=== PATIENT | male | born 1945 | race Hispanic/Latino ===

== ENCOUNTER 2021-03-07 06:34 | Day surgery (SDC) | payer MEDICARE ==
[2021-03-07] MEDS ORDERED: SODIUM CHLORIDE 0.9% 500 ML 500 ML IV SCH (08:00)
[2021-03-07 08:01] LABS: Hematocrit 44.9 % (35.5-45.6); Hemoglobin 15.6 gm/dl (11.8-15.2); Mean Corpuscular HGB Conc 35 % (32-34); Mean Corpuscular Volume 91 fl (84-94); Platelet Count 281 K/mm3 (140-440); Red Blood Count 4.93 M/mm3 (3.65-5.03); Red Cell Distribution Width 14.2 % (13.2-15.2)
[2021-03-07 08:12] LABS: INR 1.02 (0.87-1.13); Partial Thromboplastin Time 24.7 Sec. (24.2-36.6)
[2021-03-07] MEDS ORDERED: HEPARIN 10,000 UNITS/10 ML VIAL ONE (08:14)
[2021-03-07] MEDS ORDERED: HEPARIN/NS 5000 UNIT/500ML 1,000 ML IR ONE (08:14)
[2021-03-07] MEDS ORDERED: LIDOCAINE (2%) 20 MG/1 ML VIAL 20 ML MDV INFILTRATI ONE (08:15)
[2021-03-07] MEDS ORDERED: LIDOCAINE 1%/EPINEPHRINE 1:100,000 VIAL (20 ML) INFILTRATI ONE (08:16)
[2021-03-07] MEDS ORDERED: ceFAZolin/Water 2 GM/20 ML 2 GM/20 ML SYRINGE IV ONE (08:16)
[2021-03-07 08:25] LABS: Calcium 9.7 mg/dL (8.4-10.2)
[2021-03-07] MEDS ORDERED: ONDANSETRON 4 MG/2 ML INJ ONE ×2 (09:31→11:16)
[2021-03-07] MEDS: fentaNYL 100 MCG/2 ML INJ ONE ×5 (09:37→10:49)
[2021-03-07] MEDS: MIDAZOLAM 2 MG/2 ML INJ ONE ×4 (09:37→10:49)
[2021-03-07] MEDS ORDERED: VERAPAMIL 5 MG/2 ML INJ ONE (09:59)
[2021-03-07] MEDS ORDERED: NITROGLYCERIN SYRINGE 0 ML ONE (10:00)
[2021-03-07] MEDS ORDERED: MIDAZOLAM 2 MG/2 ML INJ ONE (10:03)
[2021-03-07] MEDS ORDERED: diphenhydrAMINE 50 MG/ML VIAL ONE (10:38)
[2021-03-07] MEDS ORDERED: ASPIRIN 81 MG TAB CHEW ONE (11:06)
[2021-03-07] MEDS ORDERED: CLOPIDOGREL 75 MG TAB ONE (11:06)
[2021-03-07] MEDS ORDERED: ALUM-MAG HYDROXIDE-SIMETHICONE 200-200-20MG/5ML ORAL LIQD 30 ML ONE (11:16)
--- NOTE | 2021-03-07 11:44 | Short Stay Summary ---
Short Stay Documentation Date of service: 03/07/21 Narrative H&P: 75-year-old male who presents with intermittent claudication status post diagnostic angiogram demonstrating severe bilateral arterial disease of the lower extremities. Plan for endovascular revascularization of the right lower extremity. Risks, benefits, and alternatives discussed. - History Principal diagnosis: Intermittent claudication of the bilateral lower extremities H&P: obtained from office - Allergies and Medications Current Medications: Allergies bee pollen Allergy (Verified 03/07/21 08:11) Swelling Home Medications Medication Instructions Recorded Confirmed Last Taken Type Atorvastatin [Lipitor Tab] 80 mg PO DAILY 03/07/21 03/07/21 03/06/21 History 80 mg Clopidogrel [Plavix] 75 mg PO QDAY 03/07/21 03/07/21 03/06/21 History 75 mg Fenofibrate 160 mg PO DAILY 03/07/21 03/07/21 03/06/21 History 160 mg Insulin Degludec [Tresiba 50 unit SQ DAILY 03/07/21 03/07/21 03/06/21 History Flextouch U-200] 50 units Losartan [Cozaar] 100 mg PO QDAY 03/07/21 03/07/21 03/06/21 History 100 mg Metoprolol [Lopressor] 100 mg PO DAILY 03/07/21 03/07/21 03/06/21 History 100 mg Quetiapine Fumarate [SEROquel] 50 mg PO DAILY 03/07/21 03/07/21 03/06/21 History 50 mg Semaglutide [Ozempic] 1 mg SQ 1XW 03/07/21 03/07/21 03/03/21 History 1 mg Tamsulosin [Flomax] 0.4 mg PO QDAY 03/07/21 03/07/21 03/06/21 History 0.4 mg Active Medications Sodium Chloride (Nacl 0.9% 500 Ml) 500 mls @ 50 mls/hr IV DIRECT FARRAH - Physical exam General appearance: no acute distress Lungs: Normal air movement Gastrointestinal: obese Extremities: no ischemia, no pulses intact, normal temperature, normal color - Brief post op/procedure progress note Date of procedure: 03/07/21 Pre-op diagnosis: Intermittent claudication of the lower extremities Post-op diagnosis: same Procedure: 1. Ultrasound-guided access of the left common femoral artery. 2. Angiography of the left lower extremity. 3. Selection of the abdominal aorta with angiography. 4. Selection of the right external iliac artery, common femoral artery, and superficial femoral artery with angiography of the right lower extremity. 5. Shockwave angioplasty of the right distal external iliac artery and distal common femoral artery and proximal common femoral artery with a 6 mm x 60 mm angioplasty balloon 6. Angioplasty of the right distal external iliac artery with a 6 mm x 150 mm iNPACT balloon 7. Angioplasty of the right distal common femoral artery and proximal superficial femoral artery with a 6 mm x 150 mm iNPACT balloon 8. Closure of the left common femoral artery with a 6 Upper Sorbian Angio-Seal Anesthesia: local (With conscious sedation) Surgeon: GEORGES RIDDLE Estimated blood loss: minimal Condition: stable - Hospital course Hospital course: Patient tolerated the procedure well. No immediate postprocedural complications. - Disposition Condition at discharge: Stable Disposition: [id number]-01 TO HOME OR SELFCARE - Discharge Diagnoses (1) Intermittent claudication of both lower extremities due to atherosclerosis Status: Acute (2) CAD (coronary artery disease) Status: Acute Short Stay Discharge Plan Activity: advance as tolerated (do not lift more than 10 lbs for 1 week) Weight Bearing Status: Weight Bear as Tolerated Diet: other (cardiac) Wound: keep clean and dry Additional Instructions: follow up with Primary Medical Doctor in 1 week, return to Emergency Room for m edical emergencies. Follow up with: PRIMARY CAREMD [Primary Care Provider] - 7 Days Forms: Post Arteriogram Instruct Prescriptions: cilostazoL [Pletal] 100 mg PO BID #60 tablet
--- NOTE | 2021-03-07 11:44 | Operative Report ---
Operative Report Operative Report: EXAM: 1. Ultrasound-guided access of the left common femoral artery. 2. Angiography of the left lower extremity. 3. Selection of the abdominal aorta with angiography. 4. Selection of the right external iliac artery, common femoral artery, and superficial femoral artery with angiography of the right lower extremity. 5. Shockwave angioplasty of the right distal external iliac artery and distal common femoral artery and proximal common femoral artery with a 6 mm x 60 mm angioplasty balloon 6. Angioplasty of the right distal external iliac artery with a 6 mm x 150 mm iNPACT balloon 7. Angioplasty of the right distal common femoral artery and proximal superficial femoral artery with a 6 mm x 150 mm iNPACT balloon 8. Closure of the left common femoral artery with a 6 Slovenian Angio-Seal DATE: 03/07/2021 TECHNOLOGY LEAD: GEORGES RIDDLE MD INDICATION: Severe worsening short distance claudication of the lower extremities. MEDICATIONS: Please see nursing report for full details. DEVICES: 6 mm x 150 mm iNPACT balloon 6 mm x 60 mm shockwave angioplasty balloon CONTRAST: Please see petroleum laboratory technician report PROCEDURE: The risks, benefits, and alternatives were discussed with the patient; written informed consent was obtained. The patient was brought to the angiography suite and the groins were prepped and draped in sterile fashion. The left common femoral artery was assessed with ultrasound was patent. Under direct ultrasound guidance, the left common femoral artery was accessed with a 21-gauge micropuncture needle. 0.018 inch wire was passed into the left iliac artery. Needle was exchanged for transitional dilator. Wire was exchanged for a 0.035 inch wire. Transitional dilator was exchanged for 5 Slovenian sheath. Digital subtraction angiography was performed demonstrating patency of the left common femoral artery, left profunda femoral artery, and occlusion of the entirety of the left superficial femoral artery. Catheter and wire were used to negotiate through the left iliac system which was quite tortuous and aneurysmal to the aorta. 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 The left internal iliac artery was patent. 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 The right proximal external iliac artery was tortuous with the distal portion of the vessel having a focal 80% narrowing. The right internal iliac artery was patent. The infrarenal abdominal aortic was patent. The right common femoral artery had degeneration and possibly changes secondary to prior endarterectomy. The right proximal profunda femoral artery was patent for the first few centimeters and then had a 90% narrowing. The distal right common femoral artery had a 70% narrowing. The right proximal superficial femoral artery had a 50% narrowing. The right mid superficial femoral artery had multiple areas of eccentric narrowing with a 80% narrowing and subsequent occlusion of the distal superficial femoral artery. Before the occlusion there was a collateral arising from the superficial femoral artery which had a 90% narrowing associated with it. There is occlusion of the hnjqi-efu-bjmu popliteal artery. There is late reconstitution of the mid popliteal artery. The proximal posterior tibial and peroneal vessel were visualized and patent. Patient was heparinized sheath was placed in the right external iliac artery and the wire and catheter were used to select the right superficial femoral artery. 7 mm spider embolic protection device was deployed. 6 mm x 60 mm shockwave ang ioplasty device was then used to perform angioplasty of the distal common femoral artery and proximal superficial femoral artery, and distal external iliac artery. Afterwards, the embolic protection device was retrieved and exchanged for a 0.035 inch wire. A 6 mm x 150 mm iNPACT balloon was then used to perform angioplasty of the proximal superficial femoral artery, distal common femoral artery, and distal external iliac artery. Digital subtraction angiography was performed demonstrating less than 10% residual narrowing of the distal external iliac artery and proximal superficial femoral artery and 30% residual narrowing of the distal common femoral artery. At this time, digital subtraction angiography was performed demonstrating no change in runoff. All wires, catheters, and sheaths were removed and 6 Slovenian Angio-Seal was used to close the left femoral arteriotomy. Patient tolerated the procedure well. No immediate postprocedural complications. FINDINGS: Please see procedure note above IMPRESSION: Successful angioplasty of the right external iliac artery. Successful angioplasty of the right common femoral artery and proximal superficial femoral artery.
[2021-03-07] MEDS ORDERED: CILOSTAZOL 100 MG TAB PO SCH (15:00)
[2021-03-07 15:30] VITALS: BP 113/68
== END 2021-03-07 06:35 | disposition home or self-care (01) ==
LOC: CATHLABREC 06:34
PROVIDERS: ATTEND Radiology Diagnostic Radiology
DX: I70.213 Atherosclerosis of native arteries of extremities with intermittent claudication, bilateral legs (principal); E11.51 Type 2 diabetes mellitus with diabetic peripheral angiopathy without gangrene; I10 Essential (primary) hypertension; I25.10 Atherosclerotic heart disease of native coronary artery without angina pectoris; G47.30 Sleep apnea, unspecified; E78.5 Hyperlipidemia, unspecified; I25.2 Old myocardial infarction; Z79.899 Other long term (current) drug therapy; Z98.890 Other specified postprocedural states
CPT/HCPCS: 36415; 37220; 37224; 75625; 75716; 76937; 80048; 82962; 85027; 85610; 85730; 99156; 99157; C1725; C1751; C1760; C1769; C1884; C1887; C2623; J0690; J1200; J1644; J2250; J2405; J3010; J7040; 37222; Q9967

== ENCOUNTER 2021-04-24 06:10 | Day surgery (SDC) | payer MEDICARE ==
[2021-04-24 07:56] LABS: Basophils # (Auto) 0.1 K/mm3 (0.0-0.1); Basophils % (Auto) 0.6 % (0.0-1.8); Eosinophils # (Auto) 0.3 K/mm3 (0.0-0.4); Eosinophils % (Auto) 3.2 % (0.0-4.3); Hematocrit 46.8 % (35.5-45.6); Hemoglobin 15.9 gm/dl (11.8-15.2); Lymphocytes # (Auto) 2.2 K/mm3 (1.2-5.4); Lymphocytes % (Auto) 24.1 % (13.4-35.0); Mean Corpuscular HGB Conc 34 % (32-34); Mean Corpuscular Volume 91 fl (84-94); Monocytes # (Auto) 0.8 K/mm3 (0.0-0.8); Platelet Count 262 K/mm3 (140-440); Red Blood Count 5.12 M/mm3 (3.65-5.03); Red Cell Distribution Width 13.4 % (13.2-15.2)
[2021-04-24] MEDS ORDERED: SODIUM CHLORIDE 0.9% 500 ML 500 ML IV SCH (08:00)
[2021-04-24 08:07] LABS: INR 0.94 (0.87-1.13)
[2021-04-24 08:08] LABS: Partial Thromboplastin Time 27.8 Sec. (24.2-36.6)
[2021-04-24 08:09] LABS: Calcium 9.9 mg/dL (8.4-10.2)
[2021-04-24] MEDS ORDERED: HEPARIN/NS 5000 UNIT/500ML 1,000 ML IR ONE ×2 (08:55→11:50)
[2021-04-24] MEDS ORDERED: LIDOCAINE 1%/EPINEPHRINE 1:100,000 VIAL (20 ML) INFILTRATI ONE (08:56)
[2021-04-24] MEDS ORDERED: ONDANSETRON 4 MG/2 ML INJ ONE ×2 (09:07→14:59)
[2021-04-24] MEDS: MIDAZOLAM 2 MG/2 ML INJ ONE ×6 (10:40→12:05)
[2021-04-24] MEDS: fentaNYL 100 MCG/2 ML INJ ONE ×6 (10:41→12:05)
[2021-04-24] MEDS: HEPARIN 10,000 UNITS/10 ML VIAL ONE ×4 (11:04→12:48)
[2021-04-24] MEDS: SODIUM CHLORIDE 0.9% 500 ML 500 ML ONE ×2 (11:30→12:48)
[2021-04-24] MEDS ORDERED: MIDAZOLAM 2 MG/2 ML INJ ONE (12:16)
[2021-04-24] MEDS ORDERED: fentaNYL 100 MCG/2 ML INJ ONE (12:17)
[2021-04-24] MEDS ORDERED: NITROGLYCERIN SYRINGE 0 ML ONE (12:28)
[2021-04-24] MEDS ORDERED: NITROGLYCERIN SYRINGE 6 ML ONE (12:29)
[2021-04-24] MEDS ORDERED: SODIUM CHLORIDE 0.9% 500 ML 500 ML ONE (12:36)
[2021-04-24] MEDS ORDERED: CLOPIDOGREL 75 MG TAB ONE (13:08)
[2021-04-24] MEDS ORDERED: ASPIRIN 81 MG TAB CHEW ONE (13:09)
[2021-04-24] MEDS ORDERED: ONDANSETRON 4 MG/2 ML INJ IV ONE (15:01)
[2021-04-24] MEDS ORDERED: NITROGLYCERIN 2% OINT 1 GM TP NR (15:04)
[2021-04-24] MEDS ORDERED: METOCLOPRAMIDE 10 MG/2 ML INJ IV ONE (15:06)
--- NOTE | 2021-04-24 15:16 | Short Stay Summary ---
Short Stay Documentation Date of service: 04/24/21 Narrative H&P: 75-year-old male who presents with intermittent claudication status post diagnostic angiogram demonstrating severe bilateral arterial disease of the lower extremities. Plan for endovascular revascularization of the right lower extremity. Risks, benefits, and alternatives discussed. - History Principal diagnosis: Intermittent claudication H&P: obtained from office - Allergies and Medications Current Medications: Allergies bee pollen Allergy (Verified 03/07/21 08:11) Swelling Home Medications Medication Instructions Recorded Confirmed Last Taken Type Atorvastatin [Lipitor Tab] 80 mg PO DAILY 03/07/21 04/24/21 04/23/21 History 80 mg Clopidogrel [Plavix] 75 mg PO QDAY 03/07/21 04/24/21 04/23/21 History 75 mg Fenofibrate 160 mg PO DAILY 03/07/21 04/24/21 04/23/21 History 160 mg Insulin Degludec [Tresiba 50 unit SQ DAILY 03/07/21 04/24/21 04/23/21 History Flextouch U-200] 50 units Losartan [Cozaar] 100 mg PO QDAY 03/07/21 04/24/21 04/23/21 History 100 mg Metoprolol [Lopressor] 100 mg PO DAILY 03/07/21 04/24/21 04/23/21 History 100 mg Quetiapine Fumarate [SEROquel] 50 mg PO DAILY 03/07/21 04/24/21 04/23/21 History 50 mg Semaglutide [Ozempic] 1 mg SQ 1XW 03/07/21 04/24/21 04/16/21 History 1 mg Tamsulosin [Flomax] 0.4 mg PO QDAY 03/07/21 04/24/21 04/23/21 History 0.4mg cilostazoL [Pletal] 100 mg PO BID #60 tablet 03/07/21 04/24/21 04/23/21 Rx 100 mg Aspirin EC [Halfprin EC] 81 mg PO DAILY 04/24/21 04/24/21 04/22/21 History 81 mg Active Medications Sodium Chloride (Nacl 0.9% 500 Ml) 500 mls @ 50 mls/hr IV DIRECT FARRAH Last Admin: 04/24/21 08:28 Dose: 50 mls/hr Documented by: - Physical exam General appearance: no acute distress Lungs: Normal air movement Gastrointestinal: normal Extremities: no pulses intact, normal temperature, normal color - Brief post op/procedure progress note Date of procedure: 04/24/21 Pre-op diagnosis: Intermittent claudication of the right lower extremity Post-op diagnosis: same Procedure: 1. Ultrasound-guided access of the right common femoral artery, antegrade. 2. Selection of the right superficial femoral artery with angiography of the right lower extremity. 3. 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 4. Selection of the right tibioperoneal trunk and peroneal artery with angiography. 5. Fluoroscopic guided placement of a 7 mm spider embolic protection device. 6. Atherectomy of the right proximal, mid, and distal superficial femoral artery with a Mobile System 7kone M device 7. Primary thrombectomy of the right popliteal artery and tibioperoneal trunk with a CAT 6 penumbra device 8. Angioplasty of the right tibioperoneal trunk, popliteal artery, and entire superficial femoral artery with a 4 mm x 220 mm angioplasty balloon 9. Angioplasty of the right tibioperoneal trunk with a 5 mm x 80 mm iNPACT balloon 10. Angioplasty of the popliteal artery and entire superficial femoral artery with a 6 mm x 220 mm angioplasty balloon 11. Fluoroscopic guided removal of the embolic protection device 12. Angioplasty of the right popliteal artery and superficial femoral artery with a 6 mm x 150 mm iNPACT balloon and 6 mm x 200 mm iNPACT balloon. Anesthesia: local (With conscious sedation) Surgeon: GEORGES RIDDLE Estimated blood loss: minimal Condition: stable - Hospital course Hospital course: Patient tolerated the procedure well. No immediate postprocedural complication. Patient had some nausea after procedure treated by Lisa. Doing well. Discharged 4 hours post procedure. - Disposition Condition at discharge: Stable Disposition: DC-01 TO HOME OR SELFCARE - Discharge Diagnoses (1) CAD (coronary artery disease) Status: Acute (2) Intermittent claudication of both lower extremities due to atherosclerosis Status: Acute (3) CKD (chronic kidney disease) Status: Acute Short Stay Discharge Plan Activity: advance as tolerated (Do not lift more than 10 pounds for 1 week.) Weight Bearing Status: Weight Bear as Tolerated (Do not lift more than 10 pounds for 1 week.) Diet: regular Wound: keep clean and dry (Remove pressure dressing on 04/25/2021 in AM) Follow up with: CHADWICK SANDERS PA [Primary Care Provider] - 7 Days
--- NOTE | 2021-04-24 15:18 | Operative Report ---
Operative Report Operative Report: EXAM: 1. Ultrasound-guided access of the right common femoral artery, antegrade. 2. Selection of the right superficial femoral artery with angiography of the right lower extremity. 3. 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 4. Selection of the right tibioperoneal trunk and peroneal artery with angiography. 5. Fluoroscopic guided placement of a 7 mm spider embolic protection device. 6. Atherectomy of the right proximal, mid, and distal superficial femoral artery with a Hawkone M device 7. Primary thrombectomy of the right popliteal artery and tibioperoneal trunk with a CAT 6 thrombectomy device 8. Angioplasty of the right tibioperoneal trunk, popliteal artery, and entire superficial femoral artery with a 4 mm x 220 mm angioplasty balloon 9. Angioplasty of the right tibioperoneal trunk with a 5 mm x 80 mm iNPACT balloon 10. Angioplasty of the popliteal artery and entire superficial femoral artery with a 6 mm x 220 mm angioplasty balloon 11. Fluoroscopic guided removal of the embolic protection device 12. Angioplasty of the right popliteal artery and superficial femoral artery with a 6 mm x 150 mm iNPACT balloon and 6 mm x 200 mm iNPACT balloon. 13. Stenting of the right [id number]-pvhi popliteal artery with a 7 mm x 40 mm ever flex stent and postdilatation with a 6 mm x 40 mm angioplasty balloon DATE: 04/24/2021 RN FAMILY: GEORGES RIDDLE MD INDICATION: Intermittent claudication of the right lower extremity MEDICATIONS: Please see nursing report for full details. DEVICES: Hawkone M device 7 mm spider EPD 4 mm x 220 mm angioplasty balloon 5 mm x 80 mm iNPACT balloon 6 mm x 150 mm iNPACT balloon 6 mm x 200 mm iNPACT balloon 6 mm x 40 mm angioplasty balloon 6 mm x 220 mm angioplasty balloon CAT-6 thrombectomy device 7 mm x 40 mm Everflex stent CONTRAST: Please see Analyst Programmer report for full details PROCEDURE: The risks, benefits, and alternatives were discussed with the patient; written informed consent was obtained. The groins were prepped and draped in sterile fashion in the right leg and foot was prepped and draped in a sterile fashion. Ultrasound was used to identify the right common femoral artery which was aneurysmal. Under direct ultrasound guidance, the right common femoral artery was accessed with a 21-gauge micropuncture needle and antegrade direction. 0.018 inch wire was passed into the superficial femoral artery. Needle was exchanged for transitional dilator. Wire was exchanged for a 0.035 inch wire. Transitional dilator was exchanged for 5 Ugandan sheath. Digital subtraction angiography was performed demonstrating After the first centimeter of the profunda femoral artery, there is a high-grade profunda artery stenosis of 80 to 90%. The proximal superficial femoral artery has a 70 to 90% tandem stenosis. The mid superficial femoral artery has a multifocal 50% narrowing. The distal superficial femoral artery has 80 to 90% multifocal narrowings. The above-knee popliteal artery and mid knee and popliteal artery are occluded. The below the knee popliteal artery is patent. There is a large collateral arising from the distalmost superficial femoral artery which is 90% stenotic at the origin. The runoff consists of an occluded anterior tibial artery, and a ostial narrowing of the tibioperoneal trunk with 60% stenosis. The posterior tibial artery has retrograde flow based on positioning of the catheter but other than the 95% ostial stenosis, the rest of the vessel is patent. Pedal flow is from the posterior tibial artery and some collaterals from the peroneal vessel. Patient was heparinized. Sheath was exchanged for a 6 Ugandan standard sheath. Wire and catheter were used in the past to the distal superficial femoral artery. Additional wires and catheters were used and negotiated through the chronic total occlusion and the popliteal artery was crossed. Digital subtraction angiography was performed confirming position in the popliteal artery and demonstrating the above-mentioned runoff. 7 mm spider embolic protection device was then deployed in the right peroneal artery. Due to the way the wire passed through the above-knee popliteal artery, there was concern that there is an ectatic portion of the vessel and I believe that there was some thrombotic component of the popliteal artery. CAT 6 thrombectomy device was advanced over the wire and used to perform thrombectomy of the popliteal artery which partially improved some of the flow. Afterwards, HawTethisne M atherectomy device was used to perform atherectomy of the right proximal, mid, and distal superficial femoral artery until there was 30 percent residual narrowing of these areas. I then predilated the tibioperoneal trunk, popliteal artery, and entire superficial femoral artery with a 4 mm x 220 mm angioplasty balloon. 5 mm x 80 mm iNPACT balloon was then used to perform angioplasty of the right tibioperoneal trunk. I then predilated the popliteal artery and superficial femoral artery with a 6 mm x 220 mm angioplasty balloon, and subsequently a 6 mm x 150 mm iNPACT balloon was used to perform angioplasty of the popliteal artery and distal superficial femoral artery, and subsequently a 6 mm x 200 mm iNPACT balloon was used to perform angioplasty of the right proximal and mid superficial femoral artery. In order to advance the iNPACT balloons, I then had to retrieve the embolic protection device which had some debris within it. This was replaced with a 0.035 inch Glidewire advantage. Digital subtraction angiography was performed demonstrating less than 20 percent residual narrowing of the right superficial femoral artery and less than 10 percent residual narrowing of the popliteal artery except for a focal area of the above-knee popliteal artery which appears dissected with flow-limiting dissection. 7 mm x 40 mm ever flex stent was then deployed in the right [id number] popliteal artery which was then postdilated with a 6 mm x 40 mm angioplasty balloon. Digital subtraction angiography demonstrated no residual narrowing of the stented segment. The popliteal artery now had less than 10 percent residual narrowing. The tibioperoneal trunk was difficult to visualize and I was concerned there may have been a small amount of thrombus that embolized to this area versus overlyi ng calcification. Thrombectomy was then performed of the tibioperoneal trunk with a CAT 6 device. Digital subtraction angiography was then performed in multiple directions demonstrating less than 10 to 20 percent residual narrowing of the tibioperoneal trunk. There is no embolization to the peroneal artery. There is now prompt flow to the calf. No change with distal runoff. At this point, all wires, and catheters were removed. ACT was checked and was appropriate for removal. Sheath was removed and pressure was held until hemostasis was achieved. Sterile dressing and pressure dressing applied. FINDINGS: Please see procedure note above IMPRESSION: 1. Successful angioplasty of the right tibioperoneal trunk. 2. Successful angioplasty, atherectomy, and stenting of the right superficial femoral artery and popliteal artery. 3. Successful primary thrombectomy of the right popliteal artery and tibioperoneal trunk.
[2021-04-24 17:13] VITALS: BP 111/63
== END 2021-04-24 18:14 | disposition home or self-care (01) ==
LOC: CATHLABREC 06:10
PROVIDERS: ATTEND Radiology Diagnostic Radiology
DX: I70.211 Atherosclerosis of native arteries of extremities with intermittent claudication, right leg (principal); E11.51 Type 2 diabetes mellitus with diabetic peripheral angiopathy without gangrene; I12.9 Hypertensive chronic kidney disease with stage 1 through stage 4 chronic kidney disease, or unspecified chronic kidney disease; E11.22 Type 2 diabetes mellitus with diabetic chronic kidney disease; N18.9 Chronic kidney disease, unspecified; E78.00 Pure hypercholesterolemia, unspecified; I25.10 Atherosclerotic heart disease of native coronary artery without angina pectoris; G47.30 Sleep apnea, unspecified; M19.90 Unspecified osteoarthritis, unspecified site; Z91.030 Bee allergy status; Z79.899 Other long term (current) drug therapy; Z79.4 Long term (current) use of insulin; Z79.82 Long term (current) use of aspirin; Z95.1 Presence of aortocoronary bypass graft; Z98.890 Other specified postprocedural states
CPT/HCPCS: 36415; 37184; 37227; 37228; 76937; 80048; 85025; 85610; 85730; 99156; 99157; C1714; C1725; C1769; C1876; C1884; C1887; C1894; C2623; J1644; J2250; J2405; J2765; J3010; J7040; 96374; 96375; Q9967

== ENCOUNTER 2021-08-14 08:28 | Inpatient (IN) | payer MEDICARE ==
[2021-08-14] MEDS ORDERED: SODIUM CHLORIDE 0.9% 1000 ML 1,000 ML IV SCH ×2 (09:15→22:00)
[2021-08-14 10:02] LABS: Basophils % (Auto) 0.5 % (0.0-1.8); Eosinophils # (Auto) 0.3 K/mm3 (0.0-0.4); Eosinophils % (Auto) 3.8 % (0.0-4.3); Hematocrit 42.7 % (35.5-45.6); Hemoglobin 14.8 gm/dl (11.8-15.2); Lymphocytes # (Auto) 1.9 K/mm3 (1.2-5.4); Mean Corpuscular HGB Conc 35 % (32-34); Mean Corpuscular Volume 90 fl (84-94); Monocytes # (Auto) 0.7 K/mm3 (0.0-0.8); Monocytes % (Auto) 9.6 % (0.0-7.3); Platelet Count 277 K/mm3 (140-440); Red Blood Count 4.73 M/mm3 (3.65-5.03); Red Cell Distribution Width 14.2 % (13.2-15.2)
[2021-08-14 10:18] LABS: Calcium 9.3 mg/dL (8.4-10.2)
[2021-08-14 10:20] LABS: INR 1.12 (0.87-1.13); Partial Thromboplastin Time 26.4 Sec. (24.2-36.6)
[2021-08-14] MEDS ORDERED: ALTEPLASE 2 MG INJ ONE ×4 (10:24→13:53)
[2021-08-14] MEDS ORDERED: HEPARIN/NS 5000 UNIT/500ML 1,000 ML IR ONE ×2 (10:25→15:11)
[2021-08-14] MEDS ORDERED: SODIUM CHLORIDE 0.9% 1000 ML 0 ML ONE (10:28)
[2021-08-14] MEDS ORDERED: HEPARIN/ 0.45% NACL DRIP 0 UNIT/0 ML BAG ONE (10:33)
[2021-08-14] MEDS ORDERED: ceFAZolin/Water 2 GM/20 ML 2 GM/20 ML SYRINGE IV ONE (10:42)
[2021-08-14] MEDS ORDERED: WATER FOR INJ Sterile (PF) 10 ML ONE ×2 (10:46→12:52)
--- NOTE | 2021-08-14 11:14 | Short Stay Summary ---
Short Stay Documentation Date of service: 08/14/21 Narrative H&P: 76-year-old male who presents with acute limb ischemia Moiz 2A for 2 weeks for thrombolysis. - History Principal diagnosis: acute limb ischemia H&P: obtained from office - Allergies and Medications Current Medications: Allergies bee pollen Allergy (Verified 03/07/21 08:11) Swelling Home Medications Medication Instructions Recorded Confirmed Last Taken Type Atorvastatin [Lipitor Tab] 80 mg PO DAILY 03/07/21 08/14/21 08/13/21 History Clopidogrel [Plavix] 75 mg PO QDAY 03/07/21 08/14/21 08/14/21 History Fenofibrate 160 mg PO DAILY 03/07/21 08/14/21 08/14/21 History Insulin Degludec [Tresiba 50 unit SQ DAILY 03/07/21 08/14/21 08/13/21 History Flextouch U-200] Losartan [Cozaar] 100 mg PO QDAY 03/07/21 08/14/21 08/14/21 History Metoprolol [Lopressor] 100 mg PO DAILY 03/07/21 08/14/21 08/14/21 History Quetiapine Fumarate [SEROquel] 50 mg PO DAILY 03/07/21 08/14/21 08/13/21 History Semaglutide [Ozempic] 1 mg SQ 1XW 03/07/21 08/14/21 08/13/21 History Tamsulosin [Flomax] 0.4 mg PO QDAY 03/07/21 08/14/21 08/13/21 History Aspirin EC [Halfprin EC] 81 mg PO DAILY 04/24/21 08/14/21 08/13/21 History Cetirizine HCl [Zyrtec 10mg tab] 10 mg PO DAILY 08/14/21 08/14/21 08/13/21 History Active Medications Sodium Chloride (Nacl 0.9% 1000 Ml) 1,000 mls @ 42 mls/hr IV DIRECT FARRAH - Physical exam General appearance: severe distress (Right leg pain) Lungs: Normal air movement Gastrointestinal: normal Extremities: abnormal (Cool right foot, numbness of forefoot, can move toes) - Hospital course Hospital course: 1. Ultrasound-guided access of the right common femoral artery, antegrade, with attempted selection of the right superficial femoral artery. 2. Angiography of the right lower extremity. 3. Selection of the left common femoral artery with angiography of the left lower extremity. 4. Selection of the abdominal aorta with angiography. 5. Selection of the right external iliac artery, and common femoral artery with angiography. 6. Percutaneous mechanical thrombectomy of the right common femoral artery with 6 Azeri guide and CAT 7 penumbra indigo device 7. Angioplasty of the right profunda femoral artery with a 5 mm by 60 mm shockwave device and stenting with a 6 mm x 40 mm ever flex stent. 8. Angioplasty of the right common femoral artery with a 6 mm x 40 mm angioplas ty balloon. 9. Repeat CAT 7 penumbra indigo aspiration thrombectomy of the right common femoral artery and profunda femoral artery multiple times. 10. Removal of both sheaths with plan for operative treatment. 11. Ultrasound-guided access of the right internal jugular vein with placement of a 15 cm triple-lumen catheter After endovascular procedure, patient required emergency open surgery which is described in a separate area. - Disposition Disposition: 01 HOME / SELF CARE / HOMELESS - Discharge Diagnoses (1) Rest pain of right lower extremity concurrent with and due to atherosclerosis of bypass graft Status: Acute Short Stay Discharge Plan Follow up with: CHADWICK SANDERS PA [Primary Care Provider] - 7 Days
[2021-08-14] MEDS ORDERED: ONDANSETRON 4 MG/2 ML INJ ONE ×3 (11:18→21:31)
[2021-08-14] MEDS ORDERED: HYDROcodone/ACETAMINOPHEN 7.5-325MG TAB PO PRN (11:30)
[2021-08-14] MEDS ORDERED: ACETAMINOPHEN 325 MG TAB PO PRN ×2 (11:30→22:00)
[2021-08-14] MEDS: fentaNYL 100 MCG/2 ML INJ ONE ×2 (11:33→12:01)
[2021-08-14] MEDS: MIDAZOLAM 2 MG/2 ML INJ ONE ×2 (11:33→12:01)
[2021-08-14] MEDS: LIDOCAINE (2%) 20 MG/1 ML VIAL 20 ML MDV INFILTRATI ONE ×2 (11:36→12:24)
[2021-08-14] MEDS ORDERED: ONDANSETRON 4 MG/2 ML INJ IV PRN ×3 (12:00→22:00)
[2021-08-14] MEDS ORDERED: HYDROcodone/ACETAMINOPHEN 5-325 MG TAB PO PRN (12:00)
[2021-08-14] MEDS: HEPARIN 10,000 UNITS/10 ML VIAL ONE ×2 (12:05→12:35)
[2021-08-14] MEDS ORDERED: MIDAZOLAM 2 MG/2 ML INJ ONE ×2 (12:30→13:12)
[2021-08-14] MEDS ORDERED: fentaNYL 100 MCG/2 ML INJ ONE ×2 (12:30→13:13)
[2021-08-14] MEDS ORDERED: HEPARIN/NS 5000 UNIT/500ML 500 ML IR ONE ×2 (12:54→13:20)
[2021-08-14] MEDS ORDERED: ALTEPLASE 2 MG INJ IV ONE (13:09)
[2021-08-14] MEDS ORDERED: MIDAZOLAM 2 MG/2 ML INJ IV ONE (13:14)
[2021-08-14] MEDS ORDERED: fentaNYL 100 MCG/2 ML INJ IV ONE (13:15)
[2021-08-14] MEDS ORDERED: HEPARIN 10,000 UNITS/10 ML VIAL ONE ×3 (14:08→17:15)
[2021-08-14] MEDS ORDERED: SODIUM CHLORIDE 0.9% 1000 ML 1,000 ML ONE ×4 (14:27→20:50)
[2021-08-14] MEDS ORDERED: LIDOCAINE (2%) 20 MG/1 ML VIAL 20 ML MDV INFILTRATI ONE (15:11)
[2021-08-14] MEDS ORDERED: NITROGLYCERIN SYRINGE 3 ML ONE (15:11)
[2021-08-14] MEDS ORDERED: VERAPAMIL 5 MG/2 ML INJ ONE (15:11)
[2021-08-14] MEDS ORDERED: PHENYLEPHRINE/NS 1,000 MCG/10 ML SYRINGE (OR USE) IV ONE ×3 (15:19→16:33)
--- NOTE | 2021-08-14 16:39 | Post Operative Note ---
Date of procedure: 08/14/21 Pre-op diagnosis: critical limb ischemia Post-op diagnosis: same Findings: Occluded right superficial femoral artery, and popliteal artery with thrombus in the right common femoral artery. Percutaneous thrombectomy performed but was only partially successful and ultimately resulted in reocclusion. Procedure: 1. Ultrasound-guided access of the right common femoral artery, antegrade, with attempted selection of the right superficial femoral artery. 2. Angiography of the right lower extremity. 3. Selection of the left common femoral artery with angiography of the left lower extremity. 4. Selection of the abdominal aorta with angiography. 5. Selection of the right external iliac artery, and common femoral artery with angiography. 6. Percutaneous mechanical thrombectomy of the right common femoral artery with 6 Estonian guide and CAT 7 penumbra indigo device 7. Angioplasty of the right profunda femoral artery with a 5 mm by 60 mm shockwave device and stenting with a 6 mm x 40 mm ever flex stent. 8. Angioplasty of the right common femoral artery with a 6 mm x 40 mm angioplasty balloon. 9. Repeat CAT 7 penumbra indigo aspiration thrombectomy of the right common femoral artery and profunda femoral artery multiple times. 10. Removal of both sheaths with plan for operative treatment. 11. Ultrasound-guided access of the right internal jugular vein with placement of a 15 cm triple-lumen catheter Anesthesia: local (With conscious sedation) Surgeon: GEORGES RIDDLE Estimated blood loss: other (750 mL blood loss from penumbra device) Condition: stable Disposition: other (to OR)
[2021-08-14] MEDS ORDERED: HYDROmorphone 1 MG/1 ML INJ ONE (16:50)
[2021-08-14] MEDS ORDERED: ETOMIDATE 20 MG/10 ML INJ IV ONE (16:52)
[2021-08-14] MEDS ORDERED: LIDOCAINE MPF (2%) 20 MG/1 ML VIAL 5 ML ONE (16:53)
[2021-08-14 17:06] LABS: Hematocrit 37.9 % (35.5-45.6); Hemoglobin 12.8 gm/dl (11.8-15.2)
--- NOTE | 2021-08-14 17:06 | XRay Report ---
CHEST 1 VIEW 08/14/2021 4:40 PM INDICATION / CLINICAL INFORMATION: central line placement. COMPARISON: None available. FINDINGS: SUPPORT DEVICES: A right internal jugular CVL terminates over the distal SVC. HEART / MEDIASTINUM: Normal size of the cardiac silhouette with sternotomy changes. There is moderate aortic atherosclerosis. LUNGS / PLEURA: The left hemidiaphragm is elevated with probable left basilar atelectasis. No other s ignificant pulmonary abnormality. No significant pleural effusion. No pneumothorax. ADDITIONAL FINDINGS: No significant additional findings. IMPRESSION: 1. Expected positioning of a right internal jugular CVL. 2. Probable left basilar atelectasis. Signer Name: Andrea Man MD Signed: 08/14/2021 5:02 PM Workstation Name: [id number]
[2021-08-14] MEDS ORDERED: rifAMPin 600 MG VIAL ONE (17:16)
[2021-08-14] MEDS ORDERED: SODIUM CHLORIDE 0.9% 250ML 0 ML ONE (17:17)
[2021-08-14] MEDS ORDERED: BUPIVACAINE/PF (0.5%) 5 MG/1 ML 30 ML VIAL INFILTRATI ONE ×4 (17:17→21:04)
[2021-08-14] MEDS ORDERED: ROCURONIUM 50 MG/5 ML INJ IV ONE ×2 (18:01→19:36)
[2021-08-14] MEDS ORDERED: ceFAZolin 1 GM VIAL ONE ×2 (18:22)
--- NOTE | 2021-08-14 18:36 | Anesthesia Consultation ---
Anesthesia Consult and Med Hx Date of service: 08/14/21 - Airway Anesthetic Teeth Evaluation: Poor ROM Head & Neck: Adequate Mental/Hyoid Distance: Inadequate Mallampati Class: Class III Intubation Access Assessment: Possibly Difficult - Pre-Operative Health Status ASA Pre-Surgery Classification: ASA3, Emergency Proposed Anesthetic Plan: General - Pulmonary Hx Smoking: Yes Hx Respiratory Symptoms: No Hx Sleep Apnea: Yes - Cardiovascular System Hx Hypertension: Yes Hx Coronary Artery Disease: Yes (remote hx CABG) Hx Heart Attack/AMI: Yes (remote hx; EF 30% per manufacturing automation engineer) Hx Cardia Arrhythmia: No Hx Peripheral Vascular Disease: Yes (w/ acute limb ischemia) - Central Nervous System CVA: No - Endocrine Hx Renal Disease: Yes Hx Liver Disease: No Hx Insulin Dependent Diabetes: Yes Hx Thyroid Disease: No - Hematic Hx Anemia: No - Other Systems Hx Obesity: Yes (BMI 36) - Additional Comments Anesthesia Medical History Comments: Patient w/ acute limb inschemia s/p unsuccessful revascularization in optical laboratory manager now scheduled for emergent bypass in OR. Patient received IV sedation in optical laboratory manager so anesthetic plan discussed with and consent obtained from Hien Cornejo (daughter/NOK). Plan GETA, CVC previously placed by IR, post op ICU admission.
[2021-08-14] MEDS ORDERED: HYDROmorphone 1 MG/1 ML INJ IV PRN (18:40)
--- NOTE | 2021-08-14 18:40 | Anesthesia Day of Surgery ---
Anesthesia Day of Surgery - Day of Surgery Patient Examined: Yes Patient H&P Reviewed: Yes Patient is NPO: Yes
[2021-08-14] MEDS ORDERED: ePHEDrine SULFATE 50 MG/1 ML INJ ONE (18:46)
[2021-08-14] MEDS ORDERED: PHENYLEPHRINE 10 MG/1 ML INJ SDV ONE ×2 (18:50→20:50)
[2021-08-14] MEDS ORDERED: HEPARIN 10,000 UNITS/10 ML VIAL IR ONE (18:54)
[2021-08-14] MEDS ORDERED: SODIUM CHLORIDE 0.9% 1000 ML IV SOLN IR ONE (18:55)
[2021-08-14] MEDS ORDERED: SODIUM CHLORIDE 0.9% IRR 1,500 ML BOTTLE IR ONE (18:55)
--- NOTE | 2021-08-14 19:03 | History and Physical Report ---
History of Present Illness Date of examination: 08/14/21 Date of admission: 08/14/21 11:19 Chief complaint: Ischemic right lower extremity History of present illness: 76-year-old male with past medical history of diabetes, coronary artery disease, hyperlipidemia, hypertension, PVD, sleep apnea, chronic renal insufficiency and hypercholesterolemia who is status post myocardial infarction in the past and bypass in 1985 and cholecystectomy who has underwent endovascular revascularization by Dr. Dukes and was then set up for endovascular revascularization by myself which was successfully performed approximately 3 months ago. The patient now presents with 2 weeks of acute limb ischemia with [place] 2A which has been stable for the last 2 weeks. He has forefoot numbness, but has full motor function of his toes, and has rest pain. Earlier today the patient underwent attempted endovascular revascularization. Unfortunately, the patient's symptoms persist and he will require emergent bypass as his aneurysmal right common femoral artery occluded. Plan for right common femoral artery resection and replacement and femoral tibioperoneal trunk bypass. Risks, benefits, and alternatives discussed with patient and his daughter, consent was obtained. Past History Past Medical History: acute [place], CAD, diabetes, hypertension, hyperlipidemia, PVD Past Surgical History: cholecystectomy, CABG Social history: smoking Family history: no significant family history Medications and Allergies Allergies Allergy/AdvReac Type Severity Reaction Status Date / Time bee pollen Allergy Swelling Verified 03/07/21 08:11 Home Medications Medication Instructions Recorded Confirmed Last Taken Type Atorvastatin [Lipitor Tab] 80 mg PO DAILY 03/07/21 08/14/21 08/13/21 History Clopidogrel [Plavix] 75 mg PO QDAY 03/07/21 08/14/21 08/14/21 History Fenofibrate 160 mg PO DAILY 03/07/21 08/14/21 08/14/21 History Insulin Degludec [Tresiba 50 unit SQ DAILY 03/07/21 08/14/21 08/13/21 History Flextouch [id number]] Losartan [Cozaar] 100 mg PO QDAY 03/07/21 08/14/21 08/14/21 History Metoprolol [Lopressor] 100 mg PO DAILY 03/07/21 08/14/21 08/14/21 History Quetiapine Fumarate [SEROquel] 50 mg PO DAILY 03/07/21 08/14/21 08/13/21 History Semaglutide [Ozempic] 1 mg SQ 1XW 03/07/21 08/14/21 08/13/21 History Tamsulosin [Flomax] 0.4 mg PO QDAY 03/07/21 08/14/21 08/13/21 History Aspirin EC [Halfprin EC] 81 mg PO DAILY 04/24/21 08/14/21 08/13/21 History Cetirizine HCl [Zyrtec 10mg tab] 10 mg PO DAILY 08/14/21 08/14/21 08/13/21 History Active Meds: Active Medications Acetaminophen (Acetaminophen 325 Mg Tab) 650 mg PO Q4H PRN PRN Reason: Pain MILD(1-3)/Fever >100.5/ALICIA Hydrocodone Bitart/Acetaminophen (Hydrocodone/Acetaminophen 5-325 Mg Tab) 1 each PO Q6H PRN PRN Reason: Pain, Moderate (4-6) Hydrocodone Bitart/Acetaminophen (Hydrocodone/Acetaminophen 7.5-325mg Tab) 1 each PO Q4H PRN PRN Reason: Pain , Severe (7-10) Hydromorphone HCl (Hydromorphone 1 Mg/1 Ml Inj) 0.5 mg IV Q10MIN PRN PRN Reason: Pain , Severe (7-10) Sodium Chloride (Nacl 0.9% 1000 Ml) 1,000 mls @ 42 mls/hr IV DIRECT FARRAH Ondansetron HCl (Ondansetron 4 Mg/2 Ml Inj) 4 mg IV Q8H PRN PRN Reason: Nausea And Vomiting Ondansetron HCl (Ondansetron 4 Mg/2 Ml Inj) 4 mg IV ONCE PRN PRN Reason: Nausea And Vomiting Sodium Chloride (Sodium Chloride 0.9% 10 Ml Flush Syringe) 10 ml IV BID FARRAH Sodium Chloride (Sodium Chloride 0.9% 10 Ml Flush Syringe) 10 ml IV PRN PRN PRN Reason: LINE FLUSH Review of Systems All systems: negative (see HPI) Exam - Constitutional Vitals: Temp Pulse Resp BP Pulse Ox 98.3 F 67 14 106/61 96 08/14/21 09:35 08/14/21 17:30 08/14/21 17:30 08/14/21 17:30 08/14/21 17:30 General appearance: Present: severe distress (Right lower extremity pain) - EENT Eyes: Present: EOM intact ENT: hearing intact - Neck Neck: Present: supple - Respiratory Respiratory effort: normal - Extremities Extremities: abnormal (Right forefoot cool, toes becoming dusky, motor function intact, toes numb) - Abdominal General gastrointestinal: Present: soft, non-tender - Psychiatric Psychiatric: appropriate mood/affect, cooperative Results - Labs CBC & Chem 7: 08/14/21 16:45 08/14/21 09:37 Labs: Abnormal lab results 08/14/21 08/14/21 08/14/21 Range/Units 09:37 09:37 09:37 MCHC 35 H (32-34) % [place] % (Auto) 9.6 H (0.0-7.3) % BUN 23 H (9-20) mg/dL Crossmatch See Detail Assessment and Plan 76-year-old male with past medical history of coronary issues with acute limb ischemia of the right lower extremity which failed endovascular revascularization and now requires urgent/emergent open revascularization. Risks, benefits, and alternatives discussed, patient and family agree. Plan for surgery today with possible fasciotomies.
[2021-08-14] MEDS ORDERED: SODIUM CHLORIDE P/F VIAL 10 ML 10 ML ONE (19:48)
[2021-08-14] MEDS ORDERED: SODIUM CHLORIDE 0.9% P/F 10 ML VIAL IV ONE (20:08)
[2021-08-14] MEDS ORDERED: rifAMPin 600 MG VIAL IV ONE (20:09)
[2021-08-14] MEDS ORDERED: SODIUM CHLORIDE 0.9% 200 ML ONE (20:50)
[2021-08-14] MEDS ORDERED: DEXTROSE 50% IN WATER (25GM) 50 ML SYRINGE IV ONE (20:51)
[2021-08-14] MEDS ORDERED: LACTATED RINGERS 1,000 ML ONE (20:56)
[2021-08-14] MEDS ORDERED: NEOSTIGMINE 10MG/10 ML INJ MDV ONE (21:27)
[2021-08-14] MEDS ORDERED: GLYCOPYRROLATE 0.4 MG/2 ML INJ ONE (21:27)
--- NOTE | 2021-08-14 22:00 | Operative Report ---
Operative Report Operative Report: Date of Procedure: 08/14/2021 Pre-operative Diagnosis: Acute Right Lower Extremity Ischemia Post-operative Diagnosis: Same Procedure(s): 1. Right External Iliac to Right Common Femoral Bypass with 10 mm Propaten PTFE Graft 2. Open Thrombectomy of Right Profunda Graft with 3 Jose Surgeon: Cricket Romero M.D. 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 The SFA was occluded secondary to heavy plaque burden and the profunda was near totally occluded secondary to the mural thrombus and significant plaque burden extending into the branches of the profunda. 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 Indication: The patient is a 76-year-old male with a history of arteriomegaly and diffuse aneurysmal disease who presented to the office with critical limb ischemia. He was undergoing an endovascular procedure to restore flow to his right lower extremity became acutely ischemic. Given his history of a common femoral aneurysm with occlusion of his SFA it was felt that his best outcome would be achieved in the operating room. The decision was made to transport him to the operating room for limb salvage. He and his daughter were given the risk, benefits, and alternative procedures and consented to the procedure. Description of Procedure: The patient was brought to the operating room and laid in supine position. After a timeout was performed general endotracheal anesthesia was achieved and the patient's right leg and groin were prepped and draped in normal sterile fashion. A longitudinal incision was created in the right groin and carried down to the anterior abdominal wall using a combination of cautery and sharp dissection. Once the anterior abdominal wall was identified I followed this down to the common femoral artery and dissected slightly under the inguinal ligament to identify the distal external iliac artery. The distal external iliac artery was also aneurysmal however not as dilated as the common femoral artery. I dissected circumferentially around the external iliac artery and controlled this with a vessel loop. I dissected along the medial aspect of the common femoral artery until I identified the transition to the SFA and then I dissected the SFA circumferentially controlled with a vessel loop. I then identified the profunda artery and dissected down to the first branching points of the profunda artery. I dissected each branch circumferentially controlled them with Vesseloops. At this point I systemically heparinized the patient with 5000 units of heparin IV and this was redosed with 1000 units every 45 minutes into the completion of the case. I clamped all vessels using various vascular clamps and then created an arteriotomy, using an 11 blade and Alvarez scissors, extending from the proximal common femoral artery to just proximal to the bifurcation of the SFA and profunda artery. Upon creating the arteriotomy there was a significant amount of mural thrombus with obliteration of the lumen of the common femoral artery from the thrombus. Identified a previously placed stent within the profunda artery and remove this. The origin of the SFA was occluded with plaque which I was able to core out and remove the first 4 to 5 cm of plaque using a Shelby and hemostat. I then used a Shelby to begin to remove plaque from the wall of the common femoral artery, with a plan to leave the back wall and use a bypass graft to close the femoral arteriotomy as my plan was to perform a femoral to below-knee popliteal artery bypass. As I continued the removal of the plaque towards the profunda artery there was near total occlusion of the origin of the profunda artery and the heavily calcified plaque extended down into each branch of the profunda artery however the not appear to extend distal to the origin of the branches. I used Alvarez to extend the arteriotomy down to the branching point of the profunda artery and used a Shelby to continue the endarterectomy until I had debulk all plaque from both branches. I removed the clamps and there was minimal backbleeding from each branch. I passed a 3 Jose down each branch respectively and after retrieving thrombus both branches had a significant amount of backbleeding. I flushed each branch with heparinized saline and reclamped the branches. Given the amount of backbleeding and the size of the profunda artery which was approximately 10 mm with each branch measuring approximately 5 to 6 mm I decided that it was best to replace the common femoral artery with a tube graft instead of attempting the femoropopliteal bypass as I felt this would have better patency. I resected the common femoral artery and debulked all plaque and mural thrombus from the distal external iliac artery. I then used a 7 mm ringed Propaten PTFE Graft that had been soaked in rifampin. I remove the rings and cut an adequate length for plac ement of the common femoral artery. I beveled the proximal end of the graft and created an end-to-end anastomosis between the graft and the distal external iliac artery using two 5-0 Prolene's in running fashion. I clamped the end of the graft and remove the clamp from the external iliac artery to check hemostasis. I then cut the graft to length and beveled the distal end and created an end-to-end anastomosis between the graft and the bifurcation of the SFA and profunda artery using two 5-0 Prolene's in running fashion. Prior to completing the closure I flashed the profunda artery as well as the external iliac artery. There was also a medial sidebranch that I left intact that was flashed. I reclamped those vessels and then flushed the graft to remove any debris. I completed the closure and then released all clamps allowing flow into the profunda artery. Hemostasis within the wound was achieved with a combination of 6-0 Prolene's on the suture lines, quick clot, and VistaSeal. Once hemostasis was achieved the wound was anesthetized with 0.5% Marcaine. The wound was then closed in 3 layers using 3-0 Vicryl running fashion to reapproximate the fascia, 3-0 Vicryl running fashion the deep dermal layer, and 4-0 Monocryl in running fashion subcuticular layer. The wound was dressed with Dermabond. The patient tolerated the procedure well. All sponge, needle, and instrument counts were correct. The patient was taken to the recovery area in stable condition.
[2021-08-14] MEDS ORDERED: SODIUM CHLORIDE 0.9% 500 ML 500 ML IV ONE (22:02)
[2021-08-14] MEDS ORDERED: NALOXONE 0.4 MG/1 ML INJ IV PRN (22:07)
[2021-08-14] MEDS ORDERED: PHENYLEPHRINE 100 MG in SODIUM CHLORIDE 0.9% 90 ML IV SCH (22:15)
[2021-08-15] MEDS ORDERED: HEPARIN/ 0.45% NACL DRIP 0 UNIT/0 ML BAG ONE (00:03)
[2021-08-15] MEDS: ceFAZolin/NS 1 GM/50 ML 1 GM/50 ML BAG IV SCH ×2 (03:29→09:10)
[2021-08-15 05:22] LABS: Basophils % (Auto) 0.3 % (0.0-1.8); Eosinophils % (Auto) 0.5 % (0.0-4.3); Hematocrit 35.8 % (35.5-45.6); Hemoglobin 12.2 gm/dl (11.8-15.2); Lymphocytes # (Auto) 1.2 K/mm3 (1.2-5.4); Lymphocytes % (Auto) 12.6 % (13.4-35.0); Mean Corpuscular HGB Conc 34 % (32-34); Mean Corpuscular Volume 92 fl (84-94); Monocytes # (Auto) 0.8 K/mm3 (0.0-0.8); Monocytes % (Auto) 8.1 % (0.0-7.3); Platelet Count 225 K/mm3 (140-440); Red Blood Count 3.88 M/mm3 (3.65-5.03); Red Cell Distribution Width 14.8 % (13.2-15.2)
[2021-08-15 05:38] LABS: Calcium 7.9 mg/dL (8.4-10.2)
[2021-08-15] MEDS: CLOPIDOGREL 75 MG TAB PO SCH (09:11)
[2021-08-15] MEDS: FENOFIBRATE 145 MG TAB PO SCH (09:11)
[2021-08-15] MEDS: PANTOPRAZOLE 40 MG TAB PO SCH (09:11)
[2021-08-15] MEDS: TAMSULOSIN 0.4 MG CAP PO SCH (09:11)
[2021-08-15] MEDS: APIXABAN 2.5 MG TAB PO SCH ×2 (09:11→21:08)
[2021-08-15] MEDS: INSULIN LISPRO 100 UNIT/ML SUB-Q SCH ×4 (09:12→21:44)
--- NOTE | 2021-08-15 09:25 | Post Anesthesia Evaluation ---
- Post Anesthesia Evaluation Patient Participated: Yes Airway Patent: Yes Stable Respiratory Function: Yes Nausea/Vomiting: No Temp > 96.8F: Yes Pain Manageable: Yes Adequeate Hydration: No Anesthesia Complications: No Other Comments: Late entry; patient evaluated prior to transfer from PACU 08/14/21. A&O x3, pain well controlled. BP supported with phenylephrine gtt. Hypotension likely 2/2 acute blood loss, pRBCs transfusing and additional units ordered as needed. Patient appropriate for transfer at time of d/c from PACU.
[2021-08-15] MEDS ORDERED: FLU VACC QUAD 2021-22(6MOS UP)/PF 60 MCG/0.5 ML SYRINGE IM ONE ×2 (10:00→18:10)
[2021-08-15] MEDS ORDERED: LOSARTAN 50 MG TAB PO SCH (10:00)
[2021-08-15] MEDS ORDERED: NON-FORMULARY EACH (Atorvastatin [Lipitor] 80 MG Tablet) PO SCH (10:00)
[2021-08-15] MEDS ORDERED: NON-FORMULARY EACH (Fenofibrate [Fenofibrate] 160 MG Tablet) PO SCH (10:00)
[2021-08-15] MEDS ORDERED: INSULIN DEGLUDEC 200 UNIT/ML SQ SCH (10:00)
[2021-08-15] MEDS ORDERED: NON-FORMULARY EACH (Losartan [Cozaar] 100 MG Tablet) PO SCH (10:00)
[2021-08-15] MEDS ORDERED: INSULN SQ SCH (10:00)
[2021-08-15] MEDS ORDERED: ASPIRIN EC 81 MG TAB PO SCH (10:00)
[2021-08-15] MEDS ORDERED: METOPROLOL TARTRATE 100 MG TAB PO SCH (10:00)
[2021-08-15] MEDS: INSULIN GLARGINE 100 UNITS/ML SUB-Q SCH (10:06)
[2021-08-15] MEDS: CILOSTAZOL 100 MG TAB PO SCH ×2 (10:09→21:06)
[2021-08-15] MEDS ORDERED: ONDANSETRON 4 MG/2 ML INJ IV PRN (12:22)
--- NOTE | 2021-08-15 12:53 | Progress Note ---
Assessment and Plan 76-year-old male with past medical history of coronary issues with acute limb ischemia of the right lower extremity which failed endovascular revascularization and required urgent/emergent open revascularization. Patient doing well from arterial reconstruction of the right common femoral artery with profundoplasty. No further symptoms of acute limb ischemia. Patient appears stable from a vascular standpoint. On cilostazol, Plavix, and low-dose Eliquis. Protonix provided for GI prophylaxis. Patient appears to be wet with pulmonary edema. Cardiology consulted. Held blood pressure medicines due to borderline hypotension. Can be slowly restarted. Appreciate medicine, ICU, and cardiology assistance. Subjective Date of service: 08/15/21 Principal diagnosis: acute limb ischemia Interval history: Remove left groin pressure dressing. Puncture site without hematoma or pseudoaneurysm. Right groin incision evaluated with some mild bruising, but incision clean, dry, and intact. Feet are warm and well-perfused. No rest pain. Motor function intact. Sensory function improved. Patient sounds wet. Cardiology consulted. Objective - Constitutional Vitals: Vital Signs - 12hr 08/15/21 08/15/21 08/15/21 00:51 00:53 01:01 Temperature Pulse Rate 88 92 H Respiratory 20 20 Rate Blood Pressure 99/52 86/46 O2 Sat by Pulse 99 99 98 Oximetry 08/15/21 08/15/21 08/15/21 01:11 01:21 01:30 Temperature Pulse Rate 102 H 91 H 84 Respiratory 11 L 19 19 Rate Blood Pressure 86/46 109/64 105/62 O2 Sat by Pulse 99 100 98 Oximetry 08/15/21 08/15/21 08/15/21 01:41 01:51 02:00 Temperature Pulse Rate 89 90 90 Respiratory 20 19 21 Rate Blood Pressure 105/62 101/58 110/62 O2 Sat by Pulse 99 98 99 Oximetry 08/15/21 08/15/21 08/15/21 02:11 02:21 02:31 Temperature Pulse Rate 93 H 88 90 Respiratory 20 21 17 Rate Blood Pressure 110/62 105/63 119/60 O2 Sat by Pulse 99 100 99 Oximetry 08/15/21 08/15/21 08/15/21 02:41 02:51 03:00 Temperature Pulse Rate 88 94 H 86 Respiratory 21 20 20 Rate Blood Pressure 119/60 127/61 115/55 O2 Sat by Pulse 99 99 99 Oximetry 08/15/21 08/15/21 08/15/21 03:11 03:21 03:30 Temperature Pulse Rate 87 87 86 Respiratory 24 15 17 Rate Blood Pressure 115/55 112/65 112/61 O2 Sat by Pulse 99 100 98 Oximetry 08/15/21 08/15/21 08/15/21 03:36 03:41 03:51 Temperature 97.8 F Pulse Rate 91 H 90 Respiratory 18 23 Rate Blood Pressure 112/61 109/61 O2 Sat by Pulse 99 98 Oximetry 08/15/21 08/15/21 08/15/21 04:00 04:11 04:21 Temperature Pulse Rate 94 H 86 93 H Respiratory 18 15 18 Rate Blood Pressure 103/59 103/59 106/64 O2 Sat by Pulse 98 100 99 Oximetry 08/15/21 08/15/21 08/15/21 04:30 04:41 04:51 Temperature Pulse Rate 87 85 86 Respiratory 18 18 24 Rate Blood Pressure 107/58 107/58 99/59 O2 Sat by Pulse 99 98 99 Oximetry 08/15/21 08/15/21 08/15/21 05:00 05:11 05:21 Temperature Pulse Rate 82 85 96 H Respiratory 22 21 13 Rate Blood Pressure 106/57 106/57 101/56 O2 Sat by Pulse 98 99 98 Oximetry 08/15/21 08/15/21 08/15/21 05:30 05:41 05:51 Temperature Pulse Rate 86 89 84 Respiratory 22 13 20 Rate Blood Pressure 97/58 97/58 96/67 O2 Sat by Pulse 99 99 97 Oximetry 08/15/21 08/15/21 08/15/21 06:00 06:01 06:11 Temperature Pulse Rate 84 90 Respiratory 16 20 Rate Blood Pressure 105/54 105/54 O2 Sat by Pulse 99 97 98 Oximetry 08/15/21 08/15/21 08/15/21 06:21 06:30 06:40 Temperature Pulse Rate 86 85 83 Respiratory 22 20 23 Rate Blood Pressure 98/52 91/49 91/49 O2 Sat by Pulse 99 98 98 Oximetry 08/15/21 08/15/21 08/15/21 06:51 07:00 07:10 Temperature Pulse Rate 78 87 83 Respiratory 19 16 23 Rate Blood Pressure 101/54 97/55 101/54 O2 Sat by Pulse 99 98 98 Oximetry 08/15/21 08/15/21 08/15/21 07:21 07:30 07:41 Temperature 97.8 F Pulse Rate 87 87 87 Respiratory 20 21 16 Rate Blood Pressure 100/52 100/52 100/52 O2 Sat by Pulse 98 98 99 Oximetry 08/15/21 08/15/21 08/15/21 07:51 08:00 08:11 Temperature Pulse Rate 86 84 93 H Respiratory 18 17 15 Rate Blood Pressure 109/56 106/55 106/55 O2 Sat by Pulse 98 99 98 Oximetry 08/15/21 08/15/21 08/15/21 08:21 08:31 08:41 Temperature Pulse Rate 94 H 90 92 H Respiratory 15 19 19 Rate Blood Pressure 105/79 105/51 105/51 O2 Sat by Pulse 98 99 98 Oximetry 08/15/21 08/15/21 08/15/21 08:51 09:00 09:11 Temperature Pulse Rate 92 H 97 H 90 Respiratory 18 12 14 Rate Blood Pressure 94/55 95/63 95/63 O2 Sat by Pulse 99 98 99 Oximetry 08/15/21 08/15/21 08/15/21 09:21 09:30 09:41 Temperature Pulse Rate 90 90 97 H Respiratory 14 22 10 L Rate Blood Pressure 99/53 106/53 106/53 O2 Sat by Pulse 98 99 100 Oximetry 08/15/21 08/15/21 08/15/21 09:51 10:00 10:11 Temperature Pulse Rate 90 84 90 Respiratory 22 22 15 Rate Blood Pressure 100/63 85/49 85/49 O2 Sat by Pulse 99 98 100 Oximetry 08/15/21 08/15/21 08/15/21 10:21 10:31 10:41 Temperature Pulse Rate 90 91 H 87 Respiratory 14 13 14 Rate Blood Pressure 97/39 98/45 98/45 O2 Sat by Pulse 100 99 99 Oximetry 08/15/21 08/15/21 08/15/21 10:51 11:00 11:11 Temperature Pulse Rate 83 84 82 Respiratory 22 21 20 Rate Blood Pressure 109/49 97/49 98/45 O2 Sat by Pulse 99 99 99 Oximetry 08/15/21 08/15/21 08/15/21 11:21 11:30 11:41 Temperature Pulse Rate 91 H 77 90 Respiratory 11 L 22 14 Rate Blood Pressure 100/48 104/48 104/48 O2 Sat by Pulse 99 100 99 Oximetry 08/15/21 08/15/21 08/15/21 11:51 11:55 12:00 Temperature 98.2 F Pulse Rate 93 H 87 Respiratory 17 14 Rate Blood Pressure 99/47 107/49 O2 Sat by Pulse 99 98 Oximetry General appearance: Present: no acute distress - EENT Eyes: EOM intact ENT: hearing intact - Respiratory Respiratory effort: normal Extremities: normal temperature, normal color, abnormal (see subjective) Extremity abnormal: pulses diminished (Nonpalpable pedal pulse) - Gastrointestinal General gastrointestinal: Present: soft, non-tender - Psychiatric Psychiatric: appropriate mood/affect, cooperative - Labs CBC & Chem 7: 08/15/21 04:20 08/15/21 04:20 Labs: Abnormal lab results 08/14/21 08/14/21 08/15/21 Range/Units 09:37 22:17 04:20 Lymph % (Auto) 12.6 L (13.4-35.0) % [place] % (Auto) 8.1 H (0.0-7.3) % Seg Neutrophils % 78.5 H (40.0-70.0) % Chloride (98-107) mmol/L Carbon Dioxide (22-30) mmol/L BUN (9-20) mg/dL Glucose (75-100) mg/dL POC Glucose 122 H (70-105) mg/dL Calcium (8.4-10.2) mg/dL Crossmatch See Detail 08/15/21 08/15/21 Range/Units 04:20 11:19 Lymph % (Auto) (13.4-35.0) % [place] % (Auto) (0.0-7.3) % Seg Neutrophils % (40.0-70.0) % Chloride 109.5 H (98-107) mmol/L Carbon Dioxide 19 L D (22-30) mmol/L BUN 24 H (9-20) mg/dL Glucose 102 H (75-100) mg/dL POC Glucose 124 H (70-105) mg/dL Calcium 7.9 L D (8.4-10.2) mg/dL Crossmatch Medications & Allergies - Medications Allergies/Adverse Reactions: Allergies bee pollen Allergy (Verified 03/07/21 08:11) Swelling Home Medications: Home Medications Medication Instructions Recorded Confirmed Last Taken Type Atorvastatin [Lipitor Tab] 80 mg PO DAILY 03/07/21 08/14/21 08/13/21 History Clopidogrel [Plavix] 75 mg PO QDAY 03/07/21 08/14/21 08/14/21 History Fenofibrate 160 mg PO DAILY 03/07/21 08/14/21 08/14/21 History Insulin Degludec [Tresiba 50 unit SQ DAILY 03/07/21 08/14/21 08/13/21 History Flextouch U-200] Losartan [Cozaar] 100 mg PO QDAY 03/07/21 08/14/21 08/14/21 History Metoprolol [Lopressor] 100 mg PO DAILY 03/07/21 08/14/21 08/14/21 History Quetiapine Fumarate [SEROquel] 50 mg PO DAILY 03/07/21 08/14/21 08/13/21 History Semaglutide [Ozempic] 1 mg SQ 1XW 03/07/21 08/14/21 08/13/21 History Tamsulosin [Flomax] 0.4 mg PO QDAY 03/07/21 08/14/21 08/13/21 History Aspirin EC [Halfprin EC] 81 mg PO DAILY 04/24/21 08/14/21 08/13/21 History Cetirizine HCl [Zyrtec 10mg tab] 10 mg PO DAILY 08/14/21 08/14/21 08/13/21 History Active Medications: Generic Name Dose Route Start Last Admin Trade Name Freq PRN Reason Stop Dose Admin Acetaminophen 650 mg 08/14/21 22:00 Acetaminophen 325 Mg Tab PO Q4H PRN Pain MILD(1-3)/Fever >100.5/ALICIA Hydrocodone Bitart/Acetaminophen 2 each 08/14/21 22:07 Hydrocodone/Acetaminophen 5-325 Mg Tab PO Q6H PRN Pain, Moderate (4-6) Apixaban 2.5 mg 08/15/21 10:00 08/15/21 09:11 Apixaban 2.5 Mg Tab PO 2.5 mg Q12HR [facility]H Administration Protocol Atorvastatin Calcium 80 mg 08/15/21 10:00 08/15/21 09:11 Atorvastatin 40 Mg Tab PO 80 mg DAILY FARRAH Administration Cilostazol 100 mg 08/15/21 10:00 08/15/21 10:09 Cilostazol 100 Mg Tab PO 100 mg BID FARRAH Administration Clopidogrel Bisulfate 75 mg 08/15/21 10:00 08/15/21 09:11 Clopidogrel 75 Mg Tab PO 75 mg QDAY FARRAH Administration Fenofibrate 145 mg 08/15/21 10:00 08/15/21 09:11 Fenofibrate 145 Mg Tab PO 145 mg DAILY FARRAH Administration Phenylephrine HCl 100 mg/ 100 mls @ 3 mls/hr 08/14/21 22:15 08/15/21 06:01 Sodium Chloride IV 0 mcg/min TITR FARRAH 0 mls/hr Titration Protocol 50 MCG/MIN Insulin Glargine 50 units 08/15/21 10:00 Insulin Glargine 100 Units/Ml SUB-Q DAILY [facility] Insulin Human Lispro 0 unit 08/15/21 07:30 08/15/21 11:55 Insulin Lispro 100 Unit/Ml SUB-Q Not Given ACHS [facility] Protocol Naloxone HCl 0.1 mg 08/14/21 22:07 Naloxone 0.4 Mg/1 Ml Inj IV Q2MIN PRN Res Rate </= 8 or 02 SAT < 92% Ondansetron HCl 4 mg 08/15/21 12:22 Ondansetron 4 Mg/2 Ml Inj IV Q4H PRN Nausea And Vomiting Pantoprazole Sodium 40 mg 08/15/21 07:30 08/15/21 09:11 Pantoprazole 40 Mg Tab PO 40 mg QDAC [facility] Administration Quetiapine Fumarate 50 mg 08/15/21 22:00 Quetiapine 25 Mg Tab PO QHS [facility] Sodium Chloride 10 ml 08/14/21 22:00 08/15/21 09:12 Sodium Chloride 0.9% 10 Ml Flush Syringe IV 10 ml BID [facility] Administration Sodium Chloride 10 ml 08/14/21 11:30 Sodium Chloride 0.9% 10 Ml Flush Syringe IV PRN PRN LINE FLUSH Tamsulosin HCl 0.4 mg 08/15/21 10:00 08/15/21 09:11 Tamsulosin 0.4 Mg Cap PO 0.4 mg QDAY [facility] Administration
--- NOTE | 2021-08-15 13:59 | Consultation ---
History of Present Illness Consult date: 08/15/21 Requesting physician: GEORGES RIDDLE Reason for consult: other (HYPOTENSION) History of present illness: PULMONARY/CCM CONSULT NOTE (Full dictation # [id number]) Please see dictated notes for full details Past History Past Medical History: acute [place], CAD, diabetes, hypertension, hyperlipidemia, PVD Past Surgical History: cholecystectomy, CABG Social history: smoking Family history: no significant family history Medications and Allergies Allergies Allergy/AdvReac Type Severity Reaction Status Date / Time bee pollen Allergy Swelling Verified 03/07/21 08:11 Home Medications Medication Instructions Recorded Confirmed Last Taken Type Atorvastatin [Lipitor Tab] 80 mg PO DAILY 03/07/21 08/14/21 08/13/21 History Clopidogrel [Plavix] 75 mg PO QDAY 03/07/21 08/14/21 08/14/21 History Fenofibrate 160 mg PO DAILY 03/07/21 08/14/21 08/14/21 History Insulin Degludec [Tresiba 50 unit SQ DAILY 03/07/21 08/14/21 08/13/21 History Flextouch U-200] Losartan [Cozaar] 100 mg PO QDAY 03/07/21 08/14/21 08/14/21 History Metoprolol [Lopressor] 100 mg PO DAILY 03/07/21 08/14/21 08/14/21 History Quetiapine Fumarate [SEROquel] 50 mg PO DAILY 03/07/21 08/14/21 08/13/21 History Semaglutide [Ozempic] 1 mg SQ 1XW 03/07/21 08/14/21 08/13/21 History Tamsulosin [Flomax] 0.4 mg PO QDAY 03/07/21 08/14/21 08/13/21 History Aspirin EC [Halfprin EC] 81 mg PO DAILY 04/24/21 08/14/21 08/13/21 History Cetirizine HCl [Zyrtec 10mg tab] 10 mg PO DAILY 08/14/21 08/14/21 08/13/21 History Active Meds: Active Medications Acetaminophen (Acetaminophen 325 Mg Tab) 650 mg PO Q4H PRN PRN Reason: Pain MILD(1-3)/Fever >100.5/ALICIA Hydrocodone Bitart/Acetaminophen (Hydrocodone/Acetaminophen 5-325 Mg Tab) 2 each PO Q6H PRN PRN Reason: Pain, Moderate (4-6) Apixaban (Apixaban 2.5 Mg Tab) 2.5 mg PO Q12HR [facility]; Protocol Last Admin: 08/15/21 09:11 Dose: 2.5 mg Documented by: Atorvastatin Calcium (Atorvastatin 40 Mg Tab) 80 mg PO DAILY [facility] Last Admin: 08/15/21 09:11 Dose: 80 mg Documented by: Cilostazol (Cilostazol 100 Mg Tab) 100 mg PO BID [facility] Last Admin: 08/15/21 10:09 Dose: 100 mg Documented by: Clopidogrel Bisulfate (Clopidogrel 75 Mg Tab) 75 mg PO QDAY [facility] Last Admin: 08/15/21 09:11 Dose: 75 mg Documented by: Fenofibrate (Fenofibrate 145 Mg Tab) 145 mg PO DAILY [facility] Last Admin: 08/15/21 09:11 Dose: 145 mg Documented by: Phenylephrine HCl 100 mg/ (Sodium Chloride) 100 mls @ 3 mls/hr IV TITR [facility]; Protocol Last Titration: 08/15/21 06:01 Dose: 0 mcg/min, 0 mls/hr Documented by: Insulin Glargine (Insulin Glargine 100 Units/Ml) 50 units SUB-Q DAILY [facility] Insulin Human Lispro (Insulin Lispro 100 Unit/Ml) 0 unit SUB-Q ACHS [facility]; Prot ocol Last Admin: 08/15/21 11:55 Dose: Not Given Documented by: Naloxone HCl (Naloxone 0.4 Mg/1 Ml Inj) 0.1 mg IV Q2MIN PRN PRN Reason: Res Rate </= 8 or 02 SAT < 92% Ondansetron HCl (Ondansetron 4 Mg/2 Ml Inj) 4 mg IV Q4H PRN PRN Reason: Nausea And Vomiting Pantoprazole Sodium (Pantoprazole 40 Mg Tab) 40 mg PO QDAC [facility] Last Admin: 08/15/21 09:11 Dose: 40 mg Documented by: Quetiapine Fumarate (Quetiapine 25 Mg Tab) 50 mg PO QHS [facility] Sodium Chloride (Sodium Chloride 0.9% 10 Ml Flush Syringe) 10 ml IV BID [facility] Last Admin: 08/15/21 09:12 Dose: 10 ml Documented by: Sodium Chloride (Sodium Chloride 0.9% 10 Ml Flush Syringe) 10 ml IV PRN PRN PRN Reason: LINE FLUSH Tamsulosin HCl (Tamsulosin 0.4 Mg Cap) 0.4 mg PO QDAY [facility] Last Admin: 08/15/21 09:11 Dose: 0.4 mg Documented by: Physical Examination Vital signs: Vital Signs Temp Pulse Resp BP Pulse Ox 98.3 F 72 18 189/74 98 08/14/21 09:35 08/14/21 09:35 08/14/21 09:35 08/14/21 09:35 08/14/21 09:35 Results - Laboratory Findings CBC and BMP: 08/15/21 04:20 08/15/21 04:20 PT/INR, D-dimer PT 14.9 Sec. (12.2-14.9) 08/14/21 09:37 INR 1.12 (0.87-1.13) 08/14/21 09:37 Abnormal lab findings: Abnormal Labs 08/14/21 08/14/21 08/14/21 09:37 09:37 09:37 MCHC 35 H Lymph % (Auto) [place] % (Auto) 9.6 H Seg Neutrophils % Chloride Carbon Dioxide BUN 23 H Glucose POC Glucose Calcium Crossmatch See Detail 08/14/21 08/15/21 08/15/21 22:17 04:20 04:20 MCHC Lymph % (Auto) 12.6 L [place] % (Auto) 8.1 H Seg Neutrophils % 78.5 H Chloride 109.5 H Carbon Dioxide 19 L D BUN 24 H Glucose 102 H POC Glucose 122 H Calcium 7.9 L D Crossmatch 08/15/21 11:19 MCHC Lymph % (Auto) [place] % (Auto) Seg Neutrophils % Chloride Carbon Dioxide BUN Glucose POC Glucose 124 H Calcium Crossmatch
[2021-08-15] MEDS: HYDROcodone/ACETAMINOPHEN 5-325 MG TAB PO PRN ×2 (14:22→21:07)
--- NOTE | 2021-08-15 15:11 | Consultation ---
History of Present Illness Consult date: 08/15/21 Requesting physician: GEORGES RIDDLE Consult reason: known to you History of present illness: Patient is a 76 y/o male who follows with Dr. Dukes of our practice. The patient has a PMHx of CAD,PVD, ischemic cardiomyopathy, h/o [place], HTN, chronic renal insufficiency who underwent endovascular revascularization about 3 months and reports with a complaint of acute limb ischemiax 2 weeks. The patient report s forefoot numbness and pain at rest however he has full motor functions of his toes. Patient underwent right common femoral artery resection and replacement and femoral tibioperoneal trunk bypass. Cardiology is consulted for cardiac management. Past History Past Medical History: acute [place], CAD, diabetes, hypertension, hyperlipidemia, PVD Past Surgical History: cholecystectomy, CABG Social history: smoking Family history: no significant family history Medications and Allergies Allergies Allergy/AdvReac Type Severity Reaction Status Date / Time bee pollen Allergy Swelling Verified 03/07/21 08:11 Home Medications Medication Instructions Recorded Confirmed Last Taken Type Atorvastatin [Lipitor Tab] 80 mg PO DAILY 03/07/21 08/14/21 08/13/21 History Clopidogrel [Plavix] 75 mg PO QDAY 03/07/21 08/14/21 08/14/21 History Fenofibrate 160 mg PO DAILY 03/07/21 08/14/21 08/14/21 History Insulin Degludec [Tresiba 50 unit SQ DAILY 03/07/21 08/14/21 08/13/21 History Flextouch U-200] Losartan [Cozaar] 100 mg PO QDAY 03/07/21 08/14/21 08/14/21 History Metoprolol [Lopressor] 100 mg PO DAILY 03/07/21 08/14/21 08/14/21 History Quetiapine Fumarate [SEROquel] 50 mg PO DAILY 03/07/21 08/14/21 08/13/21 History Semaglutide [Ozempic] 1 mg SQ 1XW 03/07/21 08/14/21 08/13/21 History Tamsulosin [Flomax] 0.4 mg PO QDAY 03/07/21 08/14/21 08/13/21 History Aspirin EC [Halfprin EC] 81 mg PO DAILY 04/24/21 08/14/21 08/13/21 History Cetirizine HCl [Zyrtec 10mg tab] 10 mg PO DAILY 08/14/21 08/14/21 08/13/21 History Active Meds: Active Medications Acetaminophen (Acetaminophen 325 Mg Tab) 650 mg PO Q4H PRN PRN Reason: Pain MILD(1-3)/Fever >100.5/ALICIA Hydrocodone Bitart/Acetaminophen (Hydrocodone/Acetaminophen 5-325 Mg Tab) 2 each PO Q6H PRN PRN Reason: Pain, Moderate (4-6) Last Admin: 08/15/21 14:22 Dose: 2 each Documented by: Apixaban (Apixaban 2.5 Mg Tab) 2.5 mg PO Q12HR [facility]; Protocol Last Admin: 08/15/21 09:11 Dose: 2.5 mg Documented by: Atorvastatin Calcium (Atorvastatin 40 Mg Tab) 80 mg PO DAILY [facility] Last Admin: 08/15/21 09:11 Dose: 80 mg Documented by: Cilostazol (Cilostazol 100 Mg Tab) 100 mg PO BID [facility] Last Admin: 08/15/21 10:09 Dose: 100 mg Documented by: Clopidogrel Bisulfate (Clopidogrel 75 Mg Tab) 75 mg PO QDAY [facility] Last Admin: 08/15/21 09:11 Dose: 75 mg Documented by: Fenofibrate (Fenofibrate 145 Mg Tab) 145 mg PO DAILY [facility] Last Admin: 08/15/21 09:11 Dose: 145 mg Documented by: Phenylephrine HCl 100 mg/ (Sodium Chloride) 100 mls @ 3 mls/hr IV TITR [facility]; Protocol Last Titration: 08/15/21 06:01 Dose: 0 mcg/min, 0 mls/hr Documented by: Insulin Glargine (Insulin Glargine 100 Units/Ml) 50 units SUB-Q DAILY [facility] Insulin Human Lispro (Insulin Lispro 100 Unit/Ml) 0 unit SUB-Q ACHS [facility]; Protocol Last Admin: 08/15/21 11:55 Dose: Not Given Documented by: Naloxone HCl (Naloxone 0.4 Mg/1 Ml Inj) 0.1 mg IV Q2MIN PRN PRN Reason: Res Rate </= 8 or 02 SAT < 92% Ondansetron HCl (Ondansetron 4 Mg/2 Ml Inj) 4 mg IV Q4H PRN PRN Reason: Nausea And Vomiting Pantoprazole Sodium (Pantoprazole 40 Mg Tab) 40 mg PO QDAC [facility] Last Admin: 08/15/21 09:11 Dose: 40 mg Documented by: Quetiapine Fumarate (Quetiapine 25 Mg Tab) 50 mg PO QHS [facility] Sodium Chloride (Sodium Chloride 0.9% 10 Ml Flush Syringe) 10 ml IV BID [facility] Last Admin: 08/15/21 09:12 Dose: 10 ml Documented by: Sodium Chloride (Sodium Chloride 0.9% 10 Ml Flush Syringe) 10 ml IV PRN PRN PRN Reason: LINE FLUSH Tamsulosin HCl (Tamsulosin 0.4 Mg Cap) 0.4 mg PO QDAY [facility] Last Admin: 08/15/21 09:11 Dose: 0.4 mg Documented by: Review of Systems All systems: negative Constitutional: no weight loss, no weight gain, no fever, no chills Ears, nose, mouth and throat: no decreased hearing, no nose pain, no nasal congestion Cardiovascular: no chest pain, no orthopnea, no palpitations Respiratory: no shortness of breath, no dyspnea on exertion Gastrointestinal: no abdominal pain, no nausea, no vomiting Musculoskeletal: shooting leg pain Integumentary: no rash, no pruritis, no redness Neurological: no paralysis, no weakness, no parathesias Psychiatric: no anxiety, no memory loss Endocrine: no cold intolerance, no heat intolerance Physical Examination Vital Signs Temp Pulse Resp BP Pulse Ox 98.3 F 72 18 189/74 98 08/14/21 09:35 08/14/21 09:35 08/14/21 09:35 08/14/21 09:35 08/14/21 09:35 General appearance: no acute distress HEENT: Positive: PERRL Neck: Positive: trachea midline Cardiac: Positive: Reg Rate and Rhythm Lungs: Positive: Decreased Breath Sounds Neuro: Positive: Grossly Intact Abdomen: Positive: Soft, Active Bowel Sounds Skin: Negative: Rash, Suspicious Lesions, Ulceration Extremities: Present: upper extr. pulses, lower extr. pulses Results 08/15/21 04:20 08/15/21 04:20 CBC 08/14/21 08/15/21 Range/Units 16:45 04:20 WBC 9.5 (4.5-11.0) K/mm3 RBC 3.88 (3.65-5.03) M/mm3 Hgb 12.8 12.2 (11.8-15.2) gm/dl Hct 37.9 35.8 (35.5-45.6) % Plt Count 225 (140-440) K/mm3 Lymph # (Auto) 1.2 (1.2-5.4) K/mm3 [place] # (Auto) 0.8 (0.0-0.8) K/mm3 Eos # (Auto) 0.0 (0.0-0.4) K/mm3 Baso # (Auto) 0.0 (0.0-0.1) K/mm3 Comprehensive Metabolic Panel 08/15/21 Range/Units 04:20 Sodium 137 (137-145) mmol/L Potassium 4.0 (3.6-5.0) mmol/L Chloride 109.5 H (98-107) mmol/L Carbon Dioxide 19 L D (22-30) mmol/L BUN 24 H (9-20) mg/dL Creatinine 1.3 (0.8-1.3) mg/dL Glucose 102 H (75-100) mg/dL Calcium 7.9 L D (8.4-10.2) mg/dL - Imaging and Cardiology Echo: report reviewed EKG: report reviewed, image reviewed EKG interpretations - Telemetry EKG Rhythm: Sinus Rhythm - EKG Sinus rhythms and dysrhythmias: sinus rhythm Assessment and Plan Patient is a 76 y/o male with a PMHx of CAD,PVD, ischemic cardiomyopathy, h/o [place], HTN, chronic renal insufficiency who underwent endovascular revascularization about 3 months and reports with a complaint of acute limb ischemiax 2 weeks HTN CAD PVD Ischemic Cardiomyopathy * Echocardiogram 07/07/2020 LV wall thickness is mildly increased.Estimated left ventricle ejection fraction is 35-40%. Normal left atrial pressure with Grade I diastolic dysfunction. There is normal right ventricular size, wall dimension, and systolic function. There is no aortic valve stenosis or regurgitation. There is no mitral valve stenosis or regurgitation. There is no tricuspid valve stenosis or regurgitation. There is trivial pulmonic regurgitation. No left ventricular thrombus noted with LV contrast images * Lexiscan MPI stress 01/16/2021- Negative Lexiscan EKG. No significant myoca rdial PET ischemia. Moderate area of large infarct shown in the inferior region noted with no significant ischemia with normal perfusion anteroseptal, lateral, and apical regions. Gated SPECT at rest and stress 35% requiring flow reserve globally at 1.48. * Outpatient medications: [id number] PO QD, Plavix 75g PO QD, atorvastatin 80mg QHS, asa, Metoprolol ER 100mg PO QD Plan: In setting of hypotension recommend holding patients BP medications. Once BP more stable will resume outpatient regimen Patient seen in conjunction with Dr. Dukes who agrees with this plan of care. Will continue to follow - Patient Problems (1) Rest pain of right lower extremity concurrent with and due to atherosclerosis of bypass graft Current Visit: Yes Status: Acute (2) CAD (coronary artery disease) Current Visit: No Status: Acute (3) CKD (chronic kidney disease) Current Visit: No Status: Acute (4) Intermittent claudication of both lower extremities due to atherosclerosis Current Visit: No Status: Acute
[2021-08-15] MEDS ORDERED: SODIUM CHLORIDE 0.9% 1000 ML 1,000 ML IV SCH (18:45)
[2021-08-15] MEDS ORDERED: SODIUM CHLORIDE 0.9% 500 ML 500 ML IV ONE (19:00)
[2021-08-15] MEDS: QUEtiapine 25 MG TAB PO SCH (21:10)
--- NOTE | 2021-08-15 23:11 | Consultation ---
DATE OF CONSULTATION: 08/15/2021 PULMONARY CRITICAL CARE CONSULT NOTE CONSULTING PHYSICIAN: Dr. Matson. REASON FOR CONSULTATION: Hypotension, critical care management. CHIEF COMPLAINT AND HISTORY OF PRESENT ILLNESS: The patient is a 76-year-old morbidly obese male with past medical history significant amongst other things for a diagnosis of peripheral vascular disease, but also obstructive sleep apnea, who has a history of coronary artery bypass grafting in 1985. 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 He presented to the Vascular service with 2 weeks of acute limb ischemia and Moiz 2A , which has been stable for about 2 weeks. He had forefoot numbness. He had full motor function. He had rest pain. Under Vascular, revascularization was attempted again. Unfortunately, the patient's symptoms persisted post procedure. A decision was made to transfer the patient for right common femoral artery resection and replacement with a femoral to tibioperoneal trunk bypass. The patient also became hypotensive periprocedurally and required insertion of a central line and beginning the patient on vasopressor support. Postop he was brought into the Critical Care Unit and we are asked to assist with management. When I stopped by to see him, he was rested in bed. He was on supplemental oxygen at 28% FiO2. He admitted to snoring. He admitted to history of obstructive sleep apnea. He has a CPAP machine that he uses religiously at home. He did have a 20+ pack year tobacco smoking history, but quit smoking many years ago, he tells me. His symptoms were feeling better. This really is as much of the history of presentation as I have. PAST MEDICAL HISTORY: Coronary artery disease, diabetes type 2, hypertension, hyperlipidemia, peripheral vascular disease, obstructive sleep apnea, obesity, chronic kidney injury. PAST SURGICAL HISTORY: Status post coronary artery bypass grafting, status post cholecystectomy. MEDICATIONS: He was on at the time I stopped by to see him, according to the medication administration record included the following: Tylenol 650 mg p.o. q. 4 hours p.r.n. mild pain or fevers, [place] 5/325 mg 2 tablets p.o. q. 6 hours p.r.n. moderate pain, Eliquis 2.5 mg p.o. q. 12 hours, Lipitor 80 mg p.o. daily, Pletal 100 mg p.o. b.i.d., Plavix 75 mg p.o. daily, TriCor 145 mg p.o. daily, Lantus 50 units subcutaneous daily, insulin via sliding scale, Zofran 4 mg IV q. 4 hours p.r.n. nausea and vomiting, Protonix 40 mg p.o. daily, Levophed drip had been going at 100 mcg per minute, Seroquel 50 mg p.o. at bedtime and Flomax 0.4 mg p.o. daily. ALLERGIES: BEE POLLEN; nature of this allergy is unknown. DIET: Obese gentleman. Denies acute weight loss or gain in the preceding few weeks to months. FAMILY AND SOCIAL HISTORY: Lives in the community. No current alcohol, tobacco or illicit drug use or abuse. He does have a remote 20+ pack year tobacco smoking history. FAMILY HISTORY: Otherwise, noncontributory. REVIEW OF SYSTEMS: No loss of consciousness. No new onset seizures. No new onset focal weakness. Denies gross hematochezia or melena. Denies gross hematuria or dysuria. He did admit to the lower extremity pain and numbness at presentation. He denies polydipsia, polyuria. Denies heat or cold intolerance. Complete 13-system review of system was obtained. Pertinent positives and/or negatives as in body of history above, otherwise noncontributory. PHYSICAL EXAMINATION: VITAL SIGNS: At presentation and since he has been afebrile, temperature at presentation was 98.3 degrees Fahrenheit, pulse of 72, respiratory rate of 18, blood pressure 189/74, O2 sats were 98%, inspired oxygen concentration at that time was not recorded. Currently, sats are 99% on 2 liters nasal cannula. GENERAL: He is an elderly looking obese gentleman, normocephalic, atraumatic. Resting in bed, but with mildly increased respiratory effort at rest. HEAD, EYES, EARS, NOSE AND THROAT: Anicteric. No conjunctival erythema. Oropharynx was moist. Mallampati 3 oropharynx. No gross jugular venous distention, no thyromegaly. Grossly, there were no palpable lymph nodes in the supraclavicular or submandibular lymph node chains. LUNGS: Auscultation of both lung cr revealed diminished bilateral breath sounds. Faint inspiratory crackles in the bases posteriorly. No wheezing. HEART: Sounds 1 and 2 are heard at the time of my evaluation. Regular rate and rhythm without overt rubs or murmurs. ABDOMEN: Soft, full, protuberant. Bowel sounds are positive, nontender, no palpable hepatosplenomegaly. EXTREMITIES: Without overt digital clubbing or cyanosis. Trace pedal edema. Pedal pulses are 2+ bilaterally. He does have a wound to the right groin area. Postop clean, but erythematous without active bleeding. NEUROLOGIC: Pupils are equal, round, about 4 mm, reactive to light. Extraocular muscle movements are intact. He moves all 4 extremities spontaneously. SKIN: Normal turgor in the areas examined without overt cellulitis or rash. He does have the postop changes. Please see the wound care nurses' notes for full description of her skin. PSYCHIATRIC: Mood was normal. Affect was appropriate. He had intact judgment and insight. LABORATORY DATA: From my review are as follows: Admission white cell count 7200, hemoglobin 14.8, hematocrit 42.7, platelet count 277. INR within normal limits. Serum sodium 140, potassium 4.7, chloride 105, bicarbonate 26, BUN 23, creatinine 1.3, glucose was 97. Serum bicarbonate is 19 today. Serum hemoglobin is 12.2. No microbiology studies. Chest x-ray was done, it shows some elevation really in the left hemidiaphragm. It is a rotated film. Median sternotomy wires are in place. They appear intact, perhaps an element of hypoventilation. A right IJ catheter is in good position. He may have some left lower lobe small volume atelectasis. ASSESSMENT: 1. Acute hypoxemic respiratory failure. 2. Peripheral vascular disease, status post revascularization intervention. 3. Obstructive sleep apnea. 4. Left lower lobe, small volume atelectasis. 5. History of diabetes. 6. Coronary artery disease. 7. Hyperlipidemia. 8. Hypertension. 9. Chronic kidney disease. 10. Mild metabolic acidosis. PLAN: I will leave him on supplemental oxygen to be weaned to keep sats greater than or equal to about 90%. Aspiration precautions will be maintained. I will deploy his continuous positive airway pressure ventilation therapy that certainly should help recruit alveoli of the left lower lobe region and hopefully resolve his hypoxemia. Bronchodilators will be on a p.r.n. basis. Vasopressors will be weaned to keep mean arterial pressures greater than or equal to about 65 mmHg. Perhaps there was element of vasovagal response or perhaps intravascular volume depletion that seems to be resolving. Otherwise, he is on full anticoagulation. He is appropriately on GI prophylaxis also. Flu and pneumonia vaccination will be addressed per protocol. I will keep a close eye on his worsening serum bicarbonate, but I doubt that we are going to be dealing with major metabolic acidosis. I will order a serum lactic acid level for the morning and ABG will be ordered as needed. Continued tobacco abstinence has been encouraged. Thank you very much for the consult. Dr. Matson will follow along and make further recommendations as picture progresses/becomes clearer. He is critically ill on life-sustaining interventions including vasopressor support at very high risk of from cardiopulmonary and vascular system decompensation. At this time, I spent about 35-40 minutes of critical care time without overlap and excluding any procedural time that may be necessary. TID: [id number] RECEIPT: [id number] DANTE/NOAM
[2021-08-16] MEDS ORDERED: SODIUM CHLORIDE 0.9% 1000 ML 1,000 ML IV SCH (01:00)
[2021-08-16] MEDS: HYDROcodone/ACETAMINOPHEN 5-325 MG TAB PO PRN (03:05)
[2021-08-16] MEDS ORDERED: HYDROmorphone 1 MG/1 ML INJ IV ONE (05:57)
[2021-08-16] MEDS: INSULIN LISPRO 100 UNIT/ML SUB-Q SCH ×4 (08:24→23:56)
[2021-08-16] MEDS: PANTOPRAZOLE 40 MG TAB PO SCH (08:24)
[2021-08-16] MEDS: INSULIN GLARGINE 100 UNITS/ML SUB-Q SCH (10:00)
[2021-08-16] MEDS: CLOPIDOGREL 75 MG TAB PO SCH (10:10)
[2021-08-16] MEDS: FENOFIBRATE 145 MG TAB PO SCH (10:10)
[2021-08-16] MEDS: TAMSULOSIN 0.4 MG CAP PO SCH (10:10)
[2021-08-16] MEDS: APIXABAN 2.5 MG TAB PO SCH ×2 (10:10→21:47)
[2021-08-16] MEDS: CILOSTAZOL 100 MG TAB PO SCH (10:11)
[2021-08-16] MEDS ORDERED: HYDROmorphone 1 MG/1 ML INJ IV PRN (10:36)
[2021-08-16] MEDS: ASPIRIN 81 MG TAB CHEW PO SCH (12:06)
--- NOTE | 2021-08-16 12:12 | Progress Note ---
Assessment and Plan Patient is a 76 y/o male with a PMHx of CAD,PVD, ischemic cardiomyopathy, h/o [place], HTN, chronic renal insufficiency who underwent endovascular revascularization about 3 months and reports with a complaint of acute limb ischemiax 2 weeks HTN CAD PVD Ischemic Cardiomyopathy * Echocardiogram 07/07/2020 LV wall thickness is mildly increased.Estimated left ventricle ejection fraction is 35-40%. Normal left atrial pressure with Grade I diastolic dysfunction. There is normal right ventricular size, wall dimension, and systolic function. There is no aortic valve stenosis or regurgitation. There is no mitral valve stenosis or regurgitation. There is no tricuspid valve stenosis or regurgitation. There is trivial pulmonic regurgi tation. No left ventricular thrombus noted with LV contrast images * Lexiscan MPI stress 01/16/2021- Negative Lexiscan EKG. No significant myocardial PET ischemia. Moderate area of large infarct shown in the inferior region noted with no significant ischemia with normal perfusion anteroseptal, lateral, and apical regions. Gated SPECT at rest and stress 35% requiring flow reserve globally at 1.48. * Outpatient medications: [id number] PO QD, Plavix 75g PO QD, atorvastatin 80mg QHS, asa, Metoprolol ER 100mg PO QD Plan: Will continue to hold patients BP medications due to hypotension. Once BP more stable will resume outpatient regimen Continue Eliquis and Plavix. Started asa. Stopped Pletal due to LV dysfunction. Recommend holding phenylephrine if MAP>60 Patient seen in conjunction with Dr. Dukes who agrees with this plan of care. Will continue to follow - Patient Problems (1) Rest pain of right lower extremity concurrent with and due to atherosclerosis of bypass graft Current Visit: Yes Status: Acute (2) CAD (coronary artery disease) Current Visit: No Status: Acute (3) CKD (chronic kidney disease) Current Visit: No Status: Acute (4) Intermittent claudication of both lower extremities due to atherosclerosis Current Visit: No Status: Acute Subjective Date of service: 08/16/21 Principal diagnosis: acute limb ischemia Interval history: Patient lying in bed with no cardiac complaints Sinus 87 with PVCs on monitor Objective Vital Signs Temp Pulse Resp BP Pulse Ox 08/16/21 11:58 98.1 F 08/16/21 08:30 94 H 14 108/50 97 08/16/21 08:15 97 H 18 97/49 97 08/16/21 08:02 98.9 F 08/16/21 08:00 100 H 20 102/48 96 08/16/21 07:45 86 17 89/50 97 08/16/21 07:30 86 18 97/46 98 08/16/21 07:15 88 16 99/45 98 08/16/21 07:00 87 20 92/44 96 08/16/21 06:45 87 15 89/39 98 08/16/21 06:30 100 H 22 81/34 97 08/16/21 06:20 22 08/16/21 06:15 86 19 99/42 99 08/16/21 06:00 86 22 92/42 99 08/16/21 05:45 86 22 93/43 97 08/16/21 05:30 89 13 103/47 99 08/16/21 05:15 91 H 20 100/46 100 08/16/21 05:00 84 13 104/47 99 08/16/21 04:45 85 24 100/40 98 08/16/21 04:30 86 22 104/43 99 08/16/21 04:15 92 H 22 111/45 98 08/16/21 04:00 98.3 F 82 24 106/42 98 08/16/21 03:45 88 21 99/46 98 08/16/21 03:30 86 25 H 99/43 98 08/16/21 03:15 80 20 95/46 98 08/16/21 03:05 23 08/16/21 03:00 87 22 98/47 99 08/16/21 02:45 90 18 97/43 98 08/16/21 02:30 82 25 H 102/47 99 08/16/21 02:15 83 24 98/41 99 08/16/21 02:00 86 23 99/44 98 08/16/21 01:45 85 24 96/43 98 08/16/21 01:30 84 24 94/48 98 08/16/21 01:18 83 08/16/21 01:15 84 17 98/47 98 08/16/21 01:00 83 23 91/42 98 08/16/21 00:45 84 20 99/43 97 08/16/21 00:30 87 23 89/41 97 08/16/21 00:15 90 15 101/44 99 08/16/21 00:00 98.8 F 86 23 99/42 98 08/15/21 23:45 91 H 17 95/48 99 08/15/21 23:30 92 H 16 96/49 100 08/15/21 23:15 93 H 17 102/44 99 08/15/21 23:00 89 18 102/42 98 08/15/21 22:45 92 H 19 103/47 98 08/15/21 22:30 81 19 98/44 98 08/15/21 22:15 86 17 90/43 98 08/15/21 22:00 83 17 109/46 99 08/15/21 21:45 83 20 105/43 99 08/15/21 21:30 80 15 105/48 99 08/15/21 21:15 86 14 103/52 97 08/15/21 21:00 83 19 102/46 99 08/15/21 20:45 85 20 97/44 98 08/15/21 20:30 80 16 94/43 99 08/15/21 20:15 87 14 87/41 98 08/15/21 20:00 98.9 F 82 12 93/44 98 08/15/21 19:45 83 15 103/50 99 08/15/21 19:30 96 H 13 93/53 99 08/15/21 19:15 85 16 90/46 97 08/15/21 19:00 91 H 17 91/47 98 08/15/21 18:00 90 23 92/44 97 08/15/21 17:51 96 H 24 83/44 97 08/15/21 17:41 94 H 19 97/45 96 08/15/21 17:30 97 H 13 97/45 98 08/15/21 17:21 101 H 18 88/49 97 08/15/21 17:11 100 H 12 97/51 96 08/15/21 17:00 93 H 18 97/51 96 08/15/21 16:51 96 H 19 98/49 99 08/15/21 16:41 91 H 14 93/45 99 08/15/21 16:30 81 19 93/45 96 08/15/21 16:21 84 23 105/54 98 08/15/21 16:11 86 20 107/47 97 08/15/21 16:01 98.2 F 08/15/21 16:00 85 19 112/53 99 08/15/21 15:51 85 21 112/54 98 08/15/21 15:41 88 19 107/47 98 08/15/21 15:30 84 22 107/47 98 08/15/21 15:21 85 25 H 114/52 97 08/15/21 15:11 87 24 99/49 99 08/15/21 15:00 81 17 99/49 99 08/15/21 14:51 83 22 102/52 99 08/15/21 14:41 89 20 108/49 99 08/15/21 14:30 89 20 108/49 98 08/15/21 14:21 91 H 21 107/56 99 08/15/21 14:11 82 17 111/45 98 08/15/21 14:00 89 16 97/50 99 08/15/21 13:51 90 15 94/51 99 08/15/21 13:41 90 13 111/45 99 08/15/21 13:30 89 16 111/45 99 08/15/21 13:21 86 16 101/50 99 08/15/21 13:11 92 H 15 86/49 99 08/15/21 13:00 89 18 100/52 98 08/15/21 12:51 86 13 94/56 98 08/15/21 12:41 92 H 19 107/49 99 08/15/21 12:30 84 17 82/52 98 08/15/21 12:21 89 19 86/49 97 08/15/21 12:11 87 21 107/49 98 - Physical Examination General: No Apparent Distress HEENT: Positive: PERRL Neck: Positive: trachea midline Cardiac: Positive: Reg Rate and Rhythm Lungs: Positive: Decreased Breath Sounds Neuro: Positive: Grossly Intact Abdomen: Positive: Soft, Active Bowel Sounds Skin: Negative: Rash, Suspicious Lesions, Ulceration Extremities: Present: upper extr. pulses, lower extr. pulses - Imaging and Cardiology EKG: report reviewed, image reviewed Echo: report reviewed - EKG Sinus rhythms and dysrhythmias: sinus rhythm
--- NOTE | 2021-08-16 12:48 | Progress Note ---
Assessment and Plan Acute hypoxemic respiratory failure Peripheral vascular disease status post revascularization intervention. Obstructive sleep apnea Left lower lobe, small volume atelectasis DM II Coronary artery disease Hyperlipidemia Hypertension Chronic kidney disease Mild metabolic acidosis - wean vasopressors for target MAP > 65 mmHg - continue CPAP qhs with prn daytime use - continue to wean supplemental oxygen for target O2 sat's > 90% acutely - aspiration precautions - prn bronchodilators with pulmonary hygiene per RT - continue accuchecks with glycemic control per SSI (While critically ill target blood glucose of 140-180 mg/dL; avoid hypoglycemia) - avoid nephrotoxins, renally dose all medications - continue to avoid benzodiazepine's, reduce the possibility of delirium - prn analgesia per CPOT score - Maintenance of sleep-wake cycle, avoid delirium - G.I. & VTE prophylaxis - PT/OT/ROM exercises - mobility protocols for pressure ulcer prophylaxis - Monitor hemodynamics closely - continue other care per attending / other consultants - discharge planning ongoing concurrently .... Re-evaluate in am & prn CONDITION: CRITICAL PROGNOSIS: GUARDED CODE STATUS: FULL CODE The high probability of a clinically significant, sudden or life-threatening deterioration of the [respiratory & cardiovascular] system(s) required my full and direct attention, intervention and personal management. The aggregate critical care time was [36] minutes without overlap. Time includes spent on; [x] Data Review and interpretation [x] Patient assessment and monitoring of vital signs [x] Documentation [x] Medication orders and management Subjective Date of service: 08/16/21 Principal diagnosis: Ac hypoxemic resp failure; Acute Limb Ischemia; NIRMAL / OHS; DM II; CAD Interval history: Patient is seen today for: Acute hypoxemic respiratory failure; PVD s/p revascularization; NIRMAL; OHS; DM II; CAD; CKD; Mild metabolic acidosis Seen and examined at bedside; 24hour events reviewed; nursing and respiratory care staff consulted; no adverse overnight events reported to me; resting peacefully in bed; Objective Vital Signs - 12hr 08/16/21 08/16/21 08/16/21 00:45 01:00 01:15 Temperature Pulse Rate 84 83 84 Respiratory 20 23 17 Rate Blood Pressure 99/43 91/42 98/47 O2 Sat by Pulse 97 98 98 Oximetry 08/16/21 08/16/21 08/16/21 01:18 01:30 01:45 Temperature Pulse Rate 83 84 85 Respiratory 24 24 Rate Blood Pressure 94/48 96/43 O2 Sat by Pulse 98 98 Oximetry 08/16/21 08/16/21 08/16/21 02:00 02:15 02:30 Temperature Pulse Rate 86 83 82 Respiratory 23 24 25 H Rate Blood Pressure 99/44 98/41 102/47 O2 Sat by Pulse 98 99 99 Oximetry 08/16/21 08/16/21 08/16/21 02:45 03:00 03:05 Temperature Pulse Rate 90 87 Respiratory 18 22 23 Rate Blood Pressure 97/43 98/47 O2 Sat by Pulse 98 99 Oximetry 08/16/21 08/16/21 08/16/21 03:15 03:30 03:45 Temperature Pulse Rate 80 86 88 Respiratory 20 25 H 21 Rate Blood Pressure 95/46 99/43 99/46 O2 Sat by Pulse 98 98 98 Oximetry 08/16/21 08/16/21 08/16/21 04:00 04:15 04:30 Temperature 98.3 F Pulse Rate 82 92 H 86 Respiratory 24 22 22 Rate Blood Pressure 106/42 111/45 104/43 O2 Sat by Pulse 98 98 99 Oximetry 08/16/21 08/16/21 08/16/21 04:45 05:00 05:15 Temperature Pulse Rate 85 84 91 H Respiratory 24 13 20 Rate Blood Pressure 100/40 104/47 100/46 O2 Sat by Pulse 98 99 100 Oximetry 08/16/21 08/16/21 08/16/21 05:30 05:45 06:00 Temperature Pulse Rate 89 86 86 Respiratory 13 22 22 Rate Blood Pressure 103/47 93/43 92/42 O2 Sat by Pulse 99 97 99 Oximetry 08/16/21 08/16/21 08/16/21 06:15 06:20 06:30 Temperature Pulse Rate 86 100 H Respiratory 19 22 22 Rate Blood Pressure 99/42 81/34 O2 Sat by Pulse 99 97 Oximetry 08/16/21 08/16/21 08/16/21 06:45 07:00 07:15 Temperature Pulse Rate 87 87 88 Respiratory 15 20 16 Rate Blood Pressure 89/39 92/44 99/45 O2 Sat by Pulse 98 96 98 Oximetry 08/16/21 08/16/21 08/16/21 07:30 07:45 08:00 Temperature Pulse Rate 86 86 100 H Respiratory 18 17 20 Rate Blood Pressure 97/46 89/50 102/48 O2 Sat by Pulse 98 97 96 Oximetry 08/16/21 08/16/21 08/16/21 08:02 08:15 08:30 Temperature 98.9 F Pulse Rate 97 H 94 H Respiratory 18 14 Rate Blood Pressure 97/49 108/50 O2 Sat by Pulse 97 97 Oximetry 08/16/21 11:58 Temperature 98.1 F Pulse Rate Respiratory Rate Blood Pressure O2 Sat by Pulse Oximetry Constitutional: no acute distress, other (elderly obese female with mildly increased respiratory effort at rest) Eyes: non-icteric ENT: oropharynx moist, other (mallampati 3-4) Neck: supple, no lymphadenopathy, no JVD, other (large neck circumference) Effort: mildly labored Ascultation: Bilateral: clear, diminished breath sounds Percussion: Bilateral: not dull Cardiovascular: regular rate and rhythm Gastrointestinal: normoactive bowel sounds, soft, non-tender, non-distended (protuberant') Integumentary: erythema, other (right groin wound) Extremities: no cyanosis, pink and warm, pulses normal, no ischemia or petechiae Neurologic: non-focal exam (grossly), pupils equal and round, CN II-XII normal, motor strength normal and Psychiatric: mood appropriate, affect normal CBC and BMP: 08/23/21 05:41 08/23/21 05:41 ABG, PT/INR, D-dimer: PT/INR, D-dimer PT 14.9 Sec. (12.2-14.9) 08/14/21 09:37 INR 1.12 (0.87-1.13) 08/14/21 09:37 Abnormal lab findings: Abnormal Labs 08/14/21 08/14/21 08/14/21 09:37 09:37 09:37 MCHC 35 H Lymph % (Auto) Braxton % (Auto) 9.6 H Seg Neutrophils % Chloride Carbon Dioxide BUN 23 H Glucose POC Glucose Calcium Crossmatch See Detail 08/14/21 08/15/21 08/15/21 22:17 04:20 04:20 MCHC Lymph % (Auto) 12.6 L Braxton % (Auto) 8.1 H Seg Neutrophils % 78.5 H Chloride 109.5 H Carbon Dioxide 19 L D BUN 24 H Glucose 102 H POC Glucose 122 H Calcium 7.9 L D Crossmatch 08/15/21 08/15/21 08/15/21 11:19 15:41 21:21 MCHC Lymph % (Auto) Braxton % (Auto) Seg Neutrophils % Chloride Carbon Dioxide BUN Glucose POC Glucose 124 H 126 H 226 H Calcium Crossmatch 08/16/21 08/16/21 08:16 11:40 MCHC Lymph % (Auto) [place]xton % (Auto) Seg Neutrophils % Chloride Carbon Dioxide BUN Glucose POC Glucose 112 H 137 H Calcium Crossmatch Allied health notes reviewed: nursing
--- NOTE | 2021-08-16 14:42 | Operative Report ---
Operative Report Operative Report: EXAM: 1. Ultrasound-guided access of the right common femoral artery, antegrade, with attempted selection of the right superficial femoral artery. 2. Angiography of the right lower extremity. 3. Selection of the left common femoral artery with angiography of the left lower extremity. 4. Selection of the abdominal aorta with angiography. 5. Selection of the right external iliac artery, and common femoral artery with angiography. 6. Percutaneous mechanical thrombectomy of the right common femoral artery with 6 [place] guide and CAT 7 penumbra indigo device 7. Angioplasty of the right profunda femoral artery with a 5 mm by 60 mm shockwave device and stenting with a 6 mm x 40 mm ever flex stent. 8. Angioplasty of the right common femoral artery with a 6 mm x 40 mm angioplasty balloon. 9. Repeat CAT 7 penumbra indigo aspiration thrombectomy of the right common femoral artery and profunda femoral artery multiple times. 10. Removal of both sheaths with plan for operative treatment. 11. Ultrasound-guided access of the right internal jugular vein with placement of a 15 cm triple-lumen catheter DATE: 08/14/2021 [facility] MACHINE OPERATOR: GEORGES RIDDLE MD INDICATION: Acute limb ischemia of the right lower extremity, [place] 2A, occurring for the last 2 weeks. MEDICATIONS: Please see nursing report for full details. DEVICES: 5 mm x 60 mm shockwave lithotripsy device 6 mm x 40 mm angioplasty balloon 6 mm x 40 mm self-expanding ever flex stent CAT 7 Indigo thrombectomy device 6 Guatemalan guide 15 cm triple-lumen catheter EBL: 800 mL from penumbra CAT 7 device PROCEDURE: The risks, benefits, and alternatives of the procedure were discussed and written informed consent was obtained. The patient was transported in stable condition to the angiography suite. Ultrasound was used to evaluate the right common femoral artery which was aneurysmal with peripheral thrombus with a patent central lumen. Under direct ultrasound guidance, the central patent lumen was accessed with a 21-gauge micropuncture needle. 0.018 inch wire was passed through the needle. Transitional dilator was exchanged for the needle and subsequently the wire was exchanged for 0.035 inch wire and exchanged for a 5 [place] sheath. Digital subtraction angiography was performed demonstrating peripheral thrombus with a some thrombus in the lumen in the right common femoral artery with occlusion of the right superficial femoral artery and popliteal artery and reconstitution of the peroneal artery and posterior tibial artery with flow to the foot. The profunda femoral artery has a severe stenosis within it. Patient was heparinized. Sheath was upsized to a 6 [place] sheath with radiopaque marker at the tip for treatment purposes. Wire and catheter were advanced in an attempt to cross the superficial femoral occlusion and this was performed numerous times but the occlusion could not be crossed. Original plan was to cross the superficial femoral artery occlusion and place a thrombolytic catheter. This was decided to be performed in a antegrade fashion due to difficulty approaching the patient in a up and over fashion due to his aneurysmal disease. This suggest that the occlusion was either due to a chronic embolism or occurred more remote then the patient's symptoms. Digital subtraction angiography was performed demonstrating further embolization into the right common femoral artery despite heparinization. I decided at this point the patient needed his right profunda femoral artery open if his superficial femoral artery would not be able to be crossed in an intraluminal fashion. Ultrasound was used to evaluate the left common femoral artery which was aneurysmal with some peripheral thrombus with a central patent lumen. Under direct ultrasound guidance, the left common femoral artery was accessed with a 21-gauge micropuncture needle and a 0.018 inch wire was used to cannulate the aorta. Needle was exchanged for transitional dilator wire was exchanged for 0.035 inch wire. Transitional dilator was exchanged for 5 [place] sheath. Digital subtraction angiography was performed demonstrating patency of the left common femoral artery with occlusion of the left superficial femoral artery and patency of the left profunda femoral artery. There are aneurysms in the iliac arteries bilaterally and the abdominal aorta was aneurysmal with some peripheral thrombus. 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 There were large central patent lumens in the iliac vessels. The right common iliac artery, left common iliac artery, and right external iliac artery were the most aneurysmal. The right common femoral artery had thrombus within the central portion of the lumen and the right profunda femoral artery was highly stenotic. Sheath was exchanged for 6 [place]alan 45 cm [place] destination positioned in the right external iliac artery. 6 [place] guide catheter was used multiple times to attempt to aspirate out large amounts of thrombus but this was unsuccessful and then the sheath was exchanged for 7 [place] 45 cm [place] destination and a CAT 7 penumbra device was used to attempt to remove large amounts of thrombus. This was partially successful with partial removal of large amounts of thrombus in the right common femoral artery and profunda femoral artery. Once most of the thrombus has been removed, angioplasty was performed of the right profunda femoral artery with a 5 mm x 60 mm shockwave device and subsequent stenting was performed with a 6 mm x 40 mm ever flex stent given the suboptimal result. This was postdilated with a 6 mm x 40 mm angioplasty balloon. Although there is originally a good result, further thrombus developed occluding the right common femoral artery again. Repeated thrombectomy was performed removing thrombus, but the amount of thrombus was more than could be addressed percutaneously.. At this point, I determined that for a successful outcome, the patient would require open common femoral artery repair with profunda endarterectomy and possible bypass. Procedure was terminated and all wires, catheters, and sheaths were removed and pressure was held until hemostasis was achieved. Pressure dressing applied to the left groin and right groin. Given the plan for open surgery, central line placement was then planned. The right neck was prepped and draped in a sterile fashion. Ultrasound was used to evaluate the right internal jugular vein which was patent. Under direct ultrasound guidance, the right internal jugular vein was accessed with a 18-gauge needle. 0.035 inch wire was passed through the needle and exchanged for serial dilators and ultimately a 15 cm 7 [place]alan triple-lumen catheter. Venous blood was aspirated and the ports were flushed with low strength heparinized saline. The triple-lumen catheter was secured with silk suture and Biopatch was applied. X-ray was subsequently obtained demonstrating line in the superior vena cava. No pneumothorax Patient tolerated the procedure well. No immediate postprocedural complication. Plan was to go to the operating room for right lower extremity salvage. IMPRESSION: Successful thrombectomy of the right common femoral artery. Successful angioplasty and stenting of the right profunda femoral artery. Successful ultrasound-guided access of the bilateral common femoral arteries. Successful ultrasound-guided placement of a right internal jugular triple-lumen catheter.
[2021-08-16 15:12] LABS: Basophils % (Auto) 0.2 % (0.0-1.8); Eosinophils # (Auto) 0.2 K/mm3 (0.0-0.4); Eosinophils % (Auto) 1.7 % (0.0-4.3); Hematocrit 29.1 % (35.5-45.6); Lymphocytes # (Auto) 0.9 K/mm3 (1.2-5.4); Lymphocytes % (Auto) 9.5 % (13.4-35.0); Mean Corpuscular HGB Conc 34 % (32-34); Mean Corpuscular Volume 92 fl (84-94); Monocytes # (Auto) 0.7 K/mm3 (0.0-0.8); Monocytes % (Auto) 7.9 % (0.0-7.3); Platelet Count 169 K/mm3 (140-440); Red Blood Count 3.16 M/mm3 (3.65-5.03); Red Cell Distribution Width 14.5 % (13.2-15.2)
[2021-08-16] MEDS ORDERED: SODIUM CHLORIDE 0.9% 1000 ML 500 ML IV ONE (15:21)
[2021-08-16 15:24] LABS: Calcium 7.9 mg/dL (8.4-10.2)
[2021-08-16] MEDS ORDERED: MIDODRINE 5 MG TAB ONE (15:31)
[2021-08-16] MEDS ORDERED: SODIUM CHLORIDE 0.9% 500 ML 500 ML ONE (15:32)
--- NOTE | 2021-08-16 16:52 | Progress Note ---
Assessment and Plan The patient is postop day #2 status post excision of his right common femoral artery and repair with a 10 mm PTFE graft. His foot is well-perfused. He does complain of some reperfusion pain however this is controlled with narcotics. His incision is healing well without signs of infection. He has had some episodes of hypotension that have been treated with fluid boluses. This will need to be resolved and he will need to ambulate and have all pain control with p.o. narcotics prior to discharge. Subjective Date of service: 08/16/21 Principal diagnosis: Ac hypoxemic resp failure; Acute Limb Ischemia; NIRMAL / OHS; DM II; CAD Interval history: The patient has no complaints at this time however he was treated for pain in his right foot overnight. He describes the pain as shooting pain in the right foot involving the plantar surface of the foot. He has no additional complaints at this time. Objective - Constitutional Vitals: Vital Signs - 12hr 08/16/21 08/16/21 08/16/21 04:45 05:00 05:15 Temperature Pulse Rate 85 84 91 H Respiratory 24 13 20 Rate Blood Pressure 100/40 104/47 100/46 O2 Sat by Pulse 98 99 100 Oximetry 08/16/21 08/16/21 08/16/21 05:30 05:45 06:00 Temperature Pulse Rate 89 86 86 Respiratory 13 22 22 Rate Blood Pressure 103/47 93/43 92/42 O2 Sat by Pulse 99 97 99 Oximetry 08/16/21 08/16/21 08/16/21 06:15 06:20 06:30 Temperature Pulse Rate 86 100 H Respiratory 19 22 22 Rate Blood Pressure 99/42 81/34 O2 Sat by Pulse 99 97 Oximetry 08/16/21 08/16/21 08/16/21 06:45 07:00 07:15 Temperature Pulse Rate 87 87 88 Respiratory 15 20 16 Rate Blood Pressure 89/39 92/44 99/45 O2 Sat by Pulse 98 96 98 Oximetry 08/16/21 08/16/21 08/16/21 07:30 07:45 08:00 Temperature Pulse Rate 86 86 100 H Respiratory 18 17 20 Rate Blood Pressure 97/46 89/50 102/48 O2 Sat by Pulse 98 97 96 Oximetry 08/16/21 08/16/21 08/16/21 08:02 08:15 08:30 Temperature 98.9 F Pulse Rate 97 H 94 H Respiratory 18 14 Rate Blood Pressure 97/49 108/50 O2 Sat by Pulse 97 97 Oximetry 08/16/21 08/16/21 08/16/21 08:45 09:00 09:15 Temperature Pulse Rate 92 H 99 H 93 H Respiratory 23 15 20 Rate Blood Pressure 106/39 97/48 110/42 O2 Sat by Pulse 98 98 99 Oximetry 08/16/21 08/16/21 08/16/21 09:30 09:45 10:00 Temperature Pulse Rate 92 H 92 H 101 H Respiratory 16 17 14 Rate Blood Pressure 90/40 88/47 89/46 O2 Sat by Pulse 99 99 98 Oximetry 08/16/21 08/16/21 08/16/21 10:15 10:30 10:45 Temperature Pulse Rate 90 94 H 93 H Respiratory 15 25 H 19 Rate Blood Pressure 88/43 79/40 79/40 O2 Sat by Pulse 97 99 98 Oximetry 08/16/21 08/16/21 08/16/21 11:00 11:15 11:31 Temperature Pulse Rate 91 H 96 H 95 H Respiratory 21 17 15 Rate Blood Pressure 86/47 93/53 91/47 O2 Sat by Pulse 99 99 99 Oximetry 08/16/21 08/16/21 08/16/21 11:45 11:58 12:00 Temperature 98.1 F Pulse Rate 101 H 91 H Respiratory 25 H 13 Rate Blood Pressure 97/42 97/46 O2 Sat by Pulse 97 98 Oximetry 08/16/21 08/16/21 08/16/21 12:15 12:30 12:45 Temperature Pulse Rate 96 H 99 H 100 H Respiratory 19 24 24 Rate Blood Pressure 104/44 108/45 100/43 O2 Sat by Pulse 99 99 99 Oximetry 08/16/21 08/16/21 08/16/21 13:00 13:15 13:30 Temperature Pulse Rate 103 H 107 H 105 H Respiratory 16 19 14 Rate Blood Pressure 103/44 89/51 87/45 O2 Sat by Pulse 99 99 99 Oximetry 08/16/21 08/16/21 08/16/21 13:45 14:00 14:15 Temperature Pulse Rate 108 H 106 H 113 H Respiratory 15 15 18 Rate Blood Pressure 87/45 98/48 101/46 O2 Sat by Pulse 99 99 98 Oximetry 08/16/21 16:37 Temperature 98.4 F Pulse Rate Respiratory Rate Blood Pressure O2 Sat by Pulse Oximetry General appearance: Present: no acute distress - Respiratory Respiratory effort: normal - Cardiovascular Rhythm: regular Extremities: normal temperature (Right foot is warm and well perfused with Doppl er signals. Mild cyanotic changes to distal portion of right first toe) Extremity abnormal: other (Right groin incision is intact without evidence of dehiscence or infection. There is diffuse ecchymosis without an underlying hematoma) - Labs CBC & Chem 7: 08/16/21 14:33 08/16/21 14:33 Labs: Abnormal lab results 08/14/21 08/15/21 08/16/21 Range/Units 09:37 21:21 08:16 RBC (3.65-5.03) M/mm3 Hgb (11.8-15.2) gm/dl Hct (35.5-45.6) % Lymph % (Auto) (13.4-35.0) % [place] % (Auto) (0.0-7.3) % Lymph # (Auto) (1.2-5.4) K/mm3 Seg Neutrophils % (40.0-70.0) % Sodium (137-145) mmol/L Carbon Dioxide (22-30) mmol/L BUN (9-20) mg/dL Glucose (75-100) mg/dL POC Glucose 226 H 112 H (70-105) mg/dL Calcium (8.4-10.2) mg/dL Crossmatch See Detail 08/16/21 08/16/21 08/16/21 Range/Units 11:40 14:33 14:33 RBC 3.16 L (3.65-5.03) M/mm3 Hgb 10.0 L (11.8-15.2) gm/dl Hct 29.1 L D (35.5-45.6) % Lymph % (Auto) 9.5 L (13.4-35.0) % [place] % (Auto) 7.9 H (0.0-7.3) % Lymph # (Auto) 0.9 L (1.2-5.4) K/mm3 Seg Neutrophils % 80.7 H (40.0-70.0) % Sodium 133 L (137-145) mmol/L Carbon Dioxide 19 L (22-30) mmol/L BUN 30 H (9-20) mg/dL Glucose 153 H (75-100) mg/dL POC Glucose 137 H (70-105) mg/dL Calcium 7.9 L (8.4-10.2) mg/dL Crossmatch 08/16/21 Range/Units 15:41 RBC (3.65-5.03) M/mm3 Hgb (11.8-15.2) gm/dl Hct (35.5-45.6) % Lymph % (Auto) (13.4-35.0) % [place] % (Auto) (0.0-7.3) % Lymph # (Auto) (1.2-5.4) K/mm3 Seg Neutrophils % (40.0-70.0) % Sodium (137-145) mmol/L Carbon Dioxide (22-30) mmol/L BUN (9-20) mg/dL Glucose (75-100) mg/dL POC Glucose 140 H (70-105) mg/dL Calcium (8.4-10.2) mg/dL Crossmatch Medications & Allergies - Medications Allergies/Adverse Reactions: Allergies bee pollen Allergy (Verified 03/07/21 08:11) Swelling Home Medications: Home Medications Medication Instructions Recorded Confirmed Last Taken Type Atorvastatin [Lipitor Tab] 80 mg PO DAILY 03/07/21 08/14/21 08/13/21 History Clopidogrel [Plavix] 75 mg PO QDAY 03/07/21 08/14/21 08/14/21 History Fenofibrate 160 mg PO DAILY 03/07/21 08/14/21 08/14/21 History Insulin Degludec [Tresiba 50 unit SQ DAILY 03/07/21 08/14/21 08/13/21 History Flextouch [id number]] Losartan [Cozaar] 100 mg PO QDAY 03/07/21 08/14/21 08/14/21 History Metoprolol [Lopressor] 100 mg PO DAILY 03/07/21 08/14/21 08/14/21 History Quetiapine Fumarate [SEROquel] 50 mg PO DAILY 03/07/21 08/14/21 08/13/21 History Semaglutide [Ozempic] 1 mg SQ 1XW 03/07/21 08/14/21 08/13/21 History Tamsulosin [Flomax] 0.4 mg PO QDAY 03/07/21 08/14/21 08/13/21 History Aspirin EC [Halfprin EC] 81 mg PO DAILY 04/24/21 08/14/21 08/13/21 History Cetirizine HCl [Zyrtec 10mg tab] 10 mg PO DAILY 08/14/21 08/14/21 08/13/21 History Active Medications: Generic Name Dose Route Start Last Admin Trade Name Freq PRN Reason Stop Dose Admin Acetaminophen 650 mg 08/14/21 22:00 Acetaminophen 325 Mg Tab PO Q4H PRN Pain MILD(1-3)/Fever >100.5/ALICIA Hydrocodone Bitart/Acetaminophen 1 each 08/16/21 16:35 Hydrocodone/Acetaminophen 5-325 Mg Tab PO Q4H PRN Pain, Moderate (4-6) Apixaban 2.5 mg 08/15/21 10:00 08/16/21 10:10 Apixaban 2.5 Mg Tab PO 2.5 mg Q12HR FARRAH Administration Protocol Aspirin 81 mg 08/16/21 12:00 08/16/21 12:06 Aspirin 81 Mg Tab Chew PO 81 mg QDAY FARRAH Administration Atorvastatin Calcium 80 mg 08/15/21 10:00 08/16/21 10:10 Atorvastatin 40 Mg Tab PO 80 mg DAILY FARRAH Administration Clopidogrel Bisulfate 75 mg 08/15/21 10:00 08/16/21 10:10 Clopidogrel 75 Mg Tab PO 75 mg QDAY FARRAH Administration Fenofibrate 145 mg 08/15/21 10:00 08/16/21 10:10 Fenofibrate 145 Mg Tab PO 145 mg DAILY FARRAH Administration Hydromorphone HCl 1 mg 08/16/21 10:36 Hydromorphone 1 Mg/1 Ml Inj IV Q4H PRN Pain , Severe (7-10) Phenylephrine HCl 100 mg/ 100 mls @ 3 mls/hr 08/14/21 22:15 08/15/21 06:01 Sodium Chloride IV 0 mcg/min TITR FARRAH 0 mls/hr Titration Protocol 50 MCG/MIN Sodium Chloride 1,000 mls @ 100 mls/hr 08/16/21 16:00 Nacl 0.9% 1000 Ml IV 08/18/21 01:59 DIRECT FARRAH Insulin Glargine 50 units 08/15/21 10:00 08/15/21 10:06 Insulin Glargine 100 Units/Ml SUB-Q Not Given DAILY FARRAH Insulin Human Lispro 0 unit 08/15/21 07:30 08/16/21 08:24 Insulin Lispro 100 Unit/Ml SUB-Q Not Given ACHS ON LICENSE OF [facility] Protocol Midodrine 10 mg 08/16/21 18:00 Midodrine 5 Mg Tab PO 0600,1200,1800 FARRAH Naloxone HCl 0.1 mg 08/14/21 22:07 Naloxone 0.4 Mg/1 Ml Inj IV Q2MIN PRN Res Rate </= 8 or 02 SAT < 92% Ondansetron HCl 4 mg 08/15/21 12:22 Ondansetron 4 Mg/2 Ml Inj IV Q4H PRN Nausea And Vomiting Pantoprazole Sodium 40 mg 08/15/21 07:30 08/16/21 08:24 Pantoprazole 40 Mg Tab PO 40 mg QDAC FARRAH Administration Quetiapine Fumarate 50 mg 08/15/21 22:00 08/15/21 21:10 Quetiapine 25 Mg Tab PO 50 mg QHS FARRAH Administration Sodium Chloride 10 ml 08/14/21 22:00 08/15/21 21:16 Sodium Chloride 0.9% 10 Ml Flush Syringe IV 10 ml BID FARRAH Administration Sodium Chloride 10 ml 08/14/21 11:30 Sodium Chloride 0.9% 10 Ml Flush Syringe IV PRN PRN LINE FLUSH Tamsulosin HCl 0.4 mg 08/15/21 10:00 08/16/21 10:10 Tamsulosin 0.4 Mg Cap PO 0.4 mg QDAY FARRAH Administration
[2021-08-16] MEDS: SODIUM CHLORIDE 0.9% 1000 ML 1,000 ML IV SCH (16:55)
[2021-08-16] MEDS: MIDODRINE 5 MG TAB PO SCH (17:36)
--- NOTE | 2021-08-16 18:15 | Consultation ---
History of Present Illness - Reason for Consult Consult date: 08/16/21 Medical Management Requesting physician: GEORGES RIDDLE - History of Present Illness 76 YO Male with DM, CAD, HLD, HTN, PVD, Obesity Hypoventilation Syndrome, CKD admitted for elective surgical revascularization. Consult placed for medical management. Patient seen and evaluated in his room. Patient resting comfortably. Patient denies pain. No reported nursing events. Past History Past Medical History: acute [place], CAD, diabetes, hypertension, hyperlipidemia, PVD Past Surgical History: cholecystectomy, CABG Social history: smoking Family history: no significant family history Past History Past Medical History: acute [place], CAD, diabetes, hypertension, hyperlipidemia, PVD Past Surgical History: cholecystectomy, CABG Social history: smoking Family history: no significant family history Medications and Allergies Allergies Allergy/AdvReac Type Severity Reaction Status Date / Time bee pollen Allergy Swelling Verified 03/07/21 08:11 Home Medications Medication Instructions Recorded Confirmed Last Taken Type Atorvastatin [Lipitor Tab] 80 mg PO DAILY 03/07/21 08/14/21 08/13/21 History Clopidogrel [Plavix] 75 mg PO QDAY 03/07/21 08/14/21 08/14/21 History Fenofibrate 160 mg PO DAILY 03/07/21 08/14/21 08/14/21 History Insulin Degludec [Tresiba 50 unit SQ DAILY 03/07/21 08/14/21 08/13/21 History Flextouch [id number]] Losartan [Cozaar] 100 mg PO QDAY 03/07/21 08/14/21 08/14/21 History Metoprolol [Lopressor] 100 mg PO DAILY 03/07/21 08/14/21 08/14/21 History Quetiapine Fumarate [SEROquel] 50 mg PO DAILY 03/07/21 08/14/21 08/13/21 History Semaglutide [Ozempic] 1 mg SQ 1XW 03/07/21 08/14/21 08/13/21 History Tamsulosin [Flomax] 0.4 mg PO QDAY 03/07/21 08/14/21 08/13/21 History Aspirin EC [Halfprin EC] 81 mg PO DAILY 04/24/21 08/14/21 08/13/21 History Cetirizine HCl [Zyrtec 10mg tab] 10 mg PO DAILY 08/14/21 08/14/21 08/13/21 History Active Meds: Active Medications Acetaminophen (Acetaminophen 325 Mg Tab) 650 mg PO Q4H PRN PRN Reason: Pain MILD(1-3)/Fever >100.5/ALICIA Hydrocodone Bitart/Acetaminophen (Hydrocodone/Acetaminophen 5-325 Mg Tab) 1 each PO Q4H PRN PRN Reason: Pain, Moderate (4-6) Apixaban (Apixaban 2.5 Mg Tab) 2.5 mg PO Q12HR [facility]; Protocol Last Admin: 08/16/21 10:10 Dose: 2.5 mg Documented by: Aspirin (Aspirin 81 Mg Tab Chew) 81 mg PO QDAY [facility] Last Admin: 08/16/21 12:06 Dose: 81 mg Documented by: Atorvastatin Calcium (Atorvastatin 40 Mg Tab) 80 mg PO DAILY [facility] Last Admin: 08/16/21 10:10 Dose: 80 mg Documented by: Clopidogrel Bisulfate (Clopidogrel 75 Mg Tab) 75 mg PO QDAY FARRAH Last Admin: 08/16/21 10:10 Dose: 75 mg Documented by: Fenofibrate (Fenofibrate 145 Mg Tab) 145 mg PO DAILY [facility] Last Admin: 08/16/21 10:10 Dose: 145 mg Documented by: Hydromorphone HCl (Hydromorphone 1 Mg/1 Ml Inj) 1 mg IV Q4H PRN PRN Reason: Pain , Severe (7-10) Phenylephrine HCl 100 mg/ (Sodium Chloride) 100 mls @ 3 mls/hr IV TITR [facility]; Protocol Last Titration: 08/15/21 06:01 Dose: 0 mcg/min, 0 mls/hr Documented by: Sodium Chloride (Nacl 0.9% 1000 Ml) 1,000 mls @ 100 mls/hr IV DIRECT FARRAH Stop: 08/18/21 01:59 Last Admin: 08/16/21 16:55 Dose: 100 mls/hr Documented by: Insulin Glargine (Insulin Glargine 100 Units/Ml) 50 units SUB-Q DAILY [facility] Last Admin: 08/16/21 10:00 Dose: Not Given Documented by: Insulin Human Lispro (Insulin Lispro 100 Unit/Ml) 0 unit SUB-Q ACHS FARRA[facility]; Protocol Last Admin: 08/16/21 17:26 Dose: Not Given Documented by: Midodrine (Midodrine 5 Mg Tab) 10 mg PO 0600,1200,1800 [facility] Last Admin: 08/16/21 17:36 Dose: 10 mg Documented by: Naloxone HCl (Naloxone 0.4 Mg/1 Ml Inj) 0.1 mg IV Q2MIN PRN PRN Reason: Res Rate </= 8 or 02 SAT < 92% Ondansetron HCl (Ondansetron 4 Mg/2 Ml Inj) 4 mg IV Q4H PRN PRN Reason: Nausea And Vomiting Pantoprazole Sodium (Pantoprazole 40 Mg Tab) 40 mg PO QDAC [facility] Last Admin: 08/16/21 08:24 Dose: 40 mg Documented by: Quetiapine Fumarate (Quetiapine 25 Mg Tab) 50 mg PO QHS [facility] Last Admin: 08/15/21 21:10 Dose: 50 mg Documented by: Sodium Chloride (Sodium Chloride 0.9% 10 Ml Flush Syringe) 10 ml IV BID [facility] Last Admin: 08/16/21 10:10 Dose: 10 ml Documented by: Sodium Chloride (Sodium Chloride 0.9% 10 Ml Flush Syringe) 10 ml IV PRN PRN PRN Reason: LINE FLUSH Tamsulosin HCl (Tamsulosin 0.4 Mg Cap) 0.4 mg PO QDAY [facility] Last Admin: 08/16/21 10:10 Dose: 0.4 mg Documented by: Review of Systems Constitutional: no weight loss, no fever, no sweats Ears, nose, mouth and throat: no ear pain, no tinnitis, no nose pain, no nasal congestion Cardiovascular: no chest pain, no palpitations, no edema, no syncope Respiratory: no cough, no shortness of breath, no dyspnea on exertion Gastrointestinal: no abdominal pain, no nausea, no diarrhea, no change in bowel habits Genitourinary Male: no hematuria, no flank pain, no discharge, no urinary frequency Rectal: no pain, no bleeding Musculoskeletal: no neck pain, no shooting arm pain, no arm numbness/tingling, no low back pain Integumentary: no rash, no redness, no sores, no wounds Neurological: no head injury, no paralysis, no weakness Psychiatric: no anxiety, no change in sleep habits, no hypersomnia, no change in libido, no suicidal ideation Endocrine: no cold intolerance, no heat intolerance, no excessive thirst, no polyuria, no nocturia, no excessive sweating Hematologic/Lymphatic: no easy bruising Allergic/Immunologic: no urticaria, no allergic rhinitis Exam - Constitutional Vitals: Temp Pulse Resp BP Pulse Ox 98.4 F 113 H 17 106/48 98 08/16/21 16:37 08/16/21 18:00 08/16/21 18:00 08/16/21 18:00 08/16/21 18:00 General appearance: Present: mild distress, obese - EENT Eyes: Present: PERRL ENT: hearing intact, clear oral mucosa - Neck Neck: Present: supple, normal ROM - Respiratory Respiratory effort: normal Respiratory: bilateral: CTA - Cardiovascular Heart Sounds: Present: S1 & S2. Absent: rub, click - Extremities Extremities: pulses symmetrical, No edema Peripheral Pulses: within normal limits - Abdominal General gastrointestinal: Present: soft, non-tender, non-distended, normal bowel sounds Male genitourinary: Present: normal - Integumentary Integumentary: Present: clear, warm, dry - Musculoskeletal Musculoskeletal: generalized weakness - Psychiatric Psychiatric: appropriate mood/affect, intact judgment & insight - Neurologic Neurologic: CNII-XII intact, moves all extremities Results - Labs CBC & Chem 7: 08/16/21 14:33 08/16/21 14:33 Labs: Abnormal lab results 08/14/21 08/15/21 08/16/21 Range/Units 09:37 21:21 08:16 RBC (3.65-5.03) M/mm3 Hgb (11.8-15.2) gm/dl Hct (35.5-45.6) % Lymph % (Auto) (13.4-35.0) % [place] % (Auto) (0.0-7.3) % Lymph # (Auto) (1.2-5.4) K/mm3 Seg Neutrophils % (40.0-70.0) % Sodium (137-145) mmol/L Carbon Dioxide (22-30) mmol/L BUN (9-20) mg/dL Glucose (75-100) mg/dL POC Glucose 226 H 112 H (70-105) mg/dL Calcium (8.4-10.2) mg/dL Crossmatch See Detail 08/16/21 08/16/21 08/16/21 Range/Units 11:40 14:33 14:33 RBC 3.16 L (3.65-5.03) M/mm3 Hgb 10.0 L (11.8-15.2) gm/dl Hct 29.1 L D (35.5-45.6) % Lymph % (Auto) 9.5 L (13.4-35.0) % [place] % (Auto) 7.9 H (0.0-7.3) % Lymph # (Auto) 0.9 L (1.2-5.4) K/mm3 Seg Neutrophils % 80.7 H (40.0-70.0) % Sodium 133 L (137-145) mmol/L Carbon Dioxide 19 L (22-30) mmol/L BUN 30 H (9-20) mg/dL Glucose 153 H (75-100) mg/dL POC Glucose 137 H (70-105) mg/dL Calcium 7.9 L (8.4-10.2) mg/dL Crossmatch 08/16/21 Range/Units 15:41 RBC (3.65-5.03) M/mm3 Hgb (11.8-15.2) gm/dl Hct (35.5-45.6) % Lymph % (Auto) (13.4-35.0) % [place] % (Auto) (0.0-7.3) % Lymph # (Auto) (1.2-5.4) K/mm3 Seg Neutrophils % (40.0-70.0) % Sodium (137-145) mmol/L Carbon Dioxide (22-30) mmol/L BUN (9-20) mg/dL Glucose (75-100) mg/dL POC Glucose 140 H (70-105) mg/dL Calcium (8.4-10.2) mg/dL Crossmatch Assessment and Plan - Patient Problems (1) Peripheral vascular disease Current Visit: Yes Status: Acute Plan to address problem: Patient is status post revascularization surgery. Continue current care as per primary team. (2) Hypertension Current Visit: Yes Status: Acute Qualifiers: Hypertension type: primary hypertension Qualified Code(s): I10 - Essential (primary) hypertension Plan to address problem: Monitor blood pressure every shift, continue medical management. (3) Diabetes Current Visit: Yes Status: Acute Plan to address problem: Consistent carbohydrate diet, Accu-Chek, insulin protocol, hypoglycemia protocol. (4) Hyperlipidemia Current Visit: Yes Status: Acute Qualifiers: Hyperlipidemia type: mixed hyperlipidemia Qualified Code(s): E78.2 - Mixed hyperlipidemia Plan to address problem: Risk factor reduction, low-cholesterol diet, statin therapy as clinically indicated. (5) Obesity hypoventilation syndrome Current Visit: Yes Status: Acute Plan to address problem: Pulmonary team consulted, outpatient pulmonary follow-up for sleep study, noninvasive positive pressure ventilation as clinically educated, supplemental oxygen, pulse oximetry, nebulizer therapy, pulmonary toilet.
[2021-08-16] MEDS ORDERED: DEXTROSE 50% IN WATER (25GM) 50 ML SYRINGE IV PRN (20:58)
[2021-08-16] MEDS: HYDROmorphone 1 MG/1 ML INJ IV PRN (21:40)
[2021-08-16] MEDS: QUEtiapine 25 MG TAB PO SCH (21:47)
[2021-08-17] MEDS: HYDROmorphone 1 MG/1 ML INJ IV PRN ×3 (02:00→12:56)
[2021-08-17] MEDS: SODIUM CHLORIDE 0.9% 1000 ML 1,000 ML IV SCH ×2 (05:17→12:02)
[2021-08-17] MEDS: MIDODRINE 5 MG TAB PO SCH ×3 (05:18→18:41)
[2021-08-17 07:31] LABS: Basophils % (Auto) 0.2 % (0.0-1.8); Eosinophils # (Auto) 0.2 K/mm3 (0.0-0.4); Eosinophils % (Auto) 2.3 % (0.0-4.3); Hematocrit 26.1 % (35.5-45.6); Hemoglobin 8.9 gm/dl (11.8-15.2); Lymphocytes % (Auto) 12.3 % (13.4-35.0); Mean Corpuscular HGB Conc 34 % (32-34); Mean Corpuscular Volume 92 fl (84-94); Monocytes # (Auto) 0.8 K/mm3 (0.0-0.8); Monocytes % (Auto) 9.6 % (0.0-7.3); Platelet Count 159 K/mm3 (140-440); Red Blood Count 2.84 M/mm3 (3.65-5.03); Red Cell Distribution Width 14.3 % (13.2-15.2)
[2021-08-17 07:50] LABS: Calcium 7.8 mg/dL (8.4-10.2)
[2021-08-17] MEDS: INSULIN LISPRO 100 UNIT/ML SUB-Q SCH ×4 (07:57→22:00)
[2021-08-17] MEDS: PANTOPRAZOLE 40 MG TAB PO SCH (08:09)
--- NOTE | 2021-08-17 09:20 | Progress Note ---
Assessment and Plan Assessment and plan: #Peripheral vascular disease -S/p elective surgical revascularization -Management per primary -As needed pain control #Type 2 diabetes -controlled, continue sliding scale insulin with Accu-Cheks -Hypoglycemia protocol #Hypotension -Continue midodrine 10 mg 3 times daily #Hyperlipidemia -Continue statin + fenofibrate #Obesity hypoventilation syndrome -Continue CPAP at night #BPH -Continue Flomax Disposition Plan: Plan per primary Total Time Spent with Patient (Minutes): 20 minutes History Interval history: No acute events overnight. Patient reports improved pain in the right lower extremity. Denies lightheadedness, dizziness, chest pain or shortness of breath. Hospitalist Physical - Physical exam Narrative exam: GENERAL: Well-developed well-nourished. Lying in bed in no acute distress. CHEST/LUNGS: CTAB on room air HEART/CARDIOVASCULAR: RRR. No murmur, rubs or gallops appreciated. ABDOMEN: +BS. NT/ND. MUSCULOSKELETAL: No joint effusion EXTREMITIES: No cyanosis, clubbing or edema. PSYCH: Cooperative. - Constitutional Vitals: Temp Pulse Resp BP Pulse Ox 99.3 F 117 H 13 108/43 97 08/17/21 08:00 08/17/21 09:00 08/17/21 09:00 08/17/21 09:00 08/17/21 09:19 General appearance: Present: mild distress, obese Results - Labs CBC & Chem 7: 08/17/21 06:20 08/17/21 06:20 Labs: Laboratory Last Values WBC 8.4 K/mm3 (4.5-11.0) 08/17/21 06:20 RBC 2.84 M/mm3 (3.65-5.03) L 08/17/21 06:20 Hgb 8.9 gm/dl (11.8-15.2) L 08/17/21 06:20 Hct 26.1 % (35.5-45.6) L 08/17/21 06:20 MCV 92 fl (84-94) 08/17/21 06:20 MCH 31 pg (28-32) 08/17/21 06:20 MCHC 34 % (32-34) 08/17/21 06:20 RDW 14.3 % (13.2-15.2) 08/17/21 06:20 Plt Count 159 K/mm3 (140-440) 08/17/21 06:20 Lymph % (Auto) 12.3 % (13.4-35.0) L 08/17/21 06:20 [place] % (Auto) 9.6 % (0.0-7.3) H 08/17/21 06:20 Eos % (Auto) 2.3 % (0.0-4.3) 08/17/21 06:20 Baso % (Auto) 0.2 % (0.0-1.8) 08/17/21 06:20 Lymph # (Auto) 1.0 K/mm3 (1.2-5.4) L 08/17/21 06:20 [place] # (Auto) 0.8 K/mm3 (0.0-0.8) 08/17/21 06:20 Eos # (Auto) 0.2 K/mm3 (0.0-0.4) 08/17/21 06:20 Baso # (Auto) 0.0 K/mm3 (0.0-0.1) 08/17/21 06:20 Seg Neutrophils % 75.6 % (40.0-70.0) H 08/17/21 06:20 Seg Neutrophils # 6.3 K/mm3 (1.8-7.7) 08/17/21 06:20 PT 14.9 Sec. (12.2-14.9) 08/14/21 09:37 INR 1.12 (0.87-1.13) 08/14/21 09:37 APTT 26.4 Sec. (24.2-36.6) 08/14/21 09:37 Fibrinogen 359 mg/dl (211-480) 08/14/21 09:37 Sodium 135 mmol/L (137-145) L 08/17/21 06:20 Potassium 3.7 mmol/L (3.6-5.0) 08/17/21 06:20 Chloride 106.7 mmol/L (98-107) 08/17/21 06:20 Carbon Dioxide 19 mmol/L (22-30) L 08/17/21 06:20 Anion Gap 13 mmol/L 08/17/21 06:20 BUN 27 mg/dL (9-20) H 08/17/21 06:20 Creatinine 1.2 mg/dL (0.8-1.3) 08/17/21 06:20 Estimated GFR 59 ml/min 08/17/21 06:20 BUN/Creatinine Ratio 23 % 08/17/21 06:20 Glucose 119 mg/dL (75-100) H 08/17/21 06:20 POC Glucose 103 mg/dL (70-105) 08/17/21 07:10 Lactic Acid 1.10 mmol/L (0.7-2.0) 08/16/21 07:51 Calcium 7.8 mg/dL (8.4-10.2) L 08/17/21 06:20 Coronavirus (PCR) Negative (Negative) 08/16/21 08:13 Blood Type O POSITIVE 08/14/21 09:37 Antibody Screen Negative 08/14/21 09:37 Crossmatch See Detail 08/14/21 09:37 Garcia/IV: Voiding Method Urinal Active Medications - Current Medications Current Medications: Generic Name Dose Route Start Last Admin Trade Name Freq PRN Reason Stop Dose Admin Acetaminophen 650 mg 08/14/21 22:00 Acetaminophen 325 Mg Tab PO Q4H PRN Pain MILD(1-3)/Fever >100.5/ALICIA Hydrocodone Bitart/Acetaminophen 1 each 08/16/21 16:35 Hydrocodone/Acetaminophen 5-325 Mg Tab PO Q4H PRN Pain, Moderate (4-6) Apixaban 2.5 mg 08/15/21 10:00 08/16/21 21:47 Apixaban 2.5 Mg Tab PO 2.5 mg Q12HR FARRAH Administration Protocol Aspirin 81 mg 08/16/21 12:00 08/16/21 12:06 Aspirin 81 Mg Tab Chew PO 81 mg QDAY FARRAH Administration Atorvastatin Calcium 80 mg 08/15/21 10:00 08/16/21 10:10 Atorvastatin 40 Mg Tab PO 80 mg DAILY F[facility]H Administration Clopidogrel Bisulfate 75 mg 08/15/21 10:00 08/16/21 10:10 Clopidogrel 75 Mg Tab PO 75 mg QDAY FARRAH Administration Dextrose 50 ml 08/16/21 20:58 Dextrose 50% In Water (25gm) 50 Ml Syringe IV Q30MIN PRN Hypoglycemia Protocol Fenofibrate 145 mg 08/15/21 10:00 08/16/21 10:10 Fenofibrate 145 Mg Tab PO 145 mg DAILY FARRAH Administration Hydromorphone HCl 0.5 mg 08/16/21 19:23 08/17/21 05:13 Hydromorphone 1 Mg/1 Ml Inj IV 0.5 mg Q3H PRN Administration Pain , Severe (7-10) Sodium Chloride 1,000 mls @ 100 mls/hr 08/16/21 16:00 08/17/21 05:17 Nacl 0.9% 1000 Ml IV 08/18/21 01:59 100 mls/hr DIRECT FARRAH Administration Insulin Glargine 50 units 08/15/21 10:00 08/16/21 10:00 Insulin Glargine 100 Units/Ml SUB-Q Not Given DAILY [facility] Insulin Human Lispro 0 unit 08/15/21 07:30 08/17/21 07:57 Insulin Lispro 100 Unit/Ml SUB-Q Not Given ACHS [facility] Protocol Metoprolol Tartrate 25 mg 08/17/21 10:00 Metoprolol Tartrate 25 Mg Tab PO BID FARRAH Midodrine 10 mg 08/16/21 18:00 08/17/21 05:18 Midodrine 5 Mg Tab PO 10 mg 0600,1200,1800 [facility] Administration Naloxone HCl 0.1 mg 08/14/21 22:07 Naloxone 0.4 Mg/1 Ml Inj IV Q2MIN PRN Res Rate </= 8 or 02 SAT < 92% Ondansetron HCl 4 mg 08/15/21 12:22 Ondansetron 4 Mg/2 Ml Inj IV Q4H PRN Nausea And Vomiting Pantoprazole Sodium 40 mg 08/15/21 07:30 08/17/21 08:09 Pantoprazole 40 Mg Tab PO 40 mg QDAC [facility] Administration Quetiapine Fumarate 50 mg 08/15/21 22:00 08/16/21 21:47 Quetiapine 25 Mg Tab PO 50 mg QHS [facility] Administration Sodium Chloride 10 ml 08/14/21 22:00 08/16/21 21:47 Sodium Chloride 0.9% 10 Ml Flush Syringe IV 10 ml BID [facility] Administration Sodium Chloride 10 ml 08/14/21 11:30 Sodium Chloride 0.9% 10 Ml Flush Syringe IV PRN PRN LINE FLUSH Tamsulosin HCl 0.4 mg 08/15/21 10:00 08/16/21 10:10 Tamsulosin 0.4 Mg Cap PO 0.4 mg QDAY [facility] Administration
[2021-08-17] MEDS ORDERED: METOPROLOL TARTRATE 25 MG TAB PO SCH (10:00)
[2021-08-17] MEDS: APIXABAN 2.5 MG TAB PO SCH ×2 (10:12→22:26)
[2021-08-17] MEDS: ASPIRIN 81 MG TAB CHEW PO SCH (10:12)
[2021-08-17] MEDS: FENOFIBRATE 145 MG TAB PO SCH (10:13)
[2021-08-17] MEDS: CLOPIDOGREL 75 MG TAB PO SCH (10:13)
[2021-08-17] MEDS: TAMSULOSIN 0.4 MG CAP PO SCH (10:13)
--- NOTE | 2021-08-17 11:29 | Progress Note ---
Assessment and Plan Patient will have physical therapy initiated as he has not yet been out of bed in anticipation of discharge hopefully tomorrow. Case management consulted as well for any home medical needs. I the patient is doing well. He is currently receiving his pain medicine through IV. Patient will need to be transitioned today to an oral pain medication and he was counseled on this as he will only get oral pain medication at home. Patient will be discharged home to stay with his daughter temporarily prior to independent living when he is able to. Subjective Date of service: 08/17/21 Principal diagnosis: Ac hypoxemic resp failure; Acute Limb Ischemia; NIRMAL / OHS; DM II; CAD Interval history: Patient doing well status post right groin arterial surgery. Some moisture on the skin surface. Only minimal subcutaneous bruising. Patient not complaining of any pain at this time. Objective - Constitutional Vitals: Vital Signs - 12hr 08/16/21 08/16/21 08/16/21 23:30 23:45 23:49 Temperature 98.7 F Pulse Rate 109 H 115 H Pulse Rate [ Left Radial] Respiratory 19 25 H Rate Blood Pressure 107/50 116/48 O2 Sat by Pulse 99 99 Oximetry 08/17/21 08/17/21 08/17/21 00:00 00:15 00:16 Temperature Pulse Rate 109 H 117 H 113 H Pulse Rate [ 114 H Left Radial] Respiratory 21 14 24 Rate Blood Pressure 104/55 108/53 104/55 O2 Sat by Pulse 98 99 99 Oximetry 08/17/21 08/17/21 08/17/21 00:30 00:45 01:00 Temperature Pulse Rate 113 H 116 H 116 H Pulse Rate [ Left Radial] Respiratory 22 18 20 Rate Blood Pressure 102/50 101/49 110/51 O2 Sat by Pulse 99 99 100 Oximetry 08/17/21 08/17/21 08/17/21 01:15 01:30 01:45 Temperature Pulse Rate 116 H 111 H 112 H Pulse Rate [ Left Radial] Respiratory 16 15 12 Rate Blood Pressure 107/50 93/50 89/47 O2 Sat by Pulse 100 97 97 Oximetry 08/17/21 08/17/21 08/17/21 02:00 02:15 02:30 Temperature Pulse Rate 111 H 116 H 116 H Pulse Rate [ Left Radial] Respiratory 24 26 H 21 Rate Blood Pressure 98/50 109/45 99/48 O2 Sat by Pulse 95 97 100 Oximetry 08/17/21 08/17/21 08/17/21 02:45 03:00 03:15 Temperature Pulse Rate 117 H 114 H 115 H Pulse Rate [ Left Radial] Respiratory 17 22 19 Rate Blood Pressure 113/47 109/49 101/50 O2 Sat by Pulse 99 99 100 Oximetry 08/17/21 08/17/21 08/17/21 03:30 03:45 04:00 Temperature 98.8 F Pulse Rate 98 H 112 H 110 H Pulse Rate [ 114 H Left Radial] Respiratory 16 29 H 28 H Rate Blood Pressure 121/51 108/45 114/49 O2 Sat by Pulse 98 97 99 Oximetry 08/17/21 08/17/21 08/17/21 04:15 04:30 04:40 Temperature Pulse Rate 110 H 112 H 114 H Pulse Rate [ Left Radial] Respiratory 18 21 20 Rate Blood Pressure 112/48 114/51 114/57 O2 Sat by Pulse 98 97 97 Oximetry 08/17/21 08/17/21 08/17/21 04:45 05:00 05:15 Temperature Pulse Rate 111 H 112 H 112 H Pulse Rate [ Left Radial] Respiratory 25 H 14 18 Rate Blood Pressure 97/49 101/53 122/53 O2 Sat by Pulse 98 98 98 Oximetry 08/17/21 08/17/21 08/17/21 05:30 05:45 06:00 Temperature Pulse Rate 108 H 110 H 111 H Pulse Rate [ Left Radial] Respiratory 19 17 15 Rate Blood Pressure 107/50 114/52 119/51 O2 Sat by Pulse 98 97 99 Oximetry 08/17/21 08/17/21 08/17/21 06:15 06:30 06:45 Temperature Pulse Rate 112 H 111 H 112 H Pulse Rate [ Left Radial] Respiratory 18 20 22 Rate Blood Pressure 125/53 121/51 117/55 O2 Sat by Pulse 98 97 96 Oximetry 08/17/21 08/17/21 08/17/21 07:00 07:15 07:30 Temperature Pulse Rate 111 H 110 H 112 H Pulse Rate [ Left Radial] Respiratory 17 18 22 Rate Blood Pressure 121/50 125/54 117/52 O2 Sat by Pulse 99 98 99 Oximetry 08/17/21 08/17/21 08/17/21 07:45 08:00 08:01 Temperature 99.3 F Pulse Rate 110 H 116 H Pulse Rate [ 116 H Left Radial] Respiratory 20 16 16 Rate Blood Pressure 118/52 97/58 O2 Sat by Pulse 98 98 98 Oximetry 08/17/21 08/17/21 08/17/21 08:15 08:30 08:45 Temperature Pulse Rate 111 H 119 H 119 H Pulse Rate [ Left Radial] Respiratory 28 H 25 H 21 Rate Blood Pressure 101/56 106/44 110/47 O2 Sat by Pulse 96 96 94 Oximetry 08/17/21 08/17/21 09:00 09:19 Temperature Pulse Rate 117 H Pulse Rate [ Left Radial] Respiratory 13 Rate Blood Pressure 108/43 O2 Sat by Pulse 97 97 Oximetry General appearance: Present: no acute distress, obese - EENT Eyes: EOM intact ENT: hearing intact - Neck Neck: supple, normal ROM - Respiratory Respiratory effort: normal Extremities: abnormal (Postsurgical changes right groin) - Gastrointestinal General gastrointestinal: Present: deferred Rectal Exam: deferred - Genitourinary Male genitourinary: deferred - Psychiatric Psychiatric: appropriate mood/affect, cooperative - Labs CBC & Chem 7: 08/17/21 06:20 08/17/21 06:20 Labs: Abnormal lab results 08/16/21 08/16/21 08/16/21 Range/Units 11:40 14:33 14:33 RBC 3.16 L (3.65-5.03) M/mm3 Hgb 10.0 L (11.8-15.2) gm/dl Hct 29.1 L D (35.5-45.6) % Lymph % (Auto) 9.5 L (13.4-35.0) % [place] % (Auto) 7.9 H (0.0-7.3) % Lymph # (Auto) 0.9 L (1.2-5.4) K/mm3 Seg Neutrophils % 80.7 H (40.0-70.0) % Sodium 133 L (137-145) mmol/L Carbon Dioxide 19 L (22-30) mmol/L BUN 30 H (9-20) mg/dL Glucose 153 H (75-100) mg/dL POC Glucose 137 H (70-105) mg/dL Calcium 7.9 L (8.4-10.2) mg/dL 08/16/21 08/16/21 08/17/21 Range/Units 15:41 23:54 02:05 RBC (3.65-5.03) M/mm3 Hgb (11.8-15.2) gm/dl Hct (35.5-45.6) % Lymph % (Auto) (13.4-35.0) % [place] % (Auto) (0.0-7.3) % Lymph # (Auto) (1.2-5.4) K/mm3 Seg Neutrophils % (40.0-70.0) % Sodium (137-145) mmol/L Carbon Dioxide (22-30) mmol/L BUN (9-20) mg/dL Glucose (75-100) mg/dL POC Glucose 140 H 125 H 114 H (70-105) mg/dL Calcium (8.4-10.2) mg/dL 08/17/21 08/17/21 08/17/21 Range/Units 06:20 06:20 11:09 RBC 2.84 L (3.65-5.03) M/mm3 Hgb 8.9 L (11.8-15.2) gm/dl Hct 26.1 L (35.5-45.6) % Lymph % (Auto) 12.3 L (13.4-35.0) % [place] % (Auto) 9.6 H (0.0-7.3) % Lymph # (Auto) 1.0 L (1.2-5.4) K/mm3 Seg Neutrophils % 75.6 H (40.0-70.0) % Sodium 135 L (137-145) mmol/L Carbon Dioxide 19 L (22-30) mmol/L BUN 27 H (9-20) mg/dL Glucose 119 H (75-100) mg/dL POC Glucose 128 H (70-105) mg/dL Calcium 7.8 L (8.4-10.2) mg/dL Medications & Allergies - Medications Allergies/Adverse Reactions: Allergies bee pollen Allergy (Verified 03/07/21 08:11) Swelling Home Medications: Home Medications Medication Instructions Recorded Confirmed Last Taken Type Atorvastatin [Lipitor Tab] 80 mg PO DAILY 03/07/21 08/14/21 08/13/21 History Clopidogrel [Plavix] 75 mg PO QDAY 03/07/21 08/14/21 08/14/21 History Fenofibrate 160 mg PO DAILY 03/07/21 08/14/2108/14/21 History Insulin Degludec [Tresiba 50 unit SQ DAILY 03/07/21 08/14/21 08/13/21 History Flextouch [id number]] Losartan [Cozaar] 100 mg PO QDAY 03/07/21 08/14/21 08/14/21 History Metoprolol [Lopressor] 100 mg PO DAILY 03/07/21 08/14/21 08/14/21 History Quetiapine Fumarate [SEROquel] 50 mg PO DAILY 03/07/21 08/14/21 08/13/21 History Semaglutide [Ozempic] 1 mg SQ 1XW 03/07/21 08/14/21 08/13/21 History Tamsulosin [Flomax] 0.4 mg PO QDAY 03/07/21 08/14/21 08/13/21 History Aspirin EC [Halfprin EC] 81 mg PO DAILY 04/24/21 08/14/21 08/13/21 History Cetirizine HCl [Zyrtec 10mg tab] 10 mg PO DAILY 08/14/21 08/14/21 08/13/21 History Active Medications: Generic Name Dose Route Start Last Admin Trade Name Freq PRN Reason Stop Dose Admin Acetaminophen 650 mg 08/14/21 22:00 Acetaminophen 325 Mg Tab PO Q4H PRN Pain MILD(1-3)/Fever >100.5/ALICIA Hydrocodone Bitart/Acetaminophen 1 each 08/16/21 16:35 Hydrocodone/Acetaminophen 5-325 Mg Tab PO Q4H PRN Pain, Moderate (4-6) Apixaban 2.5 mg 08/15/21 10:00 08/17/21 10:12 Apixaban 2.5 Mg Tab PO 2.5 mg Q12HR FARRAH Administration Protocol Aspirin 81 mg 08/16/21 12:00 08/17/21 10:12 Aspirin 81 Mg Tab Chew PO 81 mg QDAY FARRAH Administration Atorvastatin Calcium 80 mg 08/15/21 10:00 08/17/21 10:13 Atorvastatin 40 Mg Tab PO 80 mg DAILY FARRAH Administration Clopidogrel Bisulfate 75 mg 08/15/21 10:00 08/17/21 10:13 Clopidogrel 75 Mg Tab PO 75 mg QDAY FARRAH Administration Dextrose 50 ml 08/16/21 20:58 Dextrose 50% In Water (25gm) 50 Ml Syringe IV Q30MIN PRN Hypoglycemia Protocol Fenofibrate 145 mg 08/15/21 10:00 08/17/21 10:13 Fenofibrate 145 Mg Tab PO 145 mg DAILY FARRAH Administration Hydromorphone HCl 0.5 mg 08/16/21 19:23 08/17/21 05:13 Hydromorphone 1 Mg/1 Ml Inj IV 0.5 mg Q3H PRN Administration Pain , Severe (7-10) Sodium Chloride 1,000 mls @ 100 mls/hr 08/16/21 16:00 08/17/21 05:17 Nacl 0.9% 1000 Ml IV 08/18/21 01:59 100 mls/hr DIRECT FARRAH Administration Insulin Glargine 50 units 08/15/21 10:00 08/16/21 10:00 Insulin Glargine 100 Units/Ml SUB-Q Not Given DAILY FARRAH Insulin Human Lispro 0 unit 08/15/21 07:30 08/17/21 07:57 Insulin Lispro 100 Unit/Ml SUB-Q Not Given ACHS [facility] Protocol Metoprolol Tartrate 25 mg 08/17/21 10:00 Metoprolol Tartrate 25 Mg Tab PO BID FARRAH Midodrine 10 mg 08/16/21 18:00 08/17/21 05:18 Midodrine 5 Mg Tab PO 10 mg 0600,1200,1800 FARRAH Administration Naloxone HCl 0.1 mg 08/14/21 22:07 Naloxone 0.4 Mg/1 Ml Inj IV Q2MIN PRN Res Rate </= 8 or 02 SAT < 92% Ondansetron HCl 4 mg 08/15/21 12:22 Ondansetron 4 Mg/2 Ml Inj IV Q4H PRN Nausea And Vomiting Pantoprazole Sodium 40 mg 08/15/21 07:30 08/17/21 08:09 Pantoprazole 40 Mg Tab PO 40 mg QDAC FARRAH Administration Quetiapine Fumarate 50 mg 08/15/21 22:00 08/16/21 21:47 Quetiapine 25 Mg Tab PO 50 mg QHS FARRAH Administration Sodium Chloride 10 ml 08/14/21 22:00 08/17/21 10:13 Sodium Chloride 0.9% 10 Ml Flush Syringe IV 10 ml BID FARRAH Administration Sodium Chloride 10 ml 08/14/21 11:30 Sodium Chloride 0.9% 10 Ml Flush Syringe IV PRN PRN LINE FLUSH Tamsulosin HCl 0.4 mg 08/15/21 10:00 08/17/21 10:13 Tamsulosin 0.4 Mg Cap PO 0.4 mg QDAY FARRAH Administration
--- NOTE | 2021-08-17 12:28 | Progress Note ---
Assessment and Plan Wean Midodrine as tolerated. Will resume PO Lopressor 25mg BID and titrate up when BP permits. Losartan remains on hold in the setting of hypotension as well. Pt seen in conjunction with Dr. Dukes, who agrees with the assessment and plan of care. - Patient Problems (1) Limb ischemia Current Visit: Yes Status: Acute (2) Peripheral vascular disease Current Visit: Yes Status: Chronic (3) Hypotension Current Visit: Yes Status: Acute (4) CKD (chronic kidney disease) Current Visit: Yes Status: Chronic (5) Anemia Current Visit: Yes Status: Chronic (6) Ischemic cardiomyopathy Current Visit: Yes Status: Chronic (7) NSVT (nonsustained ventricular tachycardia) Current Visit: Yes Status: Chronic (8) CAD (coronary artery disease) Current Visit: Yes Status: Chronic (9) Hx of CABG Current Visit: Yes Status: Chronic (10) S/P PTCA (percutaneous transluminal coronary angioplasty) Current Visit: Yes Status: Chronic (11) Hypertension Current Visit: No Status: Chronic Qualifiers: Hypertension type: primary hypertension Qualified Code(s): I10 - Essential (primary) hypertension (12) Hyperlipidemia Current Visit: Yes Status: Chronic Qualifiers: Hyperlipidemia type: mixed hyperlipidemia Qualified Code(s): E78.2 - Mixed hyperlipidemia (13) DM2 (diabetes mellitus, type 2) Current Visit: Yes Status: Chronic (14) Carotid artery disease Current Visit: Yes Status: Chronic (15) NIRMAL (obstructive sleep apnea) Current Visit: Yes Status: Chronic Subjective Date of service: 08/17/21 Principal diagnosis: Acute Limb Ischemia Interval history: C/o post-op pain. No cardiac complaints. Tele reviewed - SR 110s, intermittent short runs of NSVT noted. Objective Last Vital Signs Temp 99.3 F 08/17/21 08:00 Pulse 113 H 08/17/21 12:02 Resp 13 08/17/21 09:00 BP 114/52 08/17/21 12:02 Pulse Ox 97 08/17/21 09:19 - Physical Examination General: No Apparent Distress HEENT: Positive: EOMI, Normocephaly Neck: Positive: neck supple, trachea midline. Negative: JVD/HJR Cardiac: Positive: Reg Rate and Rhythm, S1/S2 Lungs: Positive: clear to auscultation Neuro: Positive: Grossly Intact Abdomen: Positive: Soft. Negative: Tender Skin: Negative: Rash Musculoskeletal: No Fluid Collection Extremities: Present: warm. Absent: edema - Labs and Meds CBC 08/16/21 08/17/21 Range/Units 14:33 06:20 WBC 9.3 8.4 (4.5-11.0) K/mm3 RBC 3.16 L 2.84 L (3.65-5.03) M/mm3 Hgb 10.0 L 8.9 L (11.8-15.2) gm/dl Hct 29.1 L D 26.1 L (35.5-45.6) % Plt Count 169 159 (140-440) K/mm3 Lymph # (Auto) 0.9 L 1.0 L (1.2-5.4) K/mm3 [place] # (Auto) 0.7 0.8 (0.0-0.8) K/mm3 Eos # (Auto) 0.2 0.2 (0.0-0.4) K/mm3 Baso # (Auto) 0.0 0.0 (0.0-0.1) K/mm3 Comprehensive Metabolic Panel 08/16/21 08/17/21 Range/Units 14:33 06:20 Sodium 133 L 135 L (137-145) mmol/L Potassium 3.9 3.7 (3.6-5.0) mmol/L Chloride 104.7 106.7 (98-107) mmol/L Carbon Dioxide 19 L 19 L (22-30) mmol/L BUN 30 H 27 H (9-20) mg/dL Creatinine 1.3 1.2 (0.8-1.3) mg/dL Glucose 153 H 119 H (75-100) mg/dL Calcium 7.9 L 7.8 L (8.4-10.2) mg/dL - Imaging and Cardiology EKG: report reviewed, image reviewed Pharmacologic stress test: report reviewed (01/2021 - no significant ischemia, EF 35%) Echo: report reviewed (07/2020 - EF 35-40%, grade I diastolic dysfxn) - Telemetry EKG Rhythm: Sinus Tachycardia - EKG Sinus rhythms and dysrhythmias: sinus rhythm - Allied health notes Allied health notes reviewed: nursing
--- NOTE | 2021-08-17 14:59 | Progress Note ---
Assessment and Plan Acute hypoxemic respiratory failure Peripheral vascular disease status post revascularization intervention. Obstructive sleep apnea Left lower lobe, small volume atelectasis DM II Coronary artery disease Hyperlipidemia Hypertension Chronic kidney disease Metabolic acidosis - continue care as below; - vasopressors for target MAP > 65 mmHg - continue CPAP qhs with prn daytime use - continue to wean supplemental oxygen for target O2 sat's > 90% acutely - aspiration precautions - prn bronchodilators with pulmonary hygiene per RT - accuchecks with glycemic control per SSI (While critically ill target blood gl ucose of 140-180 mg/dL; avoid hypoglycemia) - avoid nephrotoxins, renally dose all medications - continue to avoid benzodiazepine's, reduce the possibility of delirium - prn analgesia per CPOT score - Maintenance of sleep-wake cycle, avoid delirium - G.I. & VTE prophylaxis - PT/OT/ROM exercises - mobility protocols for pressure ulcer prophylaxis - Monitor hemodynamics closely - continue other care per attending / other consultants - discharge planning ongoing concurrently .... Re-evaluate in am & prn CONDITION: CRITICAL PROGNOSIS: GUARDED CODE STATUS: FULL CODE The high probability of a clinically significant, sudden or life-threatening deterioration of the [respiratory & cardiovascular] system(s) required my full and direct attention, intervention and personal management. The aggregate critical care time was [34] minutes without overlap. Time includes spent on; [x] Data Review and interpretation [x] Patient assessment and monitoring of vital signs [x] Documentation [x] Medication orders and management Subjective Date of service: 08/17/21 Principal diagnosis: Acute Limb Ischemia Interval history: Patient is seen today for: Acute hypoxemic respiratory failure; PVD s/p revascularization; NIRMAL; OHS; DM II; CAD; CKD; Mild metabolic acidosis Seen and examined at bedside; 24hour events reviewed; nursing and respiratory care staff consulted; no adverse overnight events reported to me; resting peacefully in bed; Objective Vital Signs - 12hr 08/17/21 08/17/21 08/17/21 03:00 03:15 03:30 Temperature Pulse Rate 114 H 115 H 98 H Pulse Rate [ Left Radial] Respiratory 22 19 16 Rate Blood Pressure 109/49 101/50 121/51 O2 Sat by Pulse 99 100 98 Oximetry 08/17/21 08/17/21 08/17/21 03:45 04:00 04:15 Temperature 98.8 F Pulse Rate 112 H 110 H 110 H Pulse Rate [ 114 H Left Radial] Respiratory 29 H 28 H 18 Rate Blood Pressure 108/45 114/49 112/48 O2 Sat by Pulse 97 99 98 Oximetry 08/17/21 08/17/21 08/17/21 04:30 04:40 04:45 Temperature Pulse Rate 112 H 114 H 111 H Pulse Rate [ Left Radial] Respiratory 21 20 25 H Rate Blood Pressure 114/51 114/57 97/49 O2 Sat by Pulse 97 97 98 Oximetry 08/17/21 08/17/21 08/17/21 05:00 05:15 05:30 Temperature Pulse Rate 112 H 112 H 108 H Pulse Rate [ Left Radial] Respiratory 14 18 19 Rate Blood Pressure 101/53 122/53 107/50 O2 Sat by Pulse 98 98 98 Oximetry 08/17/21 08/17/21 08/17/21 05:45 06:00 06:15 Temperature Pulse Rate 110 H 111 H 112 H Pulse Rate [ Left Radial] Respiratory 17 15 18 Rate Blood Pressure 114/52 119/51 125/53 O2 Sat by Pulse 97 99 98 Oximetry 08/17/21 08/17/21 08/17/21 06:30 06:45 07:00 Temperature Pulse Rate 111 H 112 H 111 H Pulse Rate [ Left Radial] Respiratory 20 22 17 Rate Blood Pressure 121/51 117/55 121/50 O2 Sat by Pulse 97 96 99 Oximetry 08/17/21 08/17/21 08/17/21 07:15 07:30 07:45 Temperature Pulse Rate 110 H 112 H 110 H Pulse Rate [ Left Radial] Respiratory 18 22 20 Rate Blood Pressure 125/54 117/52 118/52 O2 Sat by Pulse 98 99 98 Oximetry 08/17/21 08/17/21 08/17/21 08:00 08:01 08:15 Temperature 99.3 F Pulse Rate 116 H 111 H Pulse Rate [ 116 H Left Radial] Respiratory 16 16 28 H Rate Blood Pressure 97/58 101/56 O2 Sat by Pulse 98 98 96 Oximetry 08/17/21 08/17/21 08/17/21 08:30 08:45 09:00 Temperature Pulse Rate 119 H 119 H 117 H Pulse Rate [ Left Radial] Respiratory 25 H 21 13 Rate Blood Pressure 106/44 110/47 108/43 O2 Sat by Pulse 96 94 97 Oximetry 08/17/21 08/17/21 08/17/21 09:15 09:19 09:30 Temperature Pulse Rate 115 H 119 H Pulse Rate [ Left Radial] Respiratory 22 25 H Rate Blood Pressure 106/47 105/52 O2 Sat by Pulse 98 97 96 Oximetry 08/17/21 08/17/21 08/17/21 09:45 10:00 10:15 Temperature Pulse Rate 116 H 113 H 120 H Pulse Rate [ Left Radial] Respiratory 17 17 13 Rate Blood Pressure 98/50 107/54 101/51 O2 Sat by Pulse 98 97 97 Oximetry 08/17/21 08/17/21 08/17/21 10:30 10:45 11:00 Temperature Pulse Rate 108 H 112 H 110 H Pulse Rate [ Left Radial] Respiratory 18 22 13 Rate Blood Pressure 103/49 108/47 108/52 O2 Sat by Pulse 97 97 98 Oximetry 08/17/21 08/17/21 08/17/21 11:15 11:30 11:45 Temperature Pulse Rate 107 H 108 H 107 H Pulse Rate [ Left Radial] Respiratory 18 22 24 Rate Blood Pressure 100/46 99/49 111/45 O2 Sat by Pulse 97 98 96 Oximetry 08/17/21 08/17/21 08/17/21 12:00 12:02 12:15 Temperature Pulse Rate 113 H 113 H 112 H Pulse Rate [ Left Radial] Respiratory 14 31 H Rate Blood Pressure 104/52 114/52 117/54 O2 Sat by Pulse 98 97 Oximetry 08/17/21 08/17/21 08/17/21 12:30 12:45 13:01 Temperature Pulse Rate 117 H 112 H 107 H Pulse Rate [ Left Radial] Respiratory 12 20 16 Rate Blood Pressure 123/55 100/70 105/52 O2 Sat by Pulse 96 97 97 Oximetry 08/17/21 08/17/21 08/17/21 13:15 13:30 13:45 Temperature Pulse Rate 100 H 98 H 97 H Pulse Rate [ Left Radial] Respiratory 20 18 24 Rate Blood Pressure 106/54 98/49 104/56 O2 Sat by Pulse 97 95 93 Oximetry 08/17/21 08/17/21 14:00 14:15 Temperature Pulse Rate 94 H 93 H Pulse Rate [ Left Radial] Respiratory 14 21 Rate Blood Pressure 92/62 101/56 O2 Sat by Pulse 98 96 Oximetry Constitutional: no acute distress, other (elderly obese female with mildly increased respiratory effort at rest) Eyes: non-icteric ENT: oropharynx moist, other (mallampati 3-4) Neck: supple, no lymphadenopathy, no JVD, other (large neck circumference) Effort: mildly labored Ascultation: Bilateral: clear, diminished breath sounds Percussion: Bilateral: not dull Cardiovascular: regular rate and rhythm Gastrointestinal: normoactive bowel sounds, soft, non-tender, non-distended (protuberant') Integumentary: erythema, other (right groin wound) Extremities: no cyanosis, pink and warm, pulses normal, no ischemia or petechiae Neurologic: non-focal exam (grossly), pupils equal and round, CN II-XII normal, motor strength normal and Psychiatric: mood appropriate, affect normal CBC and BMP: 08/23/21 05:41 08/23/21 05:41 ABG, PT/INR, D-dimer: PT/INR, D-dimer PT 14.9 Sec. (12.2-14.9) 08/14/21 09:37 INR 1.12 (0.87-1.13) 08/14/21 09:37 Abnormal lab findings: Abnormal Labs 08/14/21 08/14/21 08/14/21 09:37 09:37 09:37 RBC Hgb Hct MCHC 35 H Lymph % (Auto) [place] % (Auto) 9.6 H Lymph # (Auto) Seg Neutrophils % Sodium Chloride Carbon Dioxide BUN 23 H Glucose POC Glucose Calcium Crossmatch See Detail 08/14/21 08/15/21 08/15/21 22:17 04:20 04:20 RBC Hgb Hct MCHC Lymph % (Auto) 12.6 L [place] % (Auto) 8.1 H Lymph # (Auto) Seg Neutrophils % 78.5 H Sodium Chloride 109.5 H Carbon Dioxide 19 L D BUN 24 H Glucose 102 H POC Glucose 122 H Calcium 7.9 L D Crossmatch 08/15/21 08/15/21 08/15/21 11:19 15:41 21:21 RBC Hgb Hct MCHC Lymph % (Auto) [place] % (Auto) Lymph # (Auto) Seg Neutrophils % Sodium Chloride Carbon Dioxide BUN Glucose POC Glucose 124 H 126 H 226 H Calcium Crossmatch 08/16/21 08/16/21 08/16/21 08:16 11:40 14:33 RBC 3.16 L Hgb 10.0 L Hct 29.1 L D MCHC Lymph % (Auto) 9.5 L [place] % (Auto) 7.9 H Lymph # (Auto) 0.9 L Seg Neutrophils % 80.7 H Sodium Chloride Carbon Dioxide BUN Glucose POC Glucose 112 H 137 H Calcium Crossmatch 08/16/21 08/16/21 08/16/21 14:33 15:41 23:54 RBC Hgb Hct MCHC Lymph % (Auto) [place] % (Auto) Lymph # (Auto) Seg Neutrophils % Sodium 133 L Chloride Carbon Dioxide 19 L BUN 30 H Glucose 153 H POC Glucose 140 H 125 H Calcium 7.9 L Crossmatch 08/17/21 08/17/21 08/17/21 02:05 06:20 06:20 RBC 2.84 L Hgb 8.9 L Hct 26.1 L MCHC Lymph % (Auto) 12.3 L [place] % (Auto) 9.6 H Lymph # (Auto) 1.0 L Seg Neutrophils % 75.6 H Sodium 135 L Chloride Carbon Dioxide 19 L BUN 27 H Glucose 119 H POC Glucose 114 H Calcium 7.8 L Crossmatch 08/17/21 11:09 RBC Hgb Hct MCHC Lymph % (Auto) [place] % (Auto) Lymph # (Auto) Seg Neutrophils % Sodium Chloride Carbon Dioxide BUN Glucose POC Glucose 128 H Calcium Crossmatch Allied health notes reviewed: nursing
[2021-08-17] MEDS: QUEtiapine 25 MG TAB PO SCH (22:26)
[2021-08-18] MEDS: MIDODRINE 5 MG TAB PO SCH ×3 (05:11→17:20)
[2021-08-18 08:07] LABS: Basophils % (Auto) 0.4 % (0.0-1.8); Eosinophils # (Auto) 0.4 K/mm3 (0.0-0.4); Eosinophils % (Auto) 4.8 % (0.0-4.3); Hematocrit 28.4 % (35.5-45.6); Hemoglobin 9.9 gm/dl (11.8-15.2); Lymphocytes # (Auto) 0.9 K/mm3 (1.2-5.4); Lymphocytes % (Auto) 11.1 % (13.4-35.0); Mean Corpuscular HGB Conc 35 % (32-34); Mean Corpuscular Volume 90 fl (84-94); Monocytes # (Auto) 0.6 K/mm3 (0.0-0.8); Monocytes % (Auto) 7.2 % (0.0-7.3); Platelet Count 202 K/mm3 (140-440); Red Blood Count 3.15 M/mm3 (3.65-5.03); Red Cell Distribution Width 14.2 % (13.2-15.2)
[2021-08-18 08:37] LABS: BUN/Creatinine Ratio 18; Blood Urea Nitrogen 16 mg/dL (9-20); Calcium 8.5 mg/dL (8.4-10.2); Hemolysis Index 4
[2021-08-18] MEDS: ASPIRIN 81 MG TAB CHEW PO SCH (09:37)
[2021-08-18] MEDS: PANTOPRAZOLE 40 MG TAB PO SCH (09:38)
[2021-08-18] MEDS: APIXABAN 2.5 MG TAB PO SCH ×2 (09:38→21:30)
[2021-08-18] MEDS: CLOPIDOGREL 75 MG TAB PO SCH (09:38)
[2021-08-18] MEDS: TAMSULOSIN 0.4 MG CAP PO SCH (09:38)
[2021-08-18] MEDS: INSULIN LISPRO 100 UNIT/ML SUB-Q SCH ×4 (09:38→21:38)
[2021-08-18] MEDS: FENOFIBRATE 145 MG TAB PO SCH (09:38)
[2021-08-18] MEDS ORDERED: MAGNESIUM SULFATE 3 GM in SODIUM CHLORIDE 0.9% 100 ML IV SCH (10:45)
--- NOTE | 2021-08-18 12:27 | Progress Note ---
Subjective Date of service: 08/18/21 Principal diagnosis: Acute Limb Ischemia Objective Vital Signs - 12hr 08/18/21 08/18/21 08/18/21 00:30 00:45 01:00 Temperature Pulse Rate 102 H 105 H 101 H Pulse Rate [ Left Radial] Respiratory 25 H 17 28 H Rate Blood Pressure 113/57 119/58 115/64 O2 Sat by Pulse 99 99 99 Oximetry 08/18/21 08/18/21 08/18/21 01:15 01:31 01:45 Temperature Pulse Rate 106 H 104 H 101 H Pulse Rate [ Left Radial] Respiratory 28 H 18 26 H Rate Blood Pressure 119/58 144/73 115/64 O2 Sat by Pulse 98 99 99 Oximetry 08/18/21 08/18/21 08/18/21 02:01 02:15 02:30 Temperature Pulse Rate 109 H 106 H 100 H Pulse Rate [ Left Radial] Respiratory 22 19 21 Rate Blood Pressure 132/75 132/75 140/77 O2 Sat by Pulse 96 99 99 Oximetry 08/18/21 08/18/21 08/18/21 02:45 03:00 03:15 Temperature Pulse Rate 98 H 99 H 96 H Pulse Rate [ Left Radial] Respiratory 22 24 22 Rate Blood Pressure 141/71 132/67 142/66 O2 Sat by Pulse 98 98 98 Oximetry 08/18/21 08/18/21 08/18/21 03:31 03:45 04:00 Temperature Pulse Rate 100 H 91 H 92 H Pulse Rate [ 113 H Left Radial] Respiratory 16 21 24 Rate Blood Pressure 142/67 142/67 120/67 O2 Sat by Pulse 99 98 98 Oximetry 08/18/21 08/18/21 08/18/21 04:15 04:30 04:45 Temperature Pulse Rate 83 89 89 Pulse Rate [ Left Radial] Respiratory 26 H 17 10 L Rate Blood Pressure 120/67 130/70 123/64 O2 Sat by Pulse 97 99 99 Oximetry 08/18/21 08/18/21 08/18/21 05:01 05:15 07:30 Temperature 98.4 F Pulse Rate 94 H 95 H Pulse Rate [ Left Radial] Respiratory 20 25 H Rate Blood Pressure 134/76 134/76 O2 Sat by Pulse 99 98 Oximetry 08/18/21 08:35 Temperature Pulse Rate Pulse Rate [ Left Radial] Respiratory Rate Blood Pressure O2 Sat by Pulse 95 Oximetry Constitutional: no acute distress, other (elderly obese female with mildly increased respiratory effort at rest) Eyes: non-icteric ENT: oropharynx moist, other (mallampati 3-4) Neck: supple, no lymphadenopathy, no JVD, other (large neck circumference) Effort: mildly labored Ascultation: Bilateral: clear, diminished breath sounds Percussion: Bilateral: not dull Cardiovascular: regular rate and rhythm Gastrointestinal: normoactive bowel sounds, soft, non-tender, non-distended (protuberant') Integumentary: erythema, other (right groin wound) Extremities: no cyanosis, pink and warm, pulses normal, no ischemia or petechiae Neurologic: non-focal exam (grossly), pupils equal and round, CN II-XII normal, motor strength normal and Psychiatric: mood appropriate, affect normal CBC and BMP: 08/18/21 07:59 08/18/21 07:59 ABG, PT/INR, D-dimer: PT/INR, D-dimer PT 14.9 Sec. (12.2-14.9) 08/14/21 09:37 INR 1.12 (0.87-1.13) 08/14/21 09:37 Abnormal lab findings: Abnormal Labs 08/14/21 08/14/21 08/14/21 09:37 09:37 09:37 RBC Hgb Hct MCHC 35 H Lymph % (Auto) [place] % (Auto) 9.6 H Eos % (Auto) Lymph # (Auto) Seg Neutrophils % Sodium Chloride Carbon Dioxide BUN 23 H Glucose POC Glucose Calcium Magnesium Crossmatch See Detail 08/14/21 08/15/21 08/15/21 22:17 04:20 04:20 RBC Hgb Hct MCHC Lymph % (Auto) 12.6 L [place] % (Auto) 8.1 H Eos % (Auto) Lymph # (Auto) Seg Neutrophils % 78.5 H Sodium Chloride 109.5 H Carbon Dioxide 19 L D BUN 24 H Glucose 102 H POC Glucose 122 H Calcium 7.9 L D Magnesium Crossmatch 08/15/21 08/15/21 08/15/21 11:19 15:41 21:21 RBC Hgb Hct MCHC Lymph % (Auto) [place] % (Auto) Eos % (Auto) Lymph # (Auto) Seg Neutrophils % Sodium Chloride Carbon Dioxide BUN Glucose POC Glucose 124 H 126 H 226 H Calcium Magnesium Crossmatch 08/16/21 08/16/21 08/16/21 08:16 11:40 14:33 RBC 3.16 L Hgb 10.0 L Hct 29.1 L D MCHC Lymph % (Auto) 9.5 L [place] % (Auto) 7.9 H Eos % (Auto) Lymph # (Auto) 0.9 L Seg Neutrophils % 80.7 H Sodium Chloride Carbon Dioxide BUN Glucose POC Glucose 112 H 137 H Calcium Magnesium Crossmatch 08/16/21 08/16/21 08/16/21 14:33 15:41 23:54 RBC Hgb Hct MCHC Lymph % (Auto) [place] % (Auto) Eos % (Auto) Lymph # (Auto) Seg Neutrophils % Sodium 133 L Chloride Carbon Dioxide 19 L BUN 30 H Glucose 153 H POC Glucose 140 H 125 H Calcium 7.9 L Magnesium Crossmatch 08/17/21 08/17/21 08/17/21 02:05 06:20 06:20 RBC 2.84 L Hgb 8.9 L Hct 26.1 L MCHC Lymph % (Auto) 12.3 L [place] % (Auto) 9.6 H Eos % (Auto) Lymph # (Auto) 1.0 L Seg Neutrophils % 75.6 H Sodium 135 L Chloride Carbon Dioxide 19 L BUN 27 H Glucose 119 H POC Glucose 114 H Calcium 7.8 L Magnesium Crossmatch 08/17/21 08/17/21 08/17/21 11:09 16:13 17:05 RBC Hgb Hct MCHC Lymph % (Auto) [place] % (Auto) Eos % (Auto) Lymph # (Auto) Seg Neutrophils % Sodium Chloride Carbon Dioxide BUN Glucose POC Glucose 128 H 143 H 145 H Calcium Magnesium Crossmatch 08/17/21 08/18/21 08/18/21 22:23 07:17 07:59 RBC 3.15 L Hgb 9.9 L Hct 28.4 L MCHC 35 H Lymph % (Auto) 11.1 L [place] % (Auto) Eos % (Auto) 4.8 H Lymph # (Auto) 0.9 L Seg Neutrophils % 76.5 H Sodium Chloride Carbon Dioxide BUN Glucose POC Glucose 148 H 111 H Calcium Magnesium Crossmatch 08/18/21 08/18/21 07:59 11:33 RBC Hgb Hct MCHC Lymph % (Auto) [place] % (Auto) Eos % (Auto) Lymph # (Auto) Seg Neutrophils % Sodium Chloride 110.2 H Carbon Dioxide 18 L BUN Glucose 122 H POC Glucose 149 H Calcium Magnesium 1.40 L Crossmatch Allied health notes reviewed: nursing
--- NOTE | 2021-08-18 14:22 | Progress Note ---
Assessment and Plan Patient is a 76 y/o male with a PMHx of CAD,PVD, ischemic cardiomyopathy, h/o OH, HTN, chronic renal insufficiency who underwent endovascular revascularization about 3 months and reports with a complaint of acute limb ischemiax 2 weeks HTN CAD PVD Ischemic Cardiomyopathy * Echocardiogram 07/07/2020 LV wall thickness is mildly increased.Estimated left ventricle ejection fraction is 35-40%. Normal left atrial pressure with Grade I diastolic dysfunction. There is normal right ventricular size, wall dimension, and systolic function. There is no aortic valve stenosis or regurgitation. There is no mitral valve stenosis or regurgitation. There is no tricuspid valve stenosis or regurgitation. There is trivial pulmonic regurgi tation. No left ventricular thrombus noted with LV contrast images * Lexiscan MPI stress 01/16/2021- Negative Lexiscan EKG. No significant myocardial PET ischemia. Moderate area of large infarct shown in the inferior region noted with no significant ischemia with normal perfusion anteroseptal, lateral, and apical regions. Gated SPECT at rest and stress 35% requiring flow reserve globally at 1.48. * Outpatient medications: [id number] PO QD, Plavix 75g PO QD, atorvastatin 80mg QHS, asa, Metoprolol ER 100mg PO QD Plan: Decreased midodrine 5mg PO TID. Will continue to hold patients BP medications due to hypotension. Once BP more stable will resume outpatient regimen Continue Eliquis and Plavix, asa. Transfer to tele floor Patient has a video follow up with Dr. Dukes, [facility], 08/31/2021 at 11:45am Patient seen in conjunction with Dr. Dukes who agrees with this plan of care. Will see as needed over weekend - Patient Problems (1) Rest pain of right lower extremity concurrent with and due to atherosclerosis of bypass graft Current Visit: Yes Status: Acute (2) CAD (coronary artery disease) Current Visit: Yes Status: Chronic (3) CKD (chronic kidney disease) Current Visit: Yes Status: Chronic (4) Intermittent claudication of both lower extremities due to atherosclerosis Current Visit: No Status: Acute Subjective Date of service: 08/18/21 Principal diagnosis: Acute Limb Ischemia Interval history: Patient lying in bed with no cardiac complaints Sinus 90 with PVCs on monitor Objective Vital Signs Temp Pulse Pulse Resp BP Pulse Ox 08/18/21 08:35 95 08/18/21 07:30 98.4 F 08/18/21 05:15 95 H 25 H 134/76 98 08/18/21 05:01 94 H 20 134/76 99 08/18/21 04:45 89 10 L 123/64 99 08/18/21 04:30 89 17 130/70 99 08/18/21 04:15 83 26 H 120/67 97 08/18/21 04:00 92 H 113 H 24 120/67 98 08/18/21 03:45 91 H 21 142/67 98 08/18/21 03:31 100 H 16 142/67 99 08/18/21 03:15 96 H 22 142/66 98 08/18/21 03:00 99 H 24 132/67 98 08/18/21 02:45 98 H 22 141/71 98 08/18/21 02:30 100 H 21 140/77 99 08/18/21 02:15 106 H 19 132/75 99 08/18/21 02:01 109 H 22 132/75 96 08/18/21 01:45 101 H 26 H 115/64 99 08/18/21 01:31 104 H 18 144/73 99 08/18/21 01:15 106 H 28 H 119/58 98 08/18/21 01:00 101 H 28 H 115/64 99 08/18/21 00:45 105 H 17 119/58 99 08/18/21 00:30 102 H 25 H 113/57 99 08/18/21 00:15 104 H 24 145/70 98 08/18/21 00:01 113 H 15 145/70 79 L 08/18/21 00:00 113 H 14 98 08/17/21 23:45 109 H 21 145/70 97 08/17/21 23:30 111 H 21 145/70 98 08/17/21 23:15 99 H 28 H 131/71 98 08/17/21 23:05 101.1 F H 08/17/21 23:00 105 H 20 133/69 99 08/17/21 22:55 102 H 25 H 130/65 99 08/17/21 22:45 98 H 16 140/74 99 08/17/21 22:30 106 H 17 140/74 98 08/17/21 22:25 112 H 16 127/67 98 08/17/21 22:15 108 H 26 H 127/67 98 08/17/21 22:00 104 H 19 132/67 98 08/17/21 21:45 99 H 14 142/70 98 08/17/21 21:30 106 H 20 142/70 97 08/17/21 21:15 105 H 19 143/72 97 08/17/21 21:00 105 H 21 136/67 98 08/17/21 20:45 105 H 21 140/73 99 08/17/21 20:30 108 H 26 H 134/71 98 08/17/21 20:15 107 H 28 H 140/62 97 08/17/21 20:00 101 H 113 H 16 140/62 98 08/17/21 19:45 104 H 19 133/70 97 08/17/21 19:41 99.8 F H 08/17/21 19:31 113 H 18 125/64 94 08/17/21 19:15 102 H 19 124/68 98 08/17/21 19:00 108 H 17 133/72 98 08/17/21 18:45 105 H 19 125/64 98 08/17/21 18:30 105 H 13 125/65 99 08/17/21 18:15 104 H 12 112/67 97 08/17/21 18:00 101 H 19 128/66 99 08/17/21 17:45 102 H 15 118/65 98 08/17/21 17:30 105 H 26 H 118/65 98 08/17/21 17:15 104 H 19 113/60 98 08/17/21 17:00 100 H 18 131/62 98 08/17/21 16:45 108 H 13 131/62 98 08/17/21 16:30 102 H 17 120/60 98 08/17/21 16:15 101 H 19 119/62 99 08/17/21 16:00 103 H 113 H 14 119/62 98 08/17/21 15:45 100 H 20 120/55 98 08/17/21 15:30 102 H 22 117/55 96 08/17/21 15:15 105 H 19 116/63 98 08/17/21 15:01 98 H 21 116/63 98 08/17/21 14:45 100 H 20 113/56 98 08/17/21 14:31 96 H 25 H 108/60 99 - Physical Examination General: No Apparent Distress HEENT: Positive: EOMI, Normocephaly Neck: Positive: neck supple, trachea midline. Negative: JVD/HJR Lungs: Positive: Normal Breath Sounds Neuro: Positive: Grossly Intact Abdomen: Positive: Soft. Negative: Tender Skin: Negative: Rash Musculoskeletal: No Fluid Collection Extremities: Present: warm. Absent: edema - Labs and Meds CBC 08/18/21 Range/Units 07:59 WBC 7.7 (4.5-11.0) K/mm3 RBC 3.15 L (3.65-5.03) M/mm3 Hgb 9.9 L (11.8-15.2) gm/dl Hct 28.4 L (35.5-45.6) % Plt Count 202 (140-440) K/mm3 Lymph # (Auto) 0.9 L (1.2-5.4) K/mm3 [place] # (Auto) 0.6 (0.0-0.8) K/mm3 Eos # (Auto) 0.4 (0.0-0.4) K/mm3 Baso # (Auto) 0.0 (0.0-0.1) K/mm3 Comprehensive Metabolic Panel 08/18/21 Range/Units 07:59 Sodium 142 D (137-145) mmol/L Potassium 3.6 (3.6-5.0) mmol/L Chloride 110.2 H (98-107) mmol/L Carbon Dioxide 18 L (22-30) mmol/L BUN 16 (9-20) mg/dL Creatinine 0.9 (0.8-1.3) mg/dL Glucose 122 H (75-100) mg/dL Calcium 8.5 (8.4-10.2) mg/dL - Imaging and Cardiology EKG: report reviewed, image reviewed Echo: report reviewed (07/2020 - EF 35-40%, grade I diastolic dysfxn) - EKG Sinus rhythms and dysrhythmias: sinus rhythm - Allied health notes Allied health notes reviewed: nursing
--- NOTE | 2021-08-18 14:29 | Progress Note ---
Assessment and Plan The patient continues to do well after replacement of his common femoral artery with a 10 mm PTFE graft. His foot is warm and well-perfused and he was able to ambulate with a walker with therapy. His blood pressure has improved with mido drine and this will be decreased from 10 mg 3 times daily to 5 mg 3 times daily. He is otherwise stable and can be transferred to telemetry. Given his progress I anticipate discharge on Saturday. Subjective Date of service: 08/18/21 Principal diagnosis: Acute Limb Ischemia Interval history: The patient has minimal complaints. He was able to get up with physical therapy and ambulate with a rolling walker. He states that he had some numbness of his right foot that seems different then prior to the operation however this was tolerable. He did have some pain however the pain was only in his incision and not in his leg or foot. He has no additional complaints at this time. Objective - Constitutional Vitals: Vital Signs - 12hr 08/18/21 08/18/21 08/18/21 02:30 02:45 03:00 Temperature Pulse Rate 100 H 98 H 99 H Pulse Rate [ Left Radial] Respiratory 21 22 24 Rate Blood Pressure 140/77 141/71 132/67 O2 Sat by Pulse 99 98 98 Oximetry 08/18/21 08/18/21 08/18/21 03:15 03:31 03:45 Temperature Pulse Rate 96 H 100 H 91 H Pulse Rate [ Left Radial] Respiratory 22 16 21 Rate Blood Pressure 142/66 142/67 142/67 O2 Sat by Pulse 98 99 98 Oximetry 08/18/21 08/18/21 08/18/21 04:00 04:15 04:30 Temperature Pulse Rate 92 H 83 89 Pulse Rate [ 113 H Left Radial] Respiratory 24 26 H 17 Rate Blood Pressure 120/67 120/67 130/70 O2 Sat by Pulse 98 97 99 Oximetry 08/18/21 08/18/21 08/18/21 04:45 05:01 05:15 Temperature Pulse Rate 89 94 H 95 H Pulse Rate [ Left Radial] Respiratory 10 L 20 25 H Rate Blood Pressure 123/64 134/76 134/76 O2 Sat by Pulse 99 99 98 Oximetry 08/18/21 08/18/21 07:30 08:35 Temperature 98.4 F Pulse Rate Pulse Rate [ Left Radial] Respiratory Rate Blood Pressure O2 Sat by Pulse 95 Oximetry General appearance: Present: no acute distress - Respiratory Respiratory effort: normal - Breasts Breasts: deferred Extremities: normal temperature (Right foot is warm and well-perfused), abnormal (Right groin incision is clean, dry, and intact with diffuse ecchymosis however there is no sign of infection or hematoma) - Genitourinary Male genitourinary: deferred - Labs CBC & Chem 7: 08/18/21 07:59 08/18/21 07:59 Labs: Abnormal lab results 08/17/21 08/17/21 08/17/21 Range/Units 16:13 17:05 22:23 RBC (3.65-5.03) M/mm3 Hgb (11.8-15.2) gm/dl Hct (35.5-45.6) % MCHC (32-34) % Lymph % (Auto) (13.4-35.0) % Eos % (Auto) (0.0-4.3) % Lymph # (Auto) (1.2-5.4) K/mm3 Seg Neutrophils % (40.0-70.0) % Chloride (98-107) mmol/L Carbon Dioxide (22-30) mmol/L Glucose (75-100) mg/dL POC Glucose 143 H 145 H 148 H (70-105) mg/dL Magnesium (1.7-2.3) mg/dL 08/18/21 08/18/21 08/18/21 Range/Units 07:17 07:59 07:59 RBC 3.15 L (3.65-5.03) M/mm3 Hgb 9.9 L (11.8-15.2) gm/dl Hct 28.4 L (35.5-45.6) % MCHC 35 H (32-34) % Lymph % (Auto) 11.1 L (13.4-35.0) % Eos % (Auto) 4.8 H (0.0-4.3) % Lymph # (Auto) 0.9 L (1.2-5.4) K/mm3 Seg Neutrophils % 76.5 H (40.0-70.0) % Chloride 110.2 H (98-107) mmol/L Carbon Dioxide 18 L (22-30) mmol/L Glucose 122 H (75-100) mg/dL POC Glucose 111 H (70-105) mg/dL Magnesium 1.40 L (1.7-2.3) mg/dL 08/18/21 Range/Units 11:33 RBC (3.65-5.03) M/mm3 Hgb (11.8-15.2) gm/dl Hct (35.5-45.6) % MCHC (32-34) % Lymph % (Auto) (13.4-35.0) % Eos % (Auto) (0.0-4.3) % Lymph # (Auto) (1.2-5.4) K/mm3 Seg Neutrophils % (40.0-70.0) % Chloride (98-107) mmol/L Carbon Dioxide (22-30) mmol/L Glucose (75-100) mg/dL POC Glucose 149 H (70-105) mg/dL Magnesium (1.7-2.3) mg/dL Medications & Allergies - Medications Allergies/Adverse Reactions: Allergies bee pollen Allergy (Verified 03/07/21 08:11) Swelling Home Medications: Home Medications Medication Instructions Recorded Confirmed Last Taken Type Atorvastatin [Lipitor Tab] 80 mg PO DAILY 03/07/21 08/14/21 08/13/21 History Clopidogrel [Plavix] 75 mg PO QDAY 03/07/21 08/14/21 08/14/21 History Fenofibrate 160 mg PO DAILY 03/07/21 08/14/21 08/14/21 History Insulin Degludec [Tresiba 50 unit SQ DAILY 03/07/21 08/14/21 08/13/21 History Flextouch [id number]] Losartan [Cozaar] 100 mg PO QDAY 03/07/21 08/14/21 08/14/21 History Metoprolol [Lopressor] 100 mg PO DAILY 03/07/21 08/14/21 08/14/21 History Quetiapine Fumarate [SEROquel] 50 mg PO DAILY 03/07/21 08/14/21 08/13/21 History Semaglutide [Ozempic] 1 mg SQ 1XW 03/07/21 08/14/21 08/13/21 History Tamsulosin [Flomax] 0.4 mg PO QDAY 03/07/21 08/14/21 08/13/21 History Aspirin EC [Halfprin EC] 81 mg PO DAILY 04/24/21 08/14/21 08/13/21 History Cetirizine HCl [Zyrtec 10mg tab] 10 mg PO DAILY 08/14/21 08/14/21 08/13/21 History Active Medications: Generic Name Dose Route Start Last Admin Trade Name Freq PRN Reason Stop Dose Admin Acetaminophen 650 mg 08/14/21 22:00 08/18/21 00:24 Acetaminophen 325 Mg Tab PO 650 mg Q4H PRN Administration Pain MILD(1-3)/Fever >100.5/ALICIA Hydrocodone Bitart/Acetaminophen 1 each 08/16/21 16:35 Hydrocodone/Acetaminophen 5-325 Mg Tab PO Q4H PRN Pain, Moderate (4-6) Apixaban 2.5 mg 08/15/21 10:00 08/18/21 09:38 Apixaban 2.5 Mg Tab PO 2.5 mg Q12HR FARRAH Administration Protocol Aspirin 81 mg 08/16/21 12:00 08/18/21 09:37 Aspirin 81 Mg Tab Chew PO 81 mg QDAY FARRAH Administration Atorvastatin Calcium 80 mg 08/15/21 10:00 08/18/21 09:38 Atorvastatin 40 Mg Tab PO 80 mg DAILY FARRAH Administration Clopidogrel Bisulfate 75 mg 08/15/21 10:00 08/18/21 09:38 Clopidogrel 75 Mg Tab PO 75 mg QDAY FARRAH Administration Dextrose 50 ml 08/16/21 20:58 Dextrose 50% In Water (25gm) 50 Ml Syringe IV Q30MIN PRN Hypoglycemia Protocol Fenofibrate 145 mg 08/15/21 10:00 08/18/21 09:38 Fenofibrate 145 Mg Tab PO 145 mg DAILY FARRAH Administration Hydromorphone HCl 0.5 mg 08/16/21 19:23 08/17/21 12:56 Hydromorphone 1 Mg/1 Ml Inj IV 0.5 mg Q3H PRN Administration Pain , Severe (7-10) Magnesium Sulfate 3 gm/ Sodium 106 mls @ 35.333 mls/hr 08/18/21 10:45 08/18/21 12:11 Chloride IV 08/18/21 14:45 35.333 mls/hr ONCE@1045 FARARH Administration Insulin Glargine 50 units 08/15/21 10:00 08/16/21 10:00 Insulin Glargine 100 Units/Ml SUB-Q Not Given DAILY [facility] Insulin Human Lispro 0 unit 08/15/21 07:30 08/18/21 11:49 Insulin Lispro 100 Unit/Ml SUB-Q Not Given ACHS [facility] Protocol Midodrine 5 mg 08/18/21 12:17 Midodrine 5 Mg Tab PO 0600,1200,1800 FARRAH Naloxone HCl 0.1 mg 08/14/21 22:07 Naloxone 0.4 Mg/1 Ml Inj IV Q2MIN PRN Res Rate </= 8 or 02 SAT < 92% Ondansetron HCl 4 mg 08/15/21 12:22 Ondansetron 4 Mg/2 Ml Inj IV Q4H PRN Nausea And Vomiting Pantoprazole Sodium 40 mg 08/15/21 07:30 08/18/21 09:38 Pantoprazole 40 Mg Tab PO 40 mg QDAC FARRAH Administration Quetiapine Fumarate 50 mg 08/15/21 22:00 08/17/21 22:26 Quetiapine 25 Mg Tab PO 50 mg QHS FARRAH Administration Sodium Chloride 10 ml 08/14/21 22:00 08/18/21 09:38 Sodium Chloride 0.9% 10 Ml Flush Syringe IV 10 ml BID FARRAH Administration Sodium Chloride 10 ml 08/14/21 11:30 Sodium Chloride 0.9% 10 Ml Flush Syringe IV PRN PRN LINE FLUSH Tamsulosin HCl 0.4 mg 08/15/21 10:00 08/18/21 09:38 Tamsulosin 0.4 Mg Cap PO 0.4 mg QDAY FARRAH Administration
--- NOTE | 2021-08-18 15:35 | Progress Note ---
Assessment and Plan Assessment and plan: #Peripheral vascular disease -S/p elective surgical revascularization -Management per primary -As needed pain control #Type 2 diabetes -controlled, continue Lantus + sliding scale insulin with Accu-Cheks -Hypoglycemia protocol #Hypotension -Continue midodrine 10 mg 3 times daily #Hyperlipidemia -Continue statin + fenofibrate #Obesity hypoventilation syndrome -Continue CPAP at night #BPH -Continue Flomax Disposition Plan: Continue medical manage Total Time Spent with Patient (Minutes): 20 minutes History Interval history: No acute events overnight. Patient denies any discomfort at this time. Hospitalist Physical - Physical exam Narrative exam: GENERAL: Well-developed well-nourished. Lying in bed in no acute distress. CHEST/LUNGS: CTAB on room air HEART/CARDIOVASCULAR: RRR. No murmur, rubs or gallops appreciated. ABDOMEN: +BS. NT/ND. PSYCH: Cooperative. - Constitutional Vitals: Temp Pulse Resp BP Pulse Ox 98.4 F 95 H 25 H 134/76 95 08/18/21 07:30 08/18/21 05:15 08/18/21 05:15 08/18/21 05:15 08/18/21 08:35 General appearance: Present: no acute distress Results - Labs CBC & Chem 7: 08/18/21 07:59 08/18/21 07:59 Labs: Laboratory Last Values WBC 7.7 K/mm3 (4.5-11.0) 08/18/21 07:59 RBC 3.15 M/mm3 (3.65-5.03) L 08/18/21 07:59 Hgb 9.9 gm/dl (11.8-15.2) L 08/18/21 07:59 Hct 28.4 % (35.5-45.6) L 08/18/21 07:59 MCV 90 fl (84-94) 08/18/21 07:59 MCH 32 pg (28-32) 08/18/21 07:59 MCHC 35 % (32-34) H 08/18/21 07:59 RDW 14.2 % (13.2-15.2) 08/18/21 07:59 Plt Count 202 K/mm3 (140-440) 08/18/21 07:59 Lymph % (Auto) 11.1 % (13.4-35.0) L 08/18/21 07:59 [place] % (Auto) 7.2 % (0.0-7.3) 08/18/21 07:59 Eos % (Auto) 4.8 % (0.0-4.3) H 08/18/21 07:59 Baso % (Auto) 0.4 % (0.0-1.8) 08/18/21 07:59 Lymph # (Auto) 0.9 K/mm3 (1.2-5.4) L 08/18/21 07:59 [place] # (Auto) 0.6 K/mm3 (0.0-0.8) 08/18/21 07:59 Eos # (Auto) 0.4 K/mm3 (0.0-0.4) 08/18/21 07:59 Baso # (Auto) 0.0 K/mm3 (0.0-0.1) 08/18/21 07:59 Seg Neutrophils % 76.5 % (40.0-70.0) H 08/18/21 07:59 Seg Neutrophils # 5.9 K/mm3 (1.8-7.7) 08/18/21 07:59 PT 14.9 Sec. (12.2-14.9) 08/14/21 09:37 INR 1.12 (0.87-1.13) 08/14/21 09:37 APTT 26.4 Sec. (24.2-36.6) 08/14/21 09:37 Fibrinogen 359 mg/dl (211-480) 08/14/21 09:37 Sodium 142 mmol/L (137-145) D 08/18/21 07:59 Potassium 3.6 mmol/L (3.6-5.0) 08/18/21 07:59 Chloride 110.2 mmol/L (98-107) H 08/18/21 07:59 Carbon Dioxide 18 mmol/L (22-30) L 08/18/21 07:59 Anion Gap 17 mmol/L 08/18/21 07:59 BUN 16 mg/dL (9-20) 08/18/21 07:59 Creatinine 0.9 mg/dL (0.8-1.3) 08/18/21 07:59 Estimated GFR > 60 ml/min 08/18/21 07:59 BUN/Creatinine Ratio 18 % 08/18/21 07:59 Glucose 122 mg/dL (75-100) H 08/18/21 07:59 POC Glucose 149 mg/dL (70-105) H 08/18/21 11:33 Lactic Acid 1.10 mmol/L (0.7-2.0) 08/16/21 07:51 Calcium 8.5 mg/dL (8.4-10.2) 08/18/21 07:59 Magnesium 1.40 mg/dL (1.7-2.3) L 08/18/21 07:59 Coronavirus (PCR) Negative (Negative) 08/16/21 08:13 Blood Type O POSITIVE 08/14/21 09:37 Antibody Screen Negative 08/14/21 09:37 Crossmatch See Detail 08/14/21 09:37 Garcia/IV: Voiding Method Urinal Active Medications - Current Medications Current Medications: Generic Name Dose Route Start Last Admin Trade Name Freq PRN Reason Stop Dose Admin Acetaminophen 650 mg 08/14/21 22:00 08/18/21 00:24 Acetaminophen 325 Mg Tab PO 650 mg Q4H PRN Administration Pain MILD(1-3)/Fever >100.5/ALICIA Hydrocodone Bitart/Acetaminophen 1 each 08/16/21 16:35 Hydrocodone/Acetaminophen 5-325 Mg Tab PO Q4H PRN Pain, Moderate (4-6) Apixaban 2.5 mg 08/15/21 10:00 08/18/21 09:38 Apixaban 2.5 Mg Tab PO 2.5 mg Q12HR FARRAH Administration Protocol Aspirin 81 mg 08/16/21 12:00 08/18/21 09:37 Aspirin 81 Mg Tab Chew PO 81 mg QDAY FARRAH Administration Atorvastatin Calcium 80 mg 08/15/21 10:00 08/18/21 09:38 Atorvastatin 40 Mg Tab PO 80 mg DAILY FARRA[facility] Administration Clopidogrel Bisulfate 75 mg 08/15/21 10:00 08/18/21 09:38 Clopidogrel 75 Mg Tab PO 75 mg QDAY [facility] Administration Dextrose 50 ml 08/16/21 20:58 Dextrose 50% In Water (25gm) 50 Ml Syringe IV Q30MIN PRN Hypoglycemia Protocol Fenofibrate 145 mg 08/15/21 10:00 08/18/21 09:38 Fenofibrate 145 Mg Tab PO 145 mg DAILY [facility] Administration Hydromorphone HCl 0.5 mg 08/16/21 19:23 08/17/21 12:56 Hydromorphone 1 Mg/1 Ml Inj IV 0.5 mg Q3H PRN Administration Pain , Severe (7-10) Insulin Glargine 50 units 08/15/21 10:00 08/16/21 10:00 Insulin Glargine 100 Units/Ml SUB-Q Not Given DAILY [facility] Insulin Human Lispro 0 unit 08/15/21 07:30 08/18/21 11:49 Insulin Lispro 100 Unit/Ml SUB-Q Not Given ACHS [facility] Protocol Midodrine 5 mg 08/18/21 12:17 Midodrine 5 Mg Tab PO 0600,1200,1800 [facility] Naloxone HCl 0.1 mg 08/14/21 22:07 Naloxone 0.4 Mg/1 Ml Inj IV Q2MIN PRN Res Rate </= 8 or 02 SAT < 92% Ondansetron HCl 4 mg 08/15/21 12:22 Ondansetron 4 Mg/2 Ml Inj IV Q4H PRN Nausea And Vomiting Pantoprazole Sodium 40 mg 08/15/21 07:30 08/18/21 09:38 Pantoprazole 40 Mg Tab PO 40 mg QDAC [facility] Administration Quetiapine Fumarate 50 mg 08/15/21 22:00 08/17/21 22:26 Quetiapine 25 Mg Tab PO 50 mg QHS [facility] Administration Sodium Chloride 10 ml 08/14/21 22:00 08/18/21 09:38 Sodium Chloride 0.9% 10 Ml Flush Syringe IV 10 ml BID [facility] Administration Sodium Chloride 10 ml 08/14/21 11:30 Sodium Chloride 0.9% 10 Ml Flush Syringe IV PRN PRN LINE FLUSH Tamsulosin HCl 0.4 mg 08/15/21 10:00 08/18/21 09:38 Tamsulosin 0.4 Mg Cap PO 0.4 mg QDAY [facility] Administration
[2021-08-18] MEDS: QUEtiapine 25 MG TAB PO SCH (21:30)
[2021-08-19] MEDS: HYDROcodone/ACETAMINOPHEN 5-325 MG TAB PO PRN ×2 (02:40→14:16)
[2021-08-19] MEDS: MIDODRINE 5 MG TAB PO SCH ×3 (06:17→17:09)
[2021-08-19 06:43] LABS: Basophils % (Auto) 0.6 % (0.0-1.8); Eosinophils # (Auto) 0.4 K/mm3 (0.0-0.4); Eosinophils % (Auto) 7.1 % (0.0-4.3); Hematocrit 27.7 % (35.5-45.6); Hemoglobin 9.5 gm/dl (11.8-15.2); Lymphocytes # (Auto) 1.3 K/mm3 (1.2-5.4); Lymphocytes % (Auto) 21.3 % (13.4-35.0); Mean Corpuscular HGB Conc 34 % (32-34); Mean Corpuscular Volume 91 fl (84-94); Monocytes # (Auto) 0.5 K/mm3 (0.0-0.8); Monocytes % (Auto) 8.3 % (0.0-7.3); Platelet Count 239 K/mm3 (140-440); Red Blood Count 3.06 M/mm3 (3.65-5.03); Red Cell Distribution Width 14.3 % (13.2-15.2)
[2021-08-19 07:12] LABS: BUN/Creatinine Ratio 18; Blood Urea Nitrogen 16 mg/dL (9-20); Calcium 8.3 mg/dL (8.4-10.2); Hemolysis Index 3
[2021-08-19] MEDS: ASPIRIN 81 MG TAB CHEW PO SCH (10:17)
[2021-08-19] MEDS: INSULIN LISPRO 100 UNIT/ML SUB-Q SCH ×4 (10:17→22:05)
[2021-08-19] MEDS: TAMSULOSIN 0.4 MG CAP PO SCH (10:18)
[2021-08-19] MEDS: FENOFIBRATE 145 MG TAB PO SCH (10:18)
[2021-08-19] MEDS: CLOPIDOGREL 75 MG TAB PO SCH (10:18)
[2021-08-19] MEDS: APIXABAN 2.5 MG TAB PO SCH ×2 (10:18→22:04)
[2021-08-19] MEDS: PANTOPRAZOLE 40 MG TAB PO SCH (10:20)
--- NOTE | 2021-08-19 12:13 | Progress Note ---
Assessment and Plan Assessment and plan: #Peripheral vascular disease -S/p elective surgical revascularization -Management per primary -As needed pain control #Type 2 diabetes -controlled, continue Lantus + sliding scale insulin with Accu-Cheks -Hypoglycemia protocol #Hypotension -improving -can titrate midodrine off as BP will allow #Hyperlipidemia -Continue statin + fenofibrate #Obesity hypoventilation syndrome -Continue CPAP at night #BPH -Continue Flomax Disposition Plan: Home Total Time Spent with Patient (Minutes): 20 minutes History Interval history: No acute events overnight. Patient denies any discomfort at this time. Worked with physical therapy yesterday. Hospitalist Physical - Physical exam Narrative exam: GENERAL: Well-developed well-nourished. Lying in bed in no acute distress. CHEST/LUNGS: CTAB on room air HEART/CARDIOVASCULAR: RRR. No murmur, rubs or gallops appreciated. ABDOMEN: +BS. NT/ND. PSYCH: Cooperative. - Constitutional Vitals: Temp Pulse Resp BP Pulse Ox 98.0 F 88 18 114/55 97 08/19/21 11:09 08/19/21 11:09 08/19/21 11:09 08/19/21 11:09 08/19/21 11:09 General appearance: Present: no acute distress Results - Labs CBC & Chem 7: 08/19/21 06:26 08/19/21 06:26 Labs: Laboratory Last Values WBC 5.9 K/mm3 (4.5-11.0) 08/19/21 06:26 RBC 3.06 M/mm3 (3.65-5.03) L 08/19/21 06:26 Hgb 9.5 gm/dl (11.8-15.2) L 08/19/21 06:26 Hct 27.7 % (35.5-45.6) L 08/19/21 06:26 MCV 91 fl (84-94) 08/19/21 06:26 MCH 31 pg (28-32) 08/19/21 06:26 MCHC 34 % (32-34) 08/19/21 06:26 RDW 14.3 % (13.2-15.2) 08/19/21 06:26 Plt Count 239 K/mm3 (140-440) 08/19/21 06:26 Lymph % (Auto) 21.3 % (13.4-35.0) 08/19/21 06:26 [place] % (Auto) 8.3 % (0.0-7.3) H 08/19/21 06:26 Eos % (Auto) 7.1 % (0.0-4.3) H 08/19/21 06:26 Baso % (Auto) 0.6 % (0.0-1.8) 08/19/21 06:26 Lymph # (Auto) 1.3 K/mm3 (1.2-5.4) 08/19/21 06:26 [place] # (Auto) 0.5 K/mm3 (0.0-0.8) 08/19/21 06:26 Eos # (Auto) 0.4 K/mm3 (0.0-0.4) 08/19/21 06:26 Baso # (Auto) 0.0 K/mm3 (0.0-0.1) 08/19/21 06:26 Seg Neutrophils % 62.7 % (40.0-70.0) 08/19/21 06:26 Seg Neutrophils # 3.7 K/mm3 (1.8-7.7) 08/19/21 06:26 PT 14.9 Sec. (12.2-14.9) 08/14/21 09:37 INR 1.12 (0.87-1.13) 08/14/21 09:37 APTT 26.4 Sec. (24.2-36.6) 08/14/21 09:37 Fibrinogen 359 mg/dl (211-480) 08/14/21 09:37 Sodium 136 mmol/L (137-145) L 08/19/21 06:26 Potassium 3.1 mmol/L (3.6-5.0) L 08/19/21 06:26 Chloride 105.4 mmol/L (98-107) 08/19/21 06:26 Carbon Dioxide 21 mmol/L (22-30) L 08/19/21 06:26 Anion Gap 13 mmol/L 08/19/21 06:26 BUN 16 mg/dL (9-20) 08/19/21 06:26 Creatinine 0.9 mg/dL (0.8-1.3) 08/19/21 06:26 Estimated GFR > 60 ml/min 08/19/21 06:26 BUN/Creatinine Ratio 18 % 08/19/21 06:26 Glucose 134 mg/dL (75-100) H 08/19/21 06:26 POC Glucose 149 mg/dL (70-105) H 08/19/21 11:07 Lactic Acid 1.10 mmol/L (0.7-2.0) 08/16/21 07:51 Calcium 8.3 mg/dL (8.4-10.2) L 08/19/21 06:26 Magnesium 1.40 mg/dL (1.7-2.3) L 08/18/21 07:59 Coronavirus (PCR) Negative (Negative) 08/16/21 08:13 Blood Type O POSITIVE 08/14/21 09:37 Antibody Screen Negative 08/14/21 09:37 Crossmatch See Detail 08/14/21 09:37 Garcia/IV: Voiding Method Urinal Active Medications - Current Medications Current Medications: Generic Name Dose Route Start Last Admin Trade Name Freq PRN Reason Stop Dose Admin Acetaminophen 650 mg 08/14/21 22:00 08/18/21 00:24 Acetaminophen 325 Mg Tab PO 650 mg Q4H PRN Administration Pain MILD(1-3)/Fever >100.5/ALICIA Hydrocodone Bitart/Acetaminophen 1 each 08/16/21 16:35 08/19/21 02:40 Hydrocodone/Acetaminophen 5-325 Mg Tab PO 1 each Q4H PRN Administration Pain, Moderate (4-6) Apixaban 2.5 mg 08/15/21 10:00 08/19/21 10:18 Apixaban 2.5 Mg Tab PO 2.5 mg Q12HR FARRAH Administration Protocol Aspirin 81 mg 08/16/21 12:00 08/19/21 10:17 Aspirin 81 Mg Tab Chew PO 81 mg QDAY FARRAH Administration Atorvastatin Calcium 80 mg 08/15/21 10:00 08/19/21 10:18 Atorvastatin 40 Mg Tab PO 80 mg DAILY FARRAH Administration Clopidogrel Bisulfate 75 mg 08/15/21 10:00 08/19/21 10:18 Clopidogrel 75 Mg Tab PO 75 mg QDAY FARRAH Administration Dextrose 50 ml 08/16/21 20:58 Dextrose 50% In Water (25gm) 50 Ml Syringe IV Q30MIN PRN Hypoglycemia Protocol Fenofibrate 145 mg 08/15/21 10:00 08/19/21 10:18 Fenofibrate 145 Mg Tab PO 145 mg DAILY FARRAH Administration Hydromorphone HCl 0.5 mg 08/16/21 19:23 08/17/21 12:56 Hydromorphone 1 Mg/1 Ml Inj IV 0.5 mg Q3H PRN Administration Pain , Severe (7-10) Insulin Glargine 50 units 08/15/21 10:00 08/16/21 10:00 Insulin Glargine 100 Units/Ml SUB-Q Not Given DAILY FARRAH Insulin Human Lispro 0 unit 08/15/21 07:30 08/19/21 10:17 Insulin Lispro 100 Unit/Ml SUB-Q Not Given ACHS [facility] Protocol Midodrine 5 mg 08/18/21 12:17 08/19/21 06:17 Midodrine 5 Mg Tab PO 5 mg 0600,1200,1800 FARRAH Administration Naloxone HCl 0.1 mg 08/14/21 22:07 Naloxone 0.4 Mg/1 Ml Inj IV Q2MIN PRN Res Rate </= 8 or 02 SAT < 92% Ondansetron HCl 4 mg 08/15/21 12:22 Ondansetron 4 Mg/2 Ml Inj IV Q4H PRN Nausea And Vomiting Pantoprazole Sodium 40 mg 08/15/21 07:30 08/19/21 10:20 Pantoprazole 40 Mg Tab PO 40 mg QDAC FARRAH Administration Quetiapine Fumarate 50 mg 08/15/21 22:00 08/18/21 21:30 Quetiapine 25 Mg Tab PO 50 mg QHS FARRAH Administration Sodium Chloride 10 ml 08/14/21 22:00 08/19/21 10:18 Sodium Chloride 0.9% 10 Ml Flush Syringe IV 10 ml BID FARRAH Administration Sodium Chloride 10 ml 08/14/21 11:30 Sodium Chloride 0.9% 10 Ml Flush Syringe IV PRN PRN LINE FLUSH Tamsulosin HCl 0.4 mg 08/15/21 10:00 08/19/21 10:18 Tamsulosin 0.4 Mg Cap PO 0.4 mg QDAY FARRAH Administration
[2021-08-19] MEDS: INSULIN GLARGINE 100 UNITS/ML SUB-Q SCH (14:43)
--- NOTE | 2021-08-19 15:18 | Progress Note ---
Subjective Date of service: 08/19/21 Principal diagnosis: Acute Limb Ischemia Objective Vital Signs - 12hr 08/19/21 08/19/21 08/19/21 04:25 07:41 11:09 Temperature 98.0 F 98.2 F 98.0 F Pulse Rate 95 H 86 88 Respiratory 23 18 18 Rate Blood Pressure 138/76 125/63 114/55 O2 Sat by Pulse 99 96 97 Oximetry 08/19/21 14:00 Temperature Pulse Rate 90 Respiratory Rate Blood Pressure O2 Sat by Pulse 96 Oximetry Constitutional: no acute distress, other (elderly obese female with mildly increased respiratory effort at rest) Eyes: non-icteric ENT: oropharynx moist, other (mallampati 3-4) Neck: supple, no lymphadenopathy, no JVD, other (large neck circumference) Effort: mildly labored Ascultation: Bilateral: clear, diminished breath sounds Percussion: Bilateral: not dull Cardiovascular: regular rate and rhythm Gastrointestinal: normoactive bowel sounds, soft, non-tender, non-distended (protuberant') Integumentary: erythema, other (right groin wound) Extremities: no cyanosis, pink and warm, pulses normal, no ischemia or petechiae Neurologic: non-focal exam (grossly), pupils equal and round, CN II-XII normal, motor strength normal and Psychiatric: mood appropriate, affect normal CBC and BMP: 08/19/21 06:26 08/19/21 06:26 ABG, PT/INR, D-dimer: PT/INR, D-dimer PT 14.9 Sec. (12.2-14.9) 08/14/21 09:37 INR 1.12 (0.87-1.13) 08/14/21 09:37 Abnormal lab findings: Abnormal Labs 08/14/21 08/14/21 08/14/21 09:37 09:37 09:37 RBC Hgb Hct MCHC 35 H Lymph % (Auto) [place] % (Auto) 9.6 H Eos % (Auto) Lymph # (Auto) Seg Neutrophils % Sodium Potassium Chloride Carbon Dioxide BUN 23 H Glucose POC Glucose Calcium Magnesium Crossmatch See Detail 08/14/21 08/15/21 08/15/21 22:17 04:20 04:20 RBC Hgb Hct MCHC Lymph % (Auto) 12.6 L [place] % (Auto) 8.1 H Eos % (Auto) Lymph # (Auto) Seg Neutrophils % 78.5 H Sodium Potassium Chloride 109.5 H Carbon Dioxide 19 L D BUN 24 H Glucose 102 H POC Glucose 122 H Calcium 7.9 L D Magnesium Crossmatch 08/15/21 08/15/21 08/15/21 11:19 15:41 21:21 RBC Hgb Hct MCHC Lymph % (Auto) [place] % (Auto) Eos % (Auto) Lymph # (Auto) Seg Neutrophils % Sodium Potassium Chloride Carbon Dioxide BUN Glucose POC Glucose 124 H 126 H 226 H Calcium Magnesium Crossmatch 08/16/21 08/16/21 08/16/21 08:16 11:40 14:33 RBC 3.16 L Hgb 10.0 L Hct 29.1 L D MCHC Lymph % (Auto) 9.5 L [place] % (Auto) 7.9 H Eos % (Auto) Lymph # (Auto) 0.9 L Seg Neutrophils % 80.7 H Sodium Potassium Chloride Carbon Dioxide BUN Glucose POC Glucose 112 H 137 H Calcium Magnesium Crossmatch 08/16/21 08/16/21 08/16/21 14:33 15:41 23:54 RBC Hgb Hct MCHC Lymph % (Auto) [place] % (Auto) Eos % (Auto) Lymph # (Auto) Seg Neutrophils % Sodium 133 L Potassium Chloride Carbon Dioxide 19 L BUN 30 H Glucose 153 H POC Glucose 140 H 125 H Calcium 7.9 L Magnesium Crossmatch 08/17/21 08/17/21 08/17/21 02:05 06:20 06:20 RBC 2.84 L Hgb 8.9 L Hct 26.1 L MCHC Lymph % (Auto) 12.3 L [place] % (Auto) 9.6 H Eos % (Auto) Lymph # (Auto) 1.0 L Seg Neutrophils % 75.6 H Sodium 135 L Potassium Chloride Carbon Dioxide 19 L BUN 27 H Glucose 119 H POC Glucose 114 H Calcium 7.8 L Magnesium Crossmatch 08/17/21 08/17/21 08/17/21 11:09 16:13 17:05 RBC Hgb Hct MCHC Lymph % (Auto) [place] % (Auto) Eos % (Auto) Lymph # (Auto) Seg Neutrophils % Sodium Potassium Chloride Carbon Dioxide BUN Glucose POC Glucose 128 H 143 H 145 H Calcium Magnesium Crossmatch 08/17/21 08/18/21 08/18/21 22:23 07:17 07:59 RBC 3.15 L Hgb 9.9 L Hct 28.4 L MCHC 35 H Lymph % (Auto) 11.1 L [place] % (Auto) Eos % (Auto) 4.8 H Lymph # (Auto) 0.9 L Seg Neutrophils % 76.5 H Sodium Potassium Chloride Carbon Dioxide BUN Glucose POC Glucose 148 H 111 H Calcium Magnesium Crossmatch 08/18/21 08/18/21 08/18/21 07:59 11:33 17:43 RBC Hgb Hct MCHC Lymph % (Auto) [place] % (Auto) Eos % (Auto) Lymph # (Auto) Seg Neutrophils % Sodium Potassium Chloride 110.2 H Carbon Dioxide 18 L BUN Glucose 122 H POC Glucose 149 H 116 H Calcium Magnesium 1.40 L Crossmatch 08/18/21 08/19/21 08/19/21 21:29 06:26 06:26 RBC 3.06 L Hgb 9.5 L Hct 27.7 L MCHC Lymph % (Auto) [place] % (Auto) 8.3 H Eos % (Auto) 7.1 H Lymph # (Auto) Seg Neutrophils % Sodium 136 L Potassium 3.1 L Chloride Carbon Dioxide 21 L BUN Glucose 134 H POC Glucose 151 H Calcium 8.3 L Magnesium Crossmatch 08/19/21 08/19/21 07:39 11:07 RBC Hgb Hct MCHC Lymph % (Auto) [place] % (Auto) Eos % (Auto) Lymph # (Auto) Seg Neutrophils % Sodium Potassium Chloride Carbon Dioxide BUN Glucose POC Glucose 117 H 149 H Calcium Magnesium Crossmatch Allied health notes reviewed: nursing
--- NOTE | 2021-08-19 15:57 | Progress Note ---
Assessment and Plan Patient complaining of right heel pain however improved with placing the bed in "chair" position so likely secondary positioning. Will place order for out of bed to chair with meals. Patient is otherwise doing will and anticipate discharge in the next 1-2 days. Subjective Date of service: 08/19/21 Principal diagnosis: Acute Limb Ischemia Interval history: The patient was moved to telemetry overnight. No significant events. Complaining of some shooting pain in his right heel. No additional complaints. Objective - Constitutional Vitals: Vital Signs - 12hr 08/19/21 08/19/21 08/19/21 04:25 07:41 11:09 Temperature 98.0 F 98.2 F 98.0 F Pulse Rate 95 H 86 88 Respiratory 23 18 18 Rate Blood Pressure 138/76 125/63 114/55 O2 Sat by Pulse 99 96 97 Oximetry 08/19/21 14:00 Temperature Pulse Rate 90 Respiratory Rate Blood Pressure O2 Sat by Pulse 96 Oximetry General appearance: Present: no acute distress - Respiratory Respiratory effort: normal Extremities: normal temperature (right foot is warm and well perfused with < 2 second capillary refill), abnormal (right groin incision is intact without evidence of a hematoma, infection, or wound dehiscence) - Labs CBC & Chem 7: 08/19/21 06:26 08/19/21 06:26 Labs: Abnormal lab results 08/18/21 08/18/21 08/19/21 Range/Units 17:43 21:29 06:26 RBC 3.06 L (3.65-5.03) M/mm3 Hgb 9.5 L (11.8-15.2) gm/dl Hct 27.7 L (35.5-45.6) % [place] % (Auto) 8.3 H (0.0-7.3) % Eos % (Auto) 7.1 H (0.0-4.3) % Sodium (137-145) mmol/L Potassium (3.6-5.0) mmol/L Carbon Dioxide (22-30) mmol/L Glucose (75-100) mg/dL POC Glucose 116 H 151 H (70-105) mg/dL Calcium (8.4-10.2) mg/dL 08/19/21 08/19/21 08/19/21 Range/Units 06:26 07:39 11:07 RBC (3.65-5.03) M/mm3 Hgb (11.8-15.2) gm/dl Hct (35.5-45.6) % [place] % (Auto) (0.0-7.3) % Eos % (Auto) (0.0-4.3) % Sodium 136 L (137-145) mmol/L Potassium 3.1 L (3.6-5.0) mmol/L Carbon Dioxide 21 L (22-30) mmol/L Glucose 134 H (75-100) mg/dL POC Glucose 117 H 149 H (70-105) mg/dL Calcium 8.3 L (8.4-10.2) mg/dL 08/19/21 Range/Units 15:19 RBC (3.65-5.03) M/mm3 Hgb (11.8-15.2) gm/dl Hct (35.5-45.6) % [place] % (Auto) (0.0-7.3) % Eos % (Auto) (0.0-4.3) % Sodium (137-145) mmol/L Potassium (3.6-5.0) mmol/L Carbon Dioxide (22-30) mmol/L Glucose (75-100) mg/dL POC Glucose 142 H (70-105) mg/dL Calcium (8.4-10.2) mg/dL Medications & Allergies - Medications Allergies/Adverse Reactions: Allergies bee pollen Allergy (Verified 03/07/21 08:11) Swelling Home Medications: Home Medications Medication Instructions Recorded Confirmed Last Taken Type Atorvastatin [Lipitor Tab] 80 mg PO DAILY 03/07/21 08/14/21 08/13/21 History Clopidogrel [Plavix] 75 mg PO QDAY 03/07/21 08/14/21 08/14/21 History Fenofibrate 160 mg PO DAILY 03/07/21 08/14/21 08/14/21 History Insulin Degludec [Tresiba 50 unit SQ DAILY 03/07/21 08/14/21 08/13/21 History Flextouch U-200] Losartan [Cozaar] 100 mg PO QDAY 03/07/21 08/14/21 08/14/21 History Metoprolol [Lopressor] 100 mg PO DAILY 03/07/21 08/14/21 08/14/21 History Quetiapine Fumarate [SEROquel] 50 mg PO DAILY 03/07/21 08/14/21 08/13/21 History Semaglutide [Ozempic] 1 mg SQ 1XW 03/07/21 08/14/21 08/13/21 History Tamsulosin [Flomax] 0.4 mg PO QDAY 03/07/21 08/14/21 08/13/21 History Aspirin EC [Halfprin EC] 81 mg PO DAILY 04/24/21 08/14/21 08/13/21 History Cetirizine HCl [Zyrtec 10mg tab] 10 mg PO DAILY 08/14/21 08/14/21 08/13/21 History Active Medications: Generic Name Dose Route Start Last Admin Trade Name Freq PRN Reason Stop Dose Admin Acetaminophen 650 mg 08/14/21 22:00 08/18/21 00:24 Acetaminophen 325 Mg Tab PO 650 mg Q4H PRN Administration Pain MILD(1-3)/Fever >100.5/ALICIA Hydrocodone Bitart/Acetaminophen 1 each 08/16/21 16:35 08/19/21 14:16 Hydrocodone/Acetaminophen 5-325 Mg Tab PO 1 each Q4H PRN Administration Pain, Moderate (4-6) Apixaban 2.5 mg 08/15/21 10:00 08/19/21 10:18 Apixaban 2.5 Mg Tab PO 2.5 mg Q12HR FARRAH Administration Protocol Aspirin 81 mg 08/16/21 12:00 08/19/21 10:17 Aspirin 81 Mg Tab Chew PO 81 mg QDAY FARRAH Administration Atorvastatin Calcium 80 mg 08/15/21 10:00 08/19/21 10:18 Atorvastatin 40 Mg Tab PO 80 mg DAILY FARRAH Administration Clopidogrel Bisulfate 75 mg 08/15/21 10:00 08/19/21 10:18 Clopidogrel 75 Mg Tab PO 75 mg QDAY FARRAH Administration Dextrose 50 ml 08/16/21 20:58 Dextrose 50% In Water (25gm) 50 Ml Syringe IV Q30MIN PRN Hypoglycemia Protocol Fenofibrate 145 mg 08/15/21 10:00 08/19/21 10:18 Fenofibrate 145 Mg Tab PO 145 mg DAILY FARRAH Administration Hydromorphone HCl 0.5 mg 08/16/21 19:23 08/17/21 12:56 Hydromorphone 1 Mg/1 Ml Inj IV 0.5 mg Q3H PRN Administration Pain , Severe (7-10) Insulin Glargine 50 units 08/15/21 10:00 08/19/21 14:43 Insulin Glargine 100 Units/Ml SUB-Q Not Given DAILY FARRAH Insulin Human Lispro 0 unit 08/15/21 07:30 08/19/21 14:43 Insulin Lispro 100 Unit/Ml SUB-Q Not Given ACHS [facility] Protocol Midodrine 5 mg 08/18/21 12:17 08/19/21 14:45 Midodrine 5 Mg Tab PO 5 mg 0600,1200,1800 FARRAH Administration Naloxone HCl 0.1 mg 08/14/21 22:07 Naloxone 0.4 Mg/1 Ml Inj IV Q2MIN PRN Res Rate </= 8 or 02 SAT < 92% Ondansetron HCl 4 mg 08/15/21 12:22 Ondansetron 4 Mg/2 Ml Inj IV Q4H PRN Nausea And Vomiting Pantoprazole Sodium 40 mg 08/15/21 07:30 08/19/21 10:20 Pantoprazole 40 Mg Tab PO 40 mg QDAC FARRAH Administration Quetiapine Fumarate 50 mg 08/15/21 22:00 08/18/21 21:30 Quetiapine 25 Mg Tab PO 50 mg QHS FARRAH Administration Sodium Chloride 10 ml 08/14/21 22:00 08/19/21 10:18 Sodium Chloride 0.9% 10 Ml Flush Syringe IV 10 ml BID FARRAH Administration Sodium Chloride 10 ml 08/14/21 11:30 Sodium Chloride 0.9% 10 Ml Flush Syringe IV PRN PRN LINE FLUSH Tamsulosin HCl 0.4 mg 08/15/21 10:00 08/19/21 10:18 Tamsulosin 0.4 Mg Cap PO 0.4 mg QDAY FARRAH Administration
[2021-08-19] MEDS: QUEtiapine 25 MG TAB PO SCH (22:04)
[2021-08-20] MEDS: MIDODRINE 5 MG TAB PO SCH ×3 (07:13→17:14)
[2021-08-20 07:37] LABS: Hematocrit 28.4 % (35.5-45.6); Hemoglobin 9.9 gm/dl (11.8-15.2); Mean Corpuscular HGB Conc 35 % (32-34); Mean Corpuscular Volume 91 fl (84-94); Platelet Count 295 K/mm3 (140-440); Red Blood Count 3.14 M/mm3 (3.65-5.03); Red Cell Distribution Width 14.3 % (13.2-15.2)
[2021-08-20 07:41] LABS: Basophils % (Auto) 0.5 % (0.0-1.8); Eosinophils # (Auto) 0.3 K/mm3 (0.0-0.4); Eosinophils % (Auto) 6.1 % (0.0-4.3); Lymphocytes % (Auto) 18.6 % (13.4-35.0); Monocytes # (Auto) 0.4 K/mm3 (0.0-0.8); Monocytes % (Auto) 7.7 % (0.0-7.3)
[2021-08-20 07:47] LABS: BUN/Creatinine Ratio 15; Blood Urea Nitrogen 12 mg/dL (9-20); Calcium 8.5 mg/dL (8.4-10.2); Hemolysis Index 3
[2021-08-20] MEDS: CLOPIDOGREL 75 MG TAB PO SCH (10:09)
[2021-08-20] MEDS: TAMSULOSIN 0.4 MG CAP PO SCH (10:09)
[2021-08-20] MEDS: APIXABAN 2.5 MG TAB PO SCH ×2 (10:09→23:33)
[2021-08-20] MEDS: FENOFIBRATE 145 MG TAB PO SCH (10:09)
[2021-08-20] MEDS: PANTOPRAZOLE 40 MG TAB PO SCH (10:09)
[2021-08-20] MEDS: ASPIRIN 81 MG TAB CHEW PO SCH (10:09)
[2021-08-20] MEDS: INSULIN GLARGINE 100 UNITS/ML SUB-Q SCH (10:10)
[2021-08-20] MEDS: INSULIN LISPRO 100 UNIT/ML SUB-Q SCH ×4 (10:10→22:33)
--- NOTE | 2021-08-20 12:41 | Progress Note ---
Assessment and Plan Doing well BP much better Hgb has been stable, was likely secondary to volume overload Anticipate discharge tomorrow vs Saturday Subjective Date of service: 08/20/21 Principal diagnosis: Acute Limb Ischemia Interval history: Patient is without complaints. Worked with PT today and was able to ambulate with a rolling walker. Objective - Constitutional Vitals: Vital Signs - 12hr 08/20/21 08/20/21 08/20/21 04:33 07:36 10:00 Temperature 98.7 F 98.4 F Pulse Rate 98 H 91 H 91 H Respiratory 18 18 Rate Blood Pressure 147/77 Blood Pressure 147/79 [Right] O2 Sat by Pulse 99 97 96 Oximetry General appearance: Present: no acute distress - Respiratory Respiratory effort: normal Extremities: normal temperature (Right foot warm and well perfused.), abnormal (right groin incision is intact without evidence of hematoma or dehiscence) - Labs CBC & Chem 7: 08/20/21 07:20 08/20/21 07:20 Labs: Abnormal lab results 08/19/21 08/19/21 08/20/21 Range/Units 15:19 20:10 07:20 RBC 3.14 L (3.65-5.03) M/mm3 Hgb 9.9 L (11.8-15.2) gm/dl Hct 28.4 L (35.5-45.6) % MCHC 35 H (32-34) % [place] % (Auto) 7.7 H (0.0-7.3) % Eos % (Auto) 6.1 H (0.0-4.3) % Lymph # (Auto) 1.0 L (1.2-5.4) K/mm3 Potassium (3.6-5.0) mmol/L Glucose (75-100) mg/dL POC Glucose 142 H 154 H (70-105) mg/dL 08/20/21 08/20/21 08/20/21 Range/Units 07:20 07:28 11:07 RBC (3.65-5.03) M/mm3 Hgb (11.8-15.2) gm/dl Hct (35.5-45.6) % MCHC (32-34) % [place] % (Auto) (0.0-7.3) % Eos % (Auto) (0.0-4.3) % Lymph # (Auto) (1.2-5.4) K/mm3 Potassium 3.0 L (3.6-5.0) mmol/L Glucose 113 H (75-100) mg/dL POC Glucose 112 H 133 H (70-105) mg/dL Medications & Allergies - Medications Allergies/Adverse Reactions: Allergies bee pollen Allergy (Verified 03/07/21 08:11) Swelling Home Medications: Home Medications Medication Instructions Recorded Confirmed Last Taken Type Atorvastatin [Lipitor Tab] 80 mg PO DAILY 03/07/21 08/14/21 08/13/21 History Clopidogrel [Plavix] 75 mg PO QDAY 03/07/21 08/14/21 08/14/21 History Fenofibrate 160 mg PO DAILY 03/07/21 08/14/21 08/14/21 History Insulin Degludec [Tresiba 50 unit SQ DAILY 03/07/21 08/14/21 08/13/21 History Flextouch U-200] Losartan [Cozaar] 100 mg PO QDAY 03/07/21 08/14/21 08/14/21 History Metoprolol [Lopressor] 100 mg PO DAILY 03/07/21 08/14/21 08/14/21 History Quetiapine Fumarate [SEROquel] 50 mg PO DAILY 03/07/21 08/14/21 08/13/21 History Semaglutide [Ozempic] 1 mg SQ 1XW 03/07/21 08/14/21 08/13/21 History Tamsulosin [Flomax] 0.4 mg PO QDAY 03/07/21 08/14/21 08/13/21 History Aspirin EC [Halfprin EC] 81 mg PO DAILY 04/24/21 08/14/21 08/13/21 History Cetirizine HCl [Zyrtec 10mg tab] 10 mg PO DAILY 08/14/21 08/14/21 08/13/21 History Active Medications: Generic Name Dose Route Start Last Admin Trade Name Freq PRN Reason Stop Dose Admin Acetaminophen 650 mg 08/14/21 22:00 08/18/21 00:24 Acetaminophen 325 Mg Tab PO 650 mg Q4H PRN Administration Pain MILD(1-3)/Fever >100.5/ALICIA Hydrocodone Bitart/Acetaminophen 1 each 08/16/21 16:35 08/19/21 14:16 Hydrocodone/Acetaminophen 5-325 Mg Tab PO 1 each Q4H PRN Administration Pain, Moderate (4-6) Apixaban 2.5 mg 08/15/21 10:00 08/20/21 10:09 Apixaban 2.5 Mg Tab PO 2.5 mg Q12HR FARRAH Administration Protocol Aspirin 81 mg 08/16/21 12:00 08/20/21 10:09 Aspirin 81 Mg Tab Chew PO 81 mg QDAY FARRAH Administration Atorvastatin Calcium 80 mg 08/15/21 10:00 08/20/21 10:10 Atorvastatin 40 Mg Tab PO 80 mg DAILY FARRAH Administration Clopidogrel Bisulfate 75 mg 08/15/21 10:00 08/20/21 10:09 Clopidogrel 75 Mg Tab PO 75 mg QDAY FARRAH Administration Dextrose 50 ml 08/16/21 20:58 Dextrose 50% In Water (25gm) 50 Ml Syringe IV Q30MIN PRN Hypoglycemia Protocol Fenofibrate 145 mg 08/15/21 10:00 08/20/21 10:09 Fenofibrate 145 Mg Tab PO 145 mg DAILY FARRAH Administration Insulin Glargine 50 units 08/15/21 10:00 08/20/21 10:10 Insulin Glargine 100 Units/Ml SUB-Q Not Given DAILY FARRAH Insulin Human Lispro 0 unit 08/15/21 07:30 08/20/21 10:10 Insulin Lispro 100 Unit/Ml SUB-Q Not Given ACHS [facility] Protocol Midodrine 5 mg 08/18/21 12:17 08/20/21 07:13 Midodrine 5 Mg Tab PO Not Given 0600,1200,1800 [facility] Naloxone HCl 0.1 mg 08/14/21 22:07 Naloxone 0.4 Mg/1 Ml Inj IV Q2MIN PRN Res Rate </= 8 or 02 SAT < 92% Ondansetron HCl 4 mg 08/15/21 12:22 Ondansetron 4 Mg/2 Ml Inj IV Q4H PRN Nausea And Vomiting Pantoprazole Sodium 40 mg 08/15/21 07:30 08/20/21 10:09 Pantoprazole 40 Mg Tab PO 40 mg QDAC FARRAH Administration Quetiapine Fumarate 50 mg 08/15/21 22:00 08/19/21 22:04 Quetiapine 25 Mg Tab PO 50 mg QHS FARRAH Administration Sodium Chloride 10 ml 08/14/21 22:00 08/20/21 10:10 Sodium Chloride 0.9% 10 Ml Flush Syringe IV 10 ml BID FARRAH Administration Sodium Chloride 10 ml 08/14/21 11:30 Sodium Chloride 0.9% 10 Ml Flush Syringe IV PRN PRN LINE FLUSH Tamsulosin HCl 0.4 mg 08/15/21 10:00 08/20/21 10:09 Tamsulosin 0.4 Mg Cap PO 0.4 mg QDAY FARRAH Administration
--- NOTE | 2021-08-20 15:05 | Progress Note ---
Subjective Date of service: 08/20/21 Principal diagnosis: Acute Limb Ischemia Objective Vital Signs - 12hr 08/20/21 08/20/21 08/20/21 04:33 07:36 10:00 Temperature 98.7 F 98.4 F Pulse Rate 98 H 91 H 91 H Respiratory 18 18 Rate Blood Pressure 147/77 Blood Pressure 147/79 [Right] O2 Sat by Pulse 99 97 96 Oximetry 08/20/21 13:10 Temperature Pulse Rate Respiratory Rate Blood Pressure Blood Pressure [Right] O2 Sat by Pulse 96 Oximetry Constitutional: no acute distress, other (elderly obese female with mildly increased respiratory effort at rest) Eyes: non-icteric ENT: oropharynx moist, other (mallampati 3-4) Neck: supple, no lymphadenopathy, no JVD, other (large neck circumference) Effort: mildly labored Ascultation: Bilateral: clear, diminished breath sounds Percussion: Bilateral: not dull Cardiovascular: regular rate and rhythm Gastrointestinal: normoactive bowel sounds, soft, non-tender, non-distended (protuberant') Integumentary: erythema, other (right groin wound) Extremities: no cyanosis, pink and warm, pulses normal, no ischemia or petechiae Neurologic: non-focal exam (grossly), pupils equal and round, CN II-XII normal, motor strength normal and Psychiatric: mood appropriate, affect normal CBC and BMP: 08/20/21 07:20 08/20/21 07:20 ABG, PT/INR, D-dimer: PT/INR, D-dimer PT 14.9 Sec. (12.2-14.9) 08/14/21 09:37 INR 1.12 (0.87-1.13) 08/14/21 09:37 Abnormal lab findings: Abnormal Labs 08/14/21 08/14/21 08/14/21 09:37 09:37 09:37 RBC Hgb Hct MCHC 35 H Lymph % (Auto) [place] % (Auto) 9.6 H Eos % (Auto) Lymph # (Auto) Seg Neutrophils % Sodium Potassium Chloride Carbon Dioxide BUN 23 H Glucose POC Glucose Calcium Magnesium Crossmatch See Detail 08/14/21 08/15/21 08/15/21 22:17 04:20 04:20 RBC Hgb Hct MCHC Lymph % (Auto) 12.6 L [place] % (Auto) 8.1 H Eos % (Auto) Lymph # (Auto) Seg Neutrophils % 78.5 H Sodium Potassium Chloride 109.5 H Carbon Dioxide 19 L D BUN 24 H Glucose 102 H POC Glucose 122 H Calcium 7.9 L D Magnesium Crossmatch 08/15/21 08/15/21 08/15/21 11:19 15:41 21:21 RBC Hgb Hct MCHC Lymph % (Auto) [place] % (Auto) Eos % (Auto) Lymph # (Auto) Seg Neutrophils % Sodium Potassium Chloride Carbon Dioxide BUN Glucose POC Glucose 124 H 126 H 226 H Calcium Magnesium Crossmatch 08/16/21 08/16/21 08/16/21 08:16 11:40 14:33 RBC 3.16 L Hgb 10.0 L Hct 29.1 L D MCHC Lymph % (Auto) 9.5 L [place] % (Auto) 7.9 H Eos % (Auto) Lymph # (Auto) 0.9 L Seg Neutrophils % 80.7 H Sodium Potassium Chloride Carbon Dioxide BUN Glucose POC Glucose 112 H 137 H Calcium Magnesium Crossmatch 08/16/21 08/16/21 08/16/21 14:33 15:41 23:54 RBC Hgb Hct MCHC Lymph % (Auto) [place] % (Auto) Eos % (Auto) Lymph # (Auto) Seg Neutrophils % Sodium 133 L Potassium Chloride Carbon Dioxide 19 L BUN 30 H Glucose 153 H POC Glucose 140 H 125 H Calcium 7.9 L Magnesium Crossmatch 08/17/21 08/17/21 08/17/21 02:05 06:20 06:20 RBC 2.84 L Hgb 8.9 L Hct 26.1 L MCHC Lymph % (Auto) 12.3 L [place] % (Auto) 9.6 H Eos % (Auto) Lymph # (Auto) 1.0 L Seg Neutrophils % 75.6 H Sodium 135 L Potassium Chloride Carbon Dioxide 19 L BUN 27 H Glucose 119 H POC Glucose 114 H Calcium 7.8 L Magnesium Crossmatch 08/17/21 08/17/21 08/17/21 11:09 16:13 17:05 RBC Hgb Hct MCHC Lymph % (Auto) [place] % (Auto) Eos % (Auto) Lymph # (Auto) Seg Neutrophils % Sodium Potassium Chloride Carbon Dioxide BUN Glucose POC Glucose 128 H 143 H 145 H Calcium Magnesium Crossmatch 08/17/21 08/18/21 08/18/21 22:23 07:17 07:59 RBC 3.15 L Hgb 9.9 L Hct 28.4 L MCHC 35 H Lymph % (Auto) 11.1 L [place] % (Auto) Eos % (Auto) 4.8 H Lymph # (Auto) 0.9 L Seg Neutrophils % 76.5 H Sodium Potassium Chloride Carbon Dioxide BUN Glucose POC Glucose 148 H 111 H Calcium Magnesium Crossmatch 08/18/21 08/18/21 08/18/21 07:59 11:33 17:43 RBC Hgb Hct MCHC Lymph % (Auto) [place] % (Auto) Eos % (Auto) Lymph # (Auto) Seg Neutrophils % Sodium Potassium Chloride 110.2 H Carbon Dioxide 18 L BUN Glucose 122 H POC Glucose 149 H 116 H Calcium Magnesium 1.40 L Crossmatch 08/18/21 08/19/21 08/19/21 21:29 06:26 06:26 RBC 3.06 L Hgb 9.5 L Hct 27.7 L MCHC Lymph % (Auto) [place] % (Auto) 8.3 H Eos % (Auto) 7.1 H Lymph # (Auto) Seg Neutrophils % Sodium 136 L Potassium 3.1 L Chloride Carbon Dioxide 21 L BUN Glucose 134 H POC Glucose 151 H Calcium 8.3 L Magnesium Crossmatch 08/19/21 08/19/21 08/19/21 07:39 11:07 15:19 RBC Hgb Hct MCHC Lymph % (Auto) [place] % (Auto) Eos % (Auto) Lymph # (Auto) Seg Neutrophils % Sodium Potassium Chloride Carbon Dioxide BUN Glucose POC Glucose 117 H 149 H 142 H Calcium Magnesium Crossmatch 08/19/21 08/20/21 08/20/21 20:10 07:20 07:20 RBC 3.14 L Hgb 9.9 L Hct 28.4 L MCHC 35 H Lymph % (Auto) [place] % (Auto) 7.7 H Eos % (Auto) 6.1 H Lymph # (Auto) 1.0 L Seg Neutrophils % Sodium Potassium 3.0 L Chloride Carbon Dioxide BUN Glucose 113 H POC Glucose 154 H Calcium Magnesium Crossmatch 08/20/21 08/20/21 07:28 11:07 RBC Hgb Hct MCHC Lymph % (Auto) [place] % (Auto) Eos % (Auto) Lymph # (Auto) Seg Neutrophils % Sodium Potassium Chloride Carbon Dioxide BUN Glucose POC Glucose 112 H 133 H Calcium Magnesium Crossmatch Allied health notes reviewed: nursing
[2021-08-20] MEDS ORDERED: AMIODARONE 150 MG in DEXTROSE 5% IN WATER 97 ML IV ONE (21:57)
[2021-08-20] MEDS ORDERED: AMIODARONE 150 MG in DEXTROSE 5% IN WATER 100 ML IV ONE (22:00)
[2021-08-20] MEDS ORDERED: LEVALBUTEROL 0.63 MG/3 ML NEBU IH ONE (22:50)
[2021-08-20] MEDS ORDERED: FUROSEMIDE 20 MG/2 ML INJ IV ONE (22:52)
[2021-08-20] MEDS ORDERED: LORazepam 2 MG/ML VIAL IV ONE (22:58)
[2021-08-20 23:08] LABS: BUN/Creatinine Ratio 14; Blood Urea Nitrogen 13 mg/dL (9-20); Calcium 8.6 mg/dL (8.4-10.2); Hemolysis Index 4
--- NOTE | 2021-08-20 23:16 | Event Note ---
Date: 08/20/21 Code med called on 76-year-old white male who has been on admission status post elective surgical revascularization for peripheral vascular disease. Patient states that he feels sweaty and having palpitations. Telemetry roommate called that patient is in V. tach. . 12-lead EKG was immediately done which shows ventricular tachycardia. He denies any chest pain but states that he has some mild shortness of breath. He had some nausea but no vomiting. Blood pressure was 110/65. Chest: Few rales, IV amiodarone 150 mg was immediately administered stat. Rhythm became sinus with a heart rate in the 70s. BMP will be checked including troponin and magnesium levels. We will continue to monitor patient on telemetry. Patient follows up with Dr. Dukes.
[2021-08-20] MEDS: QUEtiapine 25 MG TAB PO SCH (23:33)
[2021-08-21] MEDS ORDERED: MAGNESIUM SULFATE 2 GM/50 ML BAG IV ONE (00:15)
[2021-08-21] MEDS: POTASSIUM CHLORIDE 10 MEQ 10 MEQ/100 ML BAG IV SCH ×4 (00:59→04:07)
[2021-08-21 02:34] LABS: Chol/HDL Ratio 4.5 %
[2021-08-21] MEDS: MIDODRINE 5 MG TAB PO SCH (05:58)
--- NOTE | 2021-08-21 07:44 | Progress Note ---
Assessment and Plan Assessment and plan: #Peripheral vascular disease -S/p elective surgical revascularization -Management per primary -As needed pain control #Hypokalemia #Hypomagnesemia -K 2.9, repeat 3.0; given 120 mEq of potassium, repeat level pending -2 g magnesium sulfate given, repeat level pending #Type 2 diabetes -controlled, continue Lantus + sliding scale insulin with Accu-Cheks -Hypoglycemia protocol #Hyperlipidemia -Continue statin + fenofibrate #Obesity hypoventilation syndrome -Continue CPAP at night #BPH -Continue Flomax #Hypotension-Resolved Disposition Plan: Continue medical management Total Time Spent with Patient (Minutes): 20 minutes History Interval history: Patient reported same episode of VT tach overnight. Started on amiodarone. Patient sleepy, and diaphoretic but denies chest pain, discomfort. Hospitalist Physical - Physical exam Narrative exam: GENERAL: Well-developed well-nourished. Lying in bed in no acute distress. CHEST/LUNGS: CTAB on 4 L nasal cannula HEART/CARDIOVASCULAR: RRR. No murmur, rubs or gallops appreciated. ABDOMEN: +BS. NT/ND. PSYCH: Cooperative. - Constitutional Vitals: Temp Pulse Resp BP Pulse Ox 97.5 F L 88 19 140/71 99 08/21/21 05:30 08/21/21 05:30 08/21/21 05:30 08/21/21 05:30 08/21/21 05:30 General appearance: Present: no acute distress HEART Score - HEART Score Troponin: Troponin T 0.133 ng/mL (0.00-0.029) H* 08/20/21 22:17 Results - Labs CBC & Chem 7: 08/21/21 06:55 08/21/21 06:55 Labs: Laboratory Last Values WBC 5.7 K/mm3 (4.5-11.0) 08/20/21 07:20 RBC 3.14 M/mm3 (3.65-5.03) L 08/20/21 07:20 Hgb 9.9 gm/dl (11.8-15.2) L 08/20/21 07:20 Hct 28.4 % (35.5-45.6) L 08/20/21 07:20 MCV 91 fl (84-94) 08/20/21 07:20 MCH 31 pg (28-32) 08/20/21 07:20 MCHC 35 % (32-34) H 08/20/21 07:20 RDW 14.3 % (13.2-15.2) 08/20/21 07:20 Plt Count 295 K/mm3 (140-440) 08/20/21 07:20 Lymph % (Auto) 18.6 % (13.4-35.0) 08/20/21 07:20 [place] % (Auto) 7.7 % (0.0-7.3) H 08/20/21 07:20 Eos % (Auto) 6.1 % (0.0-4.3) H 08/20/21 07:20 Baso % (Auto) 0.5 % (0.0-1.8) 08/20/21 07:20 Lymph # (Auto) 1.0 K/mm3 (1.2-5.4) L 08/20/21 07:20 [place] # (Auto) 0.4 K/mm3 (0.0-0.8) 08/20/21 07:20 Eos # (Auto) 0.3 K/mm3 (0.0-0.4) 08/20/21 07:20 Baso # (Auto) 0.0 K/mm3 (0.0-0.1) 08/20/21 07:20 Seg Neutrophils % 67.1 % (40.0-70.0) 08/20/21 07:20 Seg Neutrophils # 3.7 K/mm3 (1.8-7.7) 08/20/21 07:20 PT 14.9 Sec. (12.2-14.9) 08/14/21 09:37 INR 1.12 (0.87-1.13) 08/14/21 09:37 APTT 26.4 Sec. (24.2-36.6) 08/14/21 09:37 Fibrinogen 359 mg/dl (211-480) 08/14/21 09:37 Sodium 135 mmol/L (137-145) L 08/20/21 22:13 Potassium 2.9 mmol/L (3.6-5.0) L* 08/20/21 22:13 Chloride 102.1 mmol/L (98-107) 08/20/21 22:13 Carbon Dioxide 18 mmol/L (22-30) L 08/20/21 22:13 Anion Gap 18 mmol/L 08/20/21 22:13 BUN 13 mg/dL (9-20) 08/20/21 22:13 Creatinine 0.9 mg/dL (0.8-1.3) 08/20/21 22:13 Estimated GFR > 60 ml/min 08/20/21 22:13 BUN/Creatinine Ratio 14 % 08/20/21 22:13 Glucose 160 mg/dL (75-100) H 08/20/21 22:13 POC Glucose 114 mg/dL (70-105) H 08/21/21 07:20 Lactic Acid 1.10 mmol/L (0.7-2.0) 08/16/21 07:51 Calcium 8.6 mg/dL (8.4-10.2) 08/20/21 22:13 Magnesium 1.40 mg/dL (1.7-2.3) L 08/20/21 22:13 Troponin T 0.133 ng/mL (0.00-0.029) H* 08/20/21 22:17 Triglycerides 189 mg/dL (2-149) H 08/20/21 22:17 Cholesterol 99 mg/dL (50-199) 08/20/21 22:17 LDL Cholesterol Direct 37 mg/dL (50-130) L 08/20/21 22:17 HDL Cholesterol 22 mg/dL (40-59) L 08/20/21 22:17 Cholesterol/HDL Ratio 4.50 % 08/20/21 22:17 Coronavirus (PCR) Negative (Negative) 08/16/21 08:13 Blood Type O POSITIVE 08/14/21 09:37 Antibody Screen Negative 08/14/21 09:37 Crossmatch See Detail 08/14/21 09:37 Garcia/IV: Voiding Method Bedpan Active Medications - Current Medications Current Medications: Generic Name Dose Route Start Last Admin Trade Name Freq PRN Reason Stop Dose Admin Acetaminophen 650 mg 08/14/21 22:00 08/18/21 00:24 Acetaminophen 325 Mg Tab PO 650 mg Q4H PRN Administration Pain MILD(1-3)/Fever >100.5/ALICIA Hydrocodone Bitart/Acetaminophen 1 each 08/16/21 16:35 08/19/21 14:16 Hydrocodone/Acetaminophen 5-325 Mg Tab PO 1 each Q4H PRN Administration Pain, Moderate (4-6) Apixaban 2.5 mg 08/15/21 10:00 08/20/21 23:33 Apixaban 2.5 Mg Tab PO Not Given Q12HR [facility] Protocol Aspirin 81 mg 08/16/21 12:00 08/20/21 10:09 Aspirin 81 Mg Tab Chew PO 81 mg QDAY FARRAH Administration Atorvastatin Calcium 80 mg 08/15/21 10:00 08/20/21 10:10 Atorvastatin 40 Mg Tab PO 80 mg DAILY FARRAH Administration Clopidogrel Bisulfate 75 mg 08/15/21 10:00 08/20/21 10:09 Clopidogrel 75 Mg Tab PO 75 mg QDAY FARRAH Administration Dextrose 50 ml 08/16/21 20:58 Dextrose 50% In Water (25gm) 50 Ml Syringe IV Q30MIN PRN Hypoglycemia Protocol Fenofibrate 145 mg 08/15/21 10:00 08/20/21 10:09 Fenofibrate 145 Mg Tab PO 145 mg DAILY FARRAH Administration Potassium Phosphate 30 mmol/ 510 mls @ 85 mls/hr 08/21/21 07:43 Sodium Chloride IV 08/21/21 13:42 ONCE ONE Insulin Glargine 50 units 08/15/21 10:00 08/20/21 10:10 Insulin Glargine 100 Units/Ml SUB-Q Not Given DAILY [facility] Insulin Human Lispro 0 unit 08/15/21 07:30 08/20/21 22:33 Insulin Lispro 100 Unit/Ml SUB-Q Not Given ACHS [facility] Protocol Midodrine 5 mg 08/18/21 12:17 08/21/21 05:58 Midodrine 5 Mg Tab PO Not Given 0600,1200,1800 [facility] Naloxone HCl 0.1 mg 08/14/21 22:07 Naloxone 0.4 Mg/1 Ml Inj IV Q2MIN PRN Res Rate </= 8 or 02 SAT < 92% Ondansetron HCl 4 mg 08/15/21 12:22 Ondansetron 4 Mg/2 Ml Inj IV Q4H PRN Nausea And Vomiting Pantoprazole Sodium 40 mg 08/15/21 07:30 08/20/21 10:09 Pantoprazole 40 Mg Tab PO 40 mg QDAC FARRAH Administration Potassium Chloride 40 meq 08/21/21 08:00 Potassium Chloride Er 20 Meq Tab PO 08/21/21 12:01 Q4H FARRAH Quetiapine Fumarate 50 mg 08/15/21 22:00 08/20/21 23:33 Quetiapine 25 Mg Tab PO Not Given QHS FARRAH Sodium Chloride 10 ml 08/14/21 22:00 08/20/21 22:34 Sodium Chloride 0.9% 10 Ml Flush Syringe IV 10 ml BID FARRAH Administration Sodium Chloride 10 ml 08/14/21 11:30 Sodium Chloride 0.9% 10 Ml Flush Syringe IV PRN PRN LINE FLUSH Tamsulosin HCl 0.4 mg 08/15/21 10:00 08/20/21 10:09 Tamsulosin 0.4 Mg Cap PO 0.4 mg QDAY FARRAH Administration
[2021-08-21 08:25] LABS: Basophils % (Auto) 0.4 % (0.0-1.8); Eosinophils # (Auto) 0.1 K/mm3 (0.0-0.4); Eosinophils % (Auto) 2.1 % (0.0-4.3); Hematocrit 29.6 % (35.5-45.6); Hemoglobin 10.2 gm/dl (11.8-15.2); Lymphocytes # (Auto) 1.1 K/mm3 (1.2-5.4); Lymphocytes % (Auto) 19.5 % (13.4-35.0); Mean Corpuscular HGB Conc 34 % (32-34); Mean Corpuscular Volume 91 fl (84-94); Monocytes # (Auto) 0.4 K/mm3 (0.0-0.8); Monocytes % (Auto) 7.4 % (0.0-7.3); Platelet Count 375 K/mm3 (140-440); Red Blood Count 3.25 M/mm3 (3.65-5.03); Red Cell Distribution Width 14.5 % (13.2-15.2)
[2021-08-21 08:42] LABS: BUN/Creatinine Ratio 14; Blood Urea Nitrogen 13 mg/dL (9-20); Calcium 8.7 mg/dL (8.4-10.2); Hemolysis Index 0
[2021-08-21] MEDS ORDERED: POTASSIUM PHOSPHATE 30 MMOL in SODIUM CHLORIDE 0.9% 500 ML 500 ML IV ONE (09:00)
[2021-08-21] MEDS: INSULIN LISPRO 100 UNIT/ML SUB-Q SCH ×4 (09:18→21:42)
[2021-08-21] MEDS: INSULIN GLARGINE 100 UNITS/ML SUB-Q SCH (09:19)
[2021-08-21] MEDS: TAMSULOSIN 0.4 MG CAP PO SCH (11:08)
[2021-08-21] MEDS: POTASSIUM CHLORIDE ER 20 MEQ TAB PO SCH ×2 (11:08→13:18)
[2021-08-21] MEDS: CLOPIDOGREL 75 MG TAB PO SCH (11:09)
[2021-08-21] MEDS: APIXABAN 2.5 MG TAB PO SCH ×2 (11:09→21:41)
[2021-08-21] MEDS: FENOFIBRATE 145 MG TAB PO SCH (11:09)
[2021-08-21] MEDS: ASPIRIN 81 MG TAB CHEW PO SCH (11:10)
[2021-08-21] MEDS: METOPROLOL TARTRATE 50 MG TAB PO SCH ×2 (13:19→21:41)
[2021-08-21] MEDS: PANTOPRAZOLE 40 MG TAB PO SCH (13:26)
--- NOTE | 2021-08-21 13:54 | Progress Note ---
Assessment and Plan Patient is a 76 y/o male with a PMHx of CAD,PVD, ischemic cardiomyopathy, h/o AL, HTN, chronic renal insufficiency who underwent endovascular revascularization about 3 months and reports with a complaint of acute limb ischemiax 2 weeks HTN CAD PVD Ischemic Cardiomyopathy Hypokalemia * Echocardiogram 07/07/2020 LV wall thickness is mildly increased.Estimated left ventricle ejection fraction is 35-40%. Normal left atrial pressure with Grade I diastolic dysfunction. There is normal right ventricular size, wall dimension, and systolic function. There is no aortic valve stenosis or regurgitation. There is no mitral valve stenosis or regurgitation. There is no tricuspid valve stenosis or regurgitation. There is trivial pulmonic regurgitation. No left ventricular thrombus noted with LV contrast images * Lexiscan MPI stress 01/16/2021- Negative Lexiscan EKG. No significant myocardial PET ischemia. Moderate area of large infarct shown in the inferior region noted with no significant ischemia with normal perfusion anteroseptal, lateral, and apical regions. Gated SPECT at rest and stress 35% requiring flow reserve globally at 1.48. * Outpatient medications: [id number] PO QD, Plavix 75g PO QD, atorvastatin 80mg QHS, asa, Metoprolol ER 100mg PO QD Plan: Potassium being repleted Due to run of sustained VT overnight order for [facility] has been place. Will initiate Metoprolol 50mg PO BID.Will increase metoprolol and restart ARB once BP is more stable. Stop midodrine 5mg PO TID. Continue Eliquis and Plavix, asa. Troponins noted to be elevated likely as a result of CPR due to Vtach. Patient is currently chest pain free. EKG shows sinus rhythm 87 with no acute ischemic changes. Patient has a video follow up with Dr. Dukes, [facility], 08/31/2021 at 11:45am Patient seen in conjunction with Dr. Bell who agrees with this plan of care. Will continue to follow - Patient Problems (1) Rest pain of right lower extremity concurrent with and due to atherosclerosis of bypass graft Current Visit: Yes Status: Acute (2) CAD (coronary artery disease) Current Visit: Yes Status: Chronic (3) CKD (chronic kidney disease) Current Visit: Yes Status: Chronic (4) Intermittent claudication of both lower extremities due to atherosclerosis Current Visit: No Status: Acute Subjective Date of service: 08/21/21 Principal diagnosis: Acute Limb Ischemia Interval history: Code Jose/ called on patient overnight due to sustained Vtach. Per documentation and speaking with nurse CPR was administered and the patient was given IV amiodarone 150 mg and converted to normal sinus rhythm. Patient reports feeling lightheaed and passing out during incident. At time of interview patient reports no other cardiac concerns and is in acute distress Sinus 85 monitor Objective Vital Signs Temp Pulse Pulse Resp Resp BP BP 08/21/21 13:31 98 F 88 108/56 08/21/21 13:19 92 H 08/21/21 11:00 88 126/65 08/21/21 07:00 08/21/21 05:30 97.5 F L 88 19 140/71 08/20/21 22:35 118 H 20 08/20/21 21:20 08/20/21 19:08 98.0 F 102 H 20 135/66 08/20/21 15:51 98.0 F 93 H 18 114/67 Pulse Ox 08/21/21 13:31 08/21/21 13:19 08/21/21 11:00 08/21/21 07:00 99 08/21/21 05:30 99 08/20/21 22:35 08/20/21 21:20 99 08/20/21 19:08 96 08/20/21 15:51 96 - Physical Examination General: No Apparent Distress HEENT: Positive: EOMI, Normocephaly Neck: Positive: neck supple, trachea midline. Negative: JVD/HJR Cardiac: Positive: Reg Rate and Rhythm Lungs: Positive: Normal Breath Sounds Neuro: Positive: Grossly Intact Abdomen: Positive: Soft. Negative: Tender Skin: Negative: Rash Musculoskeletal: No Fluid Collection Extremities: Present: warm. Absent: edema - Labs and Meds Lipids 08/20/21 Range/Units 22:17 Triglycerides 189 H (2-149) mg/dL Cholesterol 99 (50-199) mg/dL HDL Cholesterol 22 L (40-59) mg/dL Cholesterol/HDL Ratio 4.50 % CBC 08/21/21 Range/Units 06:55 WBC 5.9 (4.5-11.0) K/mm3 RBC 3.25 L (3.65-5.03) M/mm3 Hgb 10.2 L (11.8-15.2) gm/dl Hct 29.6 L (35.5-45.6) % Plt Count 375 (140-440) K/mm3 Lymph # (Auto) 1.1 L (1.2-5.4) K/mm3 [place] # (Auto) 0.4 (0.0-0.8) K/mm3 Eos # (Auto) 0.1 (0.0-0.4) K/mm3 Baso # (Auto) 0.0 (0.0-0.1) K/mm3 Comprehensive Metabolic Panel 08/20/21 08/21/21 Range/Units 22:13 06:55 Sodium 135 L 139 (137-145) mmol/L Potassium 2.9 L* 3.0 L (3.6-5.0) mmol/L Chloride 102.1 103.4 (98-107) mmol/L Carbon Dioxide 18 L 21 L (22-30) mmol/L BUN 13 13 (9-20) mg/dL Creatinine 0.9 0.9 (0.8-1.3) mg/dL Glucose 160 H 118 H (75-100) mg/dL Calcium 8.6 8.7 (8.4-10.2) mg/dL - Imaging and Cardiology EKG: report reviewed, image reviewed Echo: report reviewed (07/2020 - EF 35-40%, grade I diastolic dysfxn) - Telemetry EKG Rhythm: Sinus Rhythm - EKG Sinus rhythms and dysrhythmias: sinus rhythm - Allied health notes Allied health notes reviewed: nursing
--- NOTE | 2021-08-21 14:47 | Progress Note ---
Assessment and Plan 76-year-old male with past medical history of coronary issues with acute limb ischemia of the right lower extremity which failed endovascular revascularization and required urgent/emergent open revascularization. Patient doing well from arterial reconstruction of the right common femoral artery with profundoplasty. No further symptoms of acute limb ischemia. Patient appears stable from a vascular standpoint. On cilostazol, Plavix, and low-dose Eliquis. Protonix provided for GI prophylaxis. Unfortunately, he yesterday patient had ventricular tachycardia requiring amiodarone infusion and now has mild troponin elevation. Defer to cardiology for plan. Appreciate consultants assistance. May need to go to subacute rehab. Will reassess patient tomorrow. - Patient Problems (1) Rest pain of right lower extremity concurrent with and due to atherosclerosis of bypass graft Current Visit: Yes Status: Acute (2) NSTEMI (non-ST elevated myocardial infarction) Current Visit: Yes Status: Acute (3) DM2 (diabetes mellitus, type 2) Current Visit: Yes Status: Chronic (4) Ischemic cardiomyopathy Current Visit: Yes Status: Chronic (5) NSVT (nonsustained ventricular tachycardia) Current Visit: Yes Status: Chronic (6) NIRMAL (obstructive sleep apnea) Current Visit: Yes Status: Chronic Subjective Date of service: 08/21/21 Principal diagnosis: Acute Limb Ischemia Interval history: Right lower extremity is warm and well-perfused. Right lower extremity is warmer than the left foot. Intact motor. No pain in foot, has some pain at his right groin incision site. Some mild numbness of his toes which are likely chronic at this time. No chest pain or shortness of breath. On nasal cannula Objective - Constitutional Vitals: Vital Signs - 12hr 08/21/21 08/21/21 08/21/21 05:30 07:00 11:00 Temperature 97.5 F L Pulse Rate 88 88 Respiratory 19 Rate Blood Pressure 140/71 Blood Pressure 126/65 [Right] O2 Sat by Pulse 99 99 Oximetry 08/21/21 08/21/21 13:19 13:31 Temperature 98 F Pulse Rate 92 H 88 Respiratory Rate Blood Pressure Blood Pressure 108/56 [Right] O2 Sat by Pulse Oximetry General appearance: Present: no acute distress - EENT Eyes: EOM intact ENT: hearing intact - Respiratory Respiratory effort: normal Extremities: normal temperature, normal color, abnormal (Minimal dehiscence at the superior aspect of the right groin incision. Painted with Betadine. 4 x 4's placed over the area.) Extremity abnormal: pulses diminished (Nonpalpable pedal pulses) - Gastrointestinal General gastrointestinal: Present: soft, non-tender - Psychiatric Psychiatric: appropriate mood/affect, cooperative - Labs CBC & Chem 7: 08/21/21 06:55 08/21/21 06:55 Labs: Abnormal lab results 08/20/21 08/20/21 08/20/21 Range/Units 22:13 22:13 22:17 RBC (3.65-5.03) M/mm3 Hgb (11.8-15.2) gm/dl Hct (35.5-45.6) % [place] % (Auto) (0.0-7.3) % Lymph # (Auto) (1.2-5.4) K/mm3 Seg Neutrophils % (40.0-70.0) % Sodium 135 L (137-145) mmol/L Potassium 2.9 L* (3.6-5.0) mmol/L Carbon Dioxide 18 L (22-30) mmol/L Glucose 160 H (75-100) mg/dL POC Glucose (70-105) mg/dL Magnesium 1.40 L (1.7-2.3) mg/dL Troponin T 0.133 H* (0.00-0.029) ng/mL Triglycerides 189 H (2-149) mg/dL LDL Cholesterol Direct 37 L (50-130) mg/dL HDL Cholesterol 22 L (40-59) mg/dL 08/21/21 08/21/21 08/21/21 Range/Units 06:55 06:55 07:20 RBC 3.25 L (3.65-5.03) M/mm3 Hgb 10.2 L (11.8-15.2) gm/dl Hct 29.6 L (35.5-45.6) % [place] % (Auto) 7.4 H (0.0-7.3) % Lymph # (Auto) 1.1 L (1.2-5.4) K/mm3 Seg Neutrophils % 70.6 H (40.0-70.0) % Sodium (137-145) mmol/L Potassium 3.0 L (3.6-5.0) mmol/L Carbon Dioxide 21 L (22-30) mmol/L Glucose 118 H (75-100) mg/dL POC Glucose 114 H (70-105) mg/dL Magnesium (1.7-2.3) mg/dL Troponin T 0.192 H* D (0.00-0.029) ng/mL Triglycerides (2-149) mg/dL LDL Cholesterol Direct (50-130) mg/dL HDL Cholesterol (40-59) mg/dL 08/21/21 Range/Units 11:20 RBC (3.65-5.03) M/mm3 Hgb (11.8-15.2) gm/dl Hct (35.5-45.6) % [place] % (Auto) (0.0-7.3) % Lymph # (Auto) (1.2-5.4) K/mm3 Seg Neutrophils % (40.0-70.0) % Sodium (137-145) mmol/L Potassium (3.6-5.0) mmol/L Carbon Dioxide (22-30) mmol/L Glucose (75-100) mg/dL POC Glucose 146 H (70-105) mg/dL Magnesium (1.7-2.3) mg/dL Troponin T (0.00-0.029) ng/mL Triglycerides (2-149) mg/dL LDL Cholesterol Direct (50-130) mg/dL HDL Cholesterol (40-59) mg/dL Medications & Allergies - Medications Allergies/Adverse Reactions: Allergies bee pollen Allergy (Verified 03/07/21 08:11) Swelling Home Medications: Home Medications Medication Instructions Recorded Confirmed Last Taken Type Atorvastatin [Lipitor Tab] 80 mg PO DAILY 03/07/21 08/14/21 08/13/21 History Clopidogrel [Plavix] 75 mg PO QDAY 03/07/21 08/14/21 08/14/21 History Fenofibrate 160 mg PO DAILY 03/07/21 08/14/21 08/14/21 History Insulin Degludec [Tresiba 50 unit SQ DAILY 03/07/21 08/14/21 08/13/21 History Flextouch U-200] Losartan [Cozaar] 100 mg PO QDAY 03/07/21 08/14/21 08/14/21 History Metoprolol [Lopressor] 100 mg PO DAILY 03/07/21 08/14/21 08/14/21 History Quetiapine Fumarate [SEROquel] 50 mg PO DAILY 03/07/21 08/14/21 08/13/21 History Semaglutide [Ozempic] 1 mg SQ 1XW 03/07/21 08/14/21 08/13/21 History Tamsulosin [Flomax] 0.4 mg PO QDAY 03/07/21 08/14/21 08/13/21 History Aspirin EC [Halfprin EC] 81 mg PO DAILY 04/24/21 08/14/21 08/13/21 History Cetirizine HCl [Zyrtec 10mg tab] 10 mg PO DAILY 08/14/21 08/14/21 08/13/21 History Active Medications: Generic Name Dose Route Start Last Admin Trade Name Freq PRN Reason Stop Dose Admin Acetaminophen 650 mg 08/14/21 22:00 08/18/21 00:24 Acetaminophen 325 Mg Tab PO 650 mg Q4H PRN Administration Pain MILD(1-3)/Fever >100.5/ALICIA Hydrocodone Bitart/Acetaminophen 1 each 08/16/21 16:35 08/19/21 14:16 Hydrocodone/Acetaminophen 5-325 Mg Tab PO 1 each Q4H PRN Administration Pain, Moderate (4-6) Apixaban 2.5 mg 08/15/21 10:00 08/21/21 11:09 Apixaban 2.5 Mg Tab PO 2.5 mg Q12HR FARRAH Administration Protocol Aspirin 81 mg 08/16/21 12:00 08/21/21 11:10 Aspirin 81 Mg Tab Chew PO 81 mg QDAY FARRAH Administration Atorvastatin Calcium 80 mg 08/15/21 10:00 08/21/21 11:09 Atorvastatin 40 Mg Tab PO 80 mg DAILY FARRAH Administration Clopidogrel Bisulfate 75 mg 08/15/21 10:00 08/21/21 11:09 Clopidogrel 75 Mg Tab PO 75 mg QDAY FARRAH Administration Dextrose 50 ml 08/16/21 20:58 Dextrose 50% In Water (25gm) 50 Ml Syringe IV Q30MIN PRN Hypoglycemia Protocol Fenofibrate 145 mg 08/15/21 10:00 08/21/21 11:09 Fenofibrate 145 Mg Tab PO 145 mg DAILY FARRAH Administration Potassium Phosphate 30 mmol/ 510 mls @ 85 mls/hr 08/21/21 09:00 08/21/21 11:10 Sodium Chloride IV 08/21/21 14:59 85 mls/hr ONCE@0900 ONE Administration Insulin Glargine 50 units 08/15/21 10:00 08/21/21 09:19 Insulin Glargine 100 Units/Ml SUB-Q Not Given DAILY [facility] Insulin Human Lispro 0 unit 08/15/21 07:30 08/21/21 13:21 Insulin Lispro 100 Unit/Ml SUB-Q Not Given ACHS [facility] Protocol Metoprolol Tartrate 50 mg 08/21/21 12:00 08/21/21 13:19 Metoprolol Tartrate 50 Mg Tab PO 50 mg BID FARRAH Administration Naloxone HCl 0.1 mg 08/14/21 22:07 Naloxone 0.4 Mg/1 Ml Inj IV Q2MIN PRN Res Rate </= 8 or 02 SAT < 92% Ondansetron HCl 4 mg 08/15/21 12:22 Ondansetron 4 Mg/2 Ml Inj IV Q4H PRN Nausea And Vomiting Pantoprazole Sodium 40 mg 08/15/21 07:30 08/21/21 13:26 Pantoprazole 40 Mg Tab PO 40 mg QDAC FARRAH Administration Quetiapine Fumarate 50 mg 08/15/21 22:00 08/20/21 23:33 Quetiapine 25 Mg Tab PO Not Given QHS FARRAH Sodium Chloride 10 ml 08/14/21 22:00 08/21/21 13:22 Sodium Chloride 0.9% 10 Ml Flush Syringe IV 10 ml BID FARRAH Administration Sodium Chloride 10 ml 08/14/21 11:30 Sodium Chloride 0.9% 10 Ml Flush Syringe IV PRN PRN LINE FLUSH Tamsulosin HCl 0.4 mg 08/15/21 10:00 08/21/21 11:08 Tamsulosin 0.4 Mg Cap PO 0.4 mg QDAY FARRAH Administration HEART Score - HEART Score Troponin: Troponin T 0.192 ng/mL (0.00-0.029) H* D 08/21/21 06:55
--- NOTE | 2021-08-21 19:37 | Progress Note ---
Assessment and Plan 76-year-old male with past medical history of diabetes, coronary artery disease, hyperlipidemia, hypertension, PVD, sleep apnea, chronic renal insufficiency and hypercholesterolemia who is status post myocardial infarction in the past and bypass in 1985 and cholecystectomy who has underwent endovascular revascularization The patient now presents with 2 weeks of acute limb ischemia with [place] 2A which has been stable for the last 2 weeks. He has forefoot numbness, but has full motor function of his toes, and has rest pain. Patient underwent attempted endovascular revascularization. Unfortunately, the patient's symptoms persist and he will require emergent bypass as his aneurysmal right common femoral artery occluded. arterial reconstruction of the right common femoral artery with profundoplasty. No further symptoms of acute limb ischemia. Patient appears stable from a vascular standpoint. On cilostazol, Plavix, and low-dose Eliquis. Protonix provided for GI prophylaxis. Patient awake . Resting on 3 litres O2. O2 saturation running 99%. Denies chest pain, shortness of breath or cough at rest. Patient afebrile. No leukocytosis. Blood pressure 126/65, Pulse 88. Chest xray done 08/14/21 reported right basilar atelectasis. Patient presently on Apixaban and protonix. - Patient Problems (1) Hypotension Current Visit: Yes Status: Acute Plan to address problem: Improved. Recent blood pressure 121/64. (2) Diabetes Current Visit: Yes Status: Acute Plan to address problem: Management as per primary care. (3) Limb ischemia Current Visit: Yes Status: Acute Plan to address problem: Management as per vascular surgery. (4) NIRMAL (obstructive sleep apnea) Current Visit: Yes Status: Chronic Plan to address problem: BIPAP during night time. Recommend to loose weight. Sleep hygiene. (5) Obesity hypoventilation syndrome Current Visit: Yes Status: Chronic Plan to address problem: Recommend day time ABGs on room air. Subjective Date of service: 08/21/21 Principal diagnosis: Acute Limb Ischemia Interval history: 76-year-old male with past medical history of diabetes, coronary artery disease, hyperlipidemia, hypertension, PVD, sleep apnea, chronic renal insufficiency and hypercholesterolemia who is status post myocardial infarction in the past and bypass in 1985 and cholecystectomy who has underwent endovascular revascul arization The patient now presents with 2 weeks of acute limb ischemia with [place] 2A which has been stable for the last 2 weeks. He has forefoot numbness, but has full motor function of his toes, and has rest pain. Patient underwent attempted endovascular revascularization. Unfortunately, the patient's symptoms persist and he will require emergent bypass as his aneurysmal right common femoral artery occluded. arterial reconstruction of the right common femoral artery with profundoplasty. No further symptoms of acute limb ischemia. Patient appears stable from a vascular standpoint. On cilostazol, Plavix, and low-dose Eliquis. Protonix provided for GI prophylaxis. Patient awake . Resting on 3 litres O2. O2 saturation running 99%. Denies chest pain, shortness of breath or cough at rest. Patient afebrile. No leukocytosis. Blood pressure 126/65, Pulse 88. Chest xray done 08/14/21 reported right basilar atelectasis. Patient presently on Apixaban and protonix. Objective Vital Signs - 12hr 08/21/21 08/21/21 08/21/21 10:00 11:00 13:19 Temperature Pulse Rate 90 88 92 H Blood Pressure 126/65 [Right] O2 Sat by Pulse 99 Oximetry 08/21/21 08/21/21 13:31 15:44 Temperature 98 F Pulse Rate 88 Blood Pressure 108/56 [Right] O2 Sat by Pulse 98 Oximetry Constitutional: no acute distress, alert, other (elderly obese female with mildly increased respiratory effort at rest) Eyes: non-icteric ENT: oropharynx moist, other (mallampati 3-4) Neck: supple, no lymphadenopathy, no JVD, other (large neck circumference) Effort: mildly labored Ascultation: Bilateral: diminished breath sounds Percussion: Bilateral: not dull Cardiovascular: regular rate and rhythm Gastrointestinal: normoactive bowel sounds, soft, non-tender, non-distended (protuberant') Integumentary: erythema, other (right groin wound) Extremities: no cyanosis, pink and warm, pulses normal, no ischemia or petechiae Neurologic: non-focal exam (grossly), pupils equal and round, CN II-XII normal, motor strength normal and Psychiatric: mood appropriate, affect normal CBC and BMP: 08/22/21 05:53 08/22/21 05:53 ABG, PT/INR, D-dimer: PT/INR, D-dimer PT 14.9 Sec. (12.2-14.9) 08/14/21 09:37 INR 1.12 (0.87-1.13) 08/14/21 09:37 Abnormal lab findings: Abnormal Labs 08/14/21 08/14/21 08/14/21 09:37 09:37 09:37 RBC Hgb Hct MCHC 35 H Lymph % (Auto) [place] % (Auto) 9.6 H Eos % (Auto) Lymph # (Auto) Seg Neutrophils % Sodium Potassium Chloride Carbon Dioxide BUN 23 H Glucose POC Glucose Calcium Magnesium Troponin T Triglycerides LDL Cholesterol Direct HDL Cholesterol Crossmatch See Detail 08/14/21 08/15/21 08/15/21 22:17 04:20 04:20 RBC Hgb Hct MCHC Lymph % (Auto) 12.6 L [place] % (Auto) 8.1 H Eos % (Auto) Lymph # (Auto) Seg Neutrophils % 78.5 H Sodium Potassium Chloride 109.5 H Carbon Dioxide 19 L D BUN 24 H Glucose 102 H POC Glucose 122 H Calcium 7.9 L D Magnesium Troponin T Triglycerides LDL Cholesterol Direct HDL Cholesterol Crossmatch 08/15/21 08/15/21 08/15/21 11:19 15:41 21:21 RBC Hgb Hct MCHC Lymph % (Auto) [place] % (Auto) Eos % (Auto) Lymph # (Auto) Seg Neutrophils % Sodium Potassium Chloride Carbon Dioxide BUN Glucose POC Glucose 124 H 126 H 226 H Calcium Magnesium Troponin T Triglycerides LDL Cholesterol Direct HDL Cholesterol Crossmatch 08/16/21 08/16/21 08/16/21 08:16 11:40 14:33 RBC 3.16 L Hgb 10.0 L Hct 29.1 L D MCHC Lymph % (Auto) 9.5 L [place] % (Auto) 7.9 H Eos % (Auto) Lymph # (Auto) 0.9 L Seg Neutrophils % 80.7 H Sodium Potassium Chloride Carbon Dioxide BUN Glucose POC Glucose 112 H 137 H Calcium Magnesium Troponin T Triglycerides LDL Cholesterol Direct HDL Cholesterol Crossmatch 08/16/21 08/16/21 08/16/21 14:33 15:41 23:54 RBC Hgb Hct MCHC Lymph % (Auto) [place] % (Auto) Eos % (Auto) Lymph # (Auto) Seg Neutrophils % Sodium 133 L Potassium Chloride Carbon Dioxide 19 L BUN 30 H Glucose 153 H POC Glucose 140 H 125 H Calcium 7.9 L Magnesium Troponin T Triglycerides LDL Cholesterol Direct HDL Cholesterol Crossmatch 08/17/21 08/17/21 08/17/21 02:05 06:20 06:20 RBC 2.84 L Hgb 8.9 L Hct 26.1 L MCHC Lymph % (Auto) 12.3 L [place] % (Auto) 9.6 H Eos % (Auto) Lymph # (Auto) 1.0 L Seg Neutrophils % 75.6 H Sodium 135 L Potassium Chloride Carbon Dioxide 19 L BUN 27 H Glucose 119 H POC Glucose 114 H Calcium 7.8 L Magnesium Troponin T Triglycerides LDL Cholesterol Direct HDL Cholesterol Crossmatch 08/17/21 08/17/21 08/17/21 11:09 16:13 17:05 RBC Hgb Hct MCHC Lymph % (Auto) [place] % (Auto) Eos % (Auto) Lymph # (Auto) Seg Neutrophils % Sodium Potassium Chloride Carbon Dioxide BUN Glucose POC Glucose 128 H 143 H 145 H Calcium Magnesium Troponin T Triglycerides LDL Cholesterol Direct HDL Cholesterol Crossmatch 08/17/21 08/18/21 08/18/21 22:23 07:17 07:59 RBC 3.15 L Hgb 9.9 L Hct 28.4 L MCHC 35 H Lymph % (Auto) 11.1 L [place] % (Auto) Eos % (Auto) 4.8 H Lymph # (Auto) 0.9 L Seg Neutrophils % 76.5 H Sodium Potassium Chloride Carbon Dioxide BUN Glucose POC Glucose 148 H 111 H Calcium Magnesium Troponin T Triglycerides LDL Cholesterol Direct HDL Cholesterol Crossmatch 08/18/21 08/18/21 08/18/21 07:59 11:33 17:43 RBC Hgb Hct MCHC Lymph % (Auto) [place] % (Auto) Eos % (Auto) Lymph # (Auto) Seg Neutrophils % Sodium Potassium Chloride 110.2 H Carbon Dioxide 18 L BUN Glucose 122 H POC Glucose 149 H 116 H Calcium Magnesium 1.40 L Troponin T Triglycerides LDL Cholesterol Direct HDL Cholesterol Crossmatch 08/18/21 08/19/21 08/19/21 21:29 06:26 06:26 RBC 3.06 L Hgb 9.5 L Hct 27.7 L MCHC Lymph % (Auto) [place] % (Auto) 8.3 H Eos % (Auto) 7.1 H Lymph # (Auto) Seg Neutrophils % Sodium 136 L Potassium 3.1 L Chloride Carbon Dioxide 21 L BUN Glucose 134 H POC Glucose 151 H Calcium 8.3 L Magnesium Troponin T Triglycerides LDL Cholesterol Direct HDL Cholesterol Crossmatch 08/19/21 08/19/21 08/19/21 07:39 11:07 15:19 RBC Hgb Hct MCHC Lymph % (Auto) [place] % (Auto) Eos % (Auto) Lymph # (Auto) Seg Neutrophils % Sodium Potassium Chloride Carbon Dioxide BUN Glucose POC Glucose 117 H 149 H 142 H Calcium Magnesium Troponin T Triglycerides LDL Cholesterol Direct HDL Cholesterol Crossmatch 08/19/21 08/20/21 08/20/21 20:10 07:20 07:20 RBC 3.14 L Hgb 9.9 L Hct 28.4 L MCHC 35 H Lymph % (Auto) [place] % (Auto) 7.7 H Eos % (Auto) 6.1 H Lymph # (Auto) 1.0 L Seg Neutrophils % Sodium Potassium 3.0 L Chloride Carbon Dioxide BUN Glucose 113 H POC Glucose 154 H Calcium Magnesium Troponin T Triglycerides LDL Cholesterol Direct HDL Cholesterol Crossmatch 08/20/21 08/20/21 08/20/21 07:28 11:07 22:13 RBC Hgb Hct MCHC Lymph % (Auto) [place] % (Auto) Eos % (Auto) Lymph # (Auto) Seg Neutrophils % Sodium Potassium Chloride Carbon Dioxide BUN Glucose POC Glucose 112 H 133 H Calcium Magnesium 1.40 L Troponin T Triglycerides LDL Cholesterol Direct HDL Cholesterol Crossmatch 08/20/21 08/20/21 08/21/21 22:13 22:17 06:55 RBC 3.25 L Hgb 10.2 L Hct 29.6 L MCHC Lymph % (Auto) [place] % (Auto) 7.4 H Eos % (Auto) Lymph # (Auto) 1.1 L Seg Neutrophils % 70.6 H Sodium 135 L Potassium 2.9 L* Chloride Carbon Dioxide 18 L BUN Glucose 160 H POC Glucose Calcium Magnesium Troponin T 0.133 H* Triglycerides 189 H LDL Cholesterol Direct 37 L HDL Cholesterol 22 L Crossmatch 08/21/21 08/21/21 08/21/21 06:55 07:20 11:20 RBC Hgb Hct MCHC Lymph % (Auto) [place] % (Auto) Eos % (Auto) Lymph # (Auto) Seg Neutrophils % Sodium Potassium 3.0 L Chloride Carbon Dioxide 21 L BUN Glucose 118 H POC Glucose 114 H 146 H Calcium Magnesium Troponin T 0.192 H* D Triglycerides LDL Cholesterol Direct HDL Cholesterol Crossmatch 08/21/21 08/21/21 14:34 16:20 RBC Hgb Hct MCHC Lymph % (Auto) [place] % (Auto) Eos % (Auto) Lymph # (Auto) Seg Neutrophils % Sodium Potassium 3.0 L Chloride Carbon Dioxide BUN Glucose POC Glucose 164 H Calcium Magnesium 1.50 L Troponin T Triglycerides LDL Cholesterol Direct HDL Cholesterol Crossmatch Chest x-ray: report reviewed, image reviewed Additional Studies: CHEST 1 VIEW 08/14/2021 4:40 PM INDICATION / CLINICAL INFORMATION: central line placement. COMPARISON: None available. FINDINGS: SUPPORT DEVICES: A right internal jugular CVL terminates over the distal SVC. HEART / MEDIASTINUM: Normal size of the cardiac silhouette with sternotomy changes. There is moderate aortic atherosclerosis. LUNGS / PLEURA: The left hemidiaphragm is elevated with probable left basilar atelectasis. No other significant pulmonary abnormality. No significant pleural effusion. No pneumothorax. ADDITIONAL FINDINGS: No significant additional findings. IMPRESSION: 1. Expected positioning of a right internal jugular CVL. 2. Probable left basilar atelectasis. Allied health notes reviewed: nursing
[2021-08-21] MEDS: QUEtiapine 25 MG TAB PO SCH (21:40)
[2021-08-22 06:24] LABS: BUN/Creatinine Ratio 17; Blood Urea Nitrogen 15 mg/dL (9-20); Calcium 8.5 mg/dL (8.4-10.2); Hemolysis Index 2
[2021-08-22 06:25] LABS: Basophils % (Auto) 0.4 % (0.0-1.8); Eosinophils # (Auto) 0.3 K/mm3 (0.0-0.4); Eosinophils % (Auto) 4.8 % (0.0-4.3); Hemoglobin 10.1 gm/dl (11.8-15.2); Lymphocytes # (Auto) 1.4 K/mm3 (1.2-5.4); Lymphocytes % (Auto) 23.7 % (13.4-35.0); Mean Corpuscular HGB Conc 35 % (32-34); Mean Corpuscular Volume 91 fl (84-94); Monocytes # (Auto) 0.6 K/mm3 (0.0-0.8); Monocytes % (Auto) 9.5 % (0.0-7.3); Platelet Count 369 K/mm3 (140-440); Red Blood Count 3.18 M/mm3 (3.65-5.03); Red Cell Distribution Width 14.8 % (13.2-15.2)
[2021-08-22] MEDS ORDERED: POTASSIUM CHLORIDE ER 20 MEQ TAB PO SCH ×2 (10:00→16:00)
[2021-08-22] MEDS: PANTOPRAZOLE 40 MG TAB PO SCH (10:12)
[2021-08-22] MEDS: ASPIRIN 81 MG TAB CHEW PO SCH (10:12)
[2021-08-22] MEDS: METOPROLOL TARTRATE 50 MG TAB PO SCH ×2 (10:13→21:36)
[2021-08-22] MEDS: INSULIN LISPRO 100 UNIT/ML SUB-Q SCH ×4 (10:13→21:37)
[2021-08-22] MEDS: FENOFIBRATE 145 MG TAB PO SCH (10:13)
[2021-08-22] MEDS: APIXABAN 2.5 MG TAB PO SCH ×2 (10:13→21:36)
[2021-08-22] MEDS: INSULIN GLARGINE 100 UNITS/ML SUB-Q SCH (10:13)
[2021-08-22] MEDS: CLOPIDOGREL 75 MG TAB PO SCH (10:13)
[2021-08-22] MEDS: TAMSULOSIN 0.4 MG CAP PO SCH (10:15)
--- NOTE | 2021-08-22 10:55 | Electrocardiograph Report ---
[facility] Test Date: 2021-08-21 Test Time: 10:16:51 Pat Name: CARMINA REZA Department: Room: A452 1 Gender: M [employer]: NIMO : [id number] Requested By: SONIA SHANKS Order Number: [id number] Reading MD: Gamaliel Bell Measurements Intervals [place] Rate: 87 P: 76 VT: 191 QRS: 38 QRSD: 122 T: 144 QT: 372 QTc: 447 Interpretive Statements Sinus rhythm Nonspecific intraventricular conduction delay Inferior infarct, old Lateral wall also involved Compared to ECG 08/20/2021 22:22:42 No significant changes Electronically Signed On 08-22-2021 10:55:36 EDT by Gamaliel Bell
--- NOTE | 2021-08-22 12:54 | Progress Note ---
Assessment and Plan Patient is a 76 y/o male with a PMHx of CAD,PVD, ischemic cardiomyopathy, h/o HI, HTN, chronic renal insufficiency who underwent endovascular revascularization about 3 months and reports with a complaint of acute limb ischemiax 2 weeks HTN CAD PVD Ischemic Cardiomyopathy Hypokalemia(improved) * Echocardiogram 07/07/2020 LV wall thickness is mildly increased.Estimated left ventricle ejection fraction is 35-40%. Normal left atrial pressure with Grade I diastolic dysfunction. There is normal right ventricular size, wall dime nsion, and systolic function. There is no aortic valve stenosis or regurgitation. There is no mitral valve stenosis or regurgitation. There is no tricuspid valve stenosis or regurgitation. There is trivial pulmonic regurgitation. No left ventricular thrombus noted with LV contrast images * Lexiscan MPI stress 01/16/2021- Negative Lexiscan EKG. No significant myocardial PET ischemia. Moderate area of large infarct shown in the inferior region noted with no significant ischemia with normal perfusion anteroseptal, lateral, and apical regions. Gated SPECT at rest and stress 35% requiring flow reserve globally at 1.48. * Outpatient medications: [id number] PO QD, Plavix 75g PO QD, atorvastatin 80mg QHS, asa, Metoprolol ER 100mg PO QD Plan: Potassium being repleted Lifevest pending. Continue Metoprolol 50mg PO BID. Continue Eliquis and Plavix, asa. Patient has a video follow up with Dr. Dukes, [facility], 08/31/2021 at 11:45am Patient seen in conjunction with Dr. Bell who agrees with this plan of care. Will continue to follow - Patient Problems (1) Rest pain of right lower extremity concurrent with and due to atherosclerosis of bypass graft Current Visit: Yes Status: Acute (2) CAD (coronary artery disease) Current Visit: Yes Status: Chronic (3) CKD (chronic kidney disease) Current Visit: Yes Status: Chronic (4) Intermittent claudication of both lower extremities due to atherosclerosis Current Visit: No Status: Acute Subjective Date of service: 08/22/21 Principal diagnosis: Acute Limb Ischemia Interval history: Patient sitting in bed. Reports feeling well today Sinus 72 with no events monitor Objective Vital Signs Temp Pulse Resp BP BP Pulse Ox 08/22/21 10:00 81 17 99 08/22/21 09:56 98.2 F 78 17 112/67 98 08/22/21 08:18 98 08/22/21 03:31 98.3 F 71 18 137/50 100 08/21/21 23:56 88 26 H 98 08/21/21 23:21 98.4 F 71 14 114/63 97 08/21/21 22:00 68 99 08/21/21 21:41 77 121/64 08/21/21 19:28 98.1 F 77 18 121/64 98 08/21/21 15:44 98 08/21/21 13:31 98 F 88 108/56 08/21/21 13:19 92 H - Physical Examination General: No Apparent Distress HEENT: Positive: EOMI, Normocephaly Neck: Positive: neck supple, trachea midline. Negative: JVD/HJR Cardiac: Positive: Reg Rate and Rhythm Lungs: Positive: Decreased Breath Sounds Neuro: Positive: Grossly Intact Abdomen: Positive: Soft. Negative: Tender Skin: Negative: Rash Musculoskeletal: No Fluid Collection Extremities: Present: warm. Absent: edema - Labs and Meds CBC 08/22/21 Range/Units 05:53 WBC 5.9 (4.5-11.0) K/mm3 RBC 3.18 L (3.65-5.03) M/mm3 Hgb 10.1 L (11.8-15.2) gm/dl Hct 29.0 L (35.5-45.6) % Plt Count 369 (140-440) K/mm3 Lymph # (Auto) 1.4 (1.2-5.4) K/mm3 [place] # (Auto) 0.6 (0.0-0.8) K/mm3 Eos # (Auto) 0.3 (0.0-0.4) K/mm3 Baso # (Auto) 0.0 (0.0-0.1) K/mm3 Comprehensive Metabolic Panel 08/21/21 08/22/21 Range/Units 14:34 05:53 Sodium 136 L (137-145) mmol/L Potassium 3.0 L 3.3 L (3.6-5.0) mmol/L Chloride 105.6 (98-107) mmol/L Carbon Dioxide 22 (22-30) mmol/L BUN 15 (9-20) mg/dL Creatinine 0.9 (0.8-1.3) mg/dL Glucose 114 H (75-100) mg/dL Calcium 8.5 (8.4-10.2) mg/dL - Imaging and Cardiology EKG: report reviewed, image reviewed Echo: report reviewed (07/2020 - EF 35-40%, grade I diastolic dysfxn) - Telemetry EKG Rhythm: Sinus Rhythm - EKG Sinus rhythms and dysrhythmias: sinus rhythm - Allied health notes Allied health notes reviewed: nursing
--- NOTE | 2021-08-22 13:56 | Progress Note ---
Assessment and Plan Assessment and plan: #Peripheral vascular disease -S/p elective surgical revascularization -Management per primary -As needed pain control #Hypokalemia #Hypomagnesemia-resolved -K 3.3, repeat 3.0; given 40 mEq of potassium, repeat level pending in a.m. #Type 2 diabetes -controlled, continue Lantus + sliding scale insulin with Accu-Cheks -Hypoglycemia protocol #Hyperlipidemia -Continue statin + fenofibrate #Obesity hypoventilation syndrome -Continue CPAP at night #BPH -Continue Flomax #Hypotension-Resolved Disposition Plan: Continue medical management Total Time Spent with Patient (Minutes): 30 min History Interval history: No acute events over night. The patient denies fevers, chills, nausea, vomiting, abdominal pain, chest pain/pressure, shortness of breath, urinary symptoms, weakness, or confusion. Hospitalist Physical - Constitutional Vitals: Temp Pulse Resp BP Pulse Ox 98.2 F 72 17 108/61 97 08/22/21 13:25 08/22/21 13:25 08/22/21 13:25 08/22/21 13:25 08/22/21 13:25 General appearance: Present: no acute distress, well-nourished - EENT Eyes: Present: PERRL, EOM intact ENT: hearing intact, clear oral mucosa, dentition normal - Neck Neck: Present: supple, normal ROM - Respiratory Respiratory effort: normal (On 4 L nasal cannula) - Cardiovascular Rhythm: regular Heart Sounds: Present: S1 & S2 - Extremities Extremities: no ischemia, pulses intact, pulses symmetrical, No edema, normal temperature, normal color Peripheral Pulses: within normal limits - Abdominal General gastrointestinal: soft, non-tender, non-distended, normal bowel sounds - Integumentary Integumentary: Present: clear, warm, dry - Psychiatric Psychiatric: appropriate mood/affect, intact judgment & insight, memory intact, cooperative - Neurologic Neurologic: CNII-XII intact, moves all extremities - Allied Health Allied health notes reviewed: nursing HEART Score - HEART Score Troponin: Troponin T 0.192 ng/mL (0.00-0.029) H* D 08/21/21 06:55 Results - Labs CBC & Chem 7: 08/22/21 05:53 08/22/21 05:53 Labs: Laboratory Last Values WBC 5.9 K/mm3 (4.5-11.0) 10/19/21 05:53 RBC 3.18 M/mm3 (3.65-5.03) L 08/22/21 05:53 Hgb 10.1 gm/dl (11.8-15.2) L 08/22/21 05:53 Hct 29.0 % (35.5-45.6) L 08/22/21 05:53 MCV 91 fl (84-94) 08/22/21 05:53 MCH 32 pg (28-32) 08/22/21 05:53 MCHC 35 % (32-34) H 08/22/21 05:53 RDW 14.8 % (13.2-15.2) 08/22/21 05:53 Plt Count 369 K/mm3 (140-440) 08/22/21 05:53 Lymph % (Auto) 23.7 % (13.4-35.0) 08/22/21 05:53 [place] % (Auto) 9.5 % (0.0-7.3) H 08/22/21 05:53 Eos % (Auto) 4.8 % (0.0-4.3) H 08/22/21 05:53 Baso % (Auto) 0.4 % (0.0-1.8) 08/22/21 05:53 Lymph # (Auto) 1.4 K/mm3 (1.2-5.4) 08/22/21 05:53 [place] # (Auto) 0.6 K/mm3 (0.0-0.8) 08/22/21 05:53 Eos # (Auto) 0.3 K/mm3 (0.0-0.4) 08/22/21 05:53 Baso # (Auto) 0.0 K/mm3 (0.0-0.1) 08/22/21 05:53 Seg Neutrophils % 61.6 % (40.0-70.0) 08/22/21 05:53 Seg Neutrophils # 3.6 K/mm3 (1.8-7.7) 08/22/21 05:53 PT 14.9 Sec. (12.2-14.9) 08/14/21 09:37 INR 1.12 (0.87-1.13) 08/14/21 09:37 APTT 26.4 Sec. (24.2-36.6) 08/14/21 09:37 Fibrinogen 359 mg/dl (211-480) 08/14/21 09:37 Sodium 136 mmol/L (137-145) L 08/22/21 05:53 Potassium 3.3 mmol/L (3.6-5.0) L 08/22/21 05:53 Chloride 105.6 mmol/L (98-107) 08/22/21 05:53 Carbon Dioxide 22 mmol/L (22-30) 08/22/21 05:53 Anion Gap 12 mmol/L 08/22/21 05:53 BUN 15 mg/dL (9-20) 08/22/21 05:53 Creatinine 0.9 mg/dL (0.8-1.3) 08/22/21 05:53 Estimated GFR > 60 ml/min 08/22/21 05:53 BUN/Creatinine Ratio 17 % 08/22/21 05:53 Glucose 114 mg/dL (75-100) H 08/22/21 05:53 POC Glucose 189 mg/dL (70-105) H 08/22/21 11:48 Lactic Acid 1.10 mmol/L (0.7-2.0) 08/16/21 07:51 Calcium 8.5 mg/dL (8.4-10.2) 08/22/21 05:53 Magnesium 1.50 mg/dL (1.7-2.3) L 08/21/21 14:34 Troponin T 0.192 ng/mL (0.00-0.029) H* D 08/21/21 06:55 Triglycerides 189 mg/dL (2-149) H 08/20/21 22:17 Cholesterol 99 mg/dL (50-199) 08/20/21 22:17 LDL Cholesterol Direct 37 mg/dL (50-130) L 08/20/21 22:17 HDL Cholesterol 22 mg/dL (40-59) L 08/20/21 22:17 Cholesterol/HDL Ratio 4.50 % 08/20/21 22:17 Coronavirus (PCR) Negative (Negative) 08/16/21 08:13 Blood Type O POSITIVE 08/14/21 09:37 Antibody Screen Negative 08/14/21 09:37 Crossmatch See Detail 08/14/21 09:37 Garcia/IV: Voiding Method Condom Catheter Active Medications - Current Medications Current Medications: Generic Name Dose Route Start Last Admin Trade Name Freq PRN Reason Stop Dose Admin Acetaminophen 650 mg 08/14/21 22:00 08/18/21 00:24 Acetaminophen 325 Mg Tab PO 650 mg Q4H PRN Administration Pain MILD(1-3)/Fever >100.5/ALICIA Hydrocodone Bitart/Acetaminophen 1 each 08/16/21 16:35 08/19/21 14:16 Hydrocodone/Acetaminophen 5-325 Mg Tab PO 1 each Q4H PRN Administration Pain, Moderate (4-6) Apixaban 2.5 mg 08/15/21 10:00 08/22/21 10:13 Apixaban 2.5 Mg Tab PO 2.5 mg Q12HR FARRAH Administration Protocol Aspirin 81 mg 08/16/21 12:00 08/22/21 10:12 Aspirin 81 Mg Tab Chew PO 81 mg QDAY FARRAH Administration Atorvastatin Calcium 80 mg 08/15/21 10:00 08/22/21 10:13 Atorvastatin 40 Mg Tab PO 80 mg DAILY FARRAH Administration Clopidogrel Bisulfate 75 mg 08/15/21 10:00 08/22/21 10:13 Clopidogrel 75 Mg Tab PO 75 mg QDAY FARRAH Administration Dextrose 50 ml 08/16/21 20:58 Dextrose 50% In Water (25gm) 50 Ml Syringe IV Q30MIN PRN Hypoglycemia Protocol Fenofibrate 145 mg 08/15/21 10:00 08/22/21 10:13 Fenofibrate 145 Mg Tab PO 145 mg DAILY FARRAH Administration Insulin Glargine 50 units 08/15/21 10:00 08/22/21 10:13 Insulin Glargine 100 Units/Ml SUB-Q 50 units DAILY FARRAH Administration Insulin Human Lispro 0 unit 08/15/21 07:30 08/22/21 12:00 Insulin Lispro 100 Unit/Ml SUB-Q 1 unit ACHS FARRAH Administration Protocol Metoprolol Tartrate 50 mg 08/21/21 12:00 08/22/21 10:13 Metoprolol Tartrate 50 Mg Tab PO 50 mg BID FARRAH Administration Naloxone HCl 0.1 mg 08/14/21 22:07 Naloxone 0.4 Mg/1 Ml Inj IV Q2MIN PRN Res Rate </= 8 or 02 SAT < 92% Ondansetron HCl 4 mg 08/15/21 12:22 Ondansetron 4 Mg/2 Ml Inj IV Q4H PRN Nausea And Vomiting Pantoprazole Sodium 40 mg 08/15/21 07:30 08/22/21 10:12 Pantoprazole 40 Mg Tab PO 40 mg QDAC FARRAH Administration Quetiapine Fumarate 50 mg 08/15/21 22:00 08/21/21 21:40 Quetiapine 25 Mg Tab PO 50 mg QHS FARRAH Administration Sodium Chloride 10 ml 08/14/21 22:00 08/22/21 10:14 Sodium Chloride 0.9% 10 Ml Flush Syringe IV 10 ml BID FARRAH Administration Sodium Chloride 10 ml 08/14/21 11:30 Sodium Chloride 0.9% 10 Ml Flush Syringe IV PRN PRN LINE FLUSH Tamsulosin HCl 0.4 mg 08/15/21 10:00 08/22/21 10:15 Tamsulosin 0.4 Mg Cap PO 0.4 mg QDAY FARRAH Administration Nutrition/Malnutrition Assess - Dietary Evaluation Nutrition/Malnutrition Findings: Nutrition Notes Start: 08/21/21 16:13 Freq: Status: Active Protocol: Document 08/21/21 16:13 BENJI (Rec: 08/21/21 16:37 [email or web address] [id number]) Nutrition Notes Need for Assessment generated from: LOS Initial or Follow up Assessment Current Diagnosis Coronary Artery Disease, Diabetes Other Pertinent Diagnosis Acute limb ischemia, ventricular tachicardia Current Diet Cardiac/Consistent Carbohydrates Diet (since B ); NPO (since B 08/22). Labs/Tests 08/21: K 3.0, CO2 21, Glu 118. Pertinent Medications 08/21: Nutritionally unremarkable. Height 5 ft 9 in Weight 117 kg [place] Body Weight (kg) 72.72 BMI 38.0 Weight Status Obese Percent of energy/protein needs met: Prescribed NPO. Burn Absent Trauma Absent GI Symptoms None Food Allergy No Skin Integrity/Comment Clear, warm, dry. Current % PO Good (75-100%) Minimum of two criteria No physical signs of malnutrition #1 Nutrition Diagnosis No nutrition diagnosis at this time Comments: C/CC Diet provided for energy/ protein needs (1,977 Kcal/86 g ); now NPO is consistent with treatment and is expected to be transient. Is patient on ventilator? No Is Patient Ambulatory and/or Out of Bed No REE-([facility]-confined to bed) 2274.348 Kcal/Kg value to use for calculation 17 Approximate Energy Requirements Using 1989 kcal/Kg Calculation Used for Recommendations Kcal/kg Additional Notes Protein: 0.8-1.0 g/Kg/day; 58- 73 g/day; 232-292 Kcal/day ( from IBW). Fluids: 1.0 ml/Kcal/day, or as per MD. Nutrition Intervention Change Diet Order: Continue NPO, as per MD. Goal #1 Maintain body weight within +/ -3% of current BWt during LOS. Goal #2 Reach and maintain acceptable chemistry lab values during LOS. Follow-Up By: 08/28/21 Additional Comments Continue monitoring Hhydration and BM. When pertinent resume monitoring acceptance of foods and % PO intake of meals .
--- NOTE | 2021-08-22 14:49 | Progress Note ---
Assessment and Plan 76-year-old male with past medical history of coronary issues with acute limb ischemia of the right lower extremity which failed endovascular revascularization and required urgent/emergent open revascularization. Patient doing well from arterial reconstruction of the right common femoral artery with profundoplasty. No further symptoms of acute limb ischemia. Patient appears stable from a vascular standpoint. On cilostazol, Plavix, and low-dose Eliquis. Protonix provided for GI prophylaxis. 2 days ago patient had ventricular tachycardia requiring amiodarone infusion and now has mild troponin elevation. Cardiology replaced electrolytes and has a plan for LifeVest. Patient will have LifeVest tomorrow. Physical therapy found that the patient has improved and progressed further. They believe he can be treated with home physical therapy and home health with rolling walker. Can be discharged with home PT and home health if LifeVest obtained. Appreciate consultants assistance. - Patient Problems (1) Rest pain of right lower extremity concurrent with and due to atherosclerosis of bypass graft Current Visit: Yes Status: Acute (2) NSTEMI (non-ST elevated myocardial infarction) Current Visit: Yes Status: Acute (3) DM2 (diabetes mellitus, type 2) Current Visit: Yes Status: Chronic (4) Ischemic cardiomyopathy Current Visit: Yes Status: Chronic (5) NSVT (nonsustained ventricular tachycardia) Current Visit: Yes Status: Chronic (6) NIRMAL (obstructive sleep apnea) Current Visit: Yes Status: Chronic Subjective Date of service: 08/22/21 Principal diagnosis: Acute Limb Ischemia Interval history: Right lower extremity is warm and well-perfused. Right lower extremity is warmer than the left foot. Intact motor. No pain in foot, has some pain at his right groin incision site. Some mild numbness of his toes and the dorsum of his foot which are likely chronic at this time. No chest pain or shortness of breath. On nasal cannula. Discussed with cardiology who reports that they only recommend he leave with LifeVest.Case management reports LifeVest may be available tomorrow. Physical therapy states patient can lean with home PT and home health. Objective - Constitutional Vitals: Vital Signs - 12hr 08/22/21 08/22/21 08/22/21 03:31 08:18 09:56 Temperature 98.3 F 98.2 F Pulse Rate 71 78 Respiratory 18 17 Rate Blood Pressure 137/50 Blood Pressure 112/67 [Right] O2 Sat by Pulse 100 98 98 Oximetry 08/22/21 08/22/21 10:00 13:25 Temperature 98.2 F Pulse Rate 81 72 Respiratory 17 17 Rate Blood Pressure Blood Pressure 108/61 [Right] O2 Sat by Pulse 99 97 Oximetry General appearance: Present: no acute distress - EENT Eyes: EOM intact ENT: hearing intact - Respiratory Respiratory effort: normal Extremities: normal temperature, normal color Extremity abnormal: other (Complains of some numbness of the right foot with intact full motor function, right foot is warm and well-perfused) - Gastrointestinal General gastrointestinal: Present: soft, non-tender - Psychiatric Psychiatric: appropriate mood/affect, cooperative - Labs CBC & Chem 7: 08/22/21 05:53 08/22/21 05:53 Labs: Abnormal lab results 08/14/21 08/21/21 08/21/21 Range/Units 09:37 14:34 16:20 RBC (3.65-5.03) M/mm3 Hgb (11.8-15.2) gm/dl Hct (35.5-45.6) % MCHC (32-34) % [place] % (Auto) (0.0-7.3) % Eos % (Auto) (0.0-4.3) % Sodium (137-145) mmol/L Potassium 3.0 L (3.6-5.0) mmol/L Glucose (75-100) mg/dL POC Glucose 164 H (70-105) mg/dL Magnesium 1.50 L (1.7-2.3) mg/dL Crossmatch See Detail 08/21/21 08/22/21 08/22/21 Range/Units 20:19 05:53 05:53 RBC 3.18 L (3.65-5.03) M/mm3 Hgb 10.1 L (11.8-15.2) gm/dl Hct 29.0 L (35.5-45.6) % MCHC 35 H (32-34) % [place] % (Auto) 9.5 H (0.0-7.3) % Eos % (Auto) 4.8 H (0.0-4.3) % Sodium 136 L (137-145) mmol/L Potassium 3.3 L (3.6-5.0) mmol/L Glucose 114 H (75-100) mg/dL POC Glucose 166 H (70-105) mg/dL Magnesium (1.7-2.3) mg/dL Crossmatch 08/22/21 08/22/21 Range/Units 11:48 13:22 RBC (3.65-5.03) M/mm3 Hgb (11.8-15.2) gm/dl Hct (35.5-45.6) % MCHC (32-34) % [place] % (Auto) (0.0-7.3) % Eos % (Auto) (0.0-4.3) % Sodium (137-145) mmol/L Potassium (3.6-5.0) mmol/L Glucose (75-100) mg/dL POC Glucose 189 H (70-105) mg/dL Magnesium 1.30 L (1.7-2.3) mg/dL Crossmatch Medications & Allergies - Medications Allergies/Adverse Reactions: Allergies bee pollen Allergy (Verified 03/07/21 08:11) Swelling Home Medications: Home Medications Medication Instructions Recorded Confirmed Last Taken Type Atorvastatin [Lipitor Tab] 80 mg PO DAILY 03/07/21 08/14/21 08/13/21 History Clopidogrel [Plavix] 75 mg PO QDAY 03/07/21 08/14/21 08/14/21 History Fenofibrate 160 mg PO DAILY 03/07/21 08/14/21 08/14/21 History Insulin Degludec [Tresiba 50 unit SQ DAILY 03/07/21 08/14/21 08/13/21 History Flextouch [id number]] Losartan [Cozaar] 100 mg PO QDAY 03/07/21 08/14/21 08/14/21 History Metoprolol [Lopressor] 100 mg PO DAILY 03/07/21 08/14/21 08/14/21 History Quetiapine Fumarate [SEROquel] 50 mg PO DAILY 03/07/21 08/14/21 08/13/21 History Semaglutide [Ozempic] 1 mg SQ 1XW 03/07/21 08/14/21 08/13/21 History Tamsulosin [Flomax] 0.4 mg PO QDAY 03/07/21 08/14/21 08/13/21 History Aspirin EC [Halfprin EC] 81 mg PO DAILY 04/24/21 08/14/2108/13/21 History Cetirizine HCl [Zyrtec 10mg tab] 10 mg PO DAILY 08/14/21 08/14/21 08/13/21 History Active Medications: Generic Name Dose Route Start Last Admin Trade Name Freq PRN Reason Stop Dose Admin Acetaminophen 650 mg 08/14/21 22:00 08/18/21 00:24 Acetaminophen 325 Mg Tab PO 650 mg Q4H PRN Administration Pain MILD(1-3)/Fever >100.5/ALICIA Hydrocodone Bitart/Acetaminophen 1 each 08/16/21 16:35 08/19/21 14:16 Hydrocodone/Acetaminophen 5-325 Mg Tab PO 1 each Q4H PRN Administration Pain, Moderate (4-6) Apixaban 2.5 mg 08/15/21 10:00 08/22/21 10:13 Apixaban 2.5 Mg Tab PO 2.5 mg Q12HR FARRAH Administration Protocol Aspirin 81 mg 08/16/21 12:00 08/22/21 10:12 Aspirin 81 Mg Tab Chew PO 81 mg QDAY FARRAH Administration Atorvastatin Calcium 80 mg 08/15/21 10:00 08/22/21 10:13 Atorvastatin 40 Mg Tab PO 80 mg DAILY FARRAH Administration Clopidogrel Bisulfate 75 mg 08/15/21 10:00 08/22/21 10:13 Clopidogrel 75 Mg Tab PO 75 mg QDAY FARRAH Administration Dextrose 50 ml 08/16/21 20:58 Dextrose 50% In Water (25gm) 50 Ml Syringe IV Q30MIN PRN Hypoglycemia Protocol Fenofibrate 145 mg 08/15/21 10:00 08/22/21 10:13 Fenofibrate 145 Mg Tab PO 145 mg DAILY FARRAH Administration Insulin Glargine 50 units 08/15/21 10:00 08/22/21 10:13 Insulin Glargine 100 Units/Ml SUB-Q 50 units DAILY FARRAH Administration Insulin Human Lispro 0 unit 08/15/21 07:30 08/22/21 12:00 Insulin Lispro 100 Unit/Ml SUB-Q 1 unit ACHS FARRAH Administration Protocol Metoprolol Tartrate 50 mg 08/21/21 12:00 08/22/21 10:13 Metoprolol Tartrate 50 Mg Tab PO 50 mg BID FARRAH Administration Naloxone HCl 0.1 mg 08/14/21 22:07 Naloxone 0.4 Mg/1 Ml Inj IV Q2MIN PRN Res Rate </= 8 or 02 SAT < 92% Ondansetron HCl 4 mg 08/15/21 12:22 Ondansetron 4 Mg/2 Ml Inj IV Q4H PRN Nausea And Vomiting Pantoprazole Sodium 40 mg 08/15/21 07:30 08/22/21 10:12 Pantoprazole 40 Mg Tab PO 40 mg QDAC FARRAH Administration Quetiapine Fumarate 50 mg 08/15/21 22:00 08/21/21 21:40 Quetiapine 25 Mg Tab PO 50 mg QHS FARRAH Administration Sodium Chloride 10 ml 08/14/21 22:00 08/22/21 10:14 Sodium Chloride 0.9% 10 Ml Flush Syringe IV 10 ml BID FARRAH Administration Sodium Chloride 10 ml 08/14/21 11:30 Sodium Chloride 0.9% 10 Ml Flush Syringe IV PRN PRN LINE FLUSH Tamsulosin HCl 0.4 mg 08/15/21 10:00 08/22/21 10:15 Tamsulosin 0.4 Mg Cap PO 0.4 mg QDAY FARRAH Administration HEART Score - HEART Score Troponin: Troponin T 0.192 ng/mL (0.00-0.029) H* D 08/21/21 06:55
[2021-08-22] MEDS ORDERED: POTASSIUM CHLORIDE ER 20 MEQ TAB PO NR (16:00)
[2021-08-22] MEDS ORDERED: MAGNESIUM SULFATE 4 GM/100 ML BAG IV ONE (16:00)
--- NOTE | 2021-08-22 21:18 | Progress Note ---
Assessment and Plan 76-year-old male with past medical history of diabetes, coronary artery disease, hyperlipidemia, hypertension, PVD, sleep apnea, chronic renal insufficiency and hypercholesterolemia who is status post myocardial infarction in the past and bypass in 1985 and cholecystectomy who has underwent endovascular revascularization The patient now presents with 2 weeks of acute limb ischemia with Adair 2A which has been stable for the last 2 weeks. He has forefoot numbness, but has full motor function of his toes, and has rest pain. Patient underwent attempted endovascular revascularization. Unfortunately, the patient's symptoms persist and he will require emergent bypass as his aneurysmal right common femoral artery occluded. arterial reconstruction of the right common femoral artery with profundoplasty. No further symptoms of acute limb ischemia. Patient appears stable from a vascular standpoint. On cilostazol, Plavix, and low-dose Eliquis. Protonix provided for GI prophylaxis. Patient awake . Resting on 3 litres O2. O2 saturation running 99%. Denies chest pain, shortness of breath or cough at rest. Patient afebrile. No leukocytosis. Blood pressure 119/61, Pulse 73. Chest xray done 08/14/21 reported right basilar atelectasis. Patient presently on Apixaban and protonix. - Patient Problems (1) Hypotension Current Visit: Yes Status: Acute Plan to address problem: Improved. Recent blood pressure 119/61. (2) Diabetes Current Visit: Yes Status: Acute Plan to address problem: Management as per primary care. (3) Limb ischemia Current Visit: Yes Status: Acute Plan to address problem: Management as per vascular surgery. (4) NIRMAL (obstructive sleep apnea) Current Visit: Yes Status: Chronic Plan to address problem: BIPAP during night time. Recommend to loose weight. Sleep hygiene. (5) Obesity hypoventilation syndrome Current Visit: Yes Status: Chronic Plan to address problem: Recommend day time ABGs on room air. Subjective Date of service: 08/22/21 Principal diagnosis: Acute Limb Ischemia Interval history: 76-year-old male with past medical history of diabetes, coronary artery disease, hyperlipidemia, hypertension, PVD, sleep apnea, chronic renal insufficiency and hypercholesterolemia who is status post myocardial infarction in the past and bypass in 1985 and cholecystectomy who has underwent endovascular revascula rization The patient now presents with 2 weeks of acute limb ischemia with Adair 2A which has been stable for the last 2 weeks. He has forefoot numbness, but has full motor function of his toes, and has rest pain. Patient underwent attempted endovascular revascularization. Unfortunately, the patient's symptoms persist and he will require emergent bypass as his aneurysmal right common femoral artery occluded. arterial reconstruction of the right common femoral artery with profundoplasty. No further symptoms of acute limb ischemia. Patient appears stable from a vascular standpoint. On cilostazol, Plavix, and low-dose Eliquis. Protonix provided for GI prophylaxis. Patient awake . Resting on 3 litres O2. O2 saturation running 99%. Denies chest pain, shortness of breath or cough at rest. Patient afebrile. No leukocytosis. Blood pressure 119/61, Pulse 73. Chest xray done 08/14/21 reported right basilar atelectasis. Patient presently on Apixaban and protonix. Objective Vital Signs - 12hr 08/22/21 08/22/21 08/22/21 09:56 10:00 13:25 Temperature 98.2 F 98.2 F Pulse Rate 78 81 72 Respiratory 17 17 17 Rate Blood Pressure Blood Pressure 112/67 108/61 [Right] O2 Sat by Pulse 98 99 97 Oximetry 08/22/21 08/22/21 08/22/21 17:11 19:12 20:34 Temperature 98.1 F 97.8 F Pulse Rate 77 73 73 Respiratory 15 18 Rate Blood Pressure 119/61 Blood Pressure 128/74 [Right] O2 Sat by Pulse 97 99 Oximetry Constitutional: no acute distress, alert, other (elderly obese female with mildly increased respiratory effort at rest) Eyes: non-icteric ENT: oropharynx moist, other (mallampati 3-4) Neck: supple, no lymphadenopathy, no JVD, other (large neck circumference) Effort: mildly labored Ascultation: Bilateral: diminished breath sounds Percussion: Bilateral: not dull Cardiovascular: regular rate and rhythm Gastrointestinal: normoactive bowel sounds, soft, non-tender, non-distended (protuberant') Integumentary: erythema, other (right groin wound) Extremities: no cyanosis, pink and warm, pulses normal, no ischemia or petechiae Neurologic: non-focal exam (grossly), pupils equal and round, CN II-XII normal, motor strength normal and Psychiatric: mood appropriate, affect normal CBC and BMP: 08/23/21 05:41 08/23/21 05:41 ABG, PT/INR, D-dimer: PT/INR, D-dimer PT 14.9 Sec. (12.2-14.9) 08/14/21 09:37 INR 1.12 (0.87-1.13) 08/14/21 09:37 Abnormal lab findings: Abnormal Labs 08/14/21 08/14/21 08/14/21 09:37 09:37 09:37 RBC Hgb Hct MCHC 35 H Lymph % (Auto) [place] % (Auto) 9.6 H Eos % (Auto) Lymph # (Auto) Seg Neutrophils % Sodium Potassium Chloride Carbon Dioxide BUN 23 H Glucose POC Glucose Calcium Magnesium Troponin T Triglycerides LDL Cholesterol Direct HDL Cholesterol Crossmatch See Detail 08/14/21 08/15/21 08/15/21 22:17 04:20 04:20 RBC Hgb Hct MCHC Lymph % (Auto) 12.6 L [place] % (Auto) 8.1 H Eos % (Auto) Lymph # (Auto) Seg Neutrophils % 78.5 H Sodium Potassium Chloride 109.5 H Carbon Dioxide 19 L D BUN 24 H Glucose 102 H POC Glucose 122 H Calcium 7.9 L D Magnesium Troponin T Triglycerides LDL Cholesterol Direct HDL Cholesterol Crossmatch 08/15/21 08/15/21 08/15/21 11:19 15:41 21:21 RBC Hgb Hct MCHC Lymph % (Auto) [place] % (Auto) Eos % (Auto) Lymph # (Auto) Seg Neutrophils % Sodium Potassium Chloride Carbon Dioxide BUN Glucose POC Glucose 124 H 126 H 226 H Calcium Magnesium Troponin T Triglycerides LDL Cholesterol Direct HDL Cholesterol Crossmatch 08/16/21 08/16/21 08/16/21 08:16 11:40 14:33 RBC 3.16 L Hgb 10.0 L Hct 29.1 L D MCHC Lymph % (Auto) 9.5 L [place] % (Auto) 7.9 H Eos % (Auto) Lymph # (Auto) 0.9 L Seg Neutrophils % 80.7 H Sodium Potassium Chloride Carbon Dioxide BUN Glucose POC Glucose 112 H 137 H Calcium Magnesium Troponin T Triglycerides LDL Cholesterol Direct HDL Cholesterol Crossmatch 08/16/21 08/16/21 08/16/21 14:33 15:41 23:54 RBC Hgb Hct MCHC Lymph % (Auto) [place] % (Auto) Eos % (Auto) Lymph # (Auto) Seg Neutrophils % Sodium 133 L Potassium Chloride Carbon Dioxide 19 L BUN 30 H Glucose 153 H POC Glucose 140 H 125 H Calcium 7.9 L Magnesium Troponin T Triglycerides LDL Cholesterol Direct HDL Cholesterol Crossmatch 08/17/21 08/17/21 08/17/21 02:05 06:20 06:20 RBC 2.84 L Hgb 8.9 L Hct 26.1 L MCHC Lymph % (Auto) 12.3 L Owen % (Auto) 9.6 H Eos % (Auto) Lymph # (Auto) 1.0 L Seg Neutrophils % 75.6 H Sodium 135 L Potassium Chloride Carbon Dioxide 19 L BUN 27 H Glucose 119 H POC Glucose 114 H Calcium 7.8 L Magnesium Troponin T Triglycerides LDL Cholesterol Direct HDL Cholesterol Crossmatch 08/17/21 08/17/21 08/17/21 11:09 16:13 17:05 RBC Hgb Hct MCHC Lymph % (Auto) [place] % (Auto) Eos % (Auto) Lymph # (Auto) Seg Neutrophils % Sodium Potassium Chloride Carbon Dioxide BUN Glucose POC Glucose 128 H 143 H 145 H Calcium Magnesium Troponin T Triglycerides LDL Cholesterol Direct HDL Cholesterol Crossmatch 08/17/21 08/18/21 08/18/21 22:23 07:17 07:59 RBC 3.15 L Hgb 9.9 L Hct 28.4 L MCHC 35 H Lymph % (Auto) 11.1 L Owen % (Auto) Eos % (Auto) 4.8 H Lymph # (Auto) 0.9 L Seg Neutrophils % 76.5 H Sodium Potassium Chloride Carbon Dioxide BUN Glucose POC Glucose 148 H 111 H Calcium Magnesium Troponin T Triglycerides LDL Cholesterol Direct HDL Cholesterol Crossmatch 08/18/21 08/18/21 08/18/21 07:59 11:33 17:43 RBC Hgb Hct MCHC Lymph % (Auto) [place] % (Auto) Eos % (Auto) Lymph # (Auto) Seg Neutrophils % Sodium Potassium Chloride 110.2 H Carbon Dioxide 18 L BUN Glucose 122 H POC Glucose 149 H 116 H Calcium Magnesium 1.40 L Troponin T Triglycerides LDL Cholesterol Direct HDL Cholesterol Crossmatch 08/18/21 08/19/21 08/19/21 21:29 06:26 06:26 RBC 3.06 L Hgb 9.5 L Hct 27.7 L MCHC Lymph % (Auto) [place] % (Auto) 8.3 H Eos % (Auto) 7.1 H Lymph # (Auto) Seg Neutrophils % Sodium 136 L Potassium 3.1 L Chloride Carbon Dioxide 21 L BUN Glucose 134 H POC Glucose 151 H Calcium 8.3 L Magnesium Troponin T Triglycerides LDL Cholesterol Direct HDL Cholesterol Crossmatch 08/19/21 08/19/21 08/19/21 07:39 11:07 15:19 RBC Hgb Hct MCHC Lymph % (Auto) [place] % (Auto) Eos % (Auto) Lymph # (Auto) Seg Neutrophils % Sodium Potassium Chloride Carbon Dioxide BUN Glucose POC Glucose 117 H 149 H 142 H Calcium Magnesium Troponin T Triglycerides LDL Cholesterol Direct HDL Cholesterol Crossmatch 08/19/21 08/20/21 08/20/21 20:10 07:20 07:20 RBC 3.14 L Hgb 9.9 L Hct 28.4 L MCHC 35 H Lymph % (Auto) Owen % (Auto) 7.7 H Eos % (Auto) 6.1 H Lymph # (Auto) 1.0 L Seg Neutrophils % Sodium Potassium 3.0 L Chloride Carbon Dioxide BUN Glucose 113 H POC Glucose 154 H Calcium Magnesium Troponin T Triglycerides LDL Cholesterol Direct HDL Cholesterol Crossmatch 08/20/21 08/20/21 08/20/21 07:28 11:07 22:13 RBC Hgb Hct MCHC Lymph % (Auto) [place] % (Auto) Eos % (Auto) Lymph # (Auto) Seg Neutrophils % Sodium Potassium Chloride Carbon Dioxide BUN Glucose POC Glucose 112 H 133 H Calcium Magnesium 1.40 L Troponin T Triglycerides LDL Cholesterol Direct HDL Cholesterol Crossmatch 08/20/21 08/20/21 08/21/21 22:13 22:17 06:55 RBC 3.25 L Hgb 10.2 L Hct 29.6 L MCHC Lymph % (Auto) [place] % (Auto) 7.4 H Eos % (Auto) Lymph # (Auto) 1.1 L Seg Neutrophils % 70.6 H Sodium 135 L Potassium 2.9 L* Chloride Carbon Dioxide 18 L BUN Glucose 160 H POC Glucose Calcium Magnesium Troponin T 0.133 H* Triglycerides 189 H LDL Cholesterol Direct 37 L HDL Cholesterol 22 L Crossmatch 08/21/21 08/21/21 08/21/21 06:55 07:20 11:20 RBC Hgb Hct MCHC Lymph % (Auto) Owen % (Auto) Eos % (Auto) Lymph # (Auto) Seg Neutrophils % Sodium Potassium 3.0 L Chloride Carbon Dioxide 21 L BUN Glucose 118 H POC Glucose 114 H 146 H Calcium Magnesium Troponin T 0.192 H* D Triglycerides LDL Cholesterol Direct HDL Cholesterol Crossmatch 08/21/21 08/21/21 08/21/21 14:34 16:20 20:19 RBC Hgb Hct MCHC Lymph % (Auto) Owen % (Auto) Eos % (Auto) Lymph # (Auto) Seg Neutrophils % Sodium Potassium 3.0 L Chloride Carbon Dioxide BUN Glucose POC Glucose 164 H 166 H Calcium Magnesium 1.50 L Troponin T Triglycerides LDL Cholesterol Direct HDL Cholesterol Crossmatch 08/22/21 08/22/21 08/22/21 05:53 05:53 11:48 RBC 3.18 L Hgb 10.1 L Hct 29.0 L MCHC 35 H Lymph % (Auto) Owen % (Auto) 9.5 H Eos % (Auto) 4.8 H Lymph # (Auto) Seg Neutrophils % Sodium 136 L Potassium 3.3 L Chloride Carbon Dioxide BUN Glucose 114 H POC Glucose 189 H Calcium Magnesium Troponin T Triglycerides LDL Cholesterol Direct HDL Cholesterol Crossmatch 08/22/21 08/22/21 13:22 20:30 RBC Hgb Hct MCHC Lymph % (Auto) Owen % (Auto) Eos % (Auto) Lymph # (Auto) Seg Neutrophils % Sodium Potassium Chloride Carbon Dioxide BUN Glucose POC Glucose 134 H Calcium Magnesium 1.30 L Troponin T Triglycerides LDL Cholesterol Direct HDL Cholesterol Crossmatch Allied health notes reviewed: nursing
[2021-08-22] MEDS: QUEtiapine 25 MG TAB PO SCH (21:37)
[2021-08-23 06:21] LABS: Basophils % (Auto) 0.7 % (0.0-1.8); Eosinophils # (Auto) 0.4 K/mm3 (0.0-0.4); Eosinophils % (Auto) 5.9 % (0.0-4.3); Hematocrit 31.1 % (35.5-45.6); Hemoglobin 10.2 gm/dl (11.8-15.2); Lymphocytes # (Auto) 1.6 K/mm3 (1.2-5.4); Lymphocytes % (Auto) 26.8 % (13.4-35.0); Mean Corpuscular HGB Conc 33 % (32-34); Mean Corpuscular Volume 92 fl (84-94); Monocytes # (Auto) 0.5 K/mm3 (0.0-0.8); Monocytes % (Auto) 8.2 % (0.0-7.3); Platelet Count 399 K/mm3 (140-440); Red Blood Count 3.38 M/mm3 (3.65-5.03); Red Cell Distribution Width 14.7 % (13.2-15.2)
[2021-08-23 06:35] LABS: BUN/Creatinine Ratio 13; Blood Urea Nitrogen 13 mg/dL (9-20); Calcium 8.4 mg/dL (8.4-10.2); Hemolysis Index 0
[2021-08-23] MEDS: INSULIN LISPRO 100 UNIT/ML SUB-Q SCH ×3 (08:54→17:32)
[2021-08-23] MEDS: TAMSULOSIN 0.4 MG CAP PO SCH (10:00)
[2021-08-23] MEDS: APIXABAN 2.5 MG TAB PO SCH (10:00)
[2021-08-23] MEDS: ASPIRIN 81 MG TAB CHEW PO SCH (10:01)
[2021-08-23] MEDS: CLOPIDOGREL 75 MG TAB PO SCH (10:01)
[2021-08-23] MEDS: FENOFIBRATE 145 MG TAB PO SCH (10:01)
[2021-08-23] MEDS: METOPROLOL TARTRATE 50 MG TAB PO SCH (10:02)
[2021-08-23] MEDS: INSULIN GLARGINE 100 UNITS/ML SUB-Q SCH (10:03)
[2021-08-23] MEDS: PANTOPRAZOLE 40 MG TAB PO SCH (10:18)
--- NOTE | 2021-08-23 13:26 | Progress Note ---
Assessment and Plan Patient is a 76 y/o male with a PMHx of CAD,PVD, ischemic cardiomyopathy, h/o [place], HTN, chronic renal insufficiency who underwent endovascular revascularization about 3 months and reports with a complaint of acute limb ischemiax 2 weeks HTN CAD PVD Ischemic Cardiomyopathy Hypokalemia(improved) * Echocardiogram 07/07/2020 LV wall thickness is mildly increased.Estimated left ventricle ejection fraction is 35-40%. Normal left atrial pressure with Grade I diastolic dysfunction. There is normal right ventricular size, wall dime nsion, and systolic function. There is no aortic valve stenosis or regurgitation. There is no mitral valve stenosis or regurgitation. There is no tricuspid valve stenosis or regurgitation. There is trivial pulmonic regurgitation. No left ventricular thrombus noted with LV contrast images * Lexiscan MPI stress 01/16/2021- Negative Lexiscan EKG. No significant myocardial PET ischemia. Moderate area of large infarct shown in the inferior region noted with no significant ischemia with normal perfusion anteroseptal, lateral, and apical regions. Gated SPECT at rest and stress 35% requiring flow reserve globally at 1.48. * Outpatient medications: [id number] PO QD, Plavix 75g PO QD, atorvastatin 80mg QHS, asa, Metoprolol ER 100mg PO QD Plan: Lifevest pending. Once patient receives Lifevest patient may be discharged from a cardiac perspective Restart outpatient Losartan and metoprolol Continue Eliquis and Plavix, asa. Patient has a video follow up with Dr. Dukes, [facility], 08/31/2021 at 11:45am Patient seen in conjunction with Dr. Bell who agrees with this plan of care. Will continue to follow - Patient Problems (1) Rest pain of right lower extremity concurrent with and due to atherosclerosis of bypass graft Current Visit: Yes Status: Acute (2) CAD (coronary artery disease) Current Visit: Yes Status: Chronic (3) CKD (chronic kidney disease) Current Visit: Yes Status: Chronic (4) Intermittent claudication of both lower extremities due to atherosclerosis Current Visit: No Status: Acute Subjective Date of service: 08/23/21 Principal diagnosis: Acute Limb Ischemia Interval history: Patient resting in bed. Reports feeling well today Sinus 70s with no events on monitor Objective Vital Signs Temp Pulse Resp BP BP Pulse Ox 08/23/21 11:37 97.9 F 71 18 123/66 99 08/23/21 10:02 71 149/60 08/23/21 07:58 97.5 F L 71 20 140/60 96 08/23/21 03:57 98.2 F 69 18 136/73 98 08/23/21 00:04 22 98 08/22/21 23:12 98.2 F 69 18 121/69 99 08/22/21 22:20 20 99 08/22/21 20:34 73 08/22/21 19:12 97.8 F 73 18 119/61 99 08/22/21 17:11 98.1 F 77 15 128/74 97 08/22/21 13:25 98.2 F 72 17 108/61 97 - Physical Examination General: No Apparent Distress HEENT: Positive: EOMI, Normocephaly Neck: Positive: neck supple, trachea midline. Negative: JVD/HJR Cardiac: Positive: Reg Rate and Rhythm Lungs: Positive: Normal Breath Sounds Neuro: Positive: Grossly Intact Abdomen: Positive: Soft. Negative: Tender Skin: Negative: Rash Musculoskeletal: No Fluid Collection Extremities: Present: warm. Absent: edema - Labs and Meds CBC 08/23/21 Range/Units 05:41 WBC 6.0 (4.5-11.0) K/mm3 RBC 3.38 L (3.65-5.03) M/mm3 Hgb 10.2 L (11.8-15.2) gm/dl Hct 31.1 L (35.5-45.6) % Plt Count 399 (140-440) K/mm3 Lymph # (Auto) 1.6 (1.2-5.4) K/mm3 [place] # (Auto) 0.5 (0.0-0.8) K/mm3 Eos # (Auto) 0.4 (0.0-0.4) K/mm3 Baso # (Auto) 0.0 (0.0-0.1) K/mm3 Comprehensive Metabolic Panel 08/23/21 Range/Units 05:41 Sodium 137 (137-145) mmol/L Potassium 3.6 (3.6-5.0) mmol/L Chloride 106.0 (98-107) mmol/L Carbon Dioxide 24 (22-30) mmol/L BUN 13 (9-20) mg/dL Creatinine 1.0 (0.8-1.3) mg/dL Glucose 100 (75-100) mg/dL Calcium 8.4 (8.4-10.2) mg/dL - Imaging and Cardiology EKG: report reviewed, image reviewed Echo: report reviewed (07/2020 - EF 35-40%, grade I diastolic dysfxn) - Telemetry EKG Rhythm: Sinus Rhythm - EKG Sinus rhythms and dysrhythmias: sinus rhythm - Allied health notes Allied health notes reviewed: nursing
--- NOTE | 2021-08-23 13:46 | Progress Note ---
Assessment and Plan 76-year-old male with past medical history of diabetes, coronary artery disease, hyperlipidemia, hypertension, PVD, sleep apnea, chronic renal insufficiency and hypercholesterolemia who is status post myocardial infarction in the past and bypass in 1985 and cholecystectomy who has underwent endovascular revascularization The patient now presents with 2 weeks of acute limb ischemia with Stutsman 2A which has been stable for the last 2 weeks. He has forefoot numbness, but has full motor function of his toes, and has rest pain. Patient underwent attempted endovascular revascularization. Unfortunately, the patient's symptoms persist and he will require emergent bypass as his aneurysmal right common femoral artery occluded. arterial reconstruction of the right common femoral artery with profundoplasty. No further symptoms of acute limb ischemia. Patient appears stable from a vascular standpoint. On cilostazol, Plavix, and low-dose Eliquis. Protonix provided for GI prophylaxis. Patient awake . Resting on 3 litres O2. O2 saturation running 98%. Denies chest pain, shortness of breath or cough at rest. BIPAP stand by in the room. Patient afebrile. No leukocytosis. Blood pressure 123/66, Pulse 71. Chest xray done 08/14/21 reported right basilar atelectasis. Patient presently on Apixaban and protonix. - Patient Problems (1) Hypotension Status: Acute Plan to address problem: Improved. Recent blood pressure 123/66. Pulse 71. (2) Diabetes Status: Acute Plan to address problem: Management as per primary care. (3) Limb ischemia Status: Acute Plan to address problem: Management as per vascular surgery. (4) NIRMAL (obstructive sleep apnea) Status: Chronic Plan to address problem: BIPAP during night time. Recommend to loose weight. Sleep hygiene. (5) Obesity hypoventilation syndrome Status: Chronic Plan to address problem: Recommend day time ABGs on room air. Subjective Date of service: 08/23/21 Principal diagnosis: Acute Limb Ischemia Interval history: 76-year-old male with past medical history of diabetes, coronary artery disease, hyperlipidemia, hypertension, PVD, sleep apnea, chronic renal insufficiency and hypercholesterolemia who is status post myocardial infarction in the past and bypass in 1985 and cholecystectomy who has underwent endovascular r evascularization The patient now presents with 2 weeks of acute limb ischemia with Stutsman 2A which has been stable for the last 2 weeks. He has forefoot numbness, but has full motor function of his toes, and has rest pain. Patient underwent attempted endovascular revascularization. Unfortunately, the patient's symptoms persist and he will require emergent bypass as his aneurysmal right common femoral artery occluded. arterial reconstruction of the right common femoral artery with profundoplasty. No further symptoms of acute limb ischemia. Patient appears stable from a vascular standpoint. On cilostazol, Plavix, and low-dose Eliquis. Protonix provided for GI prophylaxis. Patient awake . Resting on 3 litres O2. O2 saturation running 98%. Denies chest pain, shortness of breath or cough at rest. BIPAP stand by in the room. Patient afebrile. No leukocytosis. Blood pressure 123/66, Pulse 71. Chest xray done 08/14/21 reported right basilar atelectasis. Patient presently on Apixaban and protonix. Objective Vital Signs - 12hr 08/23/21 08/23/21 08/23/21 03:57 07:58 10:02 Temperature 98.2 F 97.5 F L Pulse Rate 69 71 71 Respiratory 18 20 Rate Blood Pressure 136/73 140/60 149/60 O2 Sat by Pulse 98 96 Oximetry 08/23/21 11:37 Temperature 97.9 F Pulse Rate 71 Respiratory 18 Rate Blood Pressure 123/66 O2 Sat by Pulse 99 Oximetry Constitutional: no acute distress, alert, other (elderly obese female with mildly increased respiratory effort at rest) Eyes: non-icteric ENT: oropharynx moist, other (mallampati 3-4) Neck: supple, no lymphadenopathy, no JVD, other (large neck circumference) Effort: mildly labored Ascultation: Bilateral: diminished breath sounds Percussion: Bilateral: not dull Cardiovascular: regular rate and rhythm Gastrointestinal: normoactive bowel sounds, soft, non-tender, non-distended (protuberant') Integumentary: erythema, other (right groin wound) Extremities: no cyanosis, pink and warm, pulses normal, no ischemia or petechiae Neurologic: non-focal exam (grossly), pupils equal and round, CN II-XII normal, motor strength normal and Psychiatric: mood appropriate, affect normal CBC and BMP: 08/23/21 05:41 08/23/21 05:41 ABG, PT/INR, D-dimer: PT/INR, D-dimer PT 14.9 Sec. (12.2-14.9) 08/14/21 09:37 INR 1.12 (0.87-1.13) 08/14/21 09:37 Abnormal lab findings: Abnormal Labs 08/14/21 08/14/21 08/14/21 09:37 09:37 09:37 RBC Hgb Hct MCHC 35 H Lymph % (Auto) [place] % (Auto) 9.6 H Eos % (Auto) Lymph # (Auto) Seg Neutrophils % Sodium Potassium Chloride Carbon Dioxide BUN 23 H Glucose POC Glucose Calcium Magnesium Troponin T Triglycerides LDL Cholesterol Direct HDL Cholesterol Crossmatch See Detail 08/14/21 08/15/21 08/15/21 22:17 04:20 04:20 RBC Hgb Hct MCHC Lymph % (Auto) 12.6 L [place] % (Auto) 8.1 H Eos % (Auto) Lymph # (Auto) Seg Neutrophils % 78.5 H Sodium Potassium Chloride 109.5 H Carbon Dioxide 19 L D BUN 24 H Glucose 102 H POC Glucose 122 H Calcium 7.9 L D Magnesium Troponin T Triglycerides LDL Cholesterol Direct HDL Cholesterol Crossmatch 08/15/21 08/15/21 08/15/21 11:19 15:41 21:21 RBC Hgb Hct MCHC Lymph % (Auto) [place] % (Auto) Eos % (Auto) Lymph # (Auto) Seg Neutrophils % Sodium Potassium Chloride Carbon Dioxide BUN Glucose POC Glucose 124 H 126 H 226 H Calcium Magnesium Troponin T Triglycerides LDL Cholesterol Direct HDL Cholesterol Crossmatch 08/16/21 08/16/21 08/16/21 08:16 11:40 14:33 RBC 3.16 L Hgb 10.0 L Hct 29.1 L D MCHC Lymph % (Auto) 9.5 L [place] % (Auto) 7.9 H Eos % (Auto) Lymph # (Auto) 0.9 L Seg Neutrophils % 80.7 H Sodium Potassium Chloride Carbon Dioxide BUN Glucose POC Glucose 112 H 137 H Calcium Magnesium Troponin T Triglycerides LDL Cholesterol Direct HDL Cholesterol Crossmatch 08/16/21 08/16/21 08/16/21 14:33 15:41 23:54 RBC Hgb Hct MCHC Lymph % (Auto) [place] % (Auto) Eos % (Auto) Lymph # (Auto) Seg Neutrophils % Sodium 133 L Potassium Chloride Carbon Dioxide 19 L BUN 30 H Glucose 153 H POC Glucose 140 H 125 H Calcium 7.9 L Magnesium Troponin T Triglycerides LDL Cholesterol Direct HDL Cholesterol Crossmatch 08/17/21 08/17/21 08/17/21 02:05 06:20 06:20 RBC 2.84 L Hgb 8.9 L Hct 26.1 L MCHC Lymph % (Auto) 12.3 L [place] % (Auto) 9.6 H Eos % (Auto) Lymph # (Auto) 1.0 L Seg Neutrophils % 75.6 H Sodium 135 L Potassium Chloride Carbon Dioxide 19 L BUN 27 H Glucose 119 H POC Glucose 114 H Calcium 7.8 L Magnesium Troponin T Triglycerides LDL Cholesterol Direct HDL Cholesterol Crossmatch 08/17/21 08/17/21 08/17/21 11:09 16:13 17:05 RBC Hgb Hct MCHC Lymph % (Auto) [place] % (Auto) Eos % (Auto) Lymph # (Auto) Seg Neutrophils % Sodium Potassium Chloride Carbon Dioxide BUN Glucose POC Glucose 128 H 143 H 145 H Calcium Magnesium Troponin T Triglycerides LDL Cholesterol Direct HDL Cholesterol Crossmatch 08/17/21 08/18/21 08/18/21 22:23 07:17 07:59 RBC 3.15 L Hgb 9.9 L Hct 28.4 L MCHC 35 H Lymph % (Auto) 11.1 L [place] % (Auto) Eos % (Auto) 4.8 H Lymph # (Auto) 0.9 L Seg Neutrophils % 76.5 H Sodium Potassium Chloride Carbon Dioxide BUN Glucose POC Glucose 148 H 111 H Calcium Magnesium Troponin T Triglycerides LDL Cholesterol Direct HDL Cholesterol Crossmatch 08/18/21 08/18/21 08/18/21 07:59 11:33 17:43 RBC Hgb Hct MCHC Lymph % (Auto) [place] % (Auto) Eos % (Auto) Lymph # (Auto) Seg Neutrophils % Sodium Potassium Chloride 110.2 H Carbon Dioxide 18 L BUN Glucose 122 H POC Glucose 149 H 116 H Calcium Magnesium 1.40 L Troponin T Triglycerides LDL Cholesterol Direct HDL Cholesterol Crossmatch 08/18/21 08/19/21 08/19/21 21:29 06:26 06:26 RBC 3.06 L Hgb 9.5 L Hct 27.7 L MCHC Lymph % (Auto) [place] % (Auto) 8.3 H Eos % (Auto) 7.1 H Lymph # (Auto) Seg Neutrophils % Sodium 136 L Potassium 3.1 L Chloride Carbon Dioxide 21 L BUN Glucose 134 H POC Glucose 151 H Calcium 8.3 L Magnesium Troponin T Triglycerides LDL Cholesterol Direct HDL Cholesterol Crossmatch 08/19/21 08/19/21 08/19/21 07:39 11:07 15:19 RBC Hgb Hct MCHC Lymph % (Auto) [place] % (Auto) Eos % (Auto) Lymph # (Auto) Seg Neutrophils % Sodium Potassium Chloride Carbon Dioxide BUN Glucose POC Glucose 117 H 149 H 142 H Calcium Magnesium Troponin T Triglycerides LDL Cholesterol Direct HDL Cholesterol Crossmatch 08/19/21 08/20/21 08/20/21 20:10 07:20 07:20 RBC 3.14 L Hgb 9.9 L Hct 28.4 L MCHC 35 H Lymph % (Auto) [place] % (Auto) 7.7 H Eos % (Auto) 6.1 H Lymph # (Auto) 1.0 L Seg Neutrophils % Sodium Potassium 3.0 L Chloride Carbon Dioxide BUN Glucose 113 H POC Glucose 154 H Calcium Magnesium Troponin T Triglycerides LDL Cholesterol Direct HDL Cholesterol Crossmatch 08/20/21 08/20/21 08/20/21 07:28 11:07 22:13 RBC Hgb Hct MCHC Lymph % (Auto) [place] % (Auto) Eos % (Auto) Lymph # (Auto) Seg Neutrophils % Sodium Potassium Chloride Carbon Dioxide BUN Glucose POC Glucose 112 H 133 H Calcium Magnesium 1.40 L Troponin T Triglycerides LDL Cholesterol Direct HDL Cholesterol Crossmatch 08/20/21 08/20/21 08/21/21 22:13 22:17 06:55 RBC 3.25 L Hgb 10.2 L Hct 29.6 L MCHC Lymph % (Auto) [place] % (Auto) 7.4 H Eos % (Auto) Lymph # (Auto) 1.1 L Seg Neutrophils % 70.6 H Sodium 135 L Potassium 2.9 L* Chloride Carbon Dioxide 18 L BUN Glucose 160 H POC Glucose Calcium Magnesium Troponin T 0.133 H* Triglycerides 189 H LDL Cholesterol Direct 37 L HDL Cholesterol 22 L Crossmatch 08/21/21 08/21/21 08/21/21 06:55 07:20 11:20 RBC Hgb Hct MCHC Lymph % (Auto) [place] % (Auto) Eos % (Auto) Lymph # (Auto) Seg Neutrophils % Sodium Potassium 3.0 L Chloride Carbon Dioxide 21 L BUN Glucose 118 H POC Glucose 114 H 146 H Calcium Magnesium Troponin T 0.192 H* D Triglycerides LDL Cholesterol Direct HDL Cholesterol Crossmatch 08/21/21 08/21/21 08/21/21 14:34 16:20 20:19 RBC Hgb Hct MCHC Lymph % (Auto) [place] % (Auto) Eos % (Auto) Lymph # (Auto) Seg Neutrophils % Sodium Potassium 3.0 L Chloride Carbon Dioxide BUN Glucose POC Glucose 164 H 166 H Calcium Magnesium 1.50 L Troponin T Triglycerides LDL Cholesterol Direct HDL Cholesterol Crossmatch 08/22/21 08/22/21 08/22/21 05:53 05:53 11:48 RBC 3.18 L Hgb 10.1 L Hct 29.0 L MCHC 35 H Lymph % (Auto) [place] % (Auto) 9.5 H Eos % (Auto) 4.8 H Lymph # (Auto) Seg Neutrophils % Sodium 136 L Potassium 3.3 L Chloride Carbon Dioxide BUN Glucose 114 H POC Glucose 189 H Calcium Magnesium Troponin T Triglycerides LDL Cholesterol Direct HDL Cholesterol Crossmatch 08/22/21 08/22/21 08/23/21 13:22 20:30 05:41 RBC 3.38 L Hgb 10.2 L Hct 31.1 L MCHC Lymph % (Auto) [place] % (Auto) 8.2 H Eos % (Auto) 5.9 H Lymph # (Auto) Seg Neutrophils % Sodium Potassium Chloride Carbon Dioxide BUN Glucose POC Glucose 134 H Calcium Magnesium 1.30 L Troponin T Triglycerides LDL Cholesterol Direct HDL Cholesterol Crossmatch 08/23/21 11:35 RBC Hgb Hct MCHC Lymph % (Auto) [place] % (Auto) Eos % (Auto) Lymph # (Auto) Seg Neutrophils % Sodium Potassium Chloride Carbon Dioxide BUN Glucose POC Glucose 118 H Calcium Magnesium Troponin T Triglycerides LDL Cholesterol Direct HDL Cholesterol Crossmatch Allied health notes reviewed: nursing
--- NOTE | 2021-08-23 13:58 | Event Note ---
Date: 08/23/21 The patient is currently hemodynamically stable with labs that are within normal limits. Medicine will be signing off. Please do not hesitate to reach out should any questions arise.
--- NOTE | 2021-08-23 17:40 | Progress Note ---
Assessment and Plan The patient is doing well with no events overnight. His Life Vest was delivered today. He is doing well clinically and is able to be discharged home. Subjective Date of service: 08/23/21 Principal diagnosis: Acute Limb Ischemia Interval history: Patient without any new complaints. The patient's Life Vest was delivered today. Objective - Constitutional Vitals: Vital Signs - 12hr 08/23/21 08/23/21 08/23/21 07:58 10:00 10:02 Temperature 97.5 F L Pulse Rate 71 71 71 Respiratory 20 20 Rate Blood Pressure 140/60 149/60 O2 Sat by Pulse 96 98 Oximetry 08/23/21 08/23/21 11:37 16:31 Temperature 97.9 F 97.9 F Pulse Rate 71 69 Respiratory 18 18 Rate Blood Pressure 123/66 103/49 O2 Sat by Pulse 99 98 Oximetry General appearance: Present: no acute distress - Respiratory Respiratory effort: normal Extremities: normal temperature (Right foot is warm) Extremity abnormal: other (Right groin is soft and incision is intact) - Labs CBC & Chem 7: 08/23/21 05:41 08/23/21 05:41 Labs: Abnormal lab results 08/22/21 08/23/21 08/23/21 Range/Units 20:30 05:41 11:35 RBC 3.38 L (3.65-5.03) M/mm3 Hgb 10.2 L (11.8-15.2) gm/dl Hct 31.1 L (35.5-45.6) % [place] % (Auto) 8.2 H (0.0-7.3) % Eos % (Auto) 5.9 H (0.0-4.3) % POC Glucose 134 H 118 H (70-105) mg/dL 08/23/21 Range/Units 16:27 RBC (3.65-5.03) M/mm3 Hgb (11.8-15.2) gm/dl Hct (35.5-45.6) % [place] % (Auto) (0.0-7.3) % Eos % (Auto) (0.0-4.3) % POC Glucose 147 H (70-105) mg/dL Medications & Allergies - Medications Allergies/Adverse Reactions: Allergies bee pollen Allergy (Verified 03/07/21 08:11) Swelling Home Medications: Home Medications Medication Instructions Recorded Confirmed Last Taken Type Atorvastatin [Lipitor Tab] 80 mg PO DAILY 03/07/21 08/14/21 08/13/21 History Clopidogrel [Plavix] 75 mg PO QDAY 03/07/21 08/14/21 08/14/21 History Fenofibrate 160 mg PO DAILY 03/07/21 08/14/21 08/14/21 History Insulin Degludec [Tresiba 50 unit SQ DAILY 03/07/21 08/14/21 08/13/21 History Flextouch [id number]] Losartan [Cozaar] 100 mg PO QDAY 03/07/21 08/14/21 08/14/21 History Metoprolol [Lopressor] 100 mg PO DAILY 03/07/21 08/14/21 08/14/21 History Quetiapine Fumarate [SEROquel] 50 mg PO DAILY 03/07/21 08/14/21 08/13/21 History Semaglutide [Ozempic] 1 mg SQ 1XW 03/07/21 08/14/21 08/13/21 History Tamsulosin [Flomax] 0.4 mg PO QDAY 03/07/21 08/14/21 08/13/21 History Aspirin EC [Halfprin EC] 81 mg PO DAILY 04/24/21 08/14/21 08/13/21 History Cetirizine HCl [Zyrtec 10mg tab] 10 mg PO DAILY 08/14/21 08/14/21 08/13/21 History Active Medications: Generic Name Dose Route Start Last Admin Trade Name Freq PRN Reason Stop Dose Admin Acetaminophen 650 mg 08/14/21 22:00 08/18/21 00:24 Acetaminophen 325 Mg Tab PO 650 mg Q4H PRN Administration Pain MILD(1-3)/Fever >100.5/ALICIA Hydrocodone Bitart/Acetaminophen 1 each 08/16/21 16:35 08/19/21 14:16 Hydrocodone/Acetaminophen 5-325 Mg Tab PO 1 each Q4H PRN Administration Pain, Moderate (4-6) Apixaban 2.5 mg 08/15/21 10:00 08/23/21 10:00 Apixaban 2.5 Mg Tab PO 2.5 mg Q12HR FARRAH Administration Protocol Aspirin 81 mg 08/16/21 12:00 08/23/21 10:01 Aspirin 81 Mg Tab Chew PO 81 mg QDAY FARRAH Administration Atorvastatin Calcium 80 mg 08/15/21 10:00 08/23/21 10:01 Atorvastatin 40 Mg Tab PO 80 mg DAILY FARRAH Administration Clopidogrel Bisulfate 75 mg 08/15/21 10:00 08/23/21 10:01 Clopidogrel 75 Mg Tab PO 75 mg QDAY FARRAH Administration Dextrose 50 ml 08/16/21 20:58 Dextrose 50% In Water (25gm) 50 Ml Syringe IV Q30MIN PRN Hypoglycemia Protocol Fenofibrate 145 mg 08/15/21 10:00 08/23/21 10:01 Fenofibrate 145 Mg Tab PO 145 mg DAILY FARRAH Administration Insulin Human Lispro 0 unit 08/15/21 07:30 08/23/21 17:32 Insulin Lispro 100 Unit/Ml SUB-Q Not Given ACHS FARRAH Protocol Losartan Potassium 100 mg 08/24/21 10:00 Losartan 50 Mg Tab PO QDAY FARRAH Metoprolol Succinate 100 mg 08/24/21 10:00 Metoprolol Succinate Xl 100 Mg Tab PO QDAY [facility] Metoprolol Tartrate 50 mg 08/21/21 12:00 08/23/21 10:02 Metoprolol Tartrate 50 Mg Tab PO 08/23/21 23:00 50 mg BID FARRAH Administration Naloxone HCl 0.1 mg 08/14/21 22:07 Naloxone 0.4 Mg/1 Ml Inj IV Q2MIN PRN Res Rate </= 8 or 02 SAT < 92% Ondansetron HCl 4 mg 08/15/21 12:22 Ondansetron 4 Mg/2 Ml Inj IV Q4H PRN Nausea And Vomiting Pantoprazole Sodium 40 mg 08/15/21 07:30 08/23/21 10:18 Pantoprazole 40 Mg Tab PO 40 mg QDAC FARRAH Administration Quetiapine Fumarate 50 mg 08/15/21 22:00 08/22/21 21:37 Quetiapine 25 Mg Tab PO 50 mg QHS FARRAH Administration Sodium Chloride 10 ml 08/14/21 22:00 08/23/21 10:05 Sodium Chloride 0.9% 10 Ml Flush Syringe IV 10 ml BID FARRAH Administration Sodium Chloride 10 ml 08/14/21 11:30 Sodium Chloride 0.9% 10 Ml Flush Syringe IV PRN PRN LINE FLUSH Tamsulosin HCl 0.4 mg 08/15/21 10:00 08/23/21 10:00 Tamsulosin 0.4 Mg Cap PO 0.4 mg QDAY FARRAH Administration HEART Score - HEART Score Troponin: Troponin T 0.192 ng/mL (0.00-0.029) H* D 08/21/21 06:55
--- NOTE | 2021-08-23 17:47 | Discharge Summary ---
Providers - Providers Date of Admission: 08/14/21 11:19 Attending physician: GEORGES RIDDLE 08/14/21 16:53 Consult to Physician [CONS] Routine Comment: Consulting Provider: AYLEEN BAUGH Physician Instructions: Reason For Exam: bypass Consult to Physician [CONS] Routine Comment: Consulting Provider: ERIC DAILY Physician Instructions: s/p bypass Reason For Exam: medical management 08/15/21 11:45 Consult to Physician [CONS] Routine Comment: Consulting Provider: MANDEEP ANDERSON Physician Instructions: Reason For Exam: patient known to us 08/15/21 12:19 Consult to Physician [CONS] Routine Comment: dr. anderson saw pat. / maddy Consulting Provider: MANDEEP ANDERSON Physician Instructions: Reason For Exam: pulmonary edema/cardiac management 08/17/21 10:33 Consult to Case Management [CONS] Urgent Services Needed at Discharge: Home Health Services DME Equipment Notified:: order placed Additional Physician Instructions: Would like to discharge tomorrow if arrangements can be made. Physical Therapy Evaluation and Treat [CONS] Urgent Comment: Reason For Exam: ADL - s/p femoral endarectomy 08/19/21 15:19 Physical Therapy Evaluation and Treat [CONS] Routine Comment: Reason For Exam: debility 08/19/21 15:20 Occupational Therapy Evaluate and Treat [CONS] Routine Comment: Reason For Exam: impaired ADLS 08/22/21 14:51 Consult to Case Management [CONS] Routine Services Needed at Discharge: Home Health Services Physical Therapy Other Notified:: outsole caser Comment:: other is lifevest Additional Physician Instructions: needs followup with Dr. Romero in 2 weeks @ [phone] Primary care physician: CHET JACKSON Hospitalization Reason for admission: Right Lower Extremity Acute Ischemia Condition: Good Procedures: Date of procedure: 08/14/21 Pre-op diagnosis: critical limb ischemia Post-op diagnosis: same Findings: Occluded right superficial femoral artery, and popliteal artery with thrombus in the right common femoral artery. Percutaneous thrombectomy performed but was only partially successful and ultimately resulted in reocclusion. Procedure: 1. Ultrasound-guided access of the right common femoral artery, antegrade, with attempted selection of the right superficial femoral artery. 2. Angiography of the right lower extremity. 3. Selection of the left common femoral artery with angiography of the left lower extremity. 4. Selection of the abdominal aorta with angiography. 5. Selection of the right external iliac artery, and common femoral artery with angiography. 6. Percutaneous mechanical thrombectomy of the right common femoral artery with 6 Urdu guide and CAT 7 penumbra indigo device 7. Angioplasty of the right profunda femoral artery with a 5 mm by 60 mm shockwave device and stenting with a 6 mm x 40 mm ever flex stent. 8. Angioplasty of the right common femoral artery with a 6 mm x 40 mm angiop lasty balloon. 9. Repeat CAT 7 penumbra indigo aspiration thrombectomy of the right common femoral artery and profunda femoral artery multiple times. 10. Removal of both sheaths with plan for operative treatment. 11. Ultrasound-guided access of the right internal jugular vein with placement of a 15 cm triple-lumen catheter Anesthesia: local (With conscious sedation) Surgeon: GEORGES RIDDLE Estimated blood loss: other (750 mL blood loss from penumbra device) Condition: stable Disposition: other (to OR) Date: 08/14/21 21:55 Initialization Date: 08/14/21 21:55 Operative Report Operative Report: Date of Procedure: 08/14/2021 Pre-operative Diagnosis: Acute Right Lower Extremity Ischemia Post-operative Diagnosis: Same Procedure(s): 1. Right External Iliac to Right Common Femoral Bypass with 10 mm Propaten PTFE Graft 2. Open Thrombectomy of Right Profunda Graft with 3 Jose Surgeon: Cricket Romero M.D. 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 The SFA was occluded secondary to heavy plaque burden and the profunda was near totally occluded secondary to the mural thrombus and significant plaque burden extending into the branches of the profunda. 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 Indication: The patient is a 76-year-old male with a history of arteriomegaly and diffuse aneurysmal disease who presented to the office with critical limb ischemia. He was undergoing an endovascular procedure to restore flow to his right lower extremity became acutely ischemic. Given his history of a common femoral aneurysm with occlusion of his SFA it was felt that his best outcome would be achieved in the operating room. The decision was made to transport him to the operating room for limb salvage. He and his daughter were given the risk, benefits, and alternative procedures and consented to the procedure. Description of Procedure: The patient was brought to the operating room and laid in supine position. After a timeout was performed general endotracheal anesthesia was achieved and the patient's right leg and groin were prepped and draped in normal sterile fashion. A longitudinal incision was created in the right groin and carried down to the anterior abdominal wall using a combination of cautery and sharp dissection. Once the anterior abdominal wall was identified I followed this down to the common femoral artery and dissected slightly under the inguinal ligament to identify the distal external iliac artery. The distal external iliac artery was also aneurysmal however not as dilated as the common femoral artery. I dissected circumferentially around the external iliac artery and controlled this with a vessel loop. I dissected along the medial aspect of the common femoral artery until I identified the transition to the SFA and then I dissected the SFA circumferentially controlled with a vessel loop. I then identified the profunda artery and dissected down to the first branching points of the profunda artery. I dissected each branch circumferentially controlled them with Vesseloops. At this point I systemically heparinized the patient with 5000 units of heparin IV and this was redosed with 1000 units every 45 minutes into the completion of the case. I clamped all vessels using various vascular clamps and then created an arteriotomy, using an 11 blade and Alvarez scissors, extending from the proximal common femoral artery to just proximal to the bifurcation of the SFA and profunda artery. Upon creating the arteriotomy there was a significant amount of mural thrombus with obliteration of the lumen of the common femoral artery from the thrombus. Identified a previously placed stent within the profunda artery and remove this. The origin of the SFA was occluded with plaque which I was able to core out and remove the first 4 to 5 cm of plaque using a Durham and hemostat. I then used a Durham to begin to remove plaque from the wall of the common femoral artery, with a plan to leave the back wall and use a bypass graft to close the femoral arteriotomy as my plan was to perform a femoral to below-knee popliteal artery bypass. As I continued the r emoval of the plaque towards the profunda artery there was near total occlusion of the origin of the profunda artery and the heavily calcified plaque extended down into each branch of the profunda artery however the not appear to extend distal to the origin of the branches. I used Alvarez to extend the arteriotomy down to the branching point of the profunda artery and used a Durham to continue the endarterectomy until I had debulk all plaque from both branches. I removed the clamps and there was minimal backbleeding from each branch. I passed a 3 Jose down each branch respectively and after retrieving thrombus both branches had a significant amount of backbleeding. I flushed each branch with heparinized saline and reclamped the branches. Given the amount of backbleeding and the size of the profunda artery which was approximately 10 mm with each branch measuring approximately 5 to 6 mm I decided that it was best to replace the common femoral artery with a tube graft instead of attempting the femoropopliteal bypass as I felt this would have better patency. I resected the common femoral artery and debulked all plaque and mural thrombus from the distal external iliac artery. I then used a 7 mm ringed Propaten PTFE Graft that had been soaked in rifampin. I remove the rings and cut an adequate length for placement of the common femoral artery. I beveled the proximal end of the graft and created an end-to-end anastomosis between the graft and the distal external iliac artery using two 5-0 Prolene's in running fashion. I clamped the end of the graft and remove the clamp from the external iliac artery to check hemostasis. I then cut the graft to length and beveled the distal end and created an end-to-end anastomosis between the graft and the bifurcation of the SFA and profunda artery using two 5-0 Prolene's in running fashion. Prior to completing the closure I flashed the profunda artery as well as the external iliac artery. There was also a medial sidebranch that I left intact that was flashed. I reclamped those vessels and then flushed the graft to remove any debris. I completed the closure and then released all clamps allowing flow into the profunda artery. Hemostasis within the wound was achieved with a combination of 6-0 Prolene's on the suture lines, quick clot, and VistaSeal. Once hemostasis was achieved the wound was anesthetized with 0.5% Marcaine. The wound was then closed in 3 layers using 3-0 Vicryl running fashion to reapproximate the fascia, 3-0 Vicryl running fashion the deep dermal layer, and 4-0 Monocryl in running fashion subcuticular layer. The wound was dressed with Dermabond. The patient tolerated the procedure well. All sponge, needle, and instrument counts were correct. The patient was taken to the recovery area in stable condition. Hospital course: The patient is a 76-year-old male who was brought to the hospital on August 14, 2021 for endovascular revascularization of his right lower extremity for critical limb ischemia. During the procedure his leg became acutely more ischemic requiring transfer to the operating room for an open resection of his right common femoral aneurysm and repair with interposition 10 mm PTFE as well as endarterectomy and open thrombectomy of his profunda artery. His postoperative course was complicated by hypotension requiring pressor support an d cessation of his antihypertensive medications. He eventually was was weaned off the pressors however he did require midodrine to support his blood pressure. The patient was eventually able to be transferred from the intensive care unit to the [facility] where he began to progress well. He was eventually transferred to telemetry and initially did well. He was able to be weaned off of his midodrine with relative normalization of his blood pressure. He did have an episode of V. tach which was symptomatic and resulted in a short course of chest compressions however he did respond quickly without significant effects. He was restarted on his metoprolol and had his labs corrected and has not had any additional episodes however cardiology felt that he would benefit from a Life Vest which she has awaited prior to his discharge. Since being transported to telemetry he has worked with physical therapy and has progressively increase his activity and no longer requires the use of a rolling walker. His foot has remained warm and well-perfused and he has not had no complications with his incisions. He is clinically ready for discharge to home with his LifeVest. Disposition: 01 HOME / SELF CARE / HOMELESS Final Discharge Diagnosis (Prints w/discharge instructions): Right LE Critical Limb Ischemia Core Measure Documentation - Palliative Care Palliative Care/ Comfort Measures: Not Applicable - Core Measures Any of the following diagnoses?: history only - VTE Discharge Requirements Deep Vein Thrombosis/Pulmonary Embolism Present on Admission: No - Acute AR Discharge Requirements Aspirin at discharge: Yes - Heart Failure Discharge Requirements DYLAN/ARB for LVSD if EF <40%: Yes - Stroke Discharge Requirements Statin for LDL = or >70 mg/dl on DC: Not Applicable Exam - Constitutional Vitals: Temp Pulse Resp BP Pulse Ox 97.9 F 69 18 103/49 98 08/23/21 16:31 08/23/21 16:31 08/23/21 16:31 08/23/21 16:31 08/23/21 16:31 Plan Activity: other (No heavy lifting or strenuous activity for 2 weeks.) Wound: other (Okay to wash the wound with soap and water but do not soak in water for 2 weeks. Do not get the LifeVest wet.) Follow up with: GEORGES RIDDLE MD [Staff Physician] - 14 Days Prescriptions: Apixaban [Eliquis] 2.5 mg PO Q12HR #60 tablet Metoprolol Xl [Metoprolol SUCCINATE ER TAB] 100 mg PO QDAY #90 tablet HYDROcodone/APAP 5-325 [[place] 5-325 mg TAB] 1 each PO Q4H PRN #40 tablet PRN Reason: Pain, Moderate (4-6) Pantoprazole [Protonix TAB] 40 mg PO QDAC #90 tablet
[2021-08-23 19:44] VITALS: BP 117/60
[2021-08-24] MEDS ORDERED: LOSARTAN 50 MG TAB PO SCH (10:00)
[2021-08-24] MEDS ORDERED: METOPROLOL SUCCINATE XL 100 MG TAB PO SCH (10:00)
--- NOTE | 2021-08-24 10:13 | Electrocardiograph Report ---
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
--- NOTE | 2021-08-24 10:14 | Electrocardiograph Report ---
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
== END 2021-08-23 22:03 | disposition home health service (06) | DRG 270 ==
LOC: CATHLABREC 08:28 → CC1 11:19 → IMCU 08-16 18:41 → 4A 08-18 17:51
PROVIDERS: ADMIT Radiology Diagnostic Radiology; ATTEND Radiology Diagnostic Radiology
PROC: 041H0JH Bypass Right External Iliac Artery to Right Femoral Artery with Synthetic Substitute, Open Approach (ICD-10-PCS; principal; 2021-08-14)
PROC: 04CK0ZZ Extirpation of Matter from Right Femoral Artery, Open Approach (ICD-10-PCS; 2021-08-14)
PROC: 047K3DZ Dilation of Right Femoral Artery with Intraluminal Device, Percutaneous Approach (ICD-10-PCS; 2021-08-14)
PROC: B41D1ZZ Fluoroscopy of Aorta and Bilateral Lower Extremity Arteries using Low Osmolar Contrast (ICD-10-PCS; 2021-08-14)
PROC: 30233N1 Transfusion of Nonautologous Red Blood Cells into Peripheral Vein, Percutaneous Approach (ICD-10-PCS; 2021-08-14)
PROC: 5A09357 Assistance with Respiratory Ventilation, Less than 24 Consecutive Hours, Continuous Positive Airway Pressure (ICD-10-PCS; 2021-08-17)
PROC: 5A09457 Assistance with Respiratory Ventilation, 24-96 Consecutive Hours, Continuous Positive Airway Pressure (ICD-10-PCS; 2021-08-19)
PROC: 5A09357 Assistance with Respiratory Ventilation, Less than 24 Consecutive Hours, Continuous Positive Airway Pressure (ICD-10-PCS; 2021-08-23)
DX: E11.51 Type 2 diabetes mellitus with diabetic peripheral angiopathy without gangrene (principal); J96.01 Acute respiratory failure with hypoxia; I21.4 Non-ST elevation (NSTEMI) myocardial infarction; E66.2 Morbid (severe) obesity with alveolar hypoventilation; J98.11 Atelectasis; I47.2 Ventricular tachycardia; I70.213 Atherosclerosis of native arteries of extremities with intermittent claudication, bilateral legs; I25.10 Atherosclerotic heart disease of native coronary artery without angina pectoris; Z20.822 Contact with and (suspected) exposure to COVID-19; N18.9 Chronic kidney disease, unspecified; I70.221 Atherosclerosis of native arteries of extremities with rest pain, right leg; I99.8 Other disorder of circulatory system; I25.5 Ischemic cardiomyopathy; Z68.37 Body mass index [BMI] 37.0-37.9, adult; Z79.899 Other long term (current) drug therapy; Z79.82 Long term (current) use of aspirin; I95.9 Hypotension, unspecified; N40.0 Benign prostatic hyperplasia without lower urinary tract symptoms; E78.5 Hyperlipidemia, unspecified; D64.9 Anemia, unspecified; I77.89 Other specified disorders of arteries and arterioles; E87.6 Hypokalemia; E11.22 Type 2 diabetes mellitus with diabetic chronic kidney disease
CPT/HCPCS: 36415; 37184; 37226; 71045; 75710; 76937; 80048; 80061; 82140; 82962; 83735; 84132; 84484; 85014; 85018; 85025; 85384; 85610; 85730; 86850; 86900; 86901; 86920; 88304; 88311; 90686; 93005; 94640; 94660; 94760; G0378; C1725; C1751; C1757; C1768; C1769; C1876; C1887; C1894; J0282; J0690; J1170; J1644; J1815; J1940; J2060; J2250; J2370; J2405; J2710; J2997; J3010; J3475; J3480; J3490; J7030; J7040; J7050; J7120; P9016; Q9967; U0003

== ENCOUNTER 2021-11-30 08:29 | Observation (INO) | payer MEDICARE ==
[2021-11-30] MEDS ORDERED: SODIUM CHLORIDE IRRI 1000 ML 1,000 ML, .VANCOMYCIN VIAL 1,000 MG IR SCH (10:07)
[2021-11-30] MEDS ORDERED: SODIUM CHLORIDE 0.9% 1000 ML 1,000 ML ONE (10:09)
[2021-11-30 10:30] LABS: Basophils % (Auto) 0.5 % (0.0-1.8); Eosinophils # (Auto) 0.1 K/mm3 (0.0-0.4); Eosinophils % (Auto) 1.8 % (0.0-4.3); Hematocrit 45.7 % (35.5-45.6); Hemoglobin 14.5 gm/dl (11.8-15.2); Lymphocytes # (Auto) 1.7 K/mm3 (1.2-5.4); Lymphocytes % (Auto) 22.4 % (13.4-35.0); Mean Corpuscular HGB Conc 32 % (32-34); Mean Corpuscular Volume 89 fl (84-94); Monocytes # (Auto) 0.6 K/mm3 (0.0-0.8); Monocytes % (Auto) 8.4 % (0.0-7.3); Platelet Count 243 K/mm3 (140-440); Red Blood Count 5.14 M/mm3 (3.65-5.03); Red Cell Distribution Width 14.2 % (13.2-15.2)
[2021-11-30 10:44] LABS: Partial Thromboplastin Time 25.8 Sec. (24.2-36.6)
[2021-11-30 10:45] LABS: Calcium 9.5 mg/dL (8.4-10.2)
--- NOTE | 2021-11-30 10:50 | Anesthesia Consultation ---
Anesthesia Consult and Med Hx Date of service: 11/30/21 - Airway Anesthetic Teeth Evaluation: Good, Partials ROM Head & Neck: Adequate Mental/Hyoid Distance: Adequate Mallampati Class: Class IV Intubation Access Assessment: Possibly Difficult - Pre-Operative Health Status ASA Pre-Surgery Classification: ASA3 Proposed Anesthetic Plan: MAC - Pulmonary Hx Smoking: Yes (1 p/d x 20 years, quit 25 years ago) Hx Asthma: No Hx Respiratory Symptoms: No Hx Sleep Apnea: Yes (uses CPAP every night) - Cardiovascular System Hx Hypertension: Yes Hx Coronary Artery Disease: Yes (remote hx CABG) Hx Heart Attack/AMI: Yes (remote hx; EF 30-35% per flour tester) Hx Cardia Arrhythmia: Yes (paraxismal NSVT) Hx Peripheral Vascular Disease: Yes (w/ acute limb ischemia, s/p thrombectomy) - Central Nervous System Hx Seizures: No CVA: No - Gastrointestinal Hx Ulcer: No - Endocrine Hx Renal Disease: Yes Hx Liver Disease: No Hx Insulin Dependent Diabetes: Yes Hx Thyroid Disease: No - Hematic Hx Anemia: No - Other Systems Hx Alcohol Use: No Hx Cancer: No Hx Obesity: Yes (BMI 37.2)
--- NOTE | 2021-11-30 10:58 | Anesthesia Day of Surgery ---
Anesthesia Day of Surgery - Day of Surgery Patient Examined: Yes Patient H&P Reviewed: Yes Patient is NPO: Yes Beta Blockers: Yes
[2021-11-30] MEDS ORDERED: SODIUM CHLORIDE IRRI 500 ML 500 ML IR ONE (11:23)
[2021-11-30] MEDS ORDERED: BUPIVACAINE/PF (0.5%) 5 MG/1 ML 10 ML VIAL INFILTRATI ONE (11:23)
[2021-11-30] MEDS ORDERED: LIDOCAINE (2%) 20 MG/1 ML VIAL 20 ML MDV INFILTRATI ONE (11:24)
[2021-11-30] MEDS ORDERED: ceFAZolin/Water 2 GM/20 ML 2 GM/20 ML SYRINGE IV ONE (11:24)
[2021-11-30] MEDS ORDERED: MIDAZOLAM 2 MG/2 ML INJ ONE (11:36)
[2021-11-30] MEDS ORDERED: HYDROmorphone 1 MG/1 ML INJ ONE (11:36)
[2021-11-30] MEDS ORDERED: propofoL 200 MG/20 ML VIAL IV ONE ×4 (11:36)
[2021-11-30] MEDS ORDERED: LIDOCAINE MPF (2%) 20 MG/1 ML VIAL 5 ML ONE (11:37)
[2021-11-30] MEDS ORDERED: KETAMINE/STERILE WATER 50 MG/ML SYRINGE ONE (11:37)
[2021-11-30] MEDS ORDERED: HYDROcodone/ACETAMINOPHEN 5-325 MG TAB PO PRN ×2 (13:35→14:17)
[2021-11-30] MEDS ORDERED: ONDANSETRON 4 MG/2 ML INJ IV PRN (14:17)
[2021-11-30] MEDS ORDERED: ACETAMINOPHEN 325 MG TAB PO PRN (14:17)
--- NOTE | 2021-11-30 14:27 | Short Stay Summary ---
Short Stay Documentation Date of service: 11/30/21 - History H&P: obtained from office - Allergies and Medications Current Medications: Allergies bee pollen Allergy (Verified 10/19/21 23:19) Swelling Home Medications Medication Instructions Recorded Confirmed Last Taken Type Atorvastatin [Lipitor] 80 mg PO DAILY 03/07/21 11/30/21 11/29/21 History 80 mg Clopidogrel [Plavix] 75 mg PO QDAY 03/07/21 11/30/21 11/29/21 History 75 mg Fenofibrate 160 mg PO DAILY 03/07/21 11/30/21 11/29/21 History 160 mg Quetiapine Fumarate [SEROquel] 50 mg PO DAILY 03/07/21 11/30/21 11/29/21 History 50 mg Semaglutide [Ozempic] 1 mg SQ 1XW 03/07/21 11/30/21 11/29/21 History 1 mg Cetirizine HCl [Zyrtec 10mg tab] 10 mg PO DAILY 08/14/21 11/30/21 11/29/21 History 10 mg Apixaban [Eliquis] 2.5 mg PO Q12HR #60 tablet 10/23/21 11/30/21 11/27/21 Rx 2.5mg Metoprolol [Lopressor TAB] 12.5 mg PO BID 30 Days #60 tablet 10/23/21 11/30/21 11/29/21 Rx 12.5mg Midodrine [Proamatine] 10 mg PO TID@0800,1200,1600 30 10/23/21 11/30/21 11/29/21 Rx Days #90 tablet 10 mg Amiodarone [Cordarone 200 MG TAB] 200 mg PO ONCE 11/30/21 11/30/21 11/29/21 History 200 mg Cholecalciferol Vit D3 [Vitamin D3 3,000 units PO DAILY 11/30/21 11/30/21 11/29/21 History 1,000 UNIT TAB] 3000 units Insulin Degludec [Tresiba 50 units SQ DAILY 11/30/21 11/30/21 11/29/21 History Flextouch U-200] 50 units Pentoxifylline [TRENtal] 400 mg PO TID 11/30/21 11/30/21 11/29/21 History 400 mg Tamsulosin [Flomax] 0.4 mg PO DAILY 11/30/21 11/30/21 11/29/21 History 0.4mg Active Medications Acetaminophen (Acetaminophen 325 Mg Tab) 650 mg PO Q4H PRN PRN Reason: Pain MILD(1-3)/Fever >100.5/ALICIA Hydrocodone Bitart/Acetaminophen (Hydrocodone/Acetaminophen 5-325 Mg Tab) 1 each PO Q6H PRN PRN Reason: Pain, Moderate (4-6) Hydrocodone Bitart/Acetaminophen (Hydrocodone/Acetaminophen 5-325 Mg Tab) 2 each PO Q6H PRN PRN Reason: Pain, Moderate (4-6) Sodium Chloride 1,000 ml/ (Vancomycin HCl 1,000 mg) 0 ml IR INTRAOP FARRAH Last Admin: 11/30/21 12:09 Dose: 1,000 ml Cefazolin Sodium (Ancef/Ns 1 Gm/50 Ml) 1 gm in 50 mls @ 100 mls/hr IV Q8H FARRAH Stop: 12/01/21 04:29 Ondansetron HCl (Ondansetron 4 Mg/2 Ml Inj) 4 mg IV Q8H PRN PRN Reason: Nausea And Vomiting Sodium Chloride (Sodium Chloride 0.9% 10 Ml Flush Syringe) 10 ml IV BID FARRAH Sodium Chloride (Sodium Chloride 0.9% 10 Ml Flush Syringe) 10 ml IV PRN PRN PRN Reason: LINE FLUSH - Physical exam Integumentary: other (Dressing clena dry and intact no bleeding or hematoma) - Brief post op/procedure progress note Date of procedure: 11/30/21 Pre-op diagnosis: ICMP/AICD placement Post-op diagnosis: same Anesthesia: local Estimated blood loss: minimal - Hospital course Hospital course: Patient underwent AICD implant on 11/30/2021. Patient tolerated procedure well with no complications 12/01/2021-patient reports feeling well this a.m. is in no acute distress. Procedure dressing site is clean dry and intact. No signs of bleeding or hematoma. Chest x-ray is negative for pneumothorax. Patient cardiac status stable for discharge patient has follow-up as already scheduled. Instructed patient to hold Eliquis and Plavix for 5 days following procedure. Patient verbalized and acknowledged understanding - Disposition Condition at discharge: Good - Discharge Diagnoses (1) Stented coronary artery Status: Acute (2) CAD (coronary artery disease) Status: Chronic (3) CKD (chronic kidney disease) Status: Chronic (4) Hx of CABG Status: Chronic (5) Hyperlipidemia Status: Chronic Qualifiers: (6) Ischemic cardiomyopathy Status: Chronic (7) NSVT (nonsustained ventricular tachycardia) Status: Chronic (8) Obesity hypoventilation syndrome Status: Chronic (9) Peripheral vascular disease Status: Chronic Short Stay Discharge Plan Activity: advance as tolerated Diet: low fat, low cholesterol, low salt Wound: keep clean and dry, per your surgeon's advice Additional Instructions: Patient should hold Eliquis and Plavix for 5 days after procedure. Patient should resume these medications on Sunday, December 05, 2021 Patient has a follow-up appointment with the device clinic on 12/12/2021 at 9:30 AM at our [facility] Patient has a follow-up appointment with Dr. Dukes on 12/19/2021 at 3:[address] [facility]. Phone #[phone] Follow up with: PRIMARY MD BERTIN [Primary Care Provider] - 7 Days MANDEEP DUKES MD [Staff Physician] - 7 Days (Patient has a follow-up appointment with the device clinic on 12[facility] Patient has a follow-up appointment with Dr. Dukes on 12/19/2021 at 3:[address] [facility]. Phone #[phone] )
--- NOTE | 2021-11-30 15:20 | XRay Report ---
CHEST 1 VIEW 11/30/2021 2:02 PM INDICATION / CLINICAL INFORMATION: Pacemaker Postop. COMPARISON: 10/19/2021. FINDINGS: SUPPORT DEVICES: ICD in satisfactory position. HEART / MEDIASTINUM: Stable. LUNGS / PLEURA: Persistent elevation of the left hemidiaphragm. Mild left basilar atelectasis/scarrin g. No significant infiltrate. No pneumothorax. ADDITIONAL FINDINGS: No significant additional findings. IMPRESSION: Elevation of the left hemidiaphragm with mild atelectasis/scarring. Signer Name: Cb Higgins MD Signed: 11/30/2021 3:16 PM Workstation Name: [id number]
--- NOTE | 2021-11-30 19:30 | Post Anesthesia Evaluation ---
- Post Anesthesia Evaluation Patient Participated: Yes Airway Patent: Yes Stable Respiratory Function: Yes Nausea/Vomiting: No Temp > 96.8F: Yes Pain Manageable: Yes Adequeate Hydration: Yes Anesthesia Complications: No Block Receding Appropriately: Not Applicable Patient on Ventilator: No
[2021-11-30] MEDS: ceFAZolin/NS 1 GM/50 ML 1 GM/50 ML BAG IV SCH (21:53)
[2021-11-30] MEDS ORDERED: QUEtiapine 25 MG TAB PO SCH (22:00)
[2021-12-01] MEDS: ceFAZolin/NS 1 GM/50 ML 1 GM/50 ML BAG IV SCH (05:13)
[2021-12-01] MEDS ORDERED: METOPROLOL TARTRATE 25 MG TAB PO SCH ×2 (10:00→22:00)
[2021-12-01] MEDS ORDERED: AMIODARONE 200 MG TAB PO SCH ×2 (10:00→16:31)
--- NOTE | 2021-12-01 10:23 | Electrocardiograph Report ---
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
--- NOTE | 2021-12-01 10:24 | Electrocardiograph Report ---
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
[2021-12-01 12:54] VITALS: BP 129/67
[2021-12-01] MEDS ORDERED: MIDODRINE 5 MG TAB PO SCH (16:00)
== END 2021-12-01 13:22 | disposition home or self-care (01) ==
LOC: CATHLABREC 08:29 → 4A 14:17
PROVIDERS: ADMIT Internal Medicine Cardiovascular Disease; ATTEND Internal Medicine Cardiovascular Disease
DX: I25.10 Atherosclerotic heart disease of native coronary artery without angina pectoris (principal); Z20.822 Contact with and (suspected) exposure to COVID-19; I25.5 Ischemic cardiomyopathy; I73.9 Peripheral vascular disease, unspecified; I47.2 Ventricular tachycardia; E78.5 Hyperlipidemia, unspecified; E66.2 Morbid (severe) obesity with alveolar hypoventilation; N18.9 Chronic kidney disease, unspecified; Z68.36 Body mass index [BMI] 36.0-36.9, adult; Z95.1 Presence of aortocoronary bypass graft; Z86.79 Personal history of other diseases of the circulatory system; Z79.02 Long term (current) use of antithrombotics/antiplatelets; Z79.4 Long term (current) use of insulin; Z79.899 Other long term (current) drug therapy; Z98.890 Other specified postprocedural states
CPT/HCPCS: 33249; 36415; 71045; 80048; 85025; 85610; 85730; 93005; 93010; 96365; 96366; C1721; C1769; C1777; C1892; C1898; G0378; J0690; J1170; J2250; J2704; J3370; J3490; J7030; U0003; J7120; Q0162

== ENCOUNTER 2022-03-22 09:11 | Day surgery (SDC) | payer MEDICARE ==
[2022-03-22] MEDS ORDERED: SODIUM CHLORIDE 0.9% 1000 ML 1,000 ML ONE (10:03)
[2022-03-22] MEDS ORDERED: SODIUM CHLORIDE 0.9% 1000 ML 1,000 ML IV SCH ×3 (10:15→12:30)
[2022-03-22 10:58] LABS: BUN/Creatinine Ratio TNR; Blood Urea Nitrogen TNR mg/dL (9-20)
[2022-03-22 10:59] LABS: Calcium TNR mg/dL (8.4-10.2); Hemolysis Index TNR
--- NOTE | 2022-03-22 15:26 | Cat Scan Report ---
CTA ABDOMEN, PELVIS, AND LOWER EXTREMITIES WITH CONTRAST INDICATION / CLINICAL INFORMATION: I70.213. Concern for AAA TECHNIQUE: Axial CT images were obtained through the abdomen, pelvis and lower extremities after inje ction of 100 cc of Omnipaque 350 IV contrast. 3 plane MIP / 3D reconstructions were produced. All CT scans at this location are performed using CT dose reduction for ALARA by means of automated exposure control. COMPARISON: None available. FINDINGS: CTA ABDOMEN: Abdominal Aorta: There is severe calcific and soft tissue atherosclerotic disease throughout the abdo flores aorta with aneurysmal dilatation of the infrarenal abdominal aorta measuring up to 4.1 cm. At t his level there is moderate soft tissue thrombus which narrows the lumen by just over 50%. Celiac Artery: Moderate atherosclerosis Superior Mesenteric Artery: No significant abnormality. Right Renal Artery: Mild calcific atherosclerosis Left Renal Artery: Mild calcific atherosclerosis Inferior Mesenteric Artery: Mild calcific atherosclerosis CTA PELVIS: RIGHT: - Common Iliac Artery: There is moderate calcific and soft tissue atherosclerotic disease with aneury smal dilatation measuring up to 2.2 cm. - Internal Iliac Artery: Moderate calcific atherosclerosis. - External Iliac Artery: There is moderate calcific and soft tissue atherosclerotic disease with aneu rysmal dilatation measuring up to 1.6 cm. LEFT: - Common Iliac Artery: Moderate calcific atherosclerosis. - Internal Iliac Artery: Moderate calcific atherosclerosis - External Iliac Artery: Moderate calcific atherosclerosis. CTA LOWER EXTREMITIES: RIGHT LOWER EXTREMITY: - Common Femoral Artery: Moderate calcific atherosclerosis with aneurysmal dilatation measuring up to 1.6 cm. - Superficial Femoral Artery: The entirety of the superficial femoral artery is not opacified and occ luded. There is severe calcific atherosclerotic disease. - Profunda Femoral Artery: Mild calcific atherosclerosis - Popliteal Artery: Completely occluded - Anterior Tibial Artery: Proximal portion is opacified through collaterals. The distal portion is no t well opacified. - Tibioperoneal Trunk: Severe calcific atherosclerosis - Posterior Tibial Artery: No significant abnormality. - Peroneal Artery: No significant abnormality. - Ankle runoff: 2 vessel. 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 - Peroneal Artery: No significant abnormality. - Ankle runoff: Three vessel. NONTARGET STRUCTURES: ABDOMEN:No significant abnormality. PELVIS:Prostate is enlarged measuring 5.9 cm. LOWER EXTREMITIES:No significant abnormality. SKELETAL: Scattered degeneration. ADDITIONAL FINDINGS: Fat-containing anterior abdominal wall hernia. IMPRESSION: 1. Moderate severe soft tissue and calcific atherosclerotic disease as detailed above. There are nume cain regions of aneurysmal dilatation, also detailed above. More specifically there is a 4.1 cm infra renal abdominal aortic aneurysm. 2. Enlarged prostate correlate with PSA values. 3. Additional findings as above. Signer Name: Jose Spangler DO Signed: 03/22/2022 3:20 PM Workstation Name: [id number]
== END 2022-03-22 18:08 | disposition home or self-care (01) ==
LOC: CATHLABREC 09:11 → EDSTATUS 10:15 → CATHLABREC 18:08
PROVIDERS: ATTEND Radiology Diagnostic Radiology
DX: I70.213 Atherosclerosis of native arteries of extremities with intermittent claudication, bilateral legs (principal); I71.4 Abdominal aortic aneurysm, without rupture; I25.10 Atherosclerotic heart disease of native coronary artery without angina pectoris; E11.22 Type 2 diabetes mellitus with diabetic chronic kidney disease; N18.9 Chronic kidney disease, unspecified; I70.321 Atherosclerosis of unspecified type of bypass graft(s) of the extremities with rest pain, right leg; E78.5 Hyperlipidemia, unspecified; G47.33 Obstructive sleep apnea (adult) (pediatric); I25.5 Ischemic cardiomyopathy; D64.9 Anemia, unspecified; I50.9 Heart failure, unspecified; E11.51 Type 2 diabetes mellitus with diabetic peripheral angiopathy without gangrene; E66.9 Obesity, unspecified; M19.90 Unspecified osteoarthritis, unspecified site; Z68.37 Body mass index [BMI] 37.0-37.9, adult; Z83.3 Family history of diabetes mellitus; Z95.1 Presence of aortocoronary bypass graft; Z87.440 Personal history of urinary (tract) infections; Z90.49 Acquired absence of other specified parts of digestive tract; Z98.890 Other specified postprocedural states; Z82.49 Family history of ischemic heart disease and other diseases of the circulatory system
CPT/HCPCS: 36415; 75635; 80048; 96360; 96365; 96366; J7030; Q9967